=== PATIENT | female | born 1945 | race Caucasian/White ===

== ENCOUNTER 2019-09-27 06:28 | Observation (INO) | payer MEDICARE, SELFPAY ==
[2019-09-27] VITALS (16 sets, daily range): BP systolic 109–176; BP diastolic 50–95; PULSE 72–116; RESP 20–31; TEMP 36.7–37.6; O2SAT 93–97
--- NOTE | ~2019-09-27 | XR_ITS ---
EXAMINATION: XR chest 1V portable INDICATION: Chest pain and shortness of breath TECHNIQUE: Portable AP chest at 0717 hours COMPARISON: 04/13/2019 FINDINGS: The lungs are free of acute opacities. There is no pleural effusion or pneumothorax. The ca rdiomediastinal silhouette is normal. A cardiac loop recorder projects over the left lower thorax. Ca lcified pulmonary nodules are consistent with old granulomatous disease. IMPRESSION: 1. No acute cardiopulmonary abnormality. Reviewed, dictated and finalized at location A.
--- NOTE | ~2019-09-27 | XR_ITS ---
EXAMINATION: XR chest 2V DATE: 09/29/2019 13:55 INDICATION: Fever. Shortness of breath and chest pain. TECHNIQUE: Frontal and lateral views of the chest were obtained. COMPARISON: Chest single view 09/27/2019, chest CT 08/12/2017 FINDINGS: There is mild atelectasis in left lower lung zone. A calcified right lung nodule and calcif ied right hilar lymph nodes are consistent with old granulomatous disease. There is blunting of the p osterior costophrenic angles. No pneumothorax. The heart size is normal. There is an electronic impla nt in left anterior chest wall. IMPRESSION: 1. Mild atelectasis in left lower lung zone. 2. Blunting of the posterior costophrenic angles, consistent with scarring versus tiny pleural effusi ons. Reviewed, dictated and finalized at location A. IMPRESSION: 1. Mild atelectasis in left lower lung zone. 2. Blunting of the posterior costophrenic angles, consistent with scarring vers us tiny pleural effusions.
--- NOTE | 2019-09-27 06:35 | ECG_ITS ---
Measurements Intervals [place] Rate: 110 P: 87 MN: 172 QRS: 58 QRSD: 88 T: 147 QT: 343 QTc: 466 Interpretive Statements SINUS TACHYCARDIA BORDERLINE ST-T WAVE ABNORMALITY- INF/LAT LEADS BASELINE ARTIFACT- I, II, III, AVR, AVL, AVF, V4 ABNORMAL ECG Electronically Signed On 09-27-2019 8:11:07 CDT by Binh Emerson D.O.
[2019-09-27 06:50] LABS: Basophils Absolute Auto 0.1 K/mm3 (0.0-0.1); Basophils Percent Auto 0.6 % (0.2-1.2); Eosinophils Absolute Auto 0.3 K/mm3 (0-0.3); Eosinophils Percent Auto 1.6 % (0-4.4); Hematocrit 38.1 % (37.0-47.0); Hemoglobin 12.3 g/dL (12.0-15.0); Immature Granulocyte Absolute 0.09 K/mm3 (0.00-0.031); Immature Granulocyte Percent A 0.5 % (0-0.5); Lymphocytes Absolute Auto 1.23 K/mm3 (0.9-3.2); Lymphocytes Percent Auto 6.3 % (18.3-44.2); Mean Corpuscular HGB Conc 32.3 g/dl (32-36); Mean Corpuscular Hemoglobin 29.4 pg (26-34); Mean Corpuscular Volume 90.9 fl (80-100); Mean Platelet Volume 10.7 fl (7.4-10.4); Monocytes Absolute Auto 1.5 K/mm3 (0.1-0.6); Monocytes Percent Auto 7.7 % (2.6-8.5); Neutrophils Absolute Auto 16.4 K/mm3 (1.3-6.7); Neutrophils Percent Auto 83.3 % (45.5-73.1); Platelet Count Result 320 k/mm3 (150-375); Red Blood Count 4.19 M/mm3 (4.2-5.4); Red Cell Distribution Width 15.5 % (11.5-14.5); White Blood Count 19.6 K/mm3 (4.5-10.0)
[2019-09-27 07:31] LABS: Blood Urea Nitrogen 23 mg/dL (7-17); Calcium 9.2 mg/dL (8.4-10.2); Carbon Dioxide 23 mmol/L (22-30); Chloride 103 mmol/L (98-107); Estimated CRCL calculation 30 ml/min; Estimated Glomerular Filt Rate 37; Glucose 291 mg/dL (65-105); Potassium 4.3 mmol/L (3.4-5.0); Sodium 136 mmol/L (137-145)
[2019-09-27 08:32] LABS: Alveolar/Arterial O2 Gradient 46.2 mmHg; Base Excess ABG -3.1 mEq/l (+/-2.0); Fractional Inspired Oxygen 21 %; HCO3 ABG 20.9 mEq/l (22.0-26.0); Oxygen Saturation ABG 92.4 % (95.0-100.0); Oxyhemoglobin 90.8 % THb (90.0-100.0); PO2 ABG 62.8 mmHg (80.0-100.0); PO2 FiO2 Ratio Arterial Blood 2.99 %; Total Hemoglobin 12.5 g/dL (12.0-18.0); pH ABG 7.407 (7.350-7.450)
[2019-09-27 08:33] LABS: Device ROOM AIR; Site Drawn RIGHT BRACHIAL
[2019-09-27 08:46] LABS: Lactic Acid 2.4 mmol/L (0.7-2.1)
--- NOTE | 2019-09-27 08:55 | ED.SOB ---
HPI - SOB/Dyspnea General Chief Complaint: Shortness of Breath/Dyspnea Stated Complaint: sob/cp/fever Time Seen by Provider: 09/27/19 07:52 History of Present Illness HPI Narrative: Patient presents from home for shortness of breath. Started at 4 in the morning. No cough. She has had fever of 102, chills, and sweats. She has a history of cardiac valve disease. She has no nausea or vomiting. She has no swelling in the ankles, but occasional swelling in the mid abdomen. She says her eyes are always swollen. 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 She was getting injections in her eyes, but could not pay the bill and had to postpone her care. The vision in her right eye is blurry. MD elicited complaint: shortness of breath Pertinent past history: diabetes and other (Hypertension) Onset (ago): hour(s) Related Data Home Medications Medication Instructions Recorded Confirmed aspirin [Aspir-81] 81 mg PO DAILY 04/13/19 09/27/19 atorvastatin 80 mg PO DAILY 04/13/19 09/27/19 cholecalciferol (vitamin D3) 1,000 unit PO DAILY 04/13/19 09/27/19 [Vitamin D3] furosemide 40 mg PO DAILY 04/13/19 09/27/19 insulin aspart U-100 [Novolog 10 unit SUBCUT TID PRN 04/13/19 09/27/19 Flexpen U-100 Insulin] lisinopril 40 mg PO DAILY 04/13/19 09/27/19 nitroglycerin 0.4 mg SUBLINGUAL ONCE 04/13/19 09/27/19 amlodipine 5 mg tablet 5 mg PO DAILY tablet 05/13/19 09/27/19 carvedilol [Coreg] 6.25 mg PO BID 09/27/19 09/27/19 gabapentin 300 mg PO HS 09/27/19 09/27/19 metformin 500 mg PO BID 09/27/19 09/27/19 potassium chloride [Klor-Con M10] 10 meq PO DAILY 09/27/19 09/27/19 Allergies Allergy/AdvReac Type Severity Reaction Status Date / Time No Known Allergies Allergy Verified 09/27/19 06:36 Review of Systems Review of Systems: Narrative: CONSTITUTIONAL: She has fever, chills, and sweats. EYES: Denies visual changes, redness, or discharge. ENT: Denies rhinorrhea, congestion, sore throat, or otalgia. CARDIOVASCULAR: Denies chest pain, palpitations, or edema. RESPIRATORY: Denies cough , but has dyspnea. GASTROINTESTINAL: Denies abdominal pain, nausea, vomiting, or diarrhea. GENITOURINARY: Denies dysuria or hematuria. SKIN: Denies rash or itching. MUSCULOSKELETAL: Denies back pain, joint pain, or myalgia. NEUROLOGIC: Denies headache, numbness, or weakness. PSYCHIATRIC: Denies anxiety or depression. [facility] Past Medical History Medical History Anemia Due to iron deficiency and B12 deficiency Atrial fibrillation CAD (coronary artery disease) Cardiac catheterization August 2017 demonstrating no major blood vessel occlusions however high-grade stenosis of a small obtuse marginal branch that is too small to be stented and about 50% stenosis of the right posterior lateral branch but the artery with small, patent stents to RCA CHF (congestive heart failure) Echo July 2017 left ventricular systolic function lower limit of normal EF of 50-55 %, grade 1 diastolic dysfunction, hypokinetic apical inferior and apical septal segment, mild enlargement of left atrium, mild mitral valve regurgitation, mild aortic stenosis, moderate pulmonary hypertension with RVSP of 46 with mild tricuspid regurgitation CHF (congestive heart failure) Diabetes Diabetes mellitus Diabetic polyneuropathy Diabetic retinopathy associated with controlled type 2 diabetes mellitus GI bleed March 2017 requiring at least 6 units of blood transfusion with EGD and colonoscopy performed at [place]. Glaucoma Blind in the left eye. Patient denies having glaucoma in the right eye HLD (hyperlipidemia) HLD (hyperlipidemia) HTN (hypertension) HTN (hypertension) Iron deficiency Moderate pulmonary arterial systolic hypertension On echo July 2017 Myocardial infarction Vitamin B12 deficiency Surgical History Surgical History History of hysterectomy Hx of cardiac catheterization with janett
[2019-09-27 09:29] LABS: Add Urine Microscopic? YES; Appearance Urine Clear (Clear); Bilirubin Urine Negative (Negative); Blood Urine Negative (Negative); Color Urine Straw (Yellow); Glucose Urine UA 3+ mg/dL (Negative); Ketones Urine Negative (Negative); Leukocyte Esterase Ur Negative LEU/UL (Negative); Nitrate Urine Negative (Negative); Protein Urine 2+ mg/dL (Negative); RBC Urine 0-2 /hpf (0-2); Specific Grav Ur 1.011 (1.001-1.035); Squamous Epithelial Cell Urine Few /hpf (Few); Urobilinogen Urine Negative mg/dL (<2.0); WBC Urine 0-3 /hpf
[2019-09-27 09:32] LABS: NT Pro B Type Natriuretic Pept 488 PG/ML (5-100)
[2019-09-27] MEDS: SODIUM CHLORIDE 0.9% IV 1,000 ML 500 ML IV CONT (09:52)
--- NOTE | 2019-09-27 11:17 | ADMIMU ---
This patient, Juliet Canada, was admitted to IMU status, and placed in Intensive Care Unit-2 at 1100. Patient/family oriented to hospital policies and general routines including ID bracelet, bed and alarms, visiting hours, pain management, procedures, bathroom and other care routines, personal items, smoking policy, room service/diet, and visiting hours. Valuables list has been completed. Information on how to activate the Rapid Response Team has been discussed. Patient/Family are encouraged to report perceived risks to care and to ask questions if they do not understand what they are told or what they should do.
[2019-09-27 16:45] LABS: Hemoglobin A1C 8.9 % (<5.7)
[2019-09-27 16:46] LABS: Lactic Acid 1.8 mmol/L (0.7-2.1)
[2019-09-27 16:50] LABS: Alanine Aminotransferase 19 U/L (4-35); Albumin Level 4.2 g/dL (3.5-5.1); Alkaline Phosphatase 98 U/L (38-126); Aspartate Amino Transferase 22 U/L (14-36); Bilirubin,Total 0.5 mg/dL (0.2-1.3); CRP 2.9 mg/dL (<1.0); Lactate Dehydrogenase 358 U/L (313-618); Magnesium 1.8 mg/dL (1.6-2.3)
[2019-09-27 16:59] LABS: Troponin I 0.013 ng/mL (0.000-0.034)
[2019-09-27 17:14] LABS: Glucose Point of Care 298 (65-105)
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
[2019-09-27] MEDS: ACETAMINOPHEN 325 MG TABLET 650 MG PO (18:43)
[2019-09-27 19:15] LABS: Troponin I < 0.012 ng/mL (0.000-0.034)
[2019-09-27 20:05] LABS: Glucose Point of Care 254 (65-105)
[2019-09-27 22:28] LABS: Troponin I 0.019 ng/mL (0.000-0.034)
[2019-09-27] MEDS: carvediloL 6.25 MG TABLET PO (23:01)
[2019-09-27] MEDS: GABAPENTIN 300 MG CAPSULE PO (23:01)
[2019-09-27] MEDS: INSULIN DETEMIR 100 UNITS/ML 43 UNITS SUB-Q (23:03)
[2019-09-27] MEDS: SODIUM CHLORIDE 0.9% IV 1,000 ML 75 ML IV CONT (23:06)
[2019-09-28] VITALS (12 sets, daily range): BP systolic 113–179; BP diastolic 41–76; PULSE 63–85; RESP 14–32; TEMP 36.4–37.7; O2SAT 92–99
--- NOTE | 2019-09-28 | ECHO_ITS ---
Patient Info Name: Juliet Canada Age: 74 years : 1945 Gender: Female Ht: 63 in Wt: 153 lbs BSA: 1.77 m2 HR: 65 bpm BP: 122 / 46 mmHg Heart Rhythm: Sinus Rhythm Technical Quality: Good Exam Date: 09/28/2019 12:15 PM [facility]: icu 2 Patient Status: Outpatient Admit Date: 09/27/2019 Staff Ordering Physician: Imelda Saldaña PA-C [employer] Supervisor: Jessie Caban RDCS Attending Provider: Braulio Giles MD Referring Physician: Piotr THOMAS; Exam Type: CA echo doppler color flow Study Info Indications - chest pain cad Complete two-dimensional, color flow and Doppler transthoracic echocardiogram is performed. Summary 1. Left ventricular systolic function is normal, estimated at 65-70%. 2. There is mildly increased left ventricular wall thickness. 3. The left ventricular diastolic function is grade I diastolic dysfunction. 4. There is mild aortic valve stenosis with a peak velocity of 173 cm/s, mean gradient of 7 mmHg, and aortic valve area of 2.0 cm2. 5. There is mild aortic valve regurgitation. 6. There is mild mitral valve regurgitation. 7. There is mild tricuspid valve regurgitation. 8. No pulmonary hypertension, estimated pulmonary arterial systolic pressure is 18 mmHg. Left Ventricle Left ventricular chamber dimension is normal. Left ventricular systolic function is normal, estimated at 65-70%. There is mildly increased left ventricular wall thickness. The left ventricular diastolic function is grade I diastolic dysfunction. Right Ventricle Right ventricular chamber dimension is normal. Right ventricular systolic function is normal. Left Atria Left atrial chamber dimension is normal. Right Atria Right atrial chamber dimension is normal. Aortic Valve The aortic valve is not well visualized. There is mild aortic valve stenosis with a peak velocity of 173 cm/s, mean gradient of 7 mmHg, and aortic valve area of 2.0 cm2. There is mild aortic valve regurgitation. There is mild aortic valve calcification. Pulmonic Valve The pulmonic valve is not well visualized. Mitral Valve The mitral valve has normal leaflets. There is mild mitral valve regurgitation. The mitral valve annulus is mildly calcified. Tricuspid Valve The tricuspid valve leaflets are normal. There is mild tricuspid valve regurgitation. No pulmonary hypertension, estimated pulmonary arterial systolic pressure is 18 mmHg. Pericardium/Pleural The pericardium appears normal. There is no pericardial effusion. Inferior Vena Cava Normal inferior vena cava with >50% collapse upon inspiration consistent with normal right atrial pressure, 5 mmHg. Aorta The aortic root size at the sinus of Valsalva is normal. Left Ventricular Outflow Tract Name Value Normal LVOT 2D LVOT Diameter 2.0 cm LVOT Doppler LVOT Peak Gradient 5 mmHg LVOT Mean Gradient 3 mmHg LVOT VTI 26 cm LVOT VTI/AV VTI Ratio 0.6 LVOT Stroke Volume 79 ml
[2019-09-28 00:23] LABS: Glucose Point of Care 210 (65-105)
[2019-09-28 05:25] LABS: Basophils Absolute Auto 0.1 K/mm3 (0.0-0.1); Basophils Percent Auto 0.6 % (0.2-1.2); Eosinophils Absolute Auto 0.2 K/mm3 (0-0.3); Eosinophils Percent Auto 1.6 % (0-4.4); Hematocrit 31.9 % (37.0-47.0); Hemoglobin 10.4 g/dL (12.0-15.0); Immature Granulocyte Absolute 0.04 K/mm3 (0.00-0.031); Immature Granulocyte Percent A 0.3 % (0-0.5); Lymphocytes Absolute Auto 2.33 K/mm3 (0.9-3.2); Lymphocytes Percent Auto 17.3 % (18.3-44.2); Mean Corpuscular HGB Conc 32.6 g/dl (32-36); Mean Corpuscular Hemoglobin 29.2 pg (26-34); Mean Corpuscular Volume 89.6 fl (80-100); Mean Platelet Volume 10.6 fl (7.4-10.4); Monocytes Absolute Auto 2.1 K/mm3 (0.1-0.6); Monocytes Percent Auto 15.3 % (2.6-8.5); Neutrophils Absolute Auto 8.7 K/mm3 (1.3-6.7); Neutrophils Percent Auto 64.9 % (45.5-73.1); Platelet Count Result 257 k/mm3 (150-375); Red Blood Count 3.56 M/mm3 (4.2-5.4); Red Cell Distribution Width 15.7 % (11.5-14.5); White Blood Count 13.5 K/mm3 (4.5-10.0)
[2019-09-28 05:40] LABS: Alanine Aminotransferase 25 U/L (4-35); Albumin Level 3.5 g/dL (3.5-5.1); Alkaline Phosphatase 70 U/L (38-126); Aspartate Amino Transferase 29 U/L (14-36); Bilirubin,Total 0.5 mg/dL (0.2-1.3); Blood Urea Nitrogen 17 mg/dL (7-17); Calcium 8.5 mg/dL (8.4-10.2); Carbon Dioxide 25 mmol/L (22-30); Chloride 107 mmol/L (98-107); Estimated CRCL calculation 38 ml/min; Estimated Glomerular Filt Rate 49; Glucose 167 mg/dL (65-105); Magnesium 1.8 mg/dL (1.6-2.3); Potassium 3.5 mmol/L (3.4-5.0); Sodium 141 mmol/L (137-145)
[2019-09-28] MEDS: AMLODIPINE BESYLATE 5 MG TABLET PO (10:34)
[2019-09-28] MEDS: PANTOPRAZOLE 40 MG TABLET PO (10:34)
[2019-09-28] MEDS: lisinopriL 20 MG TABLET 40 MG PO (10:34)
[2019-09-28] MEDS: ATORVASTATIN 40 MG TABLET 80 MG PO (10:34)
[2019-09-28] MEDS: carvediloL 6.25 MG TABLET PO ×2 (10:35→20:27)
[2019-09-28] MEDS: CHOLECALCIFEROL 1,000 UNIT TABLET 1000 UNITS PO (10:35)
[2019-09-28] MEDS: ASPIRIN 81 MG ENTERIC TABLET PO (10:36)
[2019-09-28 11:10] LABS: SARS-CoV-2 RNA PCR Negative
[2019-09-28 12:54] LABS: Glucose Point of Care 238 (65-105)
[2019-09-28] MEDS: INSULIN ASPART (*BKC) 100 UNITS/ML SUB-Q ×2 (13:57→17:25)
--- NOTE | 2019-09-28 16:08 | PM.IMPN ---
Progress Note: A&P Assessment and Plan (1) Sepsis: Code(s): A41.9 - Sepsis, unspecified organism Status: Acute Assessment and Plan: Present on admission and supported by reported fever, tachycardia, leukocytosis, and elevated lactic acid level. Lactic acid level 2.4 on admission but normal on repeat. Blood pressure has remained stable. Appears to be recovering well. Source unclear. COVID negative. Urine clear. Blood cultures no growth to date. No fevers here. Chest x-ray clear but some physical findings to suggest pneumonia. White count trending downward. She has not received antibiotics. Repeat chest x-ray in the morning. If chest x-ray clear and blood culture remained negative after 2 days, then discharge home on no antibiotics. (2) Suspected COVID-19 virus infection: Code(s): Z20.828 - Contact with and (suspected) exposure to other viral communicable diseases Status: Acute Assessment and Plan: COVID negative. Isolation has been stopped. (3) Chest pain: Code(s): R07.9 - Chest pain, unspecified Status: Acute Assessment and Plan: EKG shows some nonspecific T-wave changes and troponins have thus far been negative. Echocardiogram showing EF of 65-70% and grade 1 diastolic dysfunction. She has mild valvular disease. Continue aspirin, Lipitor and Coreg. (4) Insulin dependent type 2 diabetes mellitus: Code(s): E11.9 - Type 2 diabetes mellitus without complications; Z79.4 - shelter (current) use of insulin Status: Acute Assessment and Plan: A1c 8.9. Glucose reviewed on 09/28/2019. Glucose running in the 200 range. Continue Levemir at night. Continue Accu-Cheks with sliding scale insulin coverage. Continue hypoglycemic protocol. (5) Chronic kidney disease, stage 3: Code(s): N18.3 - Chronic kidney disease, stage 3 (moderate) Status: Acute Assessment and Plan: Creatinine slightly higher than baseline but better today with hydration. Avoid nephrotoxic agents. (6) Congestive heart failure: Code(s): I50.9 - Heart failure, unspecified Status: Acute Assessment and Plan: Grade 1 diastolic dysfunction. Appears euvolemic. Monitor volume status closely. (7) Coronary artery disease: Code(s): I25.10 - Atherosclerotic heart disease of [place] coronary artery without angina pectoris Status: Acute Assessment and Plan: Patient with intermittent chest pain, but it seems to be related to when her fever spikes. No recurrence of fever or chest pain. Continue aspirin, statin, and beta-eldon. (8) Essential hypertension: Code(s): I10 - Essential (primary) hypertension Status: Acute Assessment and Plan: Blood pressure reviewed on 09/28/2019. Blood pressures elevated at times with mostly stable. Continue antihypertensives and monitor daily. (9) Gastroesophageal reflux: Code(s): K21.9 - Gastro-esophageal reflux disease without esophagitis Status: Acute Assessment and Plan: Stable. Continue Protonix. Subjective Date/time seen: 09/28/19 16:08 Interval history: 74-year-old female with diabetes and CKD stage 3 who presents with complaints of chest pain, fever and shortness of breath. Patient states her fever was to 102 at home. She slept well last night but feels fatigued today. Overall she is feeling much better however. She is eating well. No fever or chills today. She is up walking to the bathroom. She has
[2019-09-28 17:09] LABS: Glucose Point of Care 231 (65-105)
[2019-09-28] MEDS: GABAPENTIN 300 MG CAPSULE PO (20:28)
[2019-09-28] MEDS: INSULIN DETEMIR 100 UNITS/ML 43 UNITS SUB-Q (20:28)
[2019-09-28 20:36] LABS: Glucose Point of Care 161 (65-105)
--- NOTE | 2019-09-28 21:43 | PC.NURSE ---
This patient, Juliet Canada, was transferred to room [facility] from ICU2 on 09/28/19 at 2135. Report given to Naa Stanford. All belongings and medications sent with patient. Patient denies pain and shortness of breath upon transfer. Transferred via without issue. Ambulatory from to bed. Gait steady. Respirations easy on room air.
[2019-09-29] VITALS (8 sets, daily range): BP systolic 131–182; BP diastolic 50–76; PULSE 60–80; RESP 16–20; TEMP 36.3–37.2; O2SAT 95–98
[2019-09-29] MEDS: lisinopriL 20 MG TABLET 40 MG PO (07:55)
[2019-09-29] MEDS: CHOLECALCIFEROL 1,000 UNIT TABLET 1000 UNITS PO (07:55)
[2019-09-29] MEDS: PANTOPRAZOLE 40 MG TABLET PO (07:55)
[2019-09-29] MEDS: AMLODIPINE BESYLATE 5 MG TABLET PO (07:55)
[2019-09-29] MEDS: ASPIRIN 81 MG ENTERIC TABLET PO (07:55)
[2019-09-29] MEDS: carvediloL 6.25 MG TABLET PO ×2 (07:56→21:58)
[2019-09-29] MEDS: ATORVASTATIN 40 MG TABLET 80 MG PO (07:56)
[2019-09-29 08:03] LABS: Glucose Point of Care 103 (65-105)
--- NOTE | 2019-09-29 12:57 | WPDCDIQUERY2 ---
CDI Query Clarification Request - Sepsis has been documented - No antibiotics have been given - No infection source has been identified Please clarify if sepsis has been ruled in or ruled out. <Eunice Gray RN - Last Filed: 09/29/19 13:01>
[2019-09-29 13:00] LABS: Glucose Point of Care 182 (65-105)
--- NOTE | 2019-09-29 14:04 | PCCCNOTE ---
On 09/29/19, the student, Irina Null, provided care and completed [facility] documentation on this patient. I have reviewed the student's documentation and agree with the findings.
--- NOTE | 2019-09-29 15:07 | PM.IMPN ---
Progress Note: A&P Assessment and Plan (1) Sepsis: Code(s): A41.9 - Sepsis, unspecified organism Status: Acute Assessment and Plan: Present on admission and supported by reported fever, tachycardia, leukocytosis, and elevated lactic acid level. Lactic acid level 2.4 on admission but normal on repeat. Blood pressure has remained stable. Appears to be recovering well. Source unclear. COVID negative. Urine clear. Blood cultures no growth to date. No fevers here. Chest x-ray clear. White count trending downward. She has not received antibiotics. Repeat chest x-ray today still no infiltrate If continues to do well d/c am, SIRS and sepsis ruled out (2) Suspected COVID-19 virus infection: Code(s): Z20.828 - Contact with and (suspected) exposure to other viral communicable diseases Status: Acute Assessment and Plan: COVID negative. Isolation has been stopped. (3) Chest pain: Code(s): R07.9 - Chest pain, unspecified Status: Acute Assessment and Plan: EKG shows some nonspecific T-wave changes and troponins have thus far been negative. Echocardiogram showing EF of 65-70% and grade 1 diastolic dysfunction. She has mild valvular disease. Continue aspirin, Lipitor and Coreg. (4) Insulin dependent type 2 diabetes mellitus: Code(s): E11.9 - Type 2 diabetes mellitus without complications; Z79.4 - half-way (current) use of insulin Status: Acute Assessment and Plan: A1c 8.9. Glucose reviewed on 09/28/2019. Glucose running in the 200 range. Continue Levemir at night. Continue Accu-Cheks with sliding scale insulin coverage. Continue hypoglycemic protocol. (5) Chronic kidney disease, stage 3: Code(s): N18.3 - Chronic kidney disease, stage 3 (moderate) Status: Acute Assessment and Plan: Creatinine slightly higher than baseline but better with hydration. Avoid nephrotoxic agents. (6) Congestive heart failure: Code(s): I50.9 - Heart failure, unspecified Status: Acute Assessment and Plan: Grade 1 diastolic dysfunction. Appears euvolemic. Monitor volume status closely. (7) Coronary artery disease: Code(s): I25.10 - Atherosclerotic heart disease of [place] coronary artery without angina pectoris Status: Acute Assessment and Plan: Patient with intermittent chest pain, but it seems to be related to when her fever spikes. No recurrence of fever or chest pain. Continue aspirin, statin, and beta-eldon. (8) Essential hypertension: Code(s): I10 - Essential (primary) hypertension Status: Acute Assessment and Plan: Blood pressure reviewed on 09/28/2019. Blood pressures elevated at times with mostly stable. Continue antihypertensives and monitor daily. (9) Gastroesophageal reflux: Code(s): K21.9 - Gastro-esophageal reflux disease without esophagitis Status: Acute Assessment and Plan: Stable. Continue Protonix. Subjective Date/time seen: 09/29/19 15:07 Interval history: Date of visit, 09/28 74-year-old female with diabetes and CKD stage 3 who presents with complaints of chest pain, fever and shortness of breath. Patient states her fever was to 102 at home. She slept well last night but feels fatigued today but no more fever or localizing findings.. Overall she is feeling much better however. She is eating well. No fever or chills today. She is up walking to the bathroom. She has a cough but this is more chronic.
[2019-09-29 16:35] LABS: Glucose Point of Care 238 (65-105)
[2019-09-29] MEDS: INSULIN ASPART (*BKC) 100 UNITS/ML SUB-Q (16:35)
[2019-09-29] MEDS: INSULIN DETEMIR 100 UNITS/ML 43 UNITS SUB-Q (21:57)
[2019-09-29] MEDS: ACETAMINOPHEN 325 MG TABLET 650 MG PO (21:57)
[2019-09-29] MEDS: GABAPENTIN 300 MG CAPSULE PO (21:58)
[2019-09-29 22:19] LABS: Glucose Point of Care 230 (65-105)
[2019-09-30 02:00] VITALS: BP 139/66; PULSE 55; RESP 20; TEMP 36.1; O2SAT 98
[2019-09-30 05:48] LABS: Basophils Absolute Auto 0.1 K/mm3 (0.0-0.1); Basophils Percent Auto 1.3 % (0.2-1.2); Eosinophils Absolute Auto 0.4 K/mm3 (0-0.3); Eosinophils Percent Auto 4.9 % (0-4.4); Hematocrit 33.6 % (37.0-47.0); Hemoglobin 10.8 g/dL (12.0-15.0); Immature Granulocyte Absolute 0.03 K/mm3 (0.00-0.031); Immature Granulocyte Percent A 0.4 % (0-0.5); Lymphocytes Absolute Auto 2.15 K/mm3 (0.9-3.2); Lymphocytes Percent Auto 27.6 % (18.3-44.2); Mean Corpuscular HGB Conc 32.1 g/dl (32-36); Mean Corpuscular Hemoglobin 28.7 pg (26-34); Mean Corpuscular Volume 89.4 fl (80-100); Mean Platelet Volume 10.5 fl (7.4-10.4); Monocytes Absolute Auto 1.2 K/mm3 (0.1-0.6); Monocytes Percent Auto 15.6 % (2.6-8.5); Neutrophils Absolute Auto 3.9 K/mm3 (1.3-6.7); Neutrophils Percent Auto 50.2 % (45.5-73.1); Platelet Count Result 290 k/mm3 (150-375); Red Blood Count 3.76 M/mm3 (4.2-5.4); Red Cell Distribution Width 15.3 % (11.5-14.5); White Blood Count 7.8 K/mm3 (4.5-10.0)
[2019-09-30 06:00] VITALS: BP 135/48; PULSE 55; RESP 18; TEMP 36.4; O2SAT 96
[2019-09-30 06:05] LABS: Blood Urea Nitrogen 19 mg/dL (7-17); Calcium 8.8 mg/dL (8.4-10.2); Carbon Dioxide 27 mmol/L (22-30); Chloride 108 mmol/L (98-107); Estimated CRCL calculation 39 ml/min; Estimated Glomerular Filt Rate 49; Glucose 121 mg/dL (65-105); Potassium 3.4 mmol/L (3.4-5.0); Sodium 139 mmol/L (137-145)
[2019-09-30 07:45] LABS: Glucose Point of Care 99 (65-105)
[2019-09-30 08:21] VITALS: PULSE 60
[2019-09-30] MEDS: AMLODIPINE BESYLATE 5 MG TABLET PO (08:21)
[2019-09-30] MEDS: PANTOPRAZOLE 40 MG TABLET PO (08:21)
[2019-09-30] MEDS: carvediloL 6.25 MG TABLET PO (08:21)
[2019-09-30] MEDS: ATORVASTATIN 40 MG TABLET 80 MG PO (08:22)
[2019-09-30] MEDS: ASPIRIN 81 MG ENTERIC TABLET PO (08:22)
[2019-09-30] MEDS: CHOLECALCIFEROL 1,000 UNIT TABLET 1000 UNITS PO (08:22)
[2019-09-30] MEDS: lisinopriL 20 MG TABLET 40 MG PO (08:22)
[2019-09-30 10:00] VITALS: BP 132/55; PULSE 66; RESP 16; TEMP 36.6; O2SAT 96
[2019-09-30] MEDS: POTASSIUM CHLORIDE 20 MEQ TABLET 40 MEQ PO (10:18)
--- NOTE | 2019-10-01 17:45 | PM.DS ---
DS: Admitting Diagnosis Admitting Diagnosis Admitting Diagnosis: Sepsis, unspecified organism DS: Discharge Diagnosis Discharge Diagnosis (1) Sepsis: Code(s): A41.9 - Sepsis, unspecified organism Status: Acute Assessment and Plan: Present on admission and supported by reported fever, tachycardia, leukocytosis, and elevated lactic acid level but sepsis ruled out with negative cultures. Lactic acid level 2.4 on admission but normal on repeat. Blood pressure has remained stable. No bacterial source found. COVID negative. Urine clear. Blood cultures no growth . No fevers here. Chest x-ray clear. White count normal at 7.8 the day of discharge. She received no antibiotics. Repeat chest x-ray 09/28 still no infiltrate SIRS present and sepsis ruled out (2) Suspected COVID-19 virus infection: Code(s): Z20.828 - Contact with and (suspected) exposure to other viral communicable diseases Status: Acute Assessment and Plan: COVID negative. (3) Chest pain: Code(s): R07.9 - Chest pain, unspecified Status: Acute Assessment and Plan: EKG shows some nonspecific T-wave changes and troponins negative. Echocardiogram showing EF of 65-70% and grade 1 diastolic dysfunction with no wall motion abnormalities. She has mild valvular disease. Continue aspirin, Lipitor and Coreg. No ischemic event (4) Insulin dependent type 2 diabetes mellitus: Code(s): E11.9 - Type 2 diabetes mellitus without complications; Z79.4 - assisted (current) use of insulin Status: Acute Assessment and Plan: A1c 8.9. . FBS 121 the day of discharge Continue Levemir at night. An novel O with meals at home. (5) Chronic kidney disease, stage 3: Code(s): N18.3 - Chronic kidney disease, stage 3 (moderate) Status: Acute Assessment and Plan: Creatinine slightly higher than baseline but with hydration. 1.1 and discharge (6) Congestive heart failure: Code(s): I50.9 - Heart failure, unspecified Status: Acute Assessment and Plan: Grade 1 diastolic dysfunction. Appears euvolemic. Continue AARON-inhibitor diuretic and amlodipine discharge with Coreg. (7) Coronary artery disease: Code(s): I25.10 - Atherosclerotic heart disease of jena coronary artery without angina pectoris Status: Acute Assessment and Plan: Patient with intermittent chest pain, but it seems to be related to when her fever spikes. No recurrence of fever or chest pain. Continue aspirin, statin, and beta-eldon. (8) Essential hypertension: Code(s): I10 - Essential (primary) hypertension Status: Acute Assessment and Plan: Blood pressure 132/56 at discharge continue her calcium channel eldon beta-eldon diuretic and AARON-inhibitor. No change in her antihypertensive regime. (9) Gastroesophageal reflux: Code(s): K21.9 - Gastro-esophageal reflux disease without esophagitis Status: Acute Assessment and Plan: Stable. Continue Protonix. DS: Summary Hospital Course Hospital Course: 74-year-old white female presented with looked to be sepsis picture with tachycardia leukocytosis slightly elevated lactic acid elevated creatinine. With hydration and antipyretics fever defervesced, creatinine fell to 1.1, and she continued to have no further complaint. Cultures of blood and urine were negative with normal chest x-ray x2 Screening for COVID was negative. No antibiotics were administer
== END 2019-09-30 10:25 | disposition home or self-care (01) ==
LOC: ANHED 08:55 → ANHICU 11:31 → ANH2MED 09-30 08:49 → ANHICU 10-02 09:40
PROVIDERS: Emergency Medicine; Family Medicine; Physician Assistant; Admitting Provider Internal Medicine; Emergency Provider Emergency Medicine; PCP Emergency Medicine; Visit Provider Internal Medicine
DX: Z03.818 Encounter for observation for suspected exposure to other biological agents ruled out (principal); R65.10 Systemic inflammatory response syndrome (SIRS) of non-infectious origin without acute organ dysfunction; I13.0 Hypertensive heart and chronic kidney disease with heart failure and stage 1 through stage 4 chronic kidney disease, or unspecified chronic kidney disease; I50.30 Unspecified diastolic (congestive) heart failure; N18.3 Chronic kidney disease, stage 3 (moderate); R07.9 Chest pain, unspecified; D63.1 Anemia in chronic kidney disease; E11.319 Type 2 diabetes mellitus with unspecified diabetic retinopathy without macular edema; E11.22 Type 2 diabetes mellitus with diabetic chronic kidney disease; E11.42 Type 2 diabetes mellitus with diabetic polyneuropathy; K21.9 Gastro-esophageal reflux disease without esophagitis; H54.7 Unspecified visual loss; I25.10 Atherosclerotic heart disease of native coronary artery without angina pectoris; Z87.891 Personal history of nicotine dependence; Z95.5 Presence of coronary angioplasty implant and graft; Z79.4 Long term (current) use of insulin
CPT/HCPCS: 36415; 36600; 71045; 71046; 80048; 80053; 80076; 81001; 82728; 82805; 83036; 83605; 83615; 83735; 83880; 84443; 84484; 85025; 85380; 86140; 87040; 87635; 87804; 93005; 93306; 96360; 96361; 99285; A9270; C9803; G0378; J1815; J7030; U0003

== ENCOUNTER 2021-01-27 15:41 | Emergency (ER) | payer MEDICARE, SELFPAY ==
[2021-01-27] VITALS (23 sets, daily range): BP systolic 109–139; BP diastolic 50–83; PULSE 64–81; RESP 13–26; TEMP 36.6–36.7; O2SAT 90–97
--- NOTE | ~2021-01-27 | CT_ITS ---
EXAMINATION: CT abdomen pelvis w con DATE: 01/27/2021 17:25 INDICATION: Nausea. Diarrhea. Abdominal distention. TECHNIQUE: Computed tomography (CT) of the abdomen and pelvis was performed with 100 mL Omnipaque 350 intravenous contrast. Automated exposure control and iterative reconstruction technique were employe d. The dose-length product was 779.50 mGy-cm. COMPARISON: Chest CT 08/12/2017 FINDINGS: The visualized portions of the lung bases demonstrate mild atelectasis. Calcified right vinicius g nodules are consistent with old granulomatous disease. No pleural effusion. The heart size is angella l. There are coronary artery calcifications. No pericardial effusion. There is a small sliding hiatal hernia. The liver is normal. There is splenosis in left upper quadrant. The gallbladder is normal. P ancreas divisum is noted. There is prominent mucosa in the duodenum at the base of a diverticulum, li hallie within normal limits. The adrenal glands are normal. There is cortical thinning of the kidneys. There are vascular calcifications at the raiza of the kidneys. There is a 5 mm cyst in left kidney. Th ere is prominent fat in the inguinal canals that may be hernias. There is diverticulosis of the colon without evidence of diverticulitis. There are no dilated loops of bowel. The appendix is normal. The re are no pathologically enlarged lymph nodes. There is no free intraperitoneal fluid. There is subcu taneous fat stranding in the lower abdomen, likely inflammation. There is a benign bone island in the sacrum. There is mild thoracolumbar spondylosis. IMPRESSION: 1. Small sliding hiatal hernia. Reviewed, dictated and finalized at location A.
--- NOTE | 2021-01-27 15:47 | ECG_ITS ---
Measurements Intervals [place] Rate: 63 P: 75 MS: 161 QRS: 55 QRSD: 89 T: 108 QT: 413 QTc: 425 Interpretive Statements SINUS RHYTHM BORDERLINE ST-T WAVE ABNORMALITY- ANTEROLAT/HIGH LAT LEADS BASELINE ARTIFACT- I, II, III, AVR, AVL, AVF BORDERLINE ECG Electronically Signed On 01-27-2021 19:56:54 CDT by Binh Emerson D.O.
[2021-01-27] MEDS: ONDANSETRON INJ 4 MG/2 ML VIAL IV PUSH ×2 (16:05→17:34)
[2021-01-27] MEDS: SODIUM CHLORIDE 0.9% IV 500 ML 999 ML IV CONT ×2 (16:11→17:33)
[2021-01-27 16:31] LABS: Basophils Absolute Auto 0.1 K/mm3 (0.0-0.1); Basophils Percent Auto 1.2 % (0.2-1.2); Eosinophils Absolute Auto 0.2 K/mm3 (0-0.3); Eosinophils Percent Auto 2.3 % (0-4.4); Hematocrit 35.9 % (37.0-47.0); Hemoglobin 11.3 g/dL (12.0-15.0); Immature Granulocyte Absolute 0.03 K/mm3 (0.00-0.031); Immature Granulocyte Percent A 0.3 % (0-0.5); Lymphocytes Absolute Auto 2.38 K/mm3 (0.9-3.2); Lymphocytes Percent Auto 23.8 % (18.3-44.2); Mean Corpuscular HGB Conc 31.5 g/dl (32-36); Mean Corpuscular Hemoglobin 28.3 pg (26-34); Mean Platelet Volume 10.7 fl (7.4-10.4); Monocytes Absolute Auto 1.2 K/mm3 (0.1-0.6); Neutrophils Percent Auto 60.4 % (45.5-73.1); Platelet Count Result 345 k/mm3 (150-375); Red Blood Count 3.99 M/mm3 (4.2-5.4); Red Cell Distribution Width 16.1 % (11.5-14.5)
[2021-01-27 16:43] LABS: Alanine Aminotransferase 19 U/L (4-35); Albumin Level 4.5 g/dL (3.5-5.1); Alkaline Phosphatase 98 U/L (38-126); Anion Gap 11 mmol/L (8-16); Aspartate Amino Transferase 27 U/L (14-36); Bilirubin,Total 0.7 mg/dL (0.2-1.3); Blood Urea Nitrogen 14 mg/dL (7-17); Calcium 9.2 mg/dL (8.4-10.2); Carbon Dioxide 28 mmol/L (22-30); Chloride 105 mmol/L (98-107); Estimated CRCL calculation 32 ml/min; Estimated Glomerular Filt Rate 40; Glucose 177 mg/dL (65-110); Potassium 4.5 mmol/L (3.4-5.0); Sodium 144 mmol/L (137-145)
[2021-01-27 16:44] LABS: Lactic Acid Reflex 3.1 mmol/L (0.7-2.1)
--- NOTE | 2021-01-27 16:46 | ED.ABDPAIN ---
HPI - Abdominal Pain General Chief Complaint: Abdominal Pain Stated Complaint: Weakness, N/V Time Seen by Provider: 01/27/21 15:47 Source: patient History of Present Illness HPI narrative: Patient presents with nausea vomiting diarrhea and abdominal pain. Abdominal pain is described as a gurgly sensation, intermittent, does not radiate no clear aggravating or alleviating factors. Described as a reports she feels sick and dizzy. Persistent nausea vomiting and diarrhea for the past few days this morning had dizziness and some abdominal pain so she called the ambulance to come in for evaluation. She has not had chest pain cough congestion or fever she has not had any known sick contacts denies any recent changes in medication or recent antibiotics. She denies recent travel outside the area. Reports history of MIs and today symptoms feel very different than her prior MIs Related Data Home Medications Medication Instructions Recorded Confirmed aspirin [Aspir-81] 81 mg PO DAILY 04/13/19 09/27/19 atorvastatin 80 mg PO DAILY 04/13/19 09/27/19 cholecalciferol (vitamin D3) 1,000 unit PO DAILY 04/13/19 09/27/19 [Vitamin D3] furosemide 40 mg PO DAILY 04/13/19 09/27/19 lisinopril 40 mg PO DAILY 04/13/19 09/27/19 amlodipine 5 mg tablet 5 mg PO DAILY tablet 05/13/19 09/27/19 Allergies Allergy/AdvReac Type Severity Reaction Status Date / Time No Known Allergies Allergy Verified 01/27/21 15:52 Review of Systems Review of Systems: CONSTITUTIONAL: Denies fever, chills, or sweats. EYES: Denies visual changes, redness, or discharge. ENT: Denies rhinorrhea, congestion, sore throat, or otalgia. CARDIOVASCULAR: Denies chest pain, palpitations, or edema. RESPIRATORY: Denies cough or dyspnea. GASTROINTESTINAL: Reports abdominal pain, nausea, vomiting and diarrhea GENITOURINARY: Denies dysuria or hematuria. SKIN: Denies rash or itching. MUSCULOSKELETAL: Denies back pain, joint pain, or myalgia. NEUROLOGIC: Denies headache, numbness, dizziness, or weakness. PSYCHIATRIC: Denies anxiety or depression. 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 Chronic anemia With history of iron and vitamin B12 deficiency. Patient has a history of several blood transfusions. Chronic kidney disease, stage 3 Baseline creatinine is about 1.10. Congestive heart failure Echocardiogram on 04/14/2019 showed normal LV size, severe LVH, overall preserved LV systolic function, ejection fraction 50-55%, grade 1 diastolic dysfunction with elevated left heart filling pressures. Normal mitral valve structure, mild MR. Aortic valve appears calcific; mild aortic stenosis, calculated aortic valve area 2.0 cm2; [id number] aortic regurgitation. Mild tricuspid regurgitation, unable to assess RVSP due to inadequate TR jet velocity. Dilated IVC without respiratory collapse. Coronary artery disease With history of myocardial infarction. Cardiac catheterization August 2017 demonstrating no major blood vessel occlusions however high-grade stenosis of a small obtuse marginal branch that is too small to be stented and about 50% stenosis of the right posterior lateral branch but the artery with small, patent stents to RCA Essential hypertension Gastroesophageal reflux GI bleed March 2017 requiring at least 6 units of blood transfusion with EGD and colonoscopy performed at [facility]. Glaucoma Blind in the left eye. Hyperlipidemia Insulin dependent type 2 diabetes mellitus Complicated by diabetic retinopathy, neuropathy, and nephropathy. Moderate pulmonary arterial systolic hypertension On echo July 2017. Osteoarthritis Paroxysmal atrial fibrillation Surgical History Surgical History History of heart artery stent (~2014) To right coronary artery. Hi
[2021-01-27 16:55] LABS: Troponin I < 0.012 ng/mL (0.000-0.034)
[2021-01-27 16:58] LABS: Add Urine Microscopic? NO; Appearance Urine Clear (Clear); Bilirubin Urine Negative (Negative); Blood Urine Negative (Negative); Color Urine Straw (Yellow); Glucose Urine UA Negative (Negative); Ketones Urine Negative (Negative); Leukocyte Esterase Ur Negative LEU/UL (Negative); Nitrate Urine Negative (Negative); Protein Urine Negative (Negative); Specific Grav Ur 1.008 (1.001-1.035); Urobilinogen Urine Negative mg/dL (<2.0)
[2021-01-27 17:13] LABS: Prothrombin Time 12.9 Seconds (11.1-14.7)
--- NOTE | 2021-01-27 17:13 | PC.NURSE ---
Pt off floor in radiology
[2021-01-27 17:14] LABS: Partial Thromboplastin Time 24.7 SECONDS (22.3-36.8)
--- NOTE | 2021-01-27 17:46 | ECG_ITS ---
Measurements Intervals [place] Rate: 63 P: 75 [place]: 161 QRS: 55 QRSD: 89 T: 108 QT: 413 QTc: 425 Interpretive Statements SINUS RHYTHM BORDERLINE ST-T WAVE ABNORMALITY- ANTEROLAT/HIGH LAT LEADS BASELINE ARTIFACT- I, II, III, AVR, AVL, AVF BORDERLINE ECG Electronically Signed On 01-30-2021 10:47:36 CDT by Binh Emerson D.O.
[2021-01-27 19:29] LABS: Reflex Lactic Acid Yes or No Add Lactic
--- NOTE | 2021-01-27 20:04 | PC.NURSE ---
Called daughter with patient permission requesting ride for discharge.
== END 2021-01-27 20:45 | disposition home or self-care (01) ==
PROVIDERS: Emergency Provider Emergency Medicine; PCP Emergency Medicine
DX: R11.2 Nausea with vomiting, unspecified (principal); R19.7 Diarrhea, unspecified; R10.9 Unspecified abdominal pain; I48.0 Paroxysmal atrial fibrillation; E11.22 Type 2 diabetes mellitus with diabetic chronic kidney disease; I13.0 Hypertensive heart and chronic kidney disease with heart failure and stage 1 through stage 4 chronic kidney disease, or unspecified chronic kidney disease; N18.30 Chronic kidney disease, stage 3 unspecified; I50.9 Heart failure, unspecified; E11.319 Type 2 diabetes mellitus with unspecified diabetic retinopathy without macular edema; E11.40 Type 2 diabetes mellitus with diabetic neuropathy, unspecified; E11.21 Type 2 diabetes mellitus with diabetic nephropathy; I25.10 Atherosclerotic heart disease of native coronary artery without angina pectoris; D64.9 Anemia, unspecified; K21.9 Gastro-esophageal reflux disease without esophagitis; H40.9 Unspecified glaucoma; H54.62 Unqualified visual loss, left eye, normal vision right eye; E78.5 Hyperlipidemia, unspecified; Z95.5 Presence of coronary angioplasty implant and graft; Z87.891 Personal history of nicotine dependence; K44.9 Diaphragmatic hernia without obstruction or gangrene; E53.8 Deficiency of other specified B group vitamins; E61.1 Iron deficiency; Z90.81 Acquired absence of spleen; Z90.49 Acquired absence of other specified parts of digestive tract; Z79.4 Long term (current) use of insulin; Z79.84 Long term (current) use of oral hypoglycemic drugs; Z79.82 Long term (current) use of aspirin; R94.31 Abnormal electrocardiogram [ECG] [EKG]
CPT/HCPCS: 36415; 74177; 80053; 81003; 83605; 84484; 85025; 85610; 85730; 93005; 96361; 96374; 96375; 96376; 99284; J0131; J2405; J7040; Q9967

== ENCOUNTER 2022-02-19 00:25 | Observation (INO) | payer MEDICARE, SELFPAY ==
[2022-02-19] VITALS (11 sets, daily range): BP systolic 156–198; BP diastolic 56–82; PULSE 65–94; RESP 16–27; TEMP 36.9; O2SAT 22–97
--- NOTE | ~2022-02-19 | CT_ITS ---
EXAMINATION: CTA chest PE protocol DATE: 02/19/2022 04:27 INDICATION: Chest pain. Dyspnea. TECHNIQUE: Computed tomography angiography (CTA) of the chest was performed with 100 mL Omnipaque-350 intravenous contrast timed to evaluate the pulmonary arteries. Coronal maximum intensity projection 3D-reconstructions were created by the technologist. Automated exposure control and iterative reconst ruction technique were employed. The dose-length product was 232.94 mGy-cm. COMPARISON: Chest CT 08/12/17 FINDINGS: There is mild emphysema. There is facetal thickening in the lungs, consistent with mild pul monary edema. There is mild dependent atelectasis bilaterally. Calcified right lung nodules and calci fied right hilar and mediastinal lymph nodes are consistent with old granulomatous disease. No pleura l effusion. Cardiomegaly is noted. No pericardial effusion. There are coronary artery calcifications. There is no pulmonary embolus. There is mild thoracic spondylosis. There is a chronic compression fr acture of T3. IMPRESSION: 1. No pulmonary embolus. 2. Mild pulmonary edema. 3. Mild emphysema. 4. Cardiomegaly. Reviewed, dictated and finalized at location A. T MAKER
--- NOTE | ~2022-02-19 | XR_ITS ---
EXAMINATION: XR chest 2V DATE: 02/19/2022 01:21 INDICATION: Shortness of breath and chest pain TECHNIQUE: PA and lateral views of the chest are obtained. COMPARISON: 09/29/2019 FINDINGS: There is mild atelectasis of the lung bases. No pleural effusion or pneumothorax. The cardi omediastinal silhouette is normal. There is mild thoracic spondylosis. A cardiac monitoring device is implanted in the left anterior chest wall. IMPRESSION: 1. Mild atelectasis of the lung bases. Reviewed, dictated and finalized at location B. T WORKER
--- NOTE | 2022-02-19 00:29 | ECG_ITS ---
Measurements Intervals [place] Rate: 91 P: 101 [place]: 172 QRS: 67 QRSD: 90 T: 66 QT: 392 QTc: 483 Interpretive Statements SINUS RHYTHM BORDERLINE ST-T WAVE ABNORMALITY- ANTEROLAT/INF LEADS BASELINE ARTIFACT- II, III, V1-V2 BORDERLINE ECG COMPARED TO ECG 01/27/2021 18:03:20 NO SIGNIFICANT CHANGES Electronically Signed On 02-19-2022 7:50:16 SYSTEMS PLANNER by Binh Emerson D.O.
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
[2022-02-19 01:18] LABS: Basophils Absolute Auto 0.1 K/mm3 (0.0-0.1); Basophils Percent Auto 0.9 % (0.2-1.2); Eosinophils Absolute Auto 0.5 K/mm3 (0-0.3); Eosinophils Percent Auto 4.3 % (0-4.4); Hematocrit 27.8 % (37.0-47.0); Hemoglobin 8.1 g/dL (12.0-15.0); Immature Granulocyte Absolute 0.03 K/mm3 (0.00-0.031); Immature Granulocyte Percent A 0.3 % (0-0.5); Lymphocytes Absolute Auto 2.22 K/mm3 (0.9-3.2); Lymphocytes Percent Auto 21.2 % (18.3-44.2); Mean Corpuscular HGB Conc 29.1 g/dl (32-36); Mean Corpuscular Hemoglobin 24.7 pg (26-34); Mean Corpuscular Volume 84.8 fl (80-100); Mean Platelet Volume 10.7 fl (7.4-10.4); Monocytes Absolute Auto 1.1 K/mm3 (0.1-0.6); Monocytes Percent Auto 10.2 % (2.6-8.5); Neutrophils Absolute Auto 6.6 K/mm3 (1.3-6.7); Neutrophils Percent Auto 63.1 % (45.5-73.1); Platelet Count Result 397 k/mm3 (150-375); Red Blood Count 3.28 M/mm3 (4.2-5.4); Red Cell Distribution Width 21.8 % (11.5-14.5); White Blood Count 10.5 K/mm3 (4.5-10.0)
[2022-02-19] MEDS: FUROSEMIDE INJ 40 MG/4 ML VIAL IV PUSH (01:19)
[2022-02-19 01:35] LABS: Alanine Aminotransferase 18 U/L (6-35); Albumin Level 3.8 g/dL (3.5-5.1); Alkaline Phosphatase 109 U/L (38-126); Anion Gap 10 mmol/L (8-16); Aspartate Amino Transferase 23 U/L (14-36); Bilirubin,Total 0.8 mg/dL (0.2-1.3); Blood Urea Nitrogen 16 mg/dL (7-17); Calcium 8.2 mg/dL (8.4-10.2); Carbon Dioxide 23 mmol/L (22-30); Chloride 106 mmol/L (98-107); Estimated Glomerular Filt Rate 37; Glucose 245 mg/dL (65-110); Lipase 275 U/L (23-300); Potassium 3.7 mmol/L (3.4-5.0); Sodium 139 mmol/L (137-145)
[2022-02-19 01:38] LABS: Hypochromasia 1+ (NORMAL); Platelet Estimate Adequate (Adequate)
[2022-02-19 01:39] LABS: Schistocytes 1+ (NORMAL)
[2022-02-19 01:40] LABS: Anisocytosis 1+ (NORMAL)
[2022-02-19 02:05] LABS: Alveolar/Arterial O2 Gradient 44.1 mmHg; Base Excess ABG -1.4 mEq/l (+/-2.0); Carboxyhemoglobin 0.6 % THb (0-2.0); Fractional Inspired Oxygen 21 %; HCO3 ABG 22.9 mEq/l (22.0-26.0); Methemoglobin ABG 0.4 %THb (0-1.5); Oxygen Content ABG 11.1 %vol (16.0-22.0); Oxygen Saturation ABG 92.3 % (95.0-100.0); Oxyhemoglobin 90.1 % THb (90.0-100.0); PCO2 ABG 36.4 mmHg (35.0-45.0); PO2 FiO2 Ratio Arterial Blood 2.95 %; Reduced Hemoglobin 8.9 %THb (0-5.0); Total Hemoglobin 8.7 g/dL (12.0-18.0); pH ABG 7.416 (7.350-7.450)
[2022-02-19 02:07] LABS: Site Drawn RIGHT RADIAL
[2022-02-19 02:07] LABS: NT Pro B Type Natriuretic Pept 1480 pg/mL (5-100); Troponin I < 0.012 ng/mL (0.000-0.034)
[2022-02-19 02:08] LABS: Device ROOM AIR; Modified Allen's Test Pass
[2022-02-19 03:10] LABS: INR 1.1; Partial Thromboplastin Time 24.1 SECONDS (22.3-36.8); Prothrombin Time 13.9 Seconds (11.1-14.7)
[2022-02-19 03:23] LABS: D Dimer 2.92 ug/mL (<0.48)
[2022-02-19 04:16] LABS: Troponin I 0.013 ng/mL (0.000-0.034)
[2022-02-19 05:58] LABS: SARS-CoV-2 RNA PCR Negative
[2022-02-19] MEDS: ONDANSETRON INJ 4 MG/2 ML VIAL IV PUSH (06:07)
[2022-02-19 06:10] LABS: Glucose Point of Care 152 mg/dl (65-105)
[2022-02-19 08:55] LABS: Troponin I < 0.012 ng/mL (0.000-0.034)
--- NOTE | 2022-02-19 13:21 | PM.IMHP ---
H&P: HPI History of Present Illness Date/Time: 02/19/22 13:21 Chief Complaint: shortness of breath Narrative: Juliet Canada is a 74-year-old female with insulin-dependent diabetes complicated by retinopathy, neuropathy, and nephropathy, chronic kidney disease stage 3, chronic anemia, coronary artery disease, diastolic congestive heart failure, and hypertension who presented to the emergency department earlier this morning for evaluation of chest pain, shortness of breath, and fever. Yesterday she had a slight, nonproductive cough but was otherwise feeling in her usual state of health. She did not sleep well last night and at approximately 04:00 she began experiencing chills, sweats, shakes, and reports a fever up to 102?. She also reports midsternal chest heaviness and mild shortness of breath which tends to only occur when she is having chills and sweats. She denies recent travel and sick contacts. No exposure to those positive for COVID-19 to her knowledge. She denies sinus congestion, rhinorrhea, otalgia, and odynophagia. patient's proBNP was elevated to 1480. Her D-dimer was elevated so she had a CTA of the chest which was negative for any PE. It did show mild pulmonary edema and mild emphysema. Patient was given 1 dose of 40 mg IV Lasix in the ED along with full dose of aspirin. At the time of my examination patient is clinically back to baseline. I advised her to double her dose of Lasix at home and make it 40 mg p.o. daily. Patient is otherwise clinically stable and is being discharged home. she is on room air at this time. Review of Systems Review of Systems: CONSTITUTIONAL: Denies night sweats. EYES: No eye pain ENT: Denies rhinorrhea CARDIOVASCULAR: Denies palpitations RESPIRATORY: Denies hemoptysis GASTROINTESTINAL: Denies hematemesis GENITOURINARY: Denies hematuria. SKIN: Denies rash MUSCULOSKELETAL: Denies myalgia. NEUROLOGIC: Denies weakness. 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 Chronic anemia With history of iron and vitamin B12 deficiency. Patient has a history of several blood transfusions. Chronic kidney disease, stage 3 Baseline creatinine is about 1.10. Congestive heart failure Echocardiogram on 04/14/2019 showed normal LV size, severe LVH, overall preserved LV systolic function, ejection fraction 50-55%, grade 1 diastolic dysfunction with elevated left heart filling pressures. Normal mitral valve structure, mild MR. Aortic valve appears calcific; mild aortic stenosis, calculated aortic valve area 2.0 cm2; [id number] aortic regurgitation. Mild tricuspid regurgitation, unable to assess RVSP due to inadequate TR jet velocity. Dilated IVC without respiratory collapse. Coronary artery disease With history of myocardial infarction. Cardiac catheterization August 2017 demonstrating no major blood vessel occlusions however high-grade stenosis of a small obtuse marginal branch that is too small to be stented and about 50% stenosis of the right posterior lateral branch but the artery with small, patent stents to RCA Essential hypertension Gastroesophageal reflux GI bleed March 2017 requiring at least 6 units of blood transfusion with EGD and colonoscopy performed at [place]. Glaucoma Blind in the left eye. Hyperlipidemia Insulin dependent type 2 diabetes mellitus Complicated by diabetic retinopathy, neuropathy, and nephropathy. Moderate pulmonary arterial systolic hypertension On echo July 2017. Osteoarthritis Paroxysmal atrial fibrillation Surgical History Surgical History History of heart artery stent (~2014) To right coronary artery. History of partial hy
== END 2022-02-19 15:24 | disposition home or self-care (01) ==
LOC: ANHED 04:59 → ANH3MEDSUR 09:34
PROVIDERS: Admitting Provider Internal Medicine; Emergency Provider Emergency Medicine; PCP Emergency Medicine; Visit Provider Internal Medicine
DX: E11.22 Type 2 diabetes mellitus with diabetic chronic kidney disease (principal); I13.0 Hypertensive heart and chronic kidney disease with heart failure and stage 1 through stage 4 chronic kidney disease, or unspecified chronic kidney disease; I50.30 Unspecified diastolic (congestive) heart failure; N18.30 Chronic kidney disease, stage 3 unspecified; D64.9 Anemia, unspecified; M19.90 Unspecified osteoarthritis, unspecified site; I27.21 Secondary pulmonary arterial hypertension; I25.10 Atherosclerotic heart disease of native coronary artery without angina pectoris; Z95.5 Presence of coronary angioplasty implant and graft; K21.9 Gastro-esophageal reflux disease without esophagitis; R06.02 Shortness of breath; E78.5 Hyperlipidemia, unspecified; I48.0 Paroxysmal atrial fibrillation; J98.11 Atelectasis; Z20.822 Contact with and (suspected) exposure to COVID-19; E11.39 Type 2 diabetes mellitus with other diabetic ophthalmic complication; J43.9 Emphysema, unspecified; H42 Glaucoma in diseases classified elsewhere; J81.1 Chronic pulmonary edema; E11.319 Type 2 diabetes mellitus with unspecified diabetic retinopathy without macular edema; E11.40 Type 2 diabetes mellitus with diabetic neuropathy, unspecified; Z87.891 Personal history of nicotine dependence; Z79.4 Long term (current) use of insulin; Z79.84 Long term (current) use of oral hypoglycemic drugs; Z79.82 Long term (current) use of aspirin; Z79.899 Other long term (current) drug therapy
CPT/HCPCS: 36415; 36600; 71046; 71275; 80053; 82375; 82805; 82948; 83050; 83690; 83880; 84484; 85025; 85380; 85610; 85730; 93005; 96374; 99285; G0378; J1940; J2405; Q9967; U0003; U0005

== ENCOUNTER 2022-04-26 09:12 | Inpatient (IN) | payer MEDICARE, SELFPAY ==
[2022-04-26] VITALS (17 sets, daily range): BP systolic 140–173; BP diastolic 43–79; PULSE 66–81; RESP 18–41; TEMP 36.5–37.2; O2SAT 82–100; BMI 26.6; BMI 26.5
--- NOTE | ~2022-04-26 | XR_ITS ---
EXAMINATION: XR chest 1V portable DATE: 04/26/2022 10:19 INDICATION: Shortness of breath. Cough. TECHNIQUE: A single frontal view of the chest was obtained. COMPARISON: Chest 2 views 02/19/2022, chest CT 02/19/2022 FINDINGS: There is a diffuse interstitial pattern, consistent with mild pulmonary edema. No pleural e ffusion or pneumothorax. Cardiomegaly is noted. There is an electronic implant in left anterior chest wall. IMPRESSION: 1. Mild pulmonary edema. 2. Cardiomegaly. Reviewed, dictated and finalized at location A. ANCE TRUCK INSTALLATION MECHANIC
--- NOTE | ~2022-04-26 | XR_ITS ---
EXAMINATION: XR chest 2V DATE: 05/01/2022 10:27 INDICATION: Cough and wheezing TECHNIQUE: frontal and lateral views of the chest were obtained. COMPARISON: Chest radiograph dated 04/26/2022 FINDINGS: Subtly increased interstitial pattern at the lung bases consistent with improvement in now minimal pu lmonary edema. Small bilateral pleural effusions with blunting at costophrenic angles and posterior s ulci. New opacities at the lingula between the left heart border in the lateral chest wall which coul d represent atelectasis or pneumonia. Cardiomegaly. Ossified right hilar lymph nodes consistent with old granulomatous disease. Coronary artery stenting. Left pectoral implantable clinical research monitor. IMPRESSION: 1. Interval improvement in now minimal pulmonary edema at the lung bases. 2. Small bilateral pleural effusions. 3. New opacities in the lingula which could represent atelectasis or pneumonia. 4. Cardiomegaly. Reviewed, dictated and finalized at location A. END ENGINEER
--- NOTE | 2022-04-26 09:21 | ECG_ITS ---
Measurements Intervals [place] Rate: 79 P: 79 [place]: 151 QRS: 55 QRSD: 90 T: 81 QT: 390 QTc: 449 Interpretive Statements SINUS RHYTHM BORDERLINE ST-T WAVE ABNORMALITY- LAT/HIGH LAT LEADS BASELINE ARTIFACT- I, III, AVR, AVL, AVF, V3, V6 BORDERLINE ECG COMPARED TO ECG 02/19/2022 00:30:57 NO SIGNIFICANT CHANGES Electronically Signed On 04-26-2022 9:28:33 [employer]ATE [employer] by Binh Emerson D.O.
[2022-04-26 09:50] LABS: Glucose Point of Care 177 mg/dl (65-105)
[2022-04-26 10:05] LABS: Basophils Absolute Auto 0.1 K/mm3 (0.0-0.1); Eosinophils Percent Auto 0.4 % (0-4.4); Hematocrit 25.9 % (37.0-47.0); Hemoglobin 7.3 g/dL (12.0-15.0); Immature Granulocyte Absolute 0.03 K/mm3 (0.00-0.031); Immature Granulocyte Percent A 0.4 % (0-0.5); Lymphocytes Absolute Auto 1.49 K/mm3 (0.9-3.2); Lymphocytes Percent Auto 18.9 % (18.3-44.2); Mean Corpuscular HGB Conc 28.2 g/dl (32-36); Mean Corpuscular Hemoglobin 23.6 pg (26-34); Mean Corpuscular Volume 83.8 fl (80-100); Monocytes Absolute Auto 1.1 K/mm3 (0.1-0.6); Monocytes Percent Auto 13.3 % (2.6-8.5); Neutrophils Absolute Auto 5.2 K/mm3 (1.3-6.7); Platelet Count Result 382 k/mm3 (150-375); Red Blood Count 3.09 M/mm3 (4.2-5.4); Red Cell Distribution Width 20.2 % (11.5-14.5); White Blood Count 7.9 K/mm3 (4.5-10.0)
[2022-04-26 10:16] LABS: Alanine Aminotransferase 19 U/L (6-35); Albumin Level 4.4 g/dL (3.5-5.1); Alkaline Phosphatase 72 U/L (38-126); Anion Gap 11 mmol/L (8-16); Aspartate Amino Transferase 28 U/L (14-36); Bilirubin,Total 0.9 mg/dL (0.2-1.3); Blood Urea Nitrogen 37 mg/dL (7-17); Calcium 8.4 mg/dL (8.4-10.2); Carbon Dioxide 29 mmol/L (22-30); Chloride 101 mmol/L (98-107); Estimated CRCL calculation 17 ml/min; Estimated Glomerular Filt Rate 20; Glucose 177 mg/dL (65-110); Magnesium 1.8 mg/dL (1.6-2.3); Potassium 4.7 mmol/L (3.4-5.0); Sodium 141 mmol/L (137-145)
[2022-04-26 10:22] LABS: Platelet Estimate Increased (Adequate)
[2022-04-26 10:23] LABS: Acanthocytes 1+ (NORMAL); Anisocytosis 1+ (NORMAL); Hypochromasia 1+ (NORMAL); Ovalocytes 1+ (NORMAL)
[2022-04-26] MEDS: ALBUTEROL SULFATE NEB 2.5 MG/3 ML INH 5 MG INHALATION ×4 (10:23→12:28)
[2022-04-26] MEDS: IPRATROPIUM BR 0.02% INH SOLN 0.5 MG/2.5 ML VIAL INHALATION ×2 (10:23→20:22)
[2022-04-26 10:24] LABS: Burr Cells 1+ (NORMAL); Helmet Cells 1+ (NORMAL); Schistocytes Rare (NORMAL)
[2022-04-26 10:29] LABS: NT Pro B Type Natriuretic Pept 3260 pg/mL (19.9-100); Troponin I 0.036 ng/mL (0.000-0.034)
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
[2022-04-26 10:41] LABS: Influenza A QL RT-PCR Negative (Negative); Influenza B QL RT-PCR Negative (Negative); RSV RNA, RT-PCR Negative (Negative); SARS-CoV-2 RNA PCR Negative
[2022-04-26] MEDS: ONDANSETRON INJ 4 MG/2 ML VIAL IV PUSH (10:59)
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
[2022-04-26] MEDS: FUROSEMIDE INJ 40 MG/4 ML VIAL IV PUSH (12:34)
[2022-04-26 13:08] LABS: Appearance Urine Clear (Clear); Bilirubin Urine Negative (Negative); Blood Urine Negative (Negative); Color Urine Yellow (Yellow); Glucose Urine UA Negative (Negative); Ketones Urine Negative (Negative); Leukocyte Esterase Ur Negative LEU/UL (Negative); Nitrate Urine Negative (Negative); Protein Urine 1+ mg/dL (Negative); Urobilinogen Urine 0.2 mg/dL (<2.0); pH Urine 5.5 (5.0-9.0)
[2022-04-26 13:14] LABS: Add Urine Microscopic? NO
[2022-04-26 13:19] LABS: Mucus Urine Rare /lpf; RBC Urine 0-2 /hpf (0-2); Squamous Epithelial Cell Urine Rare /hpf (Few); WBC Urine 0-3 /hpf
--- NOTE | 2022-04-26 13:38 | PC.NURSE ---
ordered pt lunch tray.
--- NOTE | 2022-04-26 14:00 | PM.IMHP ---
H&P: HPI History of Present Illness Date/Time: 04/26/22 14:00 Chief Complaint: Shortness of breath. Narrative: This is a 77-year-old female?with insulin-dependent diabetes, chronic kidney disease stage 3, coronary artery disease, diastolic congestive heart failure, hypertension, hyperlipidemia, pulmonary embolism, and anemia who presented to the emergency department for evaluation of shortness of breath. EMS report indicates they were called out for flu-like symptoms. The patient's daughter lives with her and apparently she returned home from visiting grand children last week with upper respiratory symptoms which the patient has started to developed over the last 4 to 5 days. She reports chest congestion, a cough productive of thick, clear sputum, chest congestion, and generalized weakness. She has not had a fever but reports being a bit chilled and shaky. Appetite has been decreased but she has not had any nausea, vomiting, or diarrhea. This morning she was feeling more short of breath and she reports that her pulse oximeter had been reading anywhere between 78 to 88% today. On EMS arrival her SpO2 was 68% on room air and she is currently on 4 L with stable saturations. She was afebrile on arrival with stable blood pressures. Labs were significant for a WBC of 7.9, creatinine 2.40 (elevated from baseline), troponin 0.036, proBNP 3260. She tested negative for influenza, RSV, and COVID. Chest x-ray shows mild pulmonary edema and cardiomegaly. She is being admitted in this setting for further treatment and observation. At the time my evaluation she is feeling a bit better after receiving a nebulizer. She denies current chest discomfort but she does report occasional discomfort, almost a burning sensation, in the mid chest radiating to the neck, jaw, and shoulders as detailed below. She denies orthopnea, paroxysmal nocturnal dyspnea, and lower extremity edema. Of note the patient has had intermittent issues the past several months with occasional dizziness and nondescript discomfort in her shoulders, neck, and jaw which seem to occur without pattern. Her amlodipine was discontinued as it was thought that perhaps she was having episodes of orthostatic hypotension though unable to be documented. Blood pressures were apparently running in the low 100 systolic and improved with holding the amlodipine however now it looks like she has been running quite a bit higher, in the 140s to 150s systolic since she has been here today. In any event she had an echocardiogram done on 03/15/2022 showed normal LV systolic function and size with moderate concentric LVH, restrictive diastolic dysfunction grade 3-4, EF 64%, mild MVR, [id number] AVR, and moderate pulmonary hypertension with an estimated peak RVSP of 47 mmHg. There was 1 episode of wide complex tachycardia consistent with possible nonsustained VT in which patient was asymptomatic. She wore a 30 day event monitor thereafter which was predominantly sinus rhythm with rare supraventricular ectopy, occasional ventricular ectopy, and 8 runs of nonsustained ventricular tachycardia with the longest being 13 beats. Symptomatic events recorded per patient correlated to sinus rhythm only. Her court abstractor has since recommended and scheduled a Lexiscan stress test upcoming. Review of Systems Review of Systems: Twelve systems were reviewed and are negative except for as per HPI. 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 Chronic anemia With history of iron and vitamin B12 deficiency. Patient has a history of several blood transfusions. Chronic kidney disease, stage 3 Baseline creatinine is between 1.10 and 1.30. Congestive heart failure Echo on 03/15/2022 showed normal LV systolic function and size with moderate concentric LVH, restrictive diastolic dysfun
--- NOTE | 2022-04-26 15:40 | PC.NURSE ---
This patient, Juliet Vides, was admitted to Medical Room 255-01. Patient/family oriented to hospital policies and general routines including ID bracelet, bed and alarms, visiting hours, pain management, procedures, bathroom and other care routines, personal items, smoking policy, room service/diet, and visiting hours. Information on how to activate the Rapid Response Team has been discussed. Patient/Family are encouraged to report perceived risks to care and to ask questions if they do not understand what they are told or what they should do.
[2022-04-26 15:41] LABS: Troponin I 0.029 ng/mL (0.000-0.034)
[2022-04-26 17:18] LABS: Glucose Point of Care 169 mg/dl (65-105)
[2022-04-26 17:28] LABS: Iron 23 ug/dL (37-170)
[2022-04-26 17:42] LABS: Percent Iron Saturation 5 % (20-50)
[2022-04-26] MEDS: methylPREDNISolone SOD SUCC 125 MG VIAL IV PUSH (17:43)
[2022-04-26 18:33] LABS: Anion Gap 12 mmol/L (8-16); Blood Urea Nitrogen 38 mg/dL (7-17); Calcium 7.9 mg/dL (8.4-10.2); Carbon Dioxide 27 mmol/L (22-30); Chloride 100 mmol/L (98-107); Creatine Kinase 104 U/L (30-135); Estimated CRCL calculation 17 ml/min; Estimated Glomerular Filt Rate 23; Glucose 216 mg/dL (65-110); Potassium 4.4 mmol/L (3.4-5.0); Sodium 139 mmol/L (137-145)
[2022-04-26 18:35] LABS: CRP 0.7 mg/dL (<1.0)
[2022-04-26 18:43] LABS: Hemoglobin A1C 5.9 % (<5.7)
[2022-04-26 18:44] LABS: Troponin I 0.026 ng/mL (0.000-0.034)
[2022-04-26 19:20] LABS: Procalcitonin 0.1 ng/mL
[2022-04-26 19:22] LABS: Folic Acid 12.9 ng/mL (2.76->20)
[2022-04-26 20:04] LABS: Glucose Point of Care 230 mg/dl (65-105)
[2022-04-26] MEDS: ALBUTEROL SULFATE NEB 2.5 MG/3 ML INH INHALATION (20:21)
[2022-04-26 21:29] LABS: Hematocrit 25.3 % (37.0-47.0); Hemoglobin 7.2 g/dL (12.0-15.0)
[2022-04-26] MEDS: methylPREDNISolone SOD SUCC 40 MG VIAL IV PUSH (23:29)
[2022-04-27] VITALS (26 sets, daily range): BP systolic 134–181; BP diastolic 50–85; PULSE 67–95; RESP 16–22; TEMP 36.3–37.2; O2SAT 90–100
[2022-04-27] MEDS: ALBUTEROL SULFATE NEB 2.5 MG/3 ML INH INHALATION ×4 (01:29→21:35)
[2022-04-27] MEDS: IPRATROPIUM BR 0.02% INH SOLN 0.5 MG/2.5 ML VIAL INHALATION ×4 (01:29→21:35)
[2022-04-27] MEDS: ACETAMINOPHEN 325 MG TABLET 650 MG PO (01:45)
[2022-04-27 04:54] LABS: Basophils Percent Auto 0.2 % (0.2-1.2); Immature Granulocyte Absolute 0.07 K/mm3 (0.00-0.031); Immature Granulocyte Percent A 1.2 % (0-0.5); Lymphocytes Absolute Auto 0.66 K/mm3 (0.9-3.2); Lymphocytes Percent Auto 11.7 % (18.3-44.2); Mean Corpuscular HGB Conc 29.1 g/dl (32-36); Mean Corpuscular Hemoglobin 23.4 pg (26-34); Mean Corpuscular Volume 80.4 fl (80-100); Mean Platelet Volume 9.4 fl (7.4-10.4); Monocytes Absolute Auto 0.1 K/mm3 (0.1-0.6); Monocytes Percent Auto 1.6 % (2.6-8.5); Neutrophils Absolute Auto 4.8 K/mm3 (1.3-6.7); Neutrophils Percent Auto 85.3 % (45.5-73.1); Nucleated Red Blood Cells Perc 0.4 % (0.0-0.2); Platelet Count Result 336 k/mm3 (150-375); Red Blood Count 2.86 M/mm3 (4.2-5.4); White Blood Count 5.7 K/mm3 (4.5-10.0)
[2022-04-27 05:16] LABS: Hemoglobin 6.7 g/dL (12.0-15.0)
[2022-04-27 05:21] LABS: Platelet Estimate Adequate (Adequate)
[2022-04-27 05:22] LABS: Anisocytosis 1+ (NORMAL); Hypochromasia 2+ (NORMAL); Ovalocytes 1+ (NORMAL); Poikilocytosis 2+ (NORMAL); Schistocytes 2+ (NORMAL); Target Cells 1+ (NORMAL)
[2022-04-27 05:23] LABS: Anion Gap 7 mmol/L (8-16); Blood Urea Nitrogen 38 mg/dL (7-17); Calcium 7.7 mg/dL (8.4-10.2); Carbon Dioxide 29 mmol/L (22-30); Chloride 95 mmol/L (98-107); Estimated CRCL calculation 19 ml/min; Estimated Glomerular Filt Rate 26; Glucose 294 mg/dL (65-110); Magnesium 1.8 mg/dL (1.6-2.3); Potassium 4.4 mmol/L (3.4-5.0); Sodium 131 mmol/L (137-145)
--- NOTE | 2022-04-27 06:17 | PC.NURSE ---
Notified hospitalist transition teacher-- Dr. Chew or pt Hgb 6.7 Received order to check H/H in 6 hours from last draw. Pt has history of anemia
[2022-04-27] MEDS: methylPREDNISolone SOD SUCC 40 MG VIAL IV PUSH ×4 (07:04→23:17)
[2022-04-27 08:12] LABS: Glucose Point of Care 298 mg/dl (65-105)
[2022-04-27] MEDS: INSULIN ASPART (*BKC) 100 UNITS/ML SUB-Q ×3 (08:35→17:28)
[2022-04-27] MEDS: IRON SUCROSE COMPLEX 200 MG in SODIUM CHLORIDE 0.9% IV 50 ML 120 MG IVPB (10:37)
[2022-04-27] MEDS: ASPIRIN 81 MG ENTERIC TABLET PO (10:52)
[2022-04-27] MEDS: ATORVASTATIN 40 MG TABLET 80 MG PO (10:53)
[2022-04-27] MEDS: CHOLECALCIFEROL 1,000 UNITS TABLET 1000 UNITS PO (10:53)
[2022-04-27] MEDS: PANTOPRAZOLE 40 MG TABLET PO (10:54)
[2022-04-27] MEDS: carvediloL 6.25 MG TABLET PO ×2 (10:54→20:38)
[2022-04-27 10:58] LABS: Hematocrit 25.4 % (37.0-47.0); Hemoglobin 7.1 g/dL (12.0-15.0)
[2022-04-27] MEDS: SODIUM CHLORIDE 0.9% IV 50 ML 20 ML (11:08)
[2022-04-27 11:51] LABS: Glucose Point of Care 313 mg/dl (65-105)
--- NOTE | 2022-04-27 12:15 | PM.IMPN ---
Progress Note: A&P Assessment and Plan (1) Acute respiratory failure with hypoxia: Code(s): J96.01 - Acute respiratory failure with hypoxia Status: Acute Assessment and Plan: Likely due to a combination of factors including mild pulmonary edema noted on chest x-ray in addition to COPD exacerbation. She also likely has a viral upper respiratory infection which is contributing to COPDAE. Pulmonary embolism seems less likely by history. Continue management for COPD with bronchodilators and IV Solu-Medrol. She was given Lasix 40 mg IV x1 in the ED. She is not on home oxygen and currently requiring 2-4L to keep sats>90%. Wean oxygen as tolerated. (2) Upper respiratory infection: Qualifiers: URI type: unspecified viral URI Qualified Code(s): J06.9 - Acute upper respiratory infection, unspecified Code(s): J06.9 - Acute upper respiratory infection, unspecified Status: Acute Assessment and Plan: She received azithromycin and ceftriaxone in the ED. She denies sputum color or quantity change. So will hold further antibiotics at this time. negative for influenza A/B, RSV and COVID19. Continue COPD management and supportive care. (3) Suspected chronic obstructive pulmonary disease based on initial evaluation: Code(s): J44.9 - Chronic obstructive pulmonary disease, unspecified Status: Acute Assessment and Plan: Patient smoked 2 packs of cigarettes a day for over 50 years. Wheezing noted on physical exam suggesting underlying COPD. No prior PFT testing available for evaluation. Patient would benefit from outpatient evaluation when improved. Continue scheduled duonebs and systemic steroids. Hold antibiotics for now as she does not have sputum color or quantity changes. (4) Acute renal failure superimposed on chronic kidney disease: Qualifiers: Acute renal failure type: unspecified Chronic kidney disease stage 3 subtype: stage 3b (GFR 30-44) Code(s): N17.9 - Acute kidney failure, unspecified; N18.9 - Chronic kidney disease, unspecified Status: Acute Assessment and Plan: Precipitating etiology is not entirely clear. She reported poor oral intake the last couple of days, but noted to have pulmonary edema on chest x-ray and elevated proBNP 3260. Lasix 40 mg IV x1 in the ED. Strict I/O, daily weights, and monitor electrolytes. Avoid nephrotoxic agents. check urine creatinine and urine sodium. Hold lisinopril. Renal function interestingly improved following lasix administration (5) Elevated troponin: Code(s): R77.8 - Other specified abnormalities of plasma proteins Status: Acute Assessment and Plan: Troponin is mildly elevated but has been flat. As per HPI she is scheduled for a Lexiscan stress test in the near future. Given ongoing but intermittent chest discomfort, shortness breath, and findings of pulmonary edema cardiology was consulted for evaluation. Troponin trended down to within normal limits and likely secondary to hypoxia-related demand ischemia and/or renal dysfunction. Cardiology is not recommending intervention at his time. (6) Heart failure with preserved ejection fraction: Qualifiers: Heart failure chronicity: acute on chronic Qualified Code(s): I50.33 - Acute on chronic diastolic (congestive) heart failure Code(s): I50.30 - Unspecified diastolic (congestive) heart failure Status: Acute Assessment and Plan: Acute on chronic diastolic CHF. Chest x-ray shows cardiomegaly mild pulmonary edema. BNP is also elevated >3000. She received IV Lasix in the ED as detailed above. Give additional 20 mg IV lasix following blood transfusion. Monitor I/O and daily weights. Diurese as needed. (7) Coronary artery disease: Code(s): I25.10 - Atherosclerotic heart disease of [place] coronary artery without angina pectoris Status: Chronic Assessment and Plan: Chroni
--- NOTE | 2022-04-27 12:45 | PM.CNCAR ---
Assessment and Plan Assessment and plan (1) Upper respiratory infection: Code(s): J06.9 - Acute upper respiratory infection, unspecified Status: Acute (2) Suspected chronic obstructive pulmonary disease based on initial evaluation: Code(s): J44.9 - Chronic obstructive pulmonary disease, unspecified Status: Acute Plan This is a 77-year-old woman presenting to the hospital with 5-6 days of shortness of breath. Her by physical exam it seems to me that she is having a COPD exacerbation. I do not perceive a lot of evidence on exam of volume overload. Her laboratory data particularly her electrolytes suggest an element of dehydration which would go along with poor p.o. intake for a number of days before admission to the hospital. At this time I believe the principal efforts should be toward treating her as a COPD exacerbation. She is not in any shape to undergo nuclear stress testing at this time since she is actively wheezing say his still has significant shortness of breath and she is also significantly anemic indicating that a stress test could certainly be abnormal simply because of the significantly depressed hemoglobin level. We will follow her with you during this hospitalization but at this time I do not have a specific cardiac recommendation to make. I do not believe she would benefit from diuresis based on her examination at this time Erick Peacock MD [facility] History of Present Illness History of Present Illness Consult date/time: 04/27/22 12:45 Reason For Visit: shortness of breath Narrative: This is a 77-year-old woman I am seeing this afternoon at the request the hospitalist because of elevation of troponin and shortness of breath. The patient is unknown to me apparently she follows for a number of years with my partner, Dr. Wilkins with a history of coronary artery disease. She also has peripheral vascular disease and appears to have evidence of significant chronic lung disease. The LAD has a prior history of smoking of about 75 pack years having quit about 10 years ago. She reports to the hospital now with about 5-6 days of increasing shortness of breath. According to the record her oxygen saturation on room air at home was significantly low she was placed on oxygen supplementation and brought to the hospital for admission she was admitted yesterday. She has been treated with steroids, bronchodilators, antibiotics and diuretics. Her chest x-ray was read as some evidence of mild pulmonary edema and troponin levels were sampled. Curiously they look normal x3 sets despite the request for the consult for elevation of troponin. In addition to this the patient has significant anemia with a hemoglobin of between 6 and 7 g since admission to the hospital and also acute on chronic renal failure. When I entered the room to see her she is eating her lunch watching television with nasal cannula oxygen in place she is not in any distress but does report that her shortness of breath is improving from yesterday. He is not experiencing any acute chest pain problems. She has been seen recently by my partner in the office who has performed a 30 day event monitor because of symptoms of dizziness and lightheadedness. Apparently there were no arrhythmias discovered. She had an echocardiogram done in the office recently which demonstrated normal left ventricular systolic function with grade 3-4 diastolic noncompliance as well as some aortic and mitral valve regurgitation. Plans were made for a Lexiscan nuclear stress test next week for evaluation of her ischemic disease. Obviously that has not occurred yet. She has a history of coronary artery disease with a right coronary stent procedure that was done in the remote past by a previous top lifter elsewhere. The patient did have a follow-up angiogram done in [address] Yee of our group which apparently did not show any significant coronary stenosis other than a lesion in a sm
[2022-04-27] MEDS: SODIUM CHLORIDE 0.9% IV 250 ML 30 ML IV CONT (13:46)
[2022-04-27 17:14] LABS: Glucose Point of Care 305 mg/dl (65-105)
[2022-04-27] MEDS: FUROSEMIDE INJ 40 MG/4 ML VIAL 20 MG IV PUSH (17:31)
[2022-04-27 19:13] LABS: Hematocrit 29.5 % (37.0-47.0); Hemoglobin 8.7 g/dL (12.0-15.0)
[2022-04-27] MEDS: GABAPENTIN 300 MG CAPSULE PO (20:38)
[2022-04-27] MEDS: guaiFENesin 12 HR 600 MG TABCR PO (20:38)
[2022-04-27] MEDS: INSULIN GLARGINE (*BKC) 100 UNITS/ML 39 UNITS SUB-Q (20:39)
[2022-04-27] MEDS: PANTOPRAZOLE SODIUM IV 40 MG VIAL IV PUSH (20:39)
[2022-04-27 20:46] LABS: Glucose Point of Care 287 mg/dl (65-105)
[2022-04-28] VITALS (18 sets, daily range): BP systolic 138–175; BP diastolic 45–56; PULSE 56–96; RESP 16–20; TEMP 36.1–36.7; O2SAT 59–99
[2022-04-28] MEDS: IPRATROPIUM BR 0.02% INH SOLN 0.5 MG/2.5 ML VIAL INHALATION ×5 (00:15→21:16)
[2022-04-28] MEDS: ALBUTEROL SULFATE NEB 2.5 MG/3 ML INH INHALATION ×5 (00:15→21:16)
[2022-04-28 05:56] LABS: Sodium Urine Random 9 meq/L
[2022-04-28] MEDS: methylPREDNISolone SOD SUCC 40 MG VIAL IV PUSH ×3 (06:06→17:25)
[2022-04-28 06:08] LABS: Basophils Percent Auto 0.1 % (0.2-1.2); Hematocrit 30.2 % (37.0-47.0); Hemoglobin 8.8 g/dL (12.0-15.0); Immature Granulocyte Absolute 0.04 K/mm3 (0.00-0.031); Immature Granulocyte Percent A 0.5 % (0-0.5); Lymphocytes Absolute Auto 0.76 K/mm3 (0.9-3.2); Lymphocytes Percent Auto 9.6 % (18.3-44.2); Mean Corpuscular HGB Conc 29.1 g/dl (32-36); Mean Corpuscular Hemoglobin 24.3 pg (26-34); Mean Corpuscular Volume 83.4 fl (80-100); Mean Platelet Volume 10.4 fl (7.4-10.4); Monocytes Absolute Auto 0.4 K/mm3 (0.1-0.6); Monocytes Percent Auto 5.2 % (2.6-8.5); Neutrophils Absolute Auto 6.7 K/mm3 (1.3-6.7); Neutrophils Percent Auto 84.6 % (45.5-73.1); Nucleated Red Blood Cells Absolute Auto 0.1 K/mm3 (0.0-0.012); Nucleated Red Blood Cells Perc 0.9 % (0.0-0.2); Platelet Count Result 374 k/mm3 (150-375); Red Blood Count 3.62 M/mm3 (4.2-5.4); Red Cell Distribution Width 19.6 % (11.5-14.5); White Blood Count 7.9 K/mm3 (4.5-10.0)
[2022-04-28 06:17] LABS: Alanine Aminotransferase 20 U/L (6-35); Albumin Level 4.1 g/dL (3.5-5.1); Alkaline Phosphatase 65 U/L (38-126); Anion Gap 11 mmol/L (8-16); Aspartate Amino Transferase 24 U/L (14-36); Blood Urea Nitrogen 41 mg/dL (7-17); Calcium 8.4 mg/dL (8.4-10.2); Carbon Dioxide 27 mmol/L (22-30); Chloride 99 mmol/L (98-107); Estimated CRCL calculation 24 ml/min; Estimated Glomerular Filt Rate 29; Glucose 263 mg/dL (65-110); Potassium 4.3 mmol/L (3.4-5.0); Sodium 137 mmol/L (137-145)
[2022-04-28 07:00] LABS: Creatinine Urine 51.2 mg/dL
[2022-04-28 07:29] LABS: Anisocytosis 1+ (NORMAL); Hypochromasia 1+ (NORMAL); Platelet Estimate Adequate (Adequate)
[2022-04-28 07:30] LABS: Acanthocytes 1+ (NORMAL); Burr Cells 1+ (NORMAL); Ovalocytes 1+ (NORMAL); Schistocytes None Seen (NORMAL)
[2022-04-28 08:27] LABS: Glucose Point of Care 275 mg/dl (65-105)
[2022-04-28] MEDS: INSULIN ASPART (*BKC) 100 UNITS/ML SUB-Q ×4 (09:35→17:24)
[2022-04-28] MEDS: PANTOPRAZOLE SODIUM IV 40 MG VIAL IV PUSH ×2 (09:36→20:19)
[2022-04-28] MEDS: ATORVASTATIN 40 MG TABLET 80 MG PO (09:37)
[2022-04-28] MEDS: CHOLECALCIFEROL 1,000 UNITS TABLET 1000 UNITS PO (09:37)
[2022-04-28] MEDS: carvediloL 6.25 MG TABLET PO ×2 (09:37→20:18)
[2022-04-28] MEDS: guaiFENesin 12 HR 600 MG TABCR PO (09:37)
[2022-04-28] MEDS: DORZOLAMIDE HCL 2% OPHTH DROPS 1 DROP LEFT EYE ×3 (09:38→17:25)
[2022-04-28] MEDS: TIMOLOL MALEATE 0.5% OP SOLN 5 ML BOTTLE 1 DROP LEFT EYE ×3 (09:38→17:25)
[2022-04-28] MEDS: BRIMONIDINE TARTRATE 0.2% OP SOLN 5 ML BTL 1 DROP LEFT EYE ×3 (09:39→17:25)
[2022-04-28] MEDS: CYANOCOBALAMIN INJ 1,000 MCG/ML VIAL 1000 MCG IM (09:56)
--- NOTE | 2022-04-28 10:31 | PM.IMPN ---
Progress Note: A&P Assessment and Plan (1) Acute respiratory failure with hypoxia: Code(s): J96.01 - Acute respiratory failure with hypoxia Status: Acute Assessment and Plan: Likely due to a combination of factors including mild pulmonary edema noted on chest x-ray in addition to COPD exacerbation. She also likely has a viral upper respiratory infection which is contributing to COPDAE. Pulmonary embolism seems less likely by history. Continue management for COPD with bronchodilators and IV Solu-Medrol. She was given Lasix 40 mg IV x1 in the ED and 20 mg IV on 04/27/22 following blood transfusion. Appears euvolemic. She is not on home oxygen and currently requiring 2-4L to keep sats>90%. Wean oxygen as tolerated. (2) Upper respiratory infection: Qualifiers: URI type: unspecified viral URI Qualified Code(s): J06.9 - Acute upper respiratory infection, unspecified Code(s): J06.9 - Acute upper respiratory infection, unspecified Status: Acute Assessment and Plan: She received azithromycin and ceftriaxone in the ED. She denies sputum color or quantity change. So will hold further antibiotics at this time. negative for influenza A/B, RSV and COVID19. Continue COPD management and supportive care. (3) Suspected chronic obstructive pulmonary disease based on initial evaluation: Code(s): J44.9 - Chronic obstructive pulmonary disease, unspecified Status: Acute Assessment and Plan: Patient smoked 2 packs of cigarettes a day for over 50 years. Wheezing noted on physical exam suggesting underlying COPD. No prior PFT testing available for evaluation. Patient would benefit from outpatient evaluation when improved. Continue scheduled duonebs and systemic steroids. Hold antibiotics for now as she does not have sputum color or quantity changes. Increase mucinex 1200 mg BID. Add PEP therapy. (4) Acute renal failure superimposed on chronic kidney disease: Qualifiers: Acute renal failure type: unspecified Chronic kidney disease stage 3 subtype: stage 3b (GFR 30-44) Code(s): N17.9 - Acute kidney failure, unspecified; N18.9 - Chronic kidney disease, unspecified Status: Acute Assessment and Plan: Precipitating etiology is not entirely clear. She reported poor oral intake the last couple of days, but noted to have pulmonary edema on chest x-ray and elevated proBNP 3260. Lasix 40 mg IV x1 in the ED. Strict I/O, daily weights, and monitor electrolytes. Avoid nephrotoxic agents. urine creatinine 51.2 and urine sodium 9. FENa 0.2% suggesting pre-renal hypoperfusion. Patient does not appear edematous. Hold lisinopril. Renal function improving. May be secondary to increased volume due to blood transfusion, as well as holding NSAIDs. (5) Elevated troponin: Code(s): R77.8 - Other specified abnormalities of plasma proteins Status: Acute Assessment and Plan: Troponin is mildly elevated but has been flat. As per HPI she is scheduled for a Lexiscan stress test in the near future. Given ongoing but intermittent chest discomfort, shortness breath, and findings of pulmonary edema cardiology was consulted for evaluation. Troponin trended down to within normal limits and likely secondary to hypoxia-related demand ischemia and/or renal dysfunction. Cardiology is not recommending intervention at his time. (6) Heart failure with preserved ejection fraction: Qualifiers: Heart failure chronicity: acute on chronic Qualified Code(s): I50.33 - Acute on chronic diastolic (congestive) heart failure Code(s): I50.30 - Unspecified diastolic (congestive) heart failure Status: Acute Assessment and Plan: Acute on chronic diastolic CHF. Chest x-ray shows cardiomegaly mild pulmonary edema. BNP is also elevated >3000. She received IV Lasix in the ED as detailed above. Give additional 20 mg IV lasix following blood transfusion. Greg
[2022-04-28 11:59] LABS: Glucose Point of Care 418 mg/dl (65-105)
[2022-04-28] MEDS: INSULIN ASPART (*BKC) 100 UNITS/ML 20 UNITS SUB-Q (12:14)
--- NOTE | 2022-04-28 15:45 | WPDGICN ---
Assessment and Plan Assessment and plan (1) Acute on chronic anemia: Code(s): D64.9 - Anemia, unspecified Status: Acute Assessment and Plan: she has chronic anemia but required blood transfusion she was having more respiratory symptoms and probably flu-like symptom (work up negative though) she is agreeable to have colonoscopy and egd on saturday (2) Acute respiratory failure with hypoxia: Code(s): J96.01 - Acute respiratory failure with hypoxia Status: Acute Assessment and Plan: improved (3) Acute renal failure superimposed on chronic kidney disease: Qualifiers: Acute renal failure type: unspecified Chronic kidney disease stage 3 subtype: stage 3b (GFR 30-44) Code(s): N17.9 - Acute kidney failure, unspecified; N18.9 - Chronic kidney disease, unspecified Status: Acute Assessment and Plan: monitor this also can explain part of chronic anemia (4) Heart failure with preserved ejection fraction: Qualifiers: Heart failure chronicity: acute on chronic Qualified Code(s): I50.33 - Acute on chronic diastolic (congestive) heart failure Code(s): I50.30 - Unspecified diastolic (congestive) heart failure Status: Acute Assessment and Plan: cardiology on board (5) Upper respiratory infection: Qualifiers: URI type: unspecified viral URI Qualified Code(s): J06.9 - Acute upper respiratory infection, unspecified Code(s): J06.9 - Acute upper respiratory infection, unspecified Status: Acute (6) Suspected chronic obstructive pulmonary disease based on initial evaluation: Code(s): J44.9 - Chronic obstructive pulmonary disease, unspecified Status: Acute (7) Coronary artery disease: Code(s): I25.10 - Atherosclerotic heart disease of [place] coronary artery without angina pectoris Status: Chronic GI Consult Note Consult date/time: 04/28/22 15:45 Reason for consult: acute on chronic anemia HPI: Juliet Vides is a 77 year old female with history of insulin-dependent diabetes, chronic kidney disease stage 3, coronary artery disease, diastolic congestive heart failure, hypertension, hyperlipidemia, pulmonary embolism, and chronic anemia who presented to the emergency department for evaluation of shortness of breath and here after called EMS. She was having more shortness of breath and thought that could have flu-like symptoms for last 4-5 days with more chest congestion, productive cough and generalized weakness. Also decrease appetite. Denies overt GIB. On EMS arrival had hypoxemia and treated with oxygen. Labs were significant for a WBC of 7.9, creatinine 2.40 (elevated from baseline), troponin 0.036, proBNP 3260. She tested negative for influenza, RSV, and COVID. Chest x-ray shows mild pulmonary edema and cardiomegaly. Hb 6.7 and received 1 unit blood transfusion, better now. She had colonoscopy about 3 years ago because anemia (she says that was anemic in the past while she was on blood thinners). Review of Systems Review of Systems: CONSTITUTIONAL: reports chills. EYES: Denies visual changes, redness, or discharge. ENT: Denies rhinorrhea, congestion, sore throat, or otalgia. CARDIOVASCULAR: Denies chest pain, palpitations, or edema. RESPIRATORY: Reports cough and dyspnea for the past 3-5 days. GASTROINTESTINAL: Denies abdominal pain, nausea, vomiting, or diarrhea. GENITOURINARY: Denies dysuria or hematuria. SKIN: Denies rash or itching. MUSCULOSKELETAL: Denies back pain, joint pain, or myalgia. NEUROLOGIC: Denies headache, numbness, dizziness. PSYCHIATRIC: Denies anxiety or depression. 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 Acute on chronic anemia Chronic anemia With history of iron and vitamin B12 deficiency. Cristóbal
[2022-04-28 16:47] LABS: Glucose Point of Care 300 mg/dl (65-105)
[2022-04-28] MEDS: guaiFENesin 12 HR 600 MG TABCR 1200 MG PO (20:19)
[2022-04-28] MEDS: GABAPENTIN 300 MG CAPSULE PO (20:19)
[2022-04-28] MEDS: INSULIN GLARGINE (*BKC) 100 UNITS/ML 45 UNITS SUB-Q (20:32)
[2022-04-29] VITALS (25 sets, daily range): BP systolic 157–185; BP diastolic 45–63; PULSE 56–92; RESP 16–21; TEMP 36.2–36.6; O2SAT 91–98
[2022-04-29 00:09] LABS: Glucose Point of Care 221 mg/dl (65-105)
[2022-04-29] MEDS: methylPREDNISolone SOD SUCC 40 MG VIAL IV PUSH ×5 (00:11→23:35)
[2022-04-29] MEDS: IPRATROPIUM BR 0.02% INH SOLN 0.5 MG/2.5 ML VIAL INHALATION ×7 (00:13→23:55)
[2022-04-29] MEDS: ALBUTEROL SULFATE NEB 2.5 MG/3 ML INH INHALATION ×7 (00:13→23:55)
[2022-04-29 05:39] LABS: Basophils Percent Auto 0.1 % (0.2-1.2); Hematocrit 27.6 % (37.0-47.0); Hemoglobin 8.1 g/dL (12.0-15.0); Immature Granulocyte Absolute 0.06 K/mm3 (0.00-0.031); Immature Granulocyte Percent A 0.6 % (0-0.5); Lymphocytes Absolute Auto 0.94 K/mm3 (0.9-3.2); Lymphocytes Percent Auto 8.9 % (18.3-44.2); Mean Corpuscular HGB Conc 29.3 g/dl (32-36); Mean Corpuscular Hemoglobin 24.5 pg (26-34); Mean Corpuscular Volume 83.4 fl (80-100); Mean Platelet Volume 10.4 fl (7.4-10.4); Monocytes Absolute Auto 0.5 K/mm3 (0.1-0.6); Monocytes Percent Auto 4.8 % (2.6-8.5); Neutrophils Absolute Auto 9.1 K/mm3 (1.3-6.7); Neutrophils Percent Auto 85.6 % (45.5-73.1); Nucleated Red Blood Cells Absolute Auto 0.1 K/mm3 (0.0-0.012); Platelet Count Result 350 k/mm3 (150-375); Red Blood Count 3.31 M/mm3 (4.2-5.4); Red Cell Distribution Width 20.1 % (11.5-14.5); White Blood Count 10.6 K/mm3 (4.5-10.0)
[2022-04-29 06:00] LABS: Alanine Aminotransferase 16 U/L (6-35); Albumin Level 3.6 g/dL (3.5-5.1); Alkaline Phosphatase 62 U/L (38-126); Anion Gap 7 mmol/L (8-16); Aspartate Amino Transferase 21 U/L (14-36); Bilirubin,Total 0.8 mg/dL (0.2-1.3); Blood Urea Nitrogen 43 mg/dL (7-17); Calcium 8.4 mg/dL (8.4-10.2); Carbon Dioxide 29 mmol/L (22-30); Chloride 97 mmol/L (98-107); Estimated CRCL calculation 25 ml/min; Estimated Glomerular Filt Rate 31; Glucose 226 mg/dL (65-110); Potassium 4.2 mmol/L (3.4-5.0); Sodium 133 mmol/L (137-145)
[2022-04-29 06:28] LABS: Acanthocytes 1+ (NORMAL); Anisocytosis 1+ (NORMAL); Hypochromasia 1+ (NORMAL); Platelet Estimate Adequate (Adequate); Schistocytes Rare (NORMAL)
--- NOTE | 2022-04-29 08:11 | PM.IMPN ---
Progress Note: A&P Assessment and Plan (1) Acute respiratory failure with hypoxia: Code(s): J96.01 - Acute respiratory failure with hypoxia Status: Acute Assessment and Plan: Likely due to a combination of factors including mild pulmonary edema noted on chest x-ray in addition to COPD exacerbation. She also likely has a viral upper respiratory infection which is contributing to COPDAE. Pulmonary embolism seems less likely by history. Continue management for COPD with bronchodilators and IV Solu-Medrol. She was given Lasix 40 mg IV x1 in the ED and 20 mg IV on 04/27/22 following blood transfusion. Appears euvolemic. She is not on home oxygen and currently requiring 2-4L to keep sats>90%. Wean oxygen as tolerated. (2) Upper respiratory infection: Qualifiers: URI type: unspecified viral URI Qualified Code(s): J06.9 - Acute upper respiratory infection, unspecified Code(s): J06.9 - Acute upper respiratory infection, unspecified Status: Acute Assessment and Plan: She received azithromycin and ceftriaxone in the ED. She denies sputum color or quantity change. So will hold further antibiotics at this time. negative for influenza A/B, RSV and COVID19. Continue COPD management and supportive care. Afebrile. (3) Suspected chronic obstructive pulmonary disease based on initial evaluation: Code(s): J44.9 - Chronic obstructive pulmonary disease, unspecified Status: Acute Assessment and Plan: Patient smoked 2 packs of cigarettes a day for over 50 years. Wheezing noted on physical exam suggesting underlying COPD. No prior PFT testing available for evaluation. Patient would benefit from outpatient evaluation when improved. Continue scheduled duonebs and systemic steroids. Hold antibiotics for now as she does not have sputum color or quantity changes. mucinex 1200 mg BID. PEP therapy. (4) Acute renal failure superimposed on chronic kidney disease: Qualifiers: Acute renal failure type: unspecified Chronic kidney disease stage 3 subtype: stage 3b (GFR 30-44) Code(s): N17.9 - Acute kidney failure, unspecified; N18.9 - Chronic kidney disease, unspecified Status: Acute Assessment and Plan: Precipitating etiology is not entirely clear. She reported poor oral intake the last couple of days, but noted to have pulmonary edema on chest x-ray and elevated proBNP 3260. Lasix 40 mg IV x1 in the ED. Strict I/O, daily weights, and monitor electrolytes. Avoid nephrotoxic agents. urine creatinine 51.2 and urine sodium 9. FENa 0.2% suggesting pre-renal hypoperfusion. Patient does not appear edematous. Hold lisinopril. Renal function improving. May be secondary to increased volume due to blood transfusion, as well as holding NSAIDs. Stable. (5) Elevated troponin: Code(s): R77.8 - Other specified abnormalities of plasma proteins Status: Resolved Assessment and Plan: Troponin is mildly elevated but has been flat. As per HPI she is scheduled for a Lexiscan stress test in the near future. Given ongoing but intermittent chest discomfort, shortness breath, and findings of pulmonary edema cardiology was consulted for evaluation. Troponin trended down to within normal limits and likely secondary to hypoxia-related demand ischemia and/or renal dysfunction. Cardiology is not recommending intervention at his time. (6) Heart failure with preserved ejection fraction: Qualifiers: Heart failure chronicity: acute on chronic Qualified Code(s): I50.33 - Acute on chronic diastolic (congestive) heart failure Code(s): I50.30 - Unspecified diastolic (congestive) heart failure Status: Acute Assessment and Plan: Acute on chronic diastolic CHF. Chest x-ray shows cardiomegaly mild pulmonary edema. BNP is also elevated >3000. She received IV Lasix in the ED as detailed above. Give additional 20 mg IV lasix following blood
[2022-04-29] MEDS: ATORVASTATIN 40 MG TABLET 80 MG PO (08:22)
[2022-04-29] MEDS: carvediloL 6.25 MG TABLET PO ×2 (08:22→20:15)
[2022-04-29] MEDS: CHOLECALCIFEROL 1,000 UNITS TABLET 1000 UNITS PO (08:22)
[2022-04-29] MEDS: PANTOPRAZOLE SODIUM IV 40 MG VIAL IV PUSH ×2 (08:23→20:17)
[2022-04-29] MEDS: BRIMONIDINE TARTRATE 0.2% OP SOLN 5 ML BTL 1 DROP LEFT EYE ×3 (08:23→17:36)
[2022-04-29] MEDS: guaiFENesin 12 HR 600 MG TABCR 1200 MG PO ×2 (08:23→20:15)
[2022-04-29] MEDS: DORZOLAMIDE HCL 2% OPHTH DROPS 1 DROP LEFT EYE ×3 (08:27→17:36)
[2022-04-29] MEDS: INSULIN ASPART (*BKC) 100 UNITS/ML SUB-Q ×6 (08:32→23:40)
[2022-04-29 08:39] LABS: Glucose Point of Care 245 mg/dl (65-105)
[2022-04-29] MEDS: CYANOCOBALAMIN INJ 1,000 MCG/ML VIAL 1000 MCG IM (10:07)
[2022-04-29] MEDS: TIMOLOL MALEATE 0.5% OP SOLN 5 ML BOTTLE 1 DROP LEFT EYE ×3 (10:07→17:36)
--- NOTE | 2022-04-29 11:33 | WPDGIPROGNO ---
Progress Note: A&P Assessment and Plan (1) Acute on chronic anemia: Code(s): D64.9 - Anemia, unspecified Status: Acute Assessment and Plan: last time had scopes years ago in setting of anemia with blood thinner she required blood transfusion this time she is agreeable to egd and colonoscopy to assess if gi blood loss monitor h/h (2) Acute respiratory failure with hypoxia: Code(s): J96.01 - Acute respiratory failure with hypoxia Status: Acute Assessment and Plan: by primary (3) Suspected chronic obstructive pulmonary disease based on initial evaluation: Code(s): J44.9 - Chronic obstructive pulmonary disease, unspecified Status: Acute (4) Heart failure with preserved ejection fraction: Qualifiers: Heart failure chronicity: acute on chronic Qualified Code(s): I50.33 - Acute on chronic diastolic (congestive) heart failure Code(s): I50.30 - Unspecified diastolic (congestive) heart failure Status: Acute Subjective Date/time seen: 04/29/22 11:33 Interval history: less respiratory discomfort but still some wheezing, denies overt gib Review of Systems Review of Systems: All systems reviewed & are unremarkable except as noted in HPI and below Exam Const: General: comfortable Other: Chronically ill-appearing HENMT: Mouth: Yes dry mucous membranes Eyes: Sclera: sclerae normal Pupils: Equal, round and reactive pupils present Neck: Neck: supple and no JVD Resp: Auscultation: wheezes Cardio: Rate: regular rate Rhythm: regular rhythm GI: GI Palp: Yes Soft to palpation, No Tenderness to palpation present (GI) and No Guarding due to palpation present (GI) Auscultation: normal bowel sounds Skin: General skin exam: normal color Neuro: Speech: normal speech Other: Alert and oriented x3 Extrem: General: normal to inspection Psych: Affect: normal affect Objective Data Vital Signs Vital Signs: Vital Signs - 24 hr 04/28/22 12:00 04/28/22 13:30 04/28/22 13:31 Temperature 98.1 F Pulse Rate 60 67 67 Respiratory Rate 18 18 Blood Pressure 143/53 H Pulse Oximetry 97 Oxygen Delivery Oxygen Flow Rate 04/28/22 13:53 04/28/22 16:10 04/28/22 16:00 Temperature Pulse Rate 69 56 L Respiratory Rate 18 Blood Pressure Pulse Oximetry Oxygen Delivery Nasal Cannula Oxygen Flow Rate 2 04/28/22 18:00 04/28/22 20:18 04/28/22 21:06 Temperature 97.4 F L Pulse Rate 96 65 72 Respiratory Rate 18 18 Blood Pressure 143/46 H Pulse Oximetry 59 L Oxygen Delivery Oxygen Flow Rate 04/28/22 21:15 04/28/22 22:17 04/28/22 20:13 Temperature 97.0 F L Pulse Rate 79 65 Respiratory Rate 18 18 Blood Pressure 152/56 H Pulse Oximetry 97 97 Oxygen Delivery Nasal Cannula Oxygen Flow Rate 2 04/29/22 00:15 04/29/22 00:16 04/28/22 20:04 Temperature Pulse Rate 70 63 Respiratory Rate 18 Blood Pressure Pulse Oximetry 91 Oxygen Delivery Nasal Cannula Oxygen Flow Rate 2 04/29/22 00:02 04/29/22 04:04 04/29/22 00:45 Temperature 97.2 F L Pulse Rate 58 L 60 62 Respiratory Rate 18 Blood Pressure 170/45 H Pulse Oximetry 97 Oxygen Delivery Oxygen Flow Rate 04/29/22 05:00 04/29/22 05:10 04/29/22 06:00 Temperature 97.4 F L Pulse Rate 69 78 56 L Respiratory Rate 21 H 19 18 Blood Pressure 162/54 H Pulse Oximetry 95 Oxygen Delivery Oxygen Flow Rate 04/29/22 08:22 04/29/22 08:00 04/29/22 08:00 Temperature Pulse Rate 66 56 L Respiratory Rate Blood Pressure Pulse Oximetry 93 Oxygen Delivery Nasal Cannula Oxygen Flow Rate 2 04/29/22 09:00 04/29/22 09:00 04/29/22 09:09 Temperature Pulse Rate 65 65 74 Respiratory Rate 20 20 Blood Pressure Pulse Oximetry 95 Oxygen Delivery Nasal Cannula Oxygen Flow Rate 2 04/29/22 10:00 Temperature 97.3 F L Pulse Rate 59 L Respiratory Rate 20 Blood Pressure 163/53
[2022-04-29 11:59] LABS: Glucose Point of Care 203 mg/dl (65-105)
--- NOTE | 2022-04-29 13:52 | PCPTNOTE ---
Patient refused treatment this session. She stated that she has been up and down all day and just laid down. She is going to start getting prepped for a GI procedure that she will be having. Will continue per PT plan of care.
[2022-04-29] MEDS: BISACODYL 5 MG TABLET EC 20 MG PO (15:59)
[2022-04-29] MEDS: polyethylene glycoL 3350 238 GM BOTTLE PO (16:31)
[2022-04-29 17:21] LABS: Glucose Point of Care 253 mg/dl (65-105)
[2022-04-29] MEDS: hydrALAZINE HCL 20 MG/ML VIAL 10 MG IV PUSH (18:51)
[2022-04-29] MEDS: GABAPENTIN 300 MG CAPSULE PO (20:14)
[2022-04-29 23:22] LABS: Glucose Point of Care 381 mg/dl (65-105)
[2022-04-29] MEDS: INSULIN GLARGINE (*BKC) 100 UNITS/ML 20 UNITS SUB-Q (23:36)
[2022-04-30] VITALS (30 sets, daily range): BP systolic 132–182; BP diastolic 48–78; PULSE 57–91; RESP 16–26; TEMP 36.1–36.8; O2SAT 92–98
[2022-04-30] MEDS: ALBUTEROL SULFATE NEB 2.5 MG/3 ML INH INHALATION ×4 (04:15→21:22)
[2022-04-30] MEDS: IPRATROPIUM BR 0.02% INH SOLN 0.5 MG/2.5 ML VIAL INHALATION ×4 (04:15→21:22)
[2022-04-30 05:15] LABS: Basophils Percent Auto 0.2 % (0.2-1.2); Hematocrit 29.9 % (37.0-47.0); Hemoglobin 8.7 g/dL (12.0-15.0); Immature Granulocyte Absolute 0.06 K/mm3 (0.00-0.031); Immature Granulocyte Percent A 0.5 % (0-0.5); Lymphocytes Absolute Auto 0.75 K/mm3 (0.9-3.2); Lymphocytes Percent Auto 6.4 % (18.3-44.2); Mean Corpuscular HGB Conc 29.1 g/dl (32-36); Mean Corpuscular Hemoglobin 23.9 pg (26-34); Mean Corpuscular Volume 82.1 fl (80-100); Mean Platelet Volume 10.5 fl (7.4-10.4); Monocytes Absolute Auto 0.9 K/mm3 (0.1-0.6); Neutrophils Absolute Auto 9.9 K/mm3 (1.3-6.7); Neutrophils Percent Auto 84.9 % (45.5-73.1); Nucleated Red Blood Cells Absolute Auto 0.1 K/mm3 (0.0-0.012); Nucleated Red Blood Cells Perc 0.7 % (0.0-0.2); Platelet Count Result 367 k/mm3 (150-375); Red Blood Count 3.64 M/mm3 (4.2-5.4); Red Cell Distribution Width 20.5 % (11.5-14.5); White Blood Count 11.7 K/mm3 (4.5-10.0)
[2022-04-30 05:22] LABS: Alanine Aminotransferase 21 U/L (6-35); Albumin Level 3.7 g/dL (3.5-5.1); Alkaline Phosphatase 61 U/L (38-126); Anion Gap 4 mmol/L (8-16); Aspartate Amino Transferase 23 U/L (14-36); Bilirubin,Total 0.9 mg/dL (0.2-1.3); Blood Urea Nitrogen 37 mg/dL (7-17); Calcium 8.5 mg/dL (8.4-10.2); Carbon Dioxide 31 mmol/L (22-30); Chloride 99 mmol/L (98-107); Estimated CRCL calculation 29 ml/min; Estimated Glomerular Filt Rate 37; Glucose 210 mg/dL (65-110); Potassium 3.9 mmol/L (3.4-5.0); Sodium 134 mmol/L (137-145)
[2022-04-30 05:25] LABS: INR 1.2; Prothrombin Time 14.8 Seconds (11.1-14.7)
[2022-04-30 05:56] LABS: Anisocytosis 2+ (NORMAL); Hypochromasia 1+ (NORMAL); Platelet Estimate Adequate (Adequate); Poikilocytosis 2+ (NORMAL)
[2022-04-30 05:57] LABS: Schistocytes 1+ (NORMAL)
[2022-04-30 05:58] LABS: Acanthocytes 1+ (NORMAL)
[2022-04-30] MEDS: methylPREDNISolone SOD SUCC 40 MG VIAL IV PUSH ×3 (06:11→17:17)
[2022-04-30 06:17] LABS: Glucose Point of Care 227 mg/dl (65-105)
[2022-04-30] MEDS: INSULIN ASPART (*BKC) 100 UNITS/ML SUB-Q (06:22)
--- NOTE | 2022-04-30 09:03 | PM.IMPN ---
Progress Note: A&P Assessment and Plan (1) Acute respiratory failure with hypoxia: Code(s): J96.01 - Acute respiratory failure with hypoxia Status: Acute Assessment and Plan: Likely due to a combination of factors including mild pulmonary edema noted on chest x-ray in addition to COPD exacerbation. She also likely has a viral upper respiratory infection which is contributing to COPDAE. Pulmonary embolism seems less likely by history. Continue management for COPD with bronchodilators and IV Solu-Medrol. She was given Lasix 40 mg IV x1 in the ED and 20 mg IV on 04/27/22 following blood transfusion. Appears euvolemic. She is not on home oxygen and currently requiring 2L to keep sats>90%. Wean oxygen as tolerated. She will need apnea link monitor and home oxygen evaluation prior to discharge. (2) Upper respiratory infection: Qualifiers: URI type: unspecified viral URI Qualified Code(s): J06.9 - Acute upper respiratory infection, unspecified Code(s): J06.9 - Acute upper respiratory infection, unspecified Status: Acute Assessment and Plan: She received azithromycin and ceftriaxone in the ED. She denies sputum color or quantity change. So will hold further antibiotics at this time. negative for influenza A/B, RSV and COVID19. Continue COPD management and supportive care. Afebrile. (3) Suspected chronic obstructive pulmonary disease based on initial evaluation: Code(s): J44.9 - Chronic obstructive pulmonary disease, unspecified Status: Acute Assessment and Plan: Patient smoked 2 packs of cigarettes a day for over 50 years. Wheezing noted on physical exam suggesting underlying COPD. No prior PFT testing available for evaluation. Patient would benefit from outpatient evaluation when improved. Continue scheduled duonebs and systemic steroids. Hold antibiotics for now as she does not have sputum color or quantity changes. mucinex 1200 mg BID. PEP therapy. She continues to have wheezing and course lung sounds. Repeat COVID19, RSV and Influenza A/B WBC 11.7, will trial empiric antibiotics given that she appears to have plateau. QTc 448 on EKG. Avoid other QT prolonging agents and continue to monitor telemetry. Monitor glucose on levofloxacin and insulin. (4) Acute renal failure superimposed on chronic kidney disease: Qualifiers: Acute renal failure type: unspecified Chronic kidney disease stage 3 subtype: stage 3b (GFR 30-44) Code(s): N17.9 - Acute kidney failure, unspecified; N18.9 - Chronic kidney disease, unspecified Status: Acute Assessment and Plan: Precipitating etiology is not entirely clear. She reported poor oral intake the last couple of days, but noted to have pulmonary edema on chest x-ray and elevated proBNP 3260. Lasix 40 mg IV x1 in the ED. Likely secondary to hypovolemia and NSAID use. Strict I/O, daily weights, and monitor electrolytes. Avoid nephrotoxic agents. urine creatinine 51.2 and urine sodium 9. FENa 0.2% suggesting pre-renal hypoperfusion. Patient does not appear edematous. Held lisinopril on admission due to BARRY Renal function near baseline, will renew lisinopril today (04/30/22) given hypertension. (5) Elevated troponin: Code(s): R77.8 - Other specified abnormalities of plasma proteins Status: Resolved Assessment and Plan: Troponin is mildly elevated but has been flat. As per HPI she is scheduled for a Lexiscan stress test in the near future. Given ongoing but intermittent chest discomfort, shortness breath, and findings of pulmonary edema cardiology was consulted for evaluation. Troponin trended down to within normal limits and likely secondary to hypoxia-related demand ischemia and/or renal dysfunction. Cardiology is not recommending intervention at his time. (6) Heart failure with preserved ejection fraction: Qualifiers: Heart failure chronicity: acute on chronic Qualified
[2022-04-30] MEDS: PANTOPRAZOLE SODIUM IV 40 MG VIAL IV PUSH ×2 (09:36→20:10)
[2022-04-30] MEDS: ATORVASTATIN 40 MG TABLET 80 MG PO (09:36)
[2022-04-30] MEDS: CYANOCOBALAMIN INJ 1,000 MCG/ML VIAL 1000 MCG IM (09:36)
[2022-04-30] MEDS: CHOLECALCIFEROL 1,000 UNITS TABLET 1000 UNITS PO (09:36)
[2022-04-30] MEDS: carvediloL 6.25 MG TABLET PO ×2 (09:36→20:10)
[2022-04-30] MEDS: guaiFENesin 12 HR 600 MG TABCR 1200 MG PO ×2 (09:36→20:10)
[2022-04-30] MEDS: BRIMONIDINE TARTRATE 0.2% OP SOLN 5 ML BTL 1 DROP LEFT EYE ×3 (09:38→17:17)
[2022-04-30] MEDS: TIMOLOL MALEATE 0.5% OP SOLN 5 ML BOTTLE 1 DROP LEFT EYE ×3 (09:39→17:17)
[2022-04-30] MEDS: DORZOLAMIDE HCL 2% OPHTH DROPS 1 DROP LEFT EYE ×3 (09:39→17:17)
[2022-04-30] MEDS: hydrALAZINE HCL 20 MG/ML VIAL 10 MG IV PUSH (09:53)
--- NOTE | 2022-04-30 10:00 | PC.NURSE ---
To GI lab per wheelchair.
[2022-04-30 12:10] LABS: Glucose Point of Care 188 mg/dl (65-105)
[2022-04-30] MEDS: LACTATED RINGERS 1,000 ML 150 ML IV CONT (12:27)
--- NOTE | 2022-04-30 12:42 | WPDANESEPPF ---
Anes - Initial Pre Proc Eval Procedure: Operation Date: 04/30/22 14:30 Proposed Procedures p Esophagogastroduodenoscopy & Colonoscopy - Hardik Whalen MD Date/Time: 04/30/22 12:42 Surgeon: Vicente Seaman MD Pre Op Diagnosis: shortness of breath Patient Data Age: 77 Gender: F Height: 1.6 m Weight: 71.1 kg Last Vital Signs Temp 98.2 F 04/30/22 12:22 Pulse 69 04/30/22 12:22 Resp 18 04/30/22 12:22 BP 168/62 H 04/30/22 12:22 Pulse Ox 96 04/30/22 12:22 O2 Del Method Nasal Cannula 04/30/22 12:22 O2 Flow Rate 2 04/30/22 12:22 Allergies Allergy/AdvReac Type Severity Reaction Status Date / Time No Known Allergies Allergy Verified 04/30/22 12:18 Home Medications Medication Instructions Recorded Confirmed Type aspirin 81 mg tablet,delayed 81 mg PO DAILY 04/13/19 04/26/22 History release (Aspir-) atorvastatin 80 mg tablet 80 mg PO DAILY 04/13/19 04/26/22 History cholecalciferol (vitamin D3) 25 1,000 unit PO DAILY 04/13/19 04/26/22 History mcg (1,000 unit) tablet (Vitamin D3) lisinopril 40 mg tablet 20 mg PO DAILY 04/13/19 04/26/22 History nitroglycerin 0.4 mg sublingual 0.4 mg sublingual ONCE #30 tabs 12/02/19 04/26/22 Rx tablet blood sugar diagnostic #300 ea 08/07/21 04/26/22 Rx insulin aspart U-100 100 unit/mL 10 unit (0.1 mL) subcut TID PRN 10/03/21 04/26/22 Rx (3 mL) subcutaneous pen (Novolog Hyperglycemia #30 mL FlexPen U-100 Insulin aspart) meclizine 25 mg tablet 25 mg PO TID PRN dizziness or 10/24/21 04/26/22 Rx vertigo #30 tabs pantoprazole 40 mg tablet,delayed 40 mg PO DAILY #90 tabs 01/01/22 04/26/22 Rx release gabapentin 300 mg capsule See Rx Instructions .Route 01/09/22 04/26/22 Rx .COMPLEX #90 caps furosemide 20 mg tablet 40 mg DAILY 02/19/22 04/26/22 History metformin 500 mg tablet See Rx Instructions .Route 03/26/22 04/26/22 Rx .COMPLEX #180 tabs insulin detemir U-100 100 unit/mL See Rx Instructions .Route 04/20/22 04/26/22 Rx (3 mL) subcutaneous pen (Levemir .COMPLEX #45 mL FlexTouch U-100 Insulin) pen needle, diabetic 31 gauge x #400 ea 04/20/22 04/26/22 Rx 5/16 (BD Ultra-Fine Short Pen Needle) carvedilol 25 mg tablet 6.25 mg BID 04/26/22 04/26/22 History potassium chloride 10 mEq 10 meq PO BID 04/26/22 04/26/22 History tablet,extended release brimonidine 0.2 % eye drops 1 drp TID 04/27/22 04/27/22 History dorzolamide 2 % eye drops 1 drp TID 04/27/22 04/27/22 History timolol maleate 0.5 % eye drops 1 drp TID 04/27/22 04/27/22 History Laboratory Tests 04/29/22 04/29/22 04/30/22 17:06 23:15 04:45 WBC 11.7 K/mm3 H K/mm3 (4.5-10.0) RBC 3.64 M/mm3 L M/mm3 (4.2-5.4) Hgb 8.7 g/dL L g/dL (12.0-15.0) Hct 29.9 % L % (37.0-47.0) MCV 82.1 fl fl (80-100) MCH 23.9 pg L pg (26-34) MCHC 29.1 g/dl L g/dl (32-36) RDW 20.5 % H % (11.5-14.5) Plt Count 367 k/mm3 k/mm3 (150-375) MPV 10.5 fl H fl (7.4-10.4) Immature Gran % (Auto) 0.5 % % (0-0.5) Neut % (Auto) 84.9 % H % (45.5-73.1) Lymph % (Auto) 6.4 % L % (18.3-44.2) [place] % (Auto) 8.0 % % (2.6-8.5) Eos % (Auto) 0.0 % % (0-4.4) Baso % (Auto) 0.2 % % (0.2-1.2) Lymph # (Auto) 0.75 K/mm3 L K/mm3 (0.9-3.2) [place] # (Auto) 0.9 K/mm3 H K/mm3 (0.1-0.6) Eos # (Auto) 0.0 K/mm3 K/mm3 (0-0.3) Baso # (Auto) 0.0 K/mm3 K/mm3 (0.0-0.1) Abs Immat Gran (auto) 0.06 K/mm3 H K/mm3 (0.00-0.031) Absolute Neuts (auto) 9.9 K/mm3 H K/mm3 (1.3-6.7) Absolute Nucleated RBC 0.1 K/mm3 H K/mm3 (0.0-0.012) Nucleated RBC % 0.7 % H % (0.0-0.2) Platelet Estimate Adequate (Adequate) Hypochromasia 1+ (NORMAL) Poikilocytosis 2+ (NORMAL) Anisocytosis 2+ (NORMAL) Acant
--- NOTE | 2022-04-30 12:48 | SUR.OPER ---
EGD start 1247 end 1255, Colonoscopy start 1309 end 1323
--- NOTE | 2022-04-30 12:53 | PCOTNOTE ---
Pt is off floor for medical procedure. Will continue per POC duration/frequency tomorrow.
[2022-04-30 13:43] LABS: Glucose Point of Care 193 mg/dl (65-105)
[2022-04-30] MEDS: POTASSIUM CHLORIDE 20 MEQ TABLET.ER PO (14:32)
[2022-04-30] MEDS: levoFLOXacin 750 MG TABLET PO (14:32)
[2022-04-30 15:40] LABS: Influenza A QL RT-PCR Negative (Negative); Influenza B QL RT-PCR Negative (Negative); RSV RNA, RT-PCR Negative (Negative); SARS-CoV-2 RNA PCR Negative
[2022-04-30 16:54] LABS: Glucose Point of Care 187 mg/dl (65-105)
[2022-04-30] MEDS: INSULIN ASPART (*BKC) 100 UNITS/ML 8 UNITS SUB-Q (17:18)
[2022-04-30] MEDS: GABAPENTIN 300 MG CAPSULE PO (20:10)
[2022-05-01] VITALS (25 sets, daily range): BP systolic 148–188; BP diastolic 51–65; PULSE 61–97; RESP 16–20; TEMP 36.3–37.4; O2SAT 93–97
[2022-05-01] MEDS: hydrALAZINE HCL 20 MG/ML VIAL 10 MG IV PUSH (00:03)
[2022-05-01] MEDS: methylPREDNISolone SOD SUCC 40 MG VIAL IV PUSH ×4 (00:03→17:45)
[2022-05-01 00:18] LABS: Glucose Point of Care 205 mg/dl (65-105)
[2022-05-01] MEDS: IPRATROPIUM BR 0.02% INH SOLN 0.5 MG/2.5 ML VIAL INHALATION ×6 (00:45→20:54)
[2022-05-01] MEDS: ALBUTEROL SULFATE NEB 2.5 MG/3 ML INH INHALATION ×6 (00:45→20:54)
[2022-05-01 06:00] LABS: Anion Gap 4 mmol/L (8-16); Blood Urea Nitrogen 35 mg/dL (7-17); Calcium 8.8 mg/dL (8.4-10.2); Carbon Dioxide 30 mmol/L (22-30); Chloride 102 mmol/L (98-107); Estimated CRCL calculation 34 ml/min; Estimated Glomerular Filt Rate 44; Glucose 233 mg/dL (65-110); Magnesium 2.4 mg/dL (1.6-2.3); Potassium 4.9 mmol/L (3.4-5.0); Sodium 136 mmol/L (137-145)
[2022-05-01 07:57] LABS: Basophils Percent Auto 0.2 % (0.2-1.2); Hematocrit 32.5 % (37.0-47.0); Hemoglobin 9.5 g/dL (12.0-15.0); Immature Granulocyte Absolute 0.09 K/mm3 (0.00-0.031); Immature Granulocyte Percent A 0.8 % (0-0.5); Lymphocytes Absolute Auto 0.79 K/mm3 (0.9-3.2); Lymphocytes Percent Auto 6.8 % (18.3-44.2); Mean Corpuscular HGB Conc 29.2 g/dl (32-36); Mean Corpuscular Hemoglobin 24.9 pg (26-34); Mean Corpuscular Volume 85.3 fl (80-100); Mean Platelet Volume 11.3 fl (7.4-10.4); Monocytes Absolute Auto 0.8 K/mm3 (0.1-0.6); Monocytes Percent Auto 6.5 % (2.6-8.5); Neutrophils Percent Auto 85.7 % (45.5-73.1); Nucleated Red Blood Cells Absolute Auto 0.1 K/mm3 (0.0-0.012); Nucleated Red Blood Cells Perc 0.4 % (0.0-0.2); Platelet Count Result 352 k/mm3 (150-375); Red Blood Count 3.81 M/mm3 (4.2-5.4); White Blood Count 11.6 K/mm3 (4.5-10.0)
[2022-05-01 08:17] LABS: Acanthocytes 1+ (NORMAL); Anisocytosis 1+ (NORMAL); Burr Cells 1+ (NORMAL); Hypochromasia 1+ (NORMAL); Ovalocytes 1+ (NORMAL); Platelet Estimate Adequate (Adequate)
[2022-05-01 08:18] LABS: Schistocytes Rare (NORMAL)
[2022-05-01 08:38] LABS: Glucose Point of Care 264 mg/dl (65-105)
--- NOTE | 2022-05-01 08:56 | P.PNIM_ITS ---
Progress Note: A&P Assessment and Plan (1) Acute respiratory failure with hypoxia: Code(s): J96.01 - Acute respiratory failure with hypoxia Status: Acute Assessment and Plan: Likely due to a combination of factors including mild pulmonary edema noted on chest x-ray in addition to COPD exacerbation. She also likely has a viral upper respiratory infection which is contributing to COPDAE. * Pulmonary embolism seems less likely by history. * Continue management for COPD with bronchodilators and IV Solu-Medrol. * She was given Lasix 40 mg IV x1 in the ED and 20 mg IV on 04/27/22 following blood transfusion. * 05/01/2022 chest x-ray showed minimal pulmonary edema and small bilateral pleural effusions, new opacities to the lingual a could represent atelectasis or pneumonia and cardiomegaly. Give additional 20 mg IV Lasix x1 and resumed on home Lasix * She is not on home oxygen and currently requiring 1L to keep sats>90%. * Wean oxygen as tolerated. * She will need apnea link monitor and home oxygen evaluation prior to discharge. (2) Upper respiratory infection: Qualifiers: URI type: unspecified viral URI Qualified Code(s): J06.9 - Acute upper respiratory infection, unspecified Code(s): J06.9 - Acute upper respiratory infection, unspecified Status: Acute Assessment and Plan: She received azithromycin and ceftriaxone in the ED. She denies sputum color or quantity change. So will hold further antibiotics at this time. * negative for influenza A/B, RSV and COVID19. 04/30/2021 repeat PCR test again negative for all viruses * Continue COPD management and supportive care. * Afebrile. WBC 11.2 which may be secondary to steroid use however given that patient has not significantly improved empiric Levaquin added 04/30 and renally dosed. Continue for 5-7 days. (3) Suspected chronic obstructive pulmonary disease based on initial evaluation: Code(s): J44.9 - Chronic obstructive pulmonary disease, unspecified Status: Acute Assessment and Plan: Patient smoked 2 packs of cigarettes a day for over 50 years. Wheezing noted on physical exam suggesting underlying COPD. * No prior PFT testing available for evaluation. Patient would benefit from outpatient evaluation when improved. * Continue scheduled duonebs and IV Solu-Medrol q.6 hours * mucinex 1200 mg BID. * PEP therapy. * 04/30 empiric Levaquin started given that she appears to have plateaued. QTc 448 on EKG. Avoid other QT prolonging agents. monitor telemetry. (4) Acute renal failure superimposed on chronic kidney disease: Qualifiers: Acute renal failure type: unspecified Chronic kidney disease stage 3 subtype: stage 3b (GFR 30-44) Code(s): N17.9 - Acute kidney failure, unspecified; N18.9 - Chronic kidney disease, unspecified Status: Acute Assessment and Plan: Precipitating etiology is not entirely clear. She reported poor oral intake the last couple of days, but noted to have pulmonary edema on chest x-ray and elevated proBNP 3260. Lasix 40 mg IV x1 in the ED. * Likely secondary to hypovolemia and NSAID use. * Strict I/O, daily weights, and monitor electrolytes. * Avoid nephrotoxic agents. * urine creatinine 51.2 and urine sodium 9. FENa 0.2% suggesting pre-renal hypoperfusion. Patient does not appear edematous. * Held lisinopril on admission due to BARRY * Renal function near baseline, will renew lisinopril today (04/30/22) given hypertension. * Furosemide resumed on 05/01. * Continue to trend renal function hospital therapy (5) Elevated troponin: Code(s): R77.8
--- NOTE | 2022-05-01 08:56 | PM.IMPN ---
Progress Note: A&P Assessment and Plan (1) Acute respiratory failure with hypoxia: Code(s): J96.01 - Acute respiratory failure with hypoxia Status: Acute Assessment and Plan: Likely due to a combination of factors including mild pulmonary edema noted on chest x-ray in addition to COPD exacerbation. She also likely has a viral upper respiratory infection which is contributing to COPDAE. Pulmonary embolism seems less likely by history. Continue management for COPD with bronchodilators and IV Solu-Medrol. She was given Lasix 40 mg IV x1 in the ED and 20 mg IV on 04/27/22 following blood transfusion. 05/01/2022 chest x-ray showed minimal pulmonary edema and small bilateral pleural effusions, new opacities to the lingual a could represent atelectasis or pneumonia and cardiomegaly. Give additional 20 mg IV Lasix x1 and resumed on home Lasix She is not on home oxygen and currently requiring 1L to keep sats>90%. Wean oxygen as tolerated. She will need apnea link monitor and home oxygen evaluation prior to discharge. (2) Upper respiratory infection: Qualifiers: URI type: unspecified viral URI Qualified Code(s): J06.9 - Acute upper respiratory infection, unspecified Code(s): J06.9 - Acute upper respiratory infection, unspecified Status: Acute Assessment and Plan: She received azithromycin and ceftriaxone in the ED. She denies sputum color or quantity change. So will hold further antibiotics at this time. negative for influenza A/B, RSV and COVID19. 04/30/2021 repeat PCR test again negative for all viruses Continue COPD management and supportive care. Afebrile. WBC 11.2 which may be secondary to steroid use however given that patient has not significantly improved empiric Levaquin added 04/30 and renally dosed. Continue for 5-7 days. (3) Suspected chronic obstructive pulmonary disease based on initial evaluation: Code(s): J44.9 - Chronic obstructive pulmonary disease, unspecified Status: Acute Assessment and Plan: Patient smoked 2 packs of cigarettes a day for over 50 years. Wheezing noted on physical exam suggesting underlying COPD. No prior PFT testing available for evaluation. Patient would benefit from outpatient evaluation when improved. Continue scheduled duonebs and IV Solu-Medrol q.6 hours mucinex 1200 mg BID. PEP therapy. 04/30 empiric Levaquin started given that she appears to have plateaued. QTc 448 on EKG. Avoid other QT prolonging agents. monitor telemetry. (4) Acute renal failure superimposed on chronic kidney disease: Qualifiers: Acute renal failure type: unspecified Chronic kidney disease stage 3 subtype: stage 3b (GFR 30-44) Code(s): N17.9 - Acute kidney failure, unspecified; N18.9 - Chronic kidney disease, unspecified Status: Acute Assessment and Plan: Precipitating etiology is not entirely clear. She reported poor oral intake the last couple of days, but noted to have pulmonary edema on chest x-ray and elevated proBNP 3260. Lasix 40 mg IV x1 in the ED. Likely secondary to hypovolemia and NSAID use. Strict I/O, daily weights, and monitor electrolytes. Avoid nephrotoxic agents. urine creatinine 51.2 and urine sodium 9. FENa 0.2% suggesting pre-renal hypoperfusion. Patient does not appear edematous. Held lisinopril on admission due to BARRY Renal function near baseline, will renew lisinopril today (04/30/22) given hypertension. Furosemide resumed on 05/01. Continue to trend renal function hospital therapy (5) Elevated troponin: Code(s): R77.8 - Other specified abnormalities of plasma proteins Status: Resolved Assessment and Plan: Troponin is mildly elevated but trended to normal. As per HPI she is scheduled for a Lexiscan stress test in the near future. Given ongoing but intermittent chest discomfort, shortness breath, and findings of pulmonary edema cardiology was consulted for evaluation
--- NOTE | 2022-05-01 09:12 | ECG_ITS ---
Measurements Intervals Walker Rate: 93 P: 101 MO: 140 QRS: 52 QRSD: 85 T: 58 QT: 376 QTc: 469 Interpretive Statements SINUS RHYTHM BORDERLINE ST ABNORMALITY- ANTEROLATERAL LEADS BASELINE ARTIFACT- I, II BORDERLINE ECG COMPARED TO ECG 04/26/2022 09:16:49 NO SIGNIFICANT CHANGES Electronically Signed On 05-01-2022 9:54:08 [employer]DER by Binh Emerson D.O.
--- NOTE | 2022-05-01 09:23 | PCOTNOTE ---
Attempted to see pt for Occupational therapy treatment. Per RN, pt is having chest pains and is not appropriate at this time. Will continue per poc duration/frequency tomorrow.
[2022-05-01] MEDS: FERROUS SULFATE DRIED 142 MG TABCR PO (09:28)
[2022-05-01] MEDS: ATORVASTATIN 40 MG TABLET 80 MG PO (09:29)
[2022-05-01] MEDS: carvediloL 6.25 MG TABLET PO ×2 (09:29→22:20)
[2022-05-01] MEDS: CHOLECALCIFEROL 1,000 UNITS TABLET 1000 UNITS PO (09:30)
[2022-05-01] MEDS: FUROSEMIDE 40 MG TABLET PO (09:30)
[2022-05-01] MEDS: guaiFENesin 12 HR 600 MG TABCR 1200 MG PO ×2 (09:30→22:19)
[2022-05-01] MEDS: PANTOPRAZOLE SODIUM IV 40 MG VIAL IV PUSH (09:31)
[2022-05-01] MEDS: lisinopriL 20 MG TABLET PO (09:31)
[2022-05-01] MEDS: TIMOLOL MALEATE 0.5% OP SOLN 5 ML BOTTLE 1 DROP LEFT EYE ×2 (09:32→14:46)
[2022-05-01] MEDS: BRIMONIDINE TARTRATE 0.2% OP SOLN 5 ML BTL 1 DROP LEFT EYE ×3 (09:32→17:45)
[2022-05-01] MEDS: DORZOLAMIDE HCL 2% OPHTH DROPS 1 DROP LEFT EYE ×3 (09:32→17:45)
[2022-05-01] MEDS: INSULIN ASPART (*BKC) 100 UNITS/ML 8 UNITS SUB-Q (09:34)
[2022-05-01] MEDS: INSULIN GLARGINE (*BKC) 100 UNITS/ML 20 UNITS SUB-Q (09:34)
--- NOTE | 2022-05-01 10:02 | WPDANESPN ---
Anes - Prog Note Post-Op Date/Time: 05/01/22 10:02 Cardiovascular status: normal Respiratory status: normal Airway patency: baseline Mental status: baseline Post-Op hydration status: normal Vital Signs: Last Vital Signs Temp 98.2 F 05/01/22 06:42 Pulse 82 05/01/22 09:53 Resp 20 05/01/22 09:53 BP 188/60 H 05/01/22 09:05 Pulse Ox 93 05/01/22 09:56 O2 Del Method Nasal Cannula 05/01/22 09:56 O2 Flow Rate 1 05/01/22 09:56 Pain Score (VAS): 0 I/O: Intake & Output 04/30/22 05/01/22 05/01/22 23:59 07:59 15:59 Intake Total 690 700 Output Total 250 900 Balance 440 -200 Laboratory Tests 05/01/22 05:16 05/01/22 05:16 04/30/22 04/30/22 04/30/22 11:45 13:40 14:55 WBC RBC Hgb Hct MCV MCH MCHC RDW Plt Count MPV Immature Gran % (Auto) Neut % (Auto) Lymph % (Auto) Sanborn % (Auto) Eos % (Auto) Baso % (Auto) Lymph # (Auto) Sanborn # (Auto) Eos # (Auto) Baso # (Auto) Abs Immat Gran (auto) Absolute Neuts (auto) Absolute Nucleated RBC Nucleated RBC % Platelet Estimate Hypochromasia Anisocytosis Ovalocytes Gurpreet Cells Acanthocytes (Spur) Schistocytes Sodium Potassium Chloride Carbon Dioxide Anion Gap BUN Creatinine Estim Creat Clear Calc Estimated GFR Glucose POC Capillary Glucose 188 H 193 H Calcium Magnesium Troponin I NT-Pro-B Natriuret Pep Influenza A (RT-PCR) Negative Influenza B (RT-PCR) Negative RSV (RT-PCR) Negative SARS-CoV-2 RNA (RT-PCR) Negative 04/30/22 04/30/22 05/01/22 16:43 20:57 05:16 WBC 11.6 H RBC 3.81 L Hgb 9.5 L Hct 32.5 L MCV 85.3 MCH 24.9 L MCHC 29.2 L RDW 22.0 H Plt Count 352 MPV 11.3 H Immature Gran % (Auto) 0.8 H Neut % (Auto) 85.7 H Lymph % (Auto) 6.8 L Sanborn % (Auto) 6.5 Eos % (Auto) 0.0 Baso % (Auto) 0.2 Lymph # (Auto) 0.79 L Sanborn # (Auto) 0.8 H Eos # (Auto) 0.0 Baso # (Auto) 0.0 Abs Immat Gran (auto) 0.09 H Absolute Neuts (auto) 10.0 H Absolute Nucleated RBC 0.1 H Nucleated RBC % 0.4 H Platelet Estimate Adequate Hypochromasia 1+ Anisocytosis 1+ Ovalocytes 1+ Lindsay Cells 1+ Acanthocytes (Spur) 1+ Schistocytes Rare Sodium Potassium Chloride Carbon Dioxide Anion Gap BUN Creatinine Estim Creat Clear Calc Estimated GFR Glucose POC Capillary Glucose 187 H 205 H Calcium Magnesium Troponin I NT-Pro-B Natriuret Pep Influenza A (RT-PCR) Influenza B (RT-PCR) RSV (RT-PCR) SARS-CoV-2 RNA (RT-PCR) 05/01/22 05/01/22 05/01/22 05:16 08:23 09:19 WBC RBC Hgb Hct MCV MCH MCHC RDW Plt Count MPV Immature Gran % (Auto) Neut % (Auto) Lymph % (Auto) Sanborn % (Auto) Eos % (Auto) Baso % (Auto) Lymph # (Auto) Sanborn # (Auto) Eos # (Auto) Baso # (Auto) Abs Immat Gran (auto) Absolute Neuts (auto) Absolute Nucleated RBC Nucleated RBC % Platelet Estimate Hypochromasia Anisocytosis Ovalocytes Lindsay Cells Acanthocytes (Spur) Schistocytes Sodium 136 L Potassium 4.9 Chloride 102 Carbon Dioxide 30 Anion Gap 4 L BUN 35 H Creatinine 1.20 H Estim Creat Clear Calc 34 Estimated GFR 44 L Glucose 233 H POC Capillary Glucose 264 H Calcium 8.8 Magnesium 2.4 H Troponin I Pending NT-Pro-B Natriuret Pep Pending Influenza A (RT-PCR) Influenza B (RT-PCR) RSV (RT-PCR) SARS-CoV-2 RNA (RT-PCR) Post-procedural complaints: none Patient Feedback: Patient satisfied with anesthetic care.
[2022-05-01 10:03] LABS: NT Pro B Type Natriuretic Pept 6380 pg/mL (19.9-100)
[2022-05-01 10:06] LABS: Troponin I 0.014 ng/mL (0.000-0.034)
--- NOTE | 2022-05-01 12:51 | PCPTNOTE ---
Attempted to see patient for PT, however patient was eating her lunch.
[2022-05-01 12:54] LABS: Glucose Point of Care 282 mg/dl (65-105)
[2022-05-01] MEDS: INSULIN ASPART (*BKC) 100 UNITS/ML SUB-Q ×2 (13:06→17:47)
[2022-05-01] MEDS: CYANOCOBALAMIN INJ 1,000 MCG/ML VIAL 1000 MCG IM (13:08)
--- NOTE | 2022-05-01 14:12 | WPDGIPROGNO ---
Progress Note: A&P Assessment and Plan (1) Acute on chronic anemia: Code(s): D64.9 - Anemia, unspecified Status: Acute Assessment and Plan: egd with small avm, treated with apc- no signs of bleeding otherwise will follow from afar, call if questions (2) AVM (arteriovenous malformation) of duodenum, acquired: Code(s): K31.819 - Angiodysplasia of stomach and duodenum without bleeding Status: Acute Assessment and Plan: small size and treated with apc yesterday (3) Suspected chronic obstructive pulmonary disease based on initial evaluation: Code(s): J44.9 - Chronic obstructive pulmonary disease, unspecified Status: Acute Assessment and Plan: by primary still symptomatic Subjective Date/time seen: 05/01/22 14:12 Interval history: egd yesterday small non-bleeding AVM in duodenum, colonoscopy no signs of bleeding she is still feeling tired, coughing and poor appetite (mostly unchanged since admission) Review of Systems Review of Systems: All systems reviewed & are unremarkable except as noted in HPI and below Exam Const: General: comfortable Other: Chronically ill-appearing HENMT: Mouth: Yes dry mucous membranes Eyes: Sclera: sclerae normal Pupils: Equal, round and reactive pupils present Neck: Neck: supple and no JVD Resp: Auscultation: wheezes Cardio: Rate: regular rate Rhythm: regular rhythm GI: GI Palp: Yes Soft to palpation, No Tenderness to palpation present (GI) and No Guarding due to palpation present (GI) Auscultation: normal bowel sounds Skin: General skin exam: normal color Neuro: Speech: normal speech Other: Alert and oriented x3 Extrem: General: normal to inspection Psych: Affect: normal affect Objective Data Vital Signs Vital Signs: Vital Signs - 24 hr 04/30/22 14:23 04/30/22 14:27 04/30/22 14:35 Temperature 97.6 F Pulse Rate 82 58 L 62 Respiratory Rate 18 18 18 Blood Pressure 173/68 H Pulse Oximetry 96 Oxygen Delivery Oxygen Flow Rate 04/30/22 16:00 04/30/22 18:24 04/30/22 20:10 Temperature 97 F L Pulse Rate 78 90 69 Respiratory Rate 18 Blood Pressure 153/52 H Pulse Oximetry 94 Oxygen Delivery Oxygen Flow Rate 04/30/22 20:51 04/30/22 21:22 04/30/22 20:00 Temperature 97.9 F Pulse Rate 75 63 Respiratory Rate 16 20 Blood Pressure 182/51 H Pulse Oximetry 96 96 Oxygen Delivery Nasal Cannula Oxygen Flow Rate 2 05/01/22 00:45 04/30/22 21:22 05/01/22 01:41 Temperature 97.6 F Pulse Rate 67 63 77 Respiratory Rate 18 20 16 Blood Pressure 153/56 H Pulse Oximetry 98 93 Oxygen Delivery Nasal Cannula Oxygen Flow Rate 2 04/30/22 20:00 05/01/22 00:00 05/01/22 04:35 Temperature Pulse Rate 72 71 77 Respiratory Rate 18 Blood Pressure Pulse Oximetry Oxygen Delivery Oxygen Flow Rate 05/01/22 04:00 05/01/22 04:50 05/01/22 06:42 Temperature 98.2 F Pulse Rate 81 70 83 Respiratory Rate 20 16 Blood Pressure 167/65 H Pulse Oximetry 96 Oxygen Delivery Oxygen Flow Rate 05/01/22 09:05 05/01/22 09:29 05/01/22 09:53 Temperature Pulse Rate 96 97 82 Respiratory Rate 20 Blood Pressure 188/60 H Pulse Oximetry Oxygen Delivery Oxygen Flow Rate 05/01/22 09:56 05/01/22 13:22 05/01/22 12:00 Temperature 99.3 F Pulse Rate 77 77 Respiratory Rate 20 18 Blood Pressure 148/51 H Pulse Oximetry 93 94 Oxygen Delivery Nasal Cannula Oxygen Flow Rate 1 05/01/22 13:34 Temperature Pulse Rate 79 Respiratory Rate 20 Blood Pressure Pulse Oximetry Oxygen Delivery Oxygen Flow Rate Intake/Output Intake/Output: Intake & Output 04/28/22 04/29/22 04/30/22 05/01/22 23:59 23:59 23:59 23:59 Intake Total 1630 1160 1090 1060 Output Total 1600 2450 1600 1500 Balance 30 -1290 -510 -440 Meds/Results Medications: Active Medications Generic Name Dose Route Start Last Admin Trade Name
[2022-05-01] MEDS: FUROSEMIDE INJ 40 MG/4 ML VIAL 20 MG IV PUSH (14:46)
[2022-05-01 17:05] LABS: Glucose Point of Care 209 mg/dl (65-105)
[2022-05-01] MEDS: GABAPENTIN 300 MG CAPSULE PO (22:20)
[2022-05-02] VITALS (24 sets, daily range): BP systolic 154–185; BP diastolic 45–60; PULSE 60–92; RESP 16–20; TEMP 36.4–36.8; O2SAT 92–99
--- NOTE | 2022-05-02 | ECHO_ITS ---
Patient Info Name: Juliet Vides Age: 77 years : 1945 Gender: Female Ht: 63 in Wt: 152 lbs BSA: 1.77 m2 HR: 80 bpm BP: 180 / 59 mmHg Heart Rhythm: Sinus Rhythm Technical Quality: Fair Exam Date: 05/02/2022 11:12 AM [facility] Patient Status: Inpatient Admit Date: 04/28/2022 Staff Ordering Physician: Talita Gold PA-C Assistant Director Of Admissions: Jessie Caban RDCS Attending Provider: Vicente Seaman MD Referring Physician: Asif JC; Exam Type: CA echo doppler color flow Study Info Indications - shortness of breath elevated bnp Complete two-dimensional, color flow and Doppler transthoracic echocardiogram is performed. Summary 1. Complete two-dimensional, color flow and Doppler transthoracic echocardiogram is performed. 2. Left ventricular chamber dimension is normal. 3. Left ventricular systolic function is normal, estimated at 65-70%. 4. There is mildly increased left ventricular wall thickness. 5. The left ventricular diastolic function is grade II diastolic dysfunction. 6. Left atrial chamber dimension is mildly enlarged. 7. There is no aortic valve stenosis. 8. There is trace mitral valve regurgitation. 9. There is trace tricuspid valve regurgitation. 10. Mild pulmonary hypertension, estimated pulmonary arterial systolic pressure is 40 mmHg. Left Ventricle Left ventricular chamber dimension is normal. Left ventricular systolic function is normal, estimated at 65-70%. There is mildly increased left ventricular wall thickness. The left ventricular diastolic function is grade II diastolic dysfunction. Right Ventricle Right ventricular chamber dimension is normal. Right ventricular systolic function is normal. Left Atria Left atrial chamber dimension is mildly enlarged. Right Atria Right atrial chamber dimension is mildly enlarged. Aortic Valve The aortic valve is not well visualized. There is mild aortic valve sclerosis. There is no aortic valve stenosis. There is mild aortic valve regurgitation. Pulmonic Valve The pulmonic valve is not well visualized. Mitral Valve The mitral valve has normal leaflets. There is trace mitral valve regurgitation. The mitral valve annulus is mildly calcified. Tricuspid Valve The tricuspid valve leaflets are normal. There is trace tricuspid valve regurgitation. Mild pulmonary hypertension, estimated pulmonary arterial systolic pressure is 40 mmHg. Pericardium/Pleural The pericardium appears normal. There is small pericardial effusion. Inferior Vena Cava Normal inferior vena cava with >50% collapse upon inspiration consistent with normal right atrial pressure, 5 mmHg. Aorta The aortic root size at the sinus of Valsalva is normal. There is mild aortic atherosclerosis. Left Ventricular Outflow Tract Name Value Normal LVOT 2D LVOT Diameter 2.0 cm LVOT Doppler LVOT Peak Gradient 7 mmHg LVOT Mean Gradient 4 mmHg LVOT VTI 30 cm LVOT VTI/AV VTI Ratio 0.7
[2022-05-02] MEDS: ALBUTEROL SULFATE NEB 2.5 MG/3 ML INH INHALATION ×6 (00:55→21:36)
[2022-05-02] MEDS: IPRATROPIUM BR 0.02% INH SOLN 0.5 MG/2.5 ML VIAL INHALATION ×6 (00:55→21:36)
[2022-05-02] MEDS: methylPREDNISolone SOD SUCC 40 MG VIAL IV PUSH ×4 (01:27→18:29)
[2022-05-02 02:16] LABS: Glucose Point of Care 297 mg/dl (65-105)
[2022-05-02] MEDS: hydrALAZINE HCL 20 MG/ML VIAL 10 MG IV PUSH (03:23)
[2022-05-02 05:04] LABS: Basophils Percent Auto 0.1 % (0.2-1.2); Hematocrit 29.1 % (37.0-47.0); Hemoglobin 8.6 g/dL (12.0-15.0); Immature Granulocyte Absolute 0.08 K/mm3 (0.00-0.031); Immature Granulocyte Percent A 0.8 % (0-0.5); Lymphocytes Absolute Auto 0.59 K/mm3 (0.9-3.2); Lymphocytes Percent Auto 6.2 % (18.3-44.2); Mean Corpuscular HGB Conc 29.6 g/dl (32-36); Mean Corpuscular Hemoglobin 24.2 pg (26-34); Mean Platelet Volume 10.1 fl (7.4-10.4); Monocytes Absolute Auto 0.6 K/mm3 (0.1-0.6); Monocytes Percent Auto 6.7 % (2.6-8.5); Neutrophils Absolute Auto 8.2 K/mm3 (1.3-6.7); Neutrophils Percent Auto 86.2 % (45.5-73.1); Nucleated Red Blood Cells Perc 0.4 % (0.0-0.2); Platelet Count Result 331 k/mm3 (150-375); Red Blood Count 3.55 M/mm3 (4.2-5.4); Red Cell Distribution Width 21.8 % (11.5-14.5); White Blood Count 9.5 K/mm3 (4.5-10.0)
[2022-05-02 05:21] LABS: Anion Gap 3 mmol/L (8-16); Blood Urea Nitrogen 42 mg/dL (7-17); Calcium 7.9 mg/dL (8.4-10.2); Carbon Dioxide 30 mmol/L (22-30); Chloride 101 mmol/L (98-107); Estimated CRCL calculation 33 ml/min; Estimated Glomerular Filt Rate 44; Glucose 289 mg/dL (65-110); Potassium 4.6 mmol/L (3.4-5.0); Sodium 134 mmol/L (137-145)
[2022-05-02 08:10] LABS: Platelet Estimate Adequate (Adequate); Poikilocytosis 2+ (NORMAL)
[2022-05-02 08:11] LABS: Acanthocytes 2+ (NORMAL); Crenated RBC 1+ (NORMAL); Hypochromasia 1+ (NORMAL); Schistocytes 1+ (NORMAL)
[2022-05-02 08:22] LABS: Glucose Point of Care 306 mg/dl (65-105)
[2022-05-02] MEDS: FERROUS SULFATE DRIED 142 MG TABCR PO (08:40)
[2022-05-02] MEDS: carvediloL 6.25 MG TABLET PO ×2 (08:41→22:31)
[2022-05-02] MEDS: ATORVASTATIN 40 MG TABLET 80 MG PO (08:41)
[2022-05-02] MEDS: CHOLECALCIFEROL 1,000 UNITS TABLET 1000 UNITS PO (08:42)
[2022-05-02] MEDS: FUROSEMIDE 40 MG TABLET PO (08:42)
[2022-05-02] MEDS: CYANOCOBALAMIN INJ 1,000 MCG/ML VIAL 1000 MCG IM (08:42)
[2022-05-02] MEDS: guaiFENesin 12 HR 600 MG TABCR 1200 MG PO ×2 (08:43→22:31)
[2022-05-02] MEDS: lisinopriL 20 MG TABLET PO (08:43)
[2022-05-02] MEDS: INSULIN ASPART (*BKC) 100 UNITS/ML SUB-Q ×3 (08:46→17:18)
[2022-05-02] MEDS: INSULIN ASPART (*BKC) 100 UNITS/ML 8 UNITS SUB-Q ×3 (08:46→17:17)
[2022-05-02] MEDS: INSULIN GLARGINE (*BKC) 100 UNITS/ML 20 UNITS SUB-Q (08:47)
[2022-05-02] MEDS: PANTOPRAZOLE 40 MG TABLET PO (08:55)
[2022-05-02] MEDS: DORZOLAMIDE HCL 2% OPHTH DROPS 1 DROP LEFT EYE ×3 (08:57→17:16)
[2022-05-02] MEDS: TIMOLOL MALEATE 0.5% OP SOLN 5 ML BOTTLE 1 DROP LEFT EYE ×2 (08:57→13:30)
[2022-05-02] MEDS: BRIMONIDINE TARTRATE 0.2% OP SOLN 5 ML BTL 1 DROP LEFT EYE ×3 (08:57→17:16)
--- NOTE | 2022-05-02 11:13 | PCPTNOTE ---
Patient refused treatment this session. Patient reported she just got up to the chair with nursing and would like to sit a little bit before doing any activity.
[2022-05-02 11:48] LABS: Glucose Point of Care 351 mg/dl (65-105)
[2022-05-02 12:54] LABS: Glucose Point of Care 352 mg/dl (65-105)
[2022-05-02] MEDS: levoFLOXacin 750 MG TABLET PO (13:29)
[2022-05-02 16:39] LABS: Glucose Point of Care 250 mg/dl (65-105)
[2022-05-02 20:24] LABS: Glucose Point of Care 257 mg/dl (65-105)
[2022-05-02] MEDS: INSULIN GLARGINE (*BKC) 100 UNITS/ML 30 UNITS SUB-Q (22:31)
[2022-05-02] MEDS: GABAPENTIN 300 MG CAPSULE PO (22:31)
[2022-05-03] VITALS (22 sets, daily range): BP systolic 137–179; BP diastolic 50–66; PULSE 58–94; RESP 16–18; TEMP 36.3–36.9; O2SAT 92–97
[2022-05-03] MEDS: hydrALAZINE HCL 20 MG/ML VIAL 10 MG IV PUSH (00:24)
[2022-05-03] MEDS: methylPREDNISolone SOD SUCC 40 MG VIAL IV PUSH ×5 (00:28→23:25)
[2022-05-03] MEDS: ALBUTEROL SULFATE NEB 2.5 MG/3 ML INH INHALATION ×5 (01:26→20:30)
[2022-05-03] MEDS: IPRATROPIUM BR 0.02% INH SOLN 0.5 MG/2.5 ML VIAL INHALATION ×5 (01:27→20:30)
[2022-05-03 04:59] LABS: Hematocrit 31.9 % (37.0-47.0); Hemoglobin 9.5 g/dL (12.0-15.0); Mean Corpuscular HGB Conc 29.8 g/dl (32-36); Mean Corpuscular Hemoglobin 23.8 pg (26-34); Mean Corpuscular Volume 79.8 fl (80-100); Mean Platelet Volume 10.8 fl (7.4-10.4); Platelet Count Result 342 k/mm3 (150-375); Red Cell Distribution Width 22.2 % (11.5-14.5); White Blood Count 14.1 K/mm3 (4.5-10.0)
[2022-05-03 05:16] LABS: Anion Gap 6 mmol/L (8-16); Blood Urea Nitrogen 43 mg/dL (7-17); Calcium 8.4 mg/dL (8.4-10.2); Carbon Dioxide 29 mmol/L (22-30); Chloride 100 mmol/L (98-107); Estimated CRCL calculation 25 ml/min; Estimated Glomerular Filt Rate 31; Glucose 209 mg/dL (65-110); Potassium 3.8 mmol/L (3.4-5.0); Sodium 135 mmol/L (137-145)
[2022-05-03 05:55] LABS: Anisocytosis 2+ (NORMAL); Band Neutrophils Percent 1 % (0-6); Eosinophils Absolute Manual 0.28 K/mm3 (0.02-0.5); Eosinophils Percent Manual 2 % (0-4); Lymphocytes Absolute Manual 0.56 K/mm3 (1.1-4.5); Macrocytosis 2+ (NORMAL); Microcytosis 1+ (NORMAL); Monocytes Absolute Manual 0.56 K/mm3 (0.1-0.90); Monocytes Percent Manual 4 % (3-9); Neutrophils Absolute Manual 12.69 K/mm3 (1.7-7.2); Neutrophils Percent Manual 89 % (46-73); Platelet Estimate Adequate (Adequate); Poikilocytosis 3+ (NORMAL); Tear Drop Cells 1+ (NORMAL); Total Cells Counted 100
[2022-05-03 05:56] LABS: Acanthocytes 2+ (NORMAL); Atypical Lymphocytes Present; Burr Cells 2+ (NORMAL); Hypersegmented Neutrophils Present; Hypochromasia 3+ (NORMAL); Schistocytes 3+ (NORMAL)
--- NOTE | 2022-05-03 07:40 | P.PNIM_ITS ---
Progress Note: A&P Assessment and Plan (1) Acute respiratory failure with hypoxia: Code(s): J96.01 - Acute respiratory failure with hypoxia Status: Acute Assessment and Plan: Likely due to a combination of factors including mild pulmonary edema noted on chest x-ray in addition to COPD exacerbation. She also likely has a viral upper respiratory infection which is contributing to COPDAE. * Pulmonary embolism seems less likely by history. * Continue management for COPD with bronchodilators and IV Solu-Medrol. * She was given Lasix 40 mg IV x1 in the ED and 20 mg IV on 04/27/22 following blood transfusion. * 05/01/2022 chest x-ray showed minimal pulmonary edema and small bilateral pleural effusions, new opacities to the lingual a could represent atelectasis or pneumonia and cardiomegaly. Give additional 20 mg IV Lasix x1 and resumed on home Lasix * She is not on home oxygen and currently requiring 1L to keep sats >90%. * Wean oxygen as tolerated. * She will need apnea link monitor and home oxygen evaluation prior to discharge. * Repeat CXR 05/01/22 improved pulmonary edema at lung bases, small b/l pleural effusions, atelectasis vs pneumonia, cardiomegaly * Pt started on Levaquin. * 05/03/22 patient weaned off oxygen and now on room air. Patient wanting influenza vaccination on discharge. (2) Upper respiratory infection: Qualifiers: URI type: unspecified viral URI Qualified Code(s): J06.9 - Acute upper respiratory infection, unspecified Code(s): J06.9 - Acute upper respiratory infection, unspecified Status: Acute Assessment and Plan: She received azithromycin and ceftriaxone in the ED. She denies sputum color or quantity change. So will hold further antibiotics at this time. * negative for influenza A/B, RSV and COVID19. 04/30/2021 repeat PCR test again negative for all viruses * Continue COPD management and supportive care. * Afebrile. WBC 11.2 which may be secondary to steroid use however given that patient has not significantly improved empiric Levaquin added 04/30 and renally dosed. Continue for 5-7 days. (3) Suspected chronic obstructive pulmonary disease based on initial evaluation: Code(s): J44.9 - Chronic obstructive pulmonary disease, unspecified Status: Acute Assessment and Plan: Patient smoked 2 packs of cigarettes a day for over 50 years. Wheezing noted on physical exam suggesting underlying COPD. * No prior PFT testing available for evaluation. Patient would benefit from outpatient evaluation when improved. * Continue scheduled duonebs and IV Solu-Medrol q.6 hours * mucinex 1200 mg BID. * PEP therapy. * 04/30 empiric Levaquin started given that she appears to have plateaued. QTc 448 on EKG. Avoid other QT prolonging agents. monitor telemetry. (4) Acute renal failure superimposed on chronic kidney disease: Qualifiers: Acute renal failure type: unspecified Chronic kidney disease stage 3 subtype: stage 3b (GFR 30-44) Code(s): N17.9 - Acute kidney failure, unspecified; N18.9 - Chronic kidney disease, unspecified Status: Acute Assessment and Plan: Precipitating etiology is not entirely clear. She reported poor oral intake the last couple of days, but noted to have pulmonary edema on chest x-ray and elevated proBNP 3260. Lasix 40 mg IV x1 in the ED. * Likely secondary to hypovolemia and NSAID use. * Strict I/O, daily weights, and monitor electrolytes. * Avoid nephrotoxic agents. * urine creatinine 51.2 and urine sodium 9. FENa 0.2% suggesting pre-renal hypoperfusio
[2022-05-03 08:26] LABS: Glucose Point of Care 217 mg/dl (65-105)
[2022-05-03] MEDS: BRIMONIDINE TARTRATE 0.2% OP SOLN 5 ML BTL 1 DROP LEFT EYE ×3 (08:39→16:55)
[2022-05-03] MEDS: FUROSEMIDE 20 MG TABLET PO ×2 (08:40→16:54)
[2022-05-03] MEDS: FERROUS SULFATE DRIED 142 MG TABCR PO (08:41)
[2022-05-03] MEDS: amLODIPine BESYLATE 5 MG TABLET PO (08:41)
[2022-05-03] MEDS: CHOLECALCIFEROL 1,000 UNITS TABLET 1000 UNITS PO (08:41)
[2022-05-03] MEDS: guaiFENesin 12 HR 600 MG TABCR 1200 MG PO ×2 (08:41→21:43)
[2022-05-03] MEDS: PANTOPRAZOLE 40 MG TABLET PO (08:41)
[2022-05-03] MEDS: ASPIRIN 81 MG ENTERIC TABLET PO (08:41)
[2022-05-03] MEDS: ATORVASTATIN 40 MG TABLET 80 MG PO (08:41)
[2022-05-03] MEDS: POTASSIUM CHLORIDE 20 MEQ TABLET.ER PO (08:41)
[2022-05-03] MEDS: lisinopriL 20 MG TABLET PO (08:41)
[2022-05-03] MEDS: carvediloL 6.25 MG TABLET PO ×2 (08:42→21:44)
[2022-05-03] MEDS: INSULIN GLARGINE (*BKC) 100 UNITS/ML 20 UNITS SUB-Q (08:44)
[2022-05-03] MEDS: INSULIN ASPART (*BKC) 100 UNITS/ML 8 UNITS SUB-Q ×3 (08:45→16:53)
[2022-05-03] MEDS: INSULIN ASPART (*BKC) 100 UNITS/ML SUB-Q ×3 (08:46→16:54)
[2022-05-03] MEDS: DORZOLAMIDE HCL 2% OPHTH DROPS 1 DROP LEFT EYE ×3 (08:53→17:01)
[2022-05-03] MEDS: CYANOCOBALAMIN INJ 1,000 MCG/ML VIAL 1000 MCG IM (09:21)
[2022-05-03] MEDS: TIMOLOL MALEATE 0.5% OP SOLN 5 ML BOTTLE 1 DROP LEFT EYE ×2 (09:22→12:22)
[2022-05-03 11:50] LABS: Glucose Point of Care 348 mg/dl (65-105)
--- NOTE | 2022-05-03 12:43 | PCOTNOTE ---
Attempted to see patient this pm, however patient refused. Pt reported having occupational therapy already the day before, and was adamant stating, I really don't want to go through all of that again. Pt described home set up and stated she's been participating with physical therapy. Pt has no concerns as pertains to OT prior to d/c. Pt requested to discharge OT at this time. Notified OTR to have patient discharged from services.
[2022-05-03 16:51] LABS: Glucose Point of Care 237 mg/dl (65-105)
[2022-05-03] MEDS: GABAPENTIN 300 MG CAPSULE PO (21:43)
[2022-05-03 21:48] LABS: Glucose Point of Care 298 mg/dl (65-105)
[2022-05-03] MEDS: INSULIN GLARGINE (*BKC) 100 UNITS/ML 30 UNITS SUB-Q (21:48)
[2022-05-03 21:56] LABS: IFOB Positive Control Positive; Immunochemical Fecal Occult Bl Positive (N)
[2022-05-04] VITALS (13 sets, daily range): BP systolic 119–149; BP diastolic 38–69; PULSE 63–98; RESP 16–20; TEMP 36.2–36.7; O2SAT 94–95
[2022-05-04 05:44] LABS: Hematocrit 30.6 % (37.0-47.0); Hemoglobin 9.1 g/dL (12.0-15.0); Mean Corpuscular HGB Conc 29.7 g/dl (32-36); Mean Corpuscular Hemoglobin 24.3 pg (26-34); Mean Corpuscular Volume 81.6 fl (80-100); Platelet Count Result 279 k/mm3 (150-375); Red Blood Count 3.75 M/mm3 (4.2-5.4); Red Cell Distribution Width 22.4 % (11.5-14.5)
[2022-05-04 06:00] LABS: Alanine Aminotransferase 20 U/L (6-35); Albumin Level 2.9 g/dL (3.5-5.1); Alkaline Phosphatase 61 U/L (38-126); Anion Gap 5 mmol/L (8-16); Aspartate Amino Transferase 22 U/L (14-36); Bilirubin,Total 0.8 mg/dL (0.2-1.3); Blood Urea Nitrogen 47 mg/dL (7-17); Calcium 8.3 mg/dL (8.4-10.2); Carbon Dioxide 26 mmol/L (22-30); Chloride 101 mmol/L (98-107); Estimated CRCL calculation 26 ml/min; Estimated Glomerular Filt Rate 31; Glucose 249 mg/dL (65-110); Potassium 4.2 mmol/L (3.4-5.0); Sodium 132 mmol/L (137-145)
[2022-05-04] MEDS: methylPREDNISolone SOD SUCC 40 MG VIAL IV PUSH (06:06)
--- NOTE | 2022-05-04 06:59 | PC.NURSE ---
Up to bathroom to void several times with use of walker- stand by assist. Room air Continues with cough- SCHNEIDER Lungs coarse HOB elevated . Daughter lives with pt and does not work- assists pt. Will take pt home when d/c'd Probable d/c today.
[2022-05-04] MEDS: ALBUTEROL SULFATE NEB 2.5 MG/3 ML INH INHALATION (08:18)
[2022-05-04] MEDS: IPRATROPIUM BR 0.02% INH SOLN 0.5 MG/2.5 ML VIAL INHALATION (08:18)
--- NOTE | 2022-05-04 08:38 | PCPTNOTE ---
Attempted to see patient for PT, however patient refused. Patient reported she wanted to eat her breakfast first.
[2022-05-04 08:39] LABS: Glucose Point of Care 230 mg/dl (65-105)
[2022-05-04] MEDS: BRIMONIDINE TARTRATE 0.2% OP SOLN 5 ML BTL 1 DROP LEFT EYE ×2 (08:41→12:24)
[2022-05-04] MEDS: FERROUS SULFATE DRIED 142 MG TABCR PO (08:42)
[2022-05-04] MEDS: guaiFENesin 12 HR 600 MG TABCR 1200 MG PO (08:42)
[2022-05-04] MEDS: carvediloL 6.25 MG TABLET PO (08:42)
[2022-05-04] MEDS: lisinopriL 20 MG TABLET PO (08:43)
[2022-05-04] MEDS: CHOLECALCIFEROL 1,000 UNITS TABLET 1000 UNITS PO (08:43)
[2022-05-04] MEDS: ASPIRIN 81 MG ENTERIC TABLET PO (08:43)
[2022-05-04] MEDS: POTASSIUM CHLORIDE 20 MEQ TABLET.ER PO (08:43)
[2022-05-04] MEDS: FUROSEMIDE 20 MG TABLET PO (08:43)
[2022-05-04] MEDS: ATORVASTATIN 40 MG TABLET 80 MG PO (08:43)
[2022-05-04] MEDS: amLODIPine BESYLATE 5 MG TABLET PO (08:43)
[2022-05-04] MEDS: PANTOPRAZOLE 40 MG TABLET PO (08:43)
[2022-05-04] MEDS: INSULIN ASPART (*BKC) 100 UNITS/ML SUB-Q (08:46)
[2022-05-04] MEDS: INSULIN ASPART (*BKC) 100 UNITS/ML 8 UNITS SUB-Q ×2 (08:46→12:21)
[2022-05-04] MEDS: INSULIN GLARGINE (*BKC) 100 UNITS/ML 20 UNITS SUB-Q (08:47)
--- NOTE | 2022-05-04 08:54 | PCNWS ---
Weekly nutritional screen. Patient is tolerating current diet with adequate intake. No weight loss reported. No nutritional needs at this time.
[2022-05-04] MEDS: DORZOLAMIDE HCL 2% OPHTH DROPS 1 DROP LEFT EYE ×2 (08:56→13:08)
[2022-05-04] MEDS: TIMOLOL MALEATE 0.5% OP SOLN 5 ML BOTTLE 1 DROP LEFT EYE ×2 (09:36→13:53)
[2022-05-04] MEDS: CYANOCOBALAMIN INJ 1,000 MCG/ML VIAL 1000 MCG IM (09:37)
[2022-05-04 12:16] LABS: Glucose Point of Care 188 mg/dl (65-105)
[2022-05-04] MEDS: levoFLOXacin 750 MG TABLET PO (13:53)
--- NOTE | 2022-05-04 14:00 | PM.DS ---
DS: Admitting Diagnosis Discharge Date 05/04/22 Admitting Diagnosis Hypoxia, BARRY, anemia DS: Discharge Diagnosis Discharge Diagnosis (1) Acute respiratory failure with hypoxia: Code(s): J96.01 - Acute respiratory failure with hypoxia Status: Acute Assessment and Plan: Likely due to a combination of factors including mild pulmonary edema noted on chest x-ray in addition to COPD exacerbation. She also likely has a viral upper respiratory infection which is contributing to COPDAE. Pulmonary embolism seems less likely by history. Continue management for COPD with bronchodilators and IV Solu-Medrol. She was given Lasix 40 mg IV x1 in the ED and 20 mg IV on 04/27/22 following blood transfusion. 05/01/2022 chest x-ray showed minimal pulmonary edema and small bilateral pleural effusions, new opacities to the lingual a could represent atelectasis or pneumonia and cardiomegaly. Give additional 20 mg IV Lasix x1 and resumed on home Lasix She is not on home oxygen and currently requiring 1L to keep sats >90%. Wean oxygen as tolerated. She will need apnea link monitor and home oxygen evaluation prior to discharge. Repeat CXR 05/01/22 improved pulmonary edema at lung bases, small b/l pleural effusions, atelectasis vs pneumonia, cardiomegaly Pt started on Levaquin. 05/03/22 patient weaned off oxygen and now on room air. Patient wanting influenza vaccination on discharge. (2) Upper respiratory infection: Qualifiers: URI type: unspecified viral URI Qualified Code(s): J06.9 - Acute upper respiratory infection, unspecified Code(s): J06.9 - Acute upper respiratory infection, unspecified Status: Acute Assessment and Plan: She received azithromycin and ceftriaxone in the ED. She denies sputum color or quantity change. So will hold further antibiotics at this time. negative for influenza A/B, RSV and COVID19. 04/30/2021 repeat PCR test again negative for all viruses Continue COPD management and supportive care. Afebrile. WBC 11.2 which may be secondary to steroid use however given that patient has not significantly improved empiric Levaquin added 04/30 and renally dosed. Continue for 5-7 days. (3) Suspected chronic obstructive pulmonary disease based on initial evaluation: Code(s): J44.9 - Chronic obstructive pulmonary disease, unspecified Status: Acute Assessment and Plan: Patient smoked 2 packs of cigarettes a day for over 50 years. Wheezing noted on physical exam suggesting underlying COPD. No prior PFT testing available for evaluation. Patient would benefit from outpatient evaluation when improved. Continue scheduled duonebs and IV Solu-Medrol q.6 hours mucinex 1200 mg BID. PEP therapy. 04/30 empiric Levaquin started given that she appears to have plateaued. QTc 448 on EKG. Avoid other QT prolonging agents. monitor telemetry. (4) Acute renal failure superimposed on chronic kidney disease: Qualifiers: Acute renal failure type: unspecified Chronic kidney disease stage 3 subtype: stage 3b (GFR 30-44) Code(s): N17.9 - Acute kidney failure, unspecified; N18.9 - Chronic kidney disease, unspecified Status: Acute Assessment and Plan: Precipitating etiology is not entirely clear. She reported poor oral intake the last couple of days, but noted to have pulmonary edema on chest x-ray and elevated proBNP 3260. Lasix 40 mg IV x1 in the ED. Likely secondary to hypovolemia and NSAID use. Strict I/O, daily weights, and monitor electrolytes. Avoid nephrotoxic agents. urine creatinine 51.2 and urine sodium 9. FENa 0.2% suggesting pre-renal hypoperfusion. Patient does not appear edematous. Held lisinopril on admission due to BARRY Renal function near baseline, will renew lisinopril today (04/30/22) given hypertension. Furosemide resumed on 05/01. Continue to trend renal function hospital therapy 05/03/22 Creatinine 1.6 tomas avila
== END 2022-05-04 14:55 | disposition home health service (06) | DRG 189 ==
LOC: ANHED 11:38 → ANH3MEDSUR 14:44 → ANH2MED 15:00
PROVIDERS: Internal Medicine; Internal Medicine Gastroenterology; Nurse Practitioner Family; Physician Assistant; Admitting Provider Internal Medicine; Emergency Provider Emergency Medicine; PCP Emergency Medicine; Visit Provider Internal Medicine Critical Care Medicine
PROC: 0DJ08ZZ Inspection of Upper Intestinal Tract, Via Natural or Artificial Opening Endoscopic (ICD-10-PCS; CPT 43235; principal; 2022-04-30 14:30)
DX: J96.01 Acute respiratory failure with hypoxia (principal); I50.33 Acute on chronic diastolic (congestive) heart failure; I13.0 Hypertensive heart and chronic kidney disease with heart failure and stage 1 through stage 4 chronic kidney disease, or unspecified chronic kidney disease; J44.1 Chronic obstructive pulmonary disease with (acute) exacerbation; N17.9 Acute kidney failure, unspecified; N18.30 Chronic kidney disease, stage 3 unspecified; E11.22 Type 2 diabetes mellitus with diabetic chronic kidney disease; I48.0 Paroxysmal atrial fibrillation; I27.20 Pulmonary hypertension, unspecified; I25.10 Atherosclerotic heart disease of native coronary artery without angina pectoris; I73.9 Peripheral vascular disease, unspecified; J06.9 Acute upper respiratory infection, unspecified; D50.9 Iron deficiency anemia, unspecified; D51.9 Vitamin B12 deficiency anemia, unspecified; D12.2 Benign neoplasm of ascending colon; K21.9 Gastro-esophageal reflux disease without esophagitis; K57.30 Diverticulosis of large intestine without perforation or abscess without bleeding; K44.9 Diaphragmatic hernia without obstruction or gangrene; K31.819 Angiodysplasia of stomach and duodenum without bleeding; M19.90 Unspecified osteoarthritis, unspecified site; H40.9 Unspecified glaucoma; R07.9 Chest pain, unspecified; R77.8 Other specified abnormalities of plasma proteins; Z20.822 Contact with and (suspected) exposure to COVID-19; Z23 Encounter for immunization; I25.2 Old myocardial infarction; Z79.82 Long term (current) use of aspirin; Z79.4 Long term (current) use of insulin; Z95.5 Presence of coronary angioplasty implant and graft; Z87.891 Personal history of nicotine dependence; Z86.711 Personal history of pulmonary embolism
CPT/HCPCS: 36415; 36430; 71045; 71046; 80048; 80053; 81003; 82274; 82550; 82570; 82607; 82728; 82746; 82948; 83036; 83540; 83550; 83735; 83880; 84145; 84300; 84443; 84484; 85014; 85018; 85025; 85027; 85610; 85730; 86140; 86850; 86900; 86901; 86920; 87040; 87637; 88305; 90471; 90694; 93005; 93306; 94640; 94667; 94668; 96365; 96367; 96372; 96375; 96376; 97110; 97116; 97161; 97165; 97530; 97535; 99285; A9270; C9113; G0008; G0378; J0360; J0456; J0696; J1756; J1815; J1940; J2405; J2704; J2920; J2930; J3420; J7050; J7120; P9016

== ENCOUNTER 2023-07-29 12:23 | Outpatient (CLI) | payer MEDICARE, SELFPAY ==
--- NOTE | ~2023-07-29 | US_ITS ---
Renal-Bladder ultrasound Clinical History: Chronic kidney disease Technique: Real-time sonographic imaging of the kidneys and urinary bladder was performed. Findings: The right kidney measures 10.2 cm in length and the left kidney measures 10.5 cm. There is no hydronephrosis or renal calculus identified. Renal cortical echogenicity is within normal limits. No renal mass lesion is identified. The urinary bladder is partially distended at the time of this exam. No intraluminal echoes are ident ified. No abnormal wall thickening is seen. Impression: Unremarkable ultrasound of the kidneys and urinary bladder. Reviewed, dictated and finalized at location M. Impression: Unremarkable ultrasound of the kidneys and urinary bladder.
== END 2023-07-29 12:24 | disposition home or self-care (01) ==
PROVIDERS: PCP Emergency Medicine; Visit Provider Internal Medicine Nephrology
DX: N18.32 Chronic kidney disease, stage 3b (principal)
CPT/HCPCS: 76775

== ENCOUNTER 2023-08-04 11:13 | Emergency (ER) | payer MEDICARE, SELFPAY ==
--- NOTE | ~2023-08-04 | XR_ITS ---
EXAMINATION: XR chest 1V portable 08/04/2023 12:16 INDICATION: Shortness of breath PROCEDURE: AP portable chest COMPARISON: No prior studies for comparison. FINDINGS: Bibasilar atelectasis. No focal pneumonia. Mild cardiomegaly.. There are no pleural effusi ons. There is no pneumothorax suspected. IMPRESSION: 1: Bibasilar atelectasis. Reviewed, dictated and finalized at location A. IMPRESSION: 1: Bibasilar atelectasis.
[2023-08-04 11:36] VITALS: BP 114/95; PULSE 71; RESP 18; TEMP 36.7; O2SAT 91
--- NOTE | 2023-08-04 11:45 | ECG_ITS ---
SEE SCANNED COPY FOR CONFIRMED REPORT MTDD
[2023-08-04 11:54] VITALS: PULSE 65
[2023-08-04 11:57] LABS: Basophils Absolute Auto 0.1 K/mm3 (0.0-0.1); Eosinophils Absolute Auto 0.1 K/mm3 (0-0.3); Eosinophils Percent Auto 1.1 % (0-4.4); Hematocrit 35.7 % (37.0-47.0); Hemoglobin 11.1 g/dL (12.0-15.0); Immature Granulocyte Absolute 0.04 K/mm3 (0.00-0.031); Immature Granulocyte Percent A 0.4 % (0-0.5); Lymphocytes Absolute Auto 1.64 K/mm3 (0.9-3.2); Lymphocytes Percent Auto 16.3 % (18.3-44.2); Mean Corpuscular HGB Conc 31.1 g/dl (32-36); Mean Corpuscular Hemoglobin 28.7 pg (26-34); Mean Corpuscular Volume 92.2 fl (80-100); Mean Platelet Volume 11.2 fl (7.4-10.4); Monocytes Absolute Auto 1.5 K/mm3 (0.1-0.6); Monocytes Percent Auto 14.7 % (2.6-8.5); Neutrophils Absolute Auto 6.7 K/mm3 (1.3-6.7); Neutrophils Percent Auto 66.5 % (45.5-73.1); Platelet Count Result 269 k/mm3 (150-375); Red Blood Count 3.87 M/mm3 (4.2-5.4); Red Cell Distribution Width 15.4 % (11.5-14.5); White Blood Count 10.1 K/mm3 (4.5-10.0)
[2023-08-04 12:02] VITALS: BP 101/47; PULSE 65; RESP 19; O2SAT 94
[2023-08-04 12:08] LABS: Alanine Aminotransferase 21 U/L (6-35); Alkaline Phosphatase 75 U/L (38-126); Anion Gap 9 mmol/L (4-12); Aspartate Amino Transferase 26 U/L (14-36); Bilirubin,Total 0.6 mg/dL (0.2-1.3); Blood Urea Nitrogen 24 mg/dL (7-17); Calcium 9.6 mg/dL (8.4-10.2); Carbon Dioxide 26 mmol/L (22-30); Chloride 105 mmol/L (98-107); Estimated Glomerular Filt Rate 22; Glucose 144 mg/dL (65-110); Potassium 3.9 mmol/L (3.4-5.0); Sodium 140 mmol/L (137-145)
[2023-08-04 13:02] VITALS: BP 121/49; PULSE 62; RESP 19; O2SAT 98
[2023-08-04] MEDS: LACTATED RINGERS 1,000 ML 500 ML (13:19)
[2023-08-04 13:21] LABS: Influenza A QL RT-PCR Negative (Negative); Influenza B QL RT-PCR Negative (Negative); RSV RNA, RT-PCR Negative (Negative); SARS-CoV-2 RNA PCR Positive (Negative)
[2023-08-04 13:28] LABS: NT Pro B Type Natriuretic Pept 2550 pg/mL (19.9-100)
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
[2023-08-04] MEDS: LACTATED RINGERS 500 ML 999 ML IV CONT (14:20)
[2023-08-04 14:33] VITALS: BP 116/86; PULSE 67; RESP 21; TEMP 36.6; O2SAT 93
[2023-08-04 14:57] VITALS: BP 125/57; PULSE 62; RESP 18; TEMP 36.6; O2SAT 97
== END 2023-08-04 15:28 | disposition home or self-care (01) ==
PROVIDERS: Preventive Medicine Aerospace Medicine; Emergency Provider Emergency Medicine; PCP Emergency Medicine
DX: U07.1 COVID-19 (principal); I13.0 Hypertensive heart and chronic kidney disease with heart failure and stage 1 through stage 4 chronic kidney disease, or unspecified chronic kidney disease; E11.22 Type 2 diabetes mellitus with diabetic chronic kidney disease; N18.30 Chronic kidney disease, stage 3 unspecified; I50.9 Heart failure, unspecified; I25.10 Atherosclerotic heart disease of native coronary artery without angina pectoris; I27.21 Secondary pulmonary arterial hypertension; I48.0 Paroxysmal atrial fibrillation; E11.39 Type 2 diabetes mellitus with other diabetic ophthalmic complication; E11.319 Type 2 diabetes mellitus with unspecified diabetic retinopathy without macular edema; E11.40 Type 2 diabetes mellitus with diabetic neuropathy, unspecified; E11.21 Type 2 diabetes mellitus with diabetic nephropathy; E78.5 Hyperlipidemia, unspecified; H42 Glaucoma in diseases classified elsewhere; D64.9 Anemia, unspecified; K21.9 Gastro-esophageal reflux disease without esophagitis; Z95.5 Presence of coronary angioplasty implant and graft; Z86.711 Personal history of pulmonary embolism; Z87.891 Personal history of nicotine dependence; Z90.711 Acquired absence of uterus with remaining cervical stump; Z90.81 Acquired absence of spleen; Z90.89 Acquired absence of other organs; Z79.82 Long term (current) use of aspirin; Z79.4 Long term (current) use of insulin; Z79.84 Long term (current) use of oral hypoglycemic drugs
CPT/HCPCS: 36415; 71045; 80053; 83880; 85025; 87637; 93005; 96360; 99284; J7120

== ENCOUNTER 2023-08-11 14:07 | Inpatient (IN) | payer MEDICARE, SELFPAY ==
[2023-08-11] VITALS (17 sets, daily range): BP systolic 132–163; BP diastolic 43–64; PULSE 57–98; RESP 12–25; TEMP 36.6–37.1; O2SAT 88–100; BMI 29.8
--- NOTE | ~2023-08-11 | XR_ITS ---
EXAMINATION: XR chest 1V portable DATE: 08/13/2023 11:18 INDICATION: COVID-19 positive. Change in vital signs. TECHNIQUE: A single frontal view of the chest was obtained. COMPARISON: Chest single view 08/11/2023 FINDINGS: There is mild atelectasis at left lung base. No pleural effusion or pneumothorax. Cardiomeg edie is noted. There is an electronic implant overlying the left chest. IMPRESSION: 1. Mild atelectasis at left lung base. Cardiomegaly. Reviewed, dictated and finalized at location A.
--- NOTE | ~2023-08-11 | XR_ITS ---
EXAMINATION: XR chest 1V portable DATE: 08/11/2023 15:24 INDICATION: Shortness of breath. TECHNIQUE: A single frontal view of the chest was obtained. COMPARISON: Chest single view 08/04/2023, chest CT 02/19/2022 FINDINGS: There is mild atelectasis at left lung base. No pleural effusion or pneumothorax. Cardiomeg edie is noted. An electronic implant overlies left chest. IMPRESSION: 1. Mild atelectasis at left lung base. 2. Cardiomegaly. Reviewed, dictated and finalized at location E.
--- NOTE | ~2023-08-11 | NM_ITS ---
NM pulmonary perfusion INDICATION: Hypoxia. History of pulmonary embolism. TECHNIQUE: Ventilation images not performed. 5.2 mCi Tc 99m MAA was injected intravenously for perfus ion images. Multiple images were then acquired. COMPARISON: Chest x-ray dated 08/11/2023 FINDINGS: The comparison chest radiograph demonstrates no pulmonary infiltrates or pleural fluid. Th e perfusion scan is normal. IMPRESSION: 1: Normal perfusion images. Reviewed, dictated and finalized at location B. IMPRESSION: 1: Normal perfusion images.
--- NOTE | 2023-08-11 14:14 | ECG_ITS ---
SEE SCANNED COPY FOR CONFIRMED REPORT MTDD
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
[2023-08-11] MEDS: methylPREDNISolone SOD SUCC 125 MG VIAL IV PUSH (14:18)
[2023-08-11] MEDS: IPRATROPIUM 0.5 MG/ALBUTEROL SULFATE 2.5 MG AMPUL.NEB 3 ML INHALATION ×4 (14:27→21:06)
[2023-08-11 14:29] LABS: Basophils Absolute Auto 0.1 K/mm3 (0.0-0.1); Basophils Percent Auto 0.5 % (0.2-1.2); Eosinophils Absolute Auto 0.3 K/mm3 (0-0.3); Eosinophils Percent Auto 2.6 % (0-4.4); Hematocrit 37.1 % (37.0-47.0); Hemoglobin 11.6 g/dL (12.0-15.0); Immature Granulocyte Absolute 0.05 K/mm3 (0.00-0.031); Immature Granulocyte Percent A 0.5 % (0-0.5); Lymphocytes Percent Auto 20.7 % (18.3-44.2); Mean Corpuscular HGB Conc 31.3 g/dl (32-36); Mean Corpuscular Hemoglobin 28.3 pg (26-34); Mean Corpuscular Volume 90.5 fl (80-100); Mean Platelet Volume 10.9 fl (7.4-10.4); Monocytes Absolute Auto 1.2 K/mm3 (0.1-0.6); Monocytes Percent Auto 12.5 % (2.6-8.5); Neutrophils Absolute Auto 6.1 K/mm3 (1.3-6.7); Neutrophils Percent Auto 63.2 % (45.5-73.1); Platelet Count Result 267 k/mm3 (150-375); Red Cell Distribution Width 15.9 % (11.5-14.5); White Blood Count 9.7 K/mm3 (4.5-10.0)
[2023-08-11 14:40] LABS: Partial Thromboplastin Time 24.2 Seconds (22.3-36.8); Prothrombin Time 13.1 Seconds (11.1-14.7)
[2023-08-11 14:41] LABS: Alanine Aminotransferase 21 U/L (6-35); Albumin Level 4.1 g/dL (3.5-5.1); Alkaline Phosphatase 72 U/L (38-126); Anion Gap 13 mmol/L (4-12); Aspartate Amino Transferase 26 U/L (14-36); Bilirubin,Total 0.7 mg/dL (0.2-1.3); Blood Urea Nitrogen 25 mg/dL (7-17); Calcium 9.4 mg/dL (8.4-10.2); Carbon Dioxide 24 mmol/L (22-30); Chloride 106 mmol/L (98-107); Estimated CRCL calculation 21 ml/min; Estimated Glomerular Filt Rate 24; Glucose 112 mg/dL (65-110); Lactic Acid Reflex 2.8 mmol/L (0.7-2.0); Magnesium 1.7 mg/dL (1.6-2.3); Potassium 4.1 mmol/L (3.4-5.0); Sodium 143 mmol/L (137-145)
[2023-08-11 14:50] LABS: Alveolar/Arterial O2 Gradient 96.6 mmHg; Base Excess ABG -0.5 mEq/l (+/-2.0); Fractional Inspired Oxygen 28 %; HCO3 ABG 23.6 mEq/l (22.0-26.0); Oxygen Saturation ABG 91.6 % (95.0-100.0); Oxyhemoglobin 89.6 % THb (90.0-100.0); PCO2 ABG 36.7 mmHg (35.0-45.0); PO2 ABG 59.7 mmHg (80.0-100.0); PO2 FiO2 Ratio Arterial Blood 2.13 %; Total Hemoglobin 11.9 g/dL (12.0-18.0); pH ABG 7.426 (7.350-7.450)
[2023-08-11 14:51] LABS: Device NASAL CANNULA; Site Drawn LEFT BRACHIAL
[2023-08-11 14:52] LABS: NT Pro B Type Natriuretic Pept 1950 pg/mL (19.9-100); Troponin I 0.021 ng/mL (0.000-0.034)
[2023-08-11 15:06] LABS: Influenza A QL RT-PCR Negative (Negative); Influenza B QL RT-PCR Negative (Negative); RSV RNA, RT-PCR Negative (Negative); SARS-CoV-2 RNA PCR Positive (Negative)
[2023-08-11] MEDS: ENOXAPARIN 80 MG/0.8 ML SYRINGE SUB-Q (16:37)
--- NOTE | 2023-08-11 16:54 | PCRCNOTE ---
Recieved a Home Bipap/Cpap notifification. Pt. states does not want to borrow one; that she doesn't wear hers all the time at home. [place]. notified.
[2023-08-11 17:26] LABS: Reflex Lactic Acid Yes or No Add Lactic
[2023-08-11 17:37] LABS: Glucose Point of Care 176 mg/dl (65-105)
--- NOTE | 2023-08-11 17:38 | ADMGEN ---
This patient, Juliet Vides, was admitted to Medical Room 347-01. Patient/family oriented to hospital policies and general routines including ID bracelet, bed and alarms, visiting hours, pain management, procedures, bathroom and other care routines, personal items, smoking policy, room service/diet, and visiting hours. Information on how to activate the Rapid Response Team has been discussed. Patient/Family are encouraged to report perceived risks to care and to ask questions if they do not understand what they are told or what they should do.
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
[2023-08-11 17:51] LABS: Lactic Acid 1.6 mmol/L (0.7-2.0)
[2023-08-11 23:04] LABS: Glucose Point of Care 340 mg/dl (65-105)
[2023-08-11] MEDS: INSULIN ASPART (*BKC) 100 UNITS/ML 10 UNITS SUB-Q (23:51)
[2023-08-11] MEDS: INSULIN GLARGINE (*BKC) 100 UNITS/ML 50 UNITS SUB-Q (23:51)
[2023-08-11] MEDS: REMDESIVIR 200 MG/NS 250 ML 200 MG/250 ML BAG 250 MG IVPB (23:52)
[2023-08-11] MEDS: carvediloL 25 MG TABLET BY MOUTH (23:52)
[2023-08-11] MEDS: MELATONIN 5 MG TABLET PO (23:52)
[2023-08-11] MEDS: dexAMETHasone 2 MG TABLET 6 MG PO (23:53)
[2023-08-11] MEDS: GABAPENTIN 300 MG CAPSULE BY MOUTH (23:53)
[2023-08-12] VITALS (15 sets, daily range): BP systolic 151–156; BP diastolic 50–61; PULSE 60–84; RESP 16–18; TEMP 36–36.3; O2SAT 87–99
[2023-08-12] MEDS: IPRATROPIUM 0.5 MG/ALBUTEROL SULFATE 2.5 MG AMPUL.NEB 3 ML INHALATION ×4 (02:47→20:19)
[2023-08-12 06:12] LABS: Hematocrit 34.9 % (37.0-47.0); Mean Corpuscular HGB Conc 31.5 g/dl (32-36); Mean Corpuscular Hemoglobin 28.5 pg (26-34); Mean Corpuscular Volume 90.4 fl (80-100); Mean Platelet Volume 11.4 fl (7.4-10.4); Platelet Count Result 281 k/mm3 (150-375); Red Blood Count 3.86 M/mm3 (4.2-5.4); Red Cell Distribution Width 15.6 % (11.5-14.5); White Blood Count 8.2 K/mm3 (4.5-10.0)
[2023-08-12 06:23] LABS: Anion Gap 10 mmol/L (4-12); Blood Urea Nitrogen 33 mg/dL (7-17); CRP < 0.5 mg/dL (<1.0); Calcium 8.9 mg/dL (8.4-10.2); Carbon Dioxide 22 mmol/L (22-30); Chloride 103 mmol/L (98-107); Estimated CRCL calculation 20 ml/min; Estimated Glomerular Filt Rate 24; Glucose 375 mg/dL (65-110); Lactate Dehydrogenase 176 U/L (120-246); Magnesium 1.7 mg/dL (1.6-2.3); Potassium 4.2 mmol/L (3.4-5.0); Sodium 135 mmol/L (137-145)
[2023-08-12 08:39] LABS: Glucose Point of Care 338 mg/dl (65-105)
[2023-08-12] MEDS: dexAMETHasone 2 MG TABLET 6 MG PO (08:55)
[2023-08-12] MEDS: FUROSEMIDE 20 MG TABLET 40 MG BY MOUTH (09:02)
[2023-08-12] MEDS: carvediloL 25 MG TABLET BY MOUTH ×2 (09:02→21:47)
[2023-08-12] MEDS: ASPIRIN 81 MG ENTERIC TABLET PO (09:03)
[2023-08-12] MEDS: CHOLECALCIFEROL 1,000 UNITS TABLET 1000 UNITS PO (09:03)
[2023-08-12] MEDS: lisinopriL 10 MG TABLET PO (09:03)
[2023-08-12] MEDS: ENOXAPARIN 30 MG/0.3 ML SYRINGE SUB-Q (09:04)
[2023-08-12] MEDS: POTASSIUM CHLORIDE 10 MEQ ER TABLET PO ×2 (09:04→17:39)
[2023-08-12] MEDS: PANTOPRAZOLE 40 MG TABLET PO (09:04)
[2023-08-12] MEDS: BRIMONIDINE TARTRATE 0.2% OP SOLN 5 ML BTL 1 DROP EACH EYE ×3 (09:05→17:39)
[2023-08-12] MEDS: DORZOLAMIDE HCL 2% OPHTH DROPS 1 DROP EACH EYE ×3 (09:05→17:39)
[2023-08-12] MEDS: INSULIN ASPART (*BKC) 100 UNITS/ML SUB-Q ×2 (09:06→12:41)
[2023-08-12 12:02] LABS: Glucose Point of Care 397 mg/dl (65-105)
--- NOTE | 2023-08-12 13:08 | PM.IMPN ---
Progress Note: A&P Assessment and Plan (1) Acute and chronic respiratory failure with hypoxia: Code(s): J96.21 - Acute and chronic respiratory failure with hypoxia Status: Acute (2) COVID-19: Code(s): U07.1 - COVID-19 Status: Acute (3) Chronic obstructive pulmonary disease: Code(s): J44.9 - Chronic obstructive pulmonary disease, unspecified Status: Acute (4) Heart failure with preserved ejection fraction: Qualifiers: Heart failure chronicity: acute on chronic Qualified Code(s): I50.33 - Acute on chronic diastolic (congestive) heart failure Code(s): I50.30 - Unspecified diastolic (congestive) heart failure Status: Acute (5) Insulin dependent type 2 diabetes mellitus: Code(s): E11.9 - Type 2 diabetes mellitus without complications; Z79.4 - USP (current) use of insulin Status: Chronic (6) Essential hypertension: Code(s): I10 - Essential (primary) hypertension Status: Chronic (7) Chronic anemia: Code(s): D64.9 - Anemia, unspecified Status: Acute (8) Chronic kidney disease: Code(s): N18.9 - Chronic kidney disease, unspecified Status: Acute Plan recent COVID pt is out of isolation scheduled bronchodilators he has been started on dexamethasone and remdesivir as she is within 7 days of onset of symptoms. supportive care continue present care for 2-3 days pt will need walk study on DC DM uncontrolled likely secondary to steroids Continue basal insulin. Initiate sliding scale insulin, Accu-Cheks, and hypoglycemic protocol. Acute respiratory failure Chest x-ray was without significant findings as well. Pulmonary embolism is considered given her history of the same and current COVID diagnosis. PE ruled out by CTA Subjective Date/time seen: 08/12/23 13:08 Interval history: 78-year-old female with history of pulmonary embolism, chronic obstructive pulmonary disease, insulin-dependent diabetes mellitus, chronic kidney disease, coronary artery disease, diastolic congestive heart failure, hypertension, hyperlipidemia, and anemia who presented to the emergency department for evaluation of shortness of breath. The patient provides the following history. She was seen emergency department 1 week ago for evaluation of fever, body aches, cough, and sinus drainage at which time she was diagnosed with COVID. Pt is currently out of isolation but is still needing 2 liters of oxygen and her sugars are running high Review of Systems Review of Systems: SOB at rest Exam Narrative: General: Mildly ill-appearing female sitting up in bed in no acute distress. Pt is on 2 liters of oxygen. Neck:??Supple. No JVD or lymphadenopathy. Respiratory:?Respirations are nonlabored and she is speaking in full sentences. Bibasilar wheezes noted. Cardiovascular:??Regular rate and rhythm with S1-S2. Gastrointestinal:??Abdomen is soft, nontender, and nondistended with positive bowel sounds. Skin:??Warm and dry.? No rash or lesions on limited exam. Extremities:??No cyanosis, clubbing, or edema. Radial and pedal pulses intact. Negative Shameka sign bilaterally. Neurological:??Alert.? Cranial nerves 2-12 are grossly intact. No gross focal deficits to casual conversation. Psychiatric:??Pleasant and cooperative with appropriate mood and affect. Objective Data Vital Signs Vital Signs: Vital Signs - 24 hr 08/11/23 14:07 08/11/23 14:40 08/11/23 14:25 Temperature 36.6 C Pulse Rate 66 63 98 Respiratory Rate 18 16 Blood Pressure 148/59 H Pulse Oximetry 88 L Oxygen Delivery Room Air Oxygen Flow Rate 08/11/23 14:25 08/11/23 15:06 08/11/23 15:41 Temperature Pulse Rate 63 74 Respiratory Rate 12 20 Blood Pressure 132/55 L Pulse Oximetry 97 100 Oxygen Delivery Nasal Cannula Oxygen Flow Rate 2 08/11/23 15:08 08/11/23 15:16 08/11/23 16:15 Temperature Pulse Rate 57 L 60 67 Respi
[2023-08-12 17:13] LABS: Glucose Point of Care 405 mg/dl (65-105)
[2023-08-12] MEDS: INSULIN ASPART (*BKC) 100 UNITS/ML 12 UNITS SUB-Q ×2 (17:42→21:46)
[2023-08-12 19:09] LABS: Glucose Point of Care 483 mg/dl (65-105)
[2023-08-12] MEDS: INSULIN GLARGINE (*BKC) 100 UNITS/ML 55 UNITS SUB-Q (21:46)
[2023-08-12] MEDS: MELATONIN 5 MG TABLET PO (21:47)
[2023-08-12] MEDS: REMDESIVIR 100 MG/NS 250 ML 100 MG/250 ML BAG 250 MG IVPB (21:47)
[2023-08-12] MEDS: GABAPENTIN 300 MG CAPSULE BY MOUTH (21:47)
[2023-08-13] VITALS (15 sets, daily range): BP systolic 129–163; BP diastolic 43–86; PULSE 55–67; RESP 16–20; TEMP 36.1–36.3; O2SAT 93–100
[2023-08-13 05:59] LABS: Alanine Aminotransferase 17 U/L (6-35); Albumin Level 3.6 g/dL (3.5-5.1); Alkaline Phosphatase 57 U/L (38-126); Anion Gap 7 mmol/L (4-12); Aspartate Amino Transferase 18 U/L (14-36); Bilirubin,Total 0.4 mg/dL (0.2-1.3); Blood Urea Nitrogen 39 mg/dL (7-17); Calcium 8.9 mg/dL (8.4-10.2); Carbon Dioxide 24 mmol/L (22-30); Chloride 104 mmol/L (98-107); Estimated CRCL calculation 23 ml/min; Estimated Glomerular Filt Rate 27; Glucose 247 mg/dL (65-110); Potassium 4.4 mmol/L (3.4-5.0); Prothrombin Time 14.1 Seconds (11.1-14.7); Sodium 135 mmol/L (137-145)
[2023-08-13] MEDS: IPRATROPIUM 0.5 MG/ALBUTEROL SULFATE 2.5 MG AMPUL.NEB 3 ML INHALATION ×3 (07:48→20:10)
[2023-08-13 08:33] LABS: Glucose Point of Care 242 mg/dl (65-105)
[2023-08-13] MEDS: ASPIRIN 81 MG ENTERIC TABLET PO (08:58)
[2023-08-13] MEDS: PANTOPRAZOLE 40 MG TABLET PO (08:58)
[2023-08-13] MEDS: POTASSIUM CHLORIDE 10 MEQ ER TABLET PO ×2 (08:58→17:17)
[2023-08-13] MEDS: dexAMETHasone 2 MG TABLET 4 MG PO (08:59)
[2023-08-13] MEDS: lisinopriL 10 MG TABLET PO (08:59)
[2023-08-13] MEDS: CHOLECALCIFEROL 1,000 UNITS TABLET 1000 UNITS PO (08:59)
[2023-08-13] MEDS: BRIMONIDINE TARTRATE 0.2% OP SOLN 5 ML BTL 1 DROP EACH EYE ×3 (09:00→17:17)
[2023-08-13] MEDS: FUROSEMIDE 20 MG TABLET 40 MG BY MOUTH (09:00)
[2023-08-13] MEDS: ENOXAPARIN 30 MG/0.3 ML SYRINGE SUB-Q (09:01)
[2023-08-13] MEDS: DORZOLAMIDE HCL 2% OPHTH DROPS 1 DROP EACH EYE ×3 (09:01→17:17)
[2023-08-13] MEDS: carvediloL 25 MG TABLET BY MOUTH ×2 (09:02→20:30)
[2023-08-13] MEDS: INSULIN ASPART (*BKC) 100 UNITS/ML SUB-Q ×3 (09:03→20:31)
[2023-08-13 12:09] LABS: Glucose Point of Care 402 mg/dl (65-105)
[2023-08-13] MEDS: INSULIN ASPART (*BKC) 100 UNITS/ML 10 UNITS SUB-Q (12:18)
--- NOTE | 2023-08-13 13:07 | PM.IMPN ---
Progress Note: A&P Assessment and Plan (1) Acute and chronic respiratory failure with hypoxia: Code(s): J96.21 - Acute and chronic respiratory failure with hypoxia Status: Acute (2) COVID-19: Code(s): U07.1 - COVID-19 Status: Acute (3) Chronic obstructive pulmonary disease: Code(s): J44.9 - Chronic obstructive pulmonary disease, unspecified Status: Acute (4) Heart failure with preserved ejection fraction: Qualifiers: Heart failure chronicity: acute on chronic Qualified Code(s): I50.33 - Acute on chronic diastolic (congestive) heart failure Code(s): I50.30 - Unspecified diastolic (congestive) heart failure Status: Acute (5) Insulin dependent type 2 diabetes mellitus: Code(s): E11.9 - Type 2 diabetes mellitus without complications; Z79.4 - senior care (current) use of insulin Status: Chronic (6) Essential hypertension: Code(s): I10 - Essential (primary) hypertension Status: Chronic (7) Chronic anemia: Code(s): D64.9 - Anemia, unspecified Status: Acute (8) Chronic kidney disease: Code(s): N18.9 - Chronic kidney disease, unspecified Status: Acute Plan recent COVID pt is out of isolation scheduled bronchodilators he has been started on dexamethasone and remdesivir as she is within 7 days of onset of symptoms. supportive care continue present care pt is currently on day 2 of remdesvir for 1-2 days pt will need walk study on DC rpt cxr reviewed today DM uncontrolled likely secondary to steroids Continue basal insulin. Initiate sliding scale insulin, Accu-Cheks, and hypoglycemic protocol. Acute respiratory failure Chest x-ray was without significant findings as well. Pulmonary embolism is considered given her history of the same and current COVID diagnosis. PE ruled out by CTA Subjective Date/time seen: 08/13/23 13:07 Interval history: 78-year-old female with history of pulmonary embolism, chronic obstructive pulmonary disease, insulin-dependent diabetes mellitus, chronic kidney disease, coronary artery disease, diastolic congestive heart failure, hypertension, hyperlipidemia, and anemia who presented to the emergency department for evaluation of shortness of breath. The patient provides the following history. She was seen emergency department 1 week ago for evaluation of fever, body aches, cough, and sinus drainage at which time she was diagnosed with COVID. 08/13/2023 Pt is currently out of isolation but is still needing 2 liters of oxygen And her sugars are running high but better than yesterday Pt is on day 2 of remdesivir Pt will likely need ambulatory walk study on dc will repeat cxr today as pt had a bout of hypotension earlier cxr showed - . Mild atelectasis at left lung base. Cardiomegaly. Review of Systems Review of Systems: sob at rest post covid Exam Narrative: General: Mildly ill-appearing female sitting up in bed in no acute distress. Pt is on 2 liters of oxygen. Neck:??Supple. No JVD or lymphadenopathy. Respiratory:?Respirations are nonlabored and she is speaking in full sentences. Bibasilar wheezes noted. Cardiovascular:??Regular rate and rhythm with S1-S2. Gastrointestinal:??Abdomen is soft, nontender, and nondistended with positive bowel sounds. Skin:??Warm and dry.? No rash or lesions on limited exam. Extremities:??No cyanosis, clubbing, or edema. Radial and pedal pulses intact. Negative Shameka sign bilaterally. Neurological:??Alert.? Cranial nerves 2-12 are grossly intact. No gross focal deficits to casual conversation. Psychiatric:??Pleasant and cooperative with appropriate mood and affect. Objective Data Vital Signs Vital Signs: Vital Signs - 24 hr 08/12/23 13:21 08/12/23 13:29 08/12/23 14:00 Temperature 36.0 C L Pulse Rate 60 60 66 Respiratory Rate 16 16 18 Blood Pressure 156/61 H Pulse Oximetry 99 Oxygen Delivery Oxygen Flow Rate
[2023-08-13 17:10] LABS: Glucose Point of Care 278 mg/dl (65-105)
[2023-08-13] MEDS: MELATONIN 5 MG TABLET PO (20:29)
[2023-08-13] MEDS: GABAPENTIN 300 MG CAPSULE BY MOUTH (20:30)
[2023-08-13] MEDS: INSULIN GLARGINE (*BKC) 100 UNITS/ML 55 UNITS SUB-Q (20:32)
[2023-08-13 20:42] LABS: Glucose Point of Care 359 mg/dl (65-105)
[2023-08-13] MEDS: REMDESIVIR 100 MG/NS 250 ML 100 MG/250 ML BAG 250 MG IVPB (21:10)
[2023-08-14] VITALS (18 sets, daily range): BP systolic 150–187; BP diastolic 52–69; PULSE 50–88; RESP 16–20; TEMP 36.3–36.6; O2SAT 92–96
[2023-08-14] MEDS: IPRATROPIUM 0.5 MG/ALBUTEROL SULFATE 2.5 MG AMPUL.NEB 3 ML INHALATION ×4 (01:29→20:32)
[2023-08-14 05:48] LABS: Alanine Aminotransferase 17 U/L (6-35); Albumin Level 3.4 g/dL (3.5-5.1); Alkaline Phosphatase 58 U/L (38-126); Anion Gap 8 mmol/L (4-12); Aspartate Amino Transferase 19 U/L (14-36); Bilirubin,Total 0.6 mg/dL (0.2-1.3); Blood Urea Nitrogen 43 mg/dL (7-17); Calcium 8.8 mg/dL (8.4-10.2); Carbon Dioxide 24 mmol/L (22-30); Chloride 106 mmol/L (98-107); Estimated CRCL calculation 24 ml/min; Estimated Glomerular Filt Rate 29; Glucose 251 mg/dL (65-110); Potassium 4.2 mmol/L (3.4-5.0); Sodium 138 mmol/L (137-145)
[2023-08-14 08:21] LABS: Glucose Point of Care 190 mg/dl (65-105)
[2023-08-14] MEDS: BRIMONIDINE TARTRATE 0.2% OP SOLN 5 ML BTL 1 DROP EACH EYE ×3 (08:46→17:21)
[2023-08-14] MEDS: dexAMETHasone 2 MG TABLET 4 MG PO (08:46)
[2023-08-14] MEDS: DORZOLAMIDE HCL 2% OPHTH DROPS 1 DROP EACH EYE ×3 (08:46→17:22)
[2023-08-14] MEDS: CHOLECALCIFEROL 1,000 UNITS TABLET 1000 UNITS PO (08:47)
[2023-08-14] MEDS: ASPIRIN 81 MG ENTERIC TABLET PO (08:47)
[2023-08-14] MEDS: lisinopriL 10 MG TABLET PO (08:47)
[2023-08-14] MEDS: PANTOPRAZOLE 40 MG TABLET PO (08:47)
[2023-08-14] MEDS: POTASSIUM CHLORIDE 10 MEQ ER TABLET PO ×2 (08:47→17:21)
[2023-08-14] MEDS: ENOXAPARIN 30 MG/0.3 ML SYRINGE SUB-Q (08:54)
[2023-08-14] MEDS: FUROSEMIDE 20 MG TABLET 40 MG BY MOUTH (08:59)
[2023-08-14] MEDS: carvediloL 25 MG TABLET BY MOUTH ×2 (09:00→20:45)
[2023-08-14 12:04] LABS: Glucose Point of Care 249 mg/dl (65-105)
[2023-08-14] MEDS: ACETAMINOPHEN 325 MG TABLET 650 MG PO (12:42)
[2023-08-14] MEDS: INSULIN ASPART (*BKC) 100 UNITS/ML SUB-Q ×3 (12:43→20:45)
--- NOTE | 2023-08-14 14:36 | PM.IMPN ---
Progress Note: A&P Assessment and Plan (1) Chronic kidney disease: Code(s): N18.9 - Chronic kidney disease, unspecified Status: Acute (2) Chronic obstructive pulmonary disease: Code(s): J44.9 - Chronic obstructive pulmonary disease, unspecified Status: Acute (3) COVID-19: Code(s): U07.1 - COVID-19 Status: Acute Plan 78-year-old female presenting with symptoms of COVID-19 pneumonia. She is now on room air and her symptomatology has resolved. She has uncontrolled sugars, discontinue remdesivir and Decadron and continue to monitor sugars. FEN: Diabetic diet GI prophylaxis: DVT prophylaxis: Lovenox Lines: Full IV Code Status: Full code Dispo: Stable. Subjective Date/time seen: 08/14/23 14:36 Interval history: No acute overnight events. Patient upset she has been explained by the nursing team what is causing her sugars to be high. She otherwise has no complaints and has normal breathing. She is on room air. Review of Systems Review of Systems: All systems reviewed & are unremarkable except as noted in HPI and below (Subjective) Exam Const: General: comfortable and no acute distress Other: A&O x3. Slightly anxious. Eyes: Pupils: Equal, round and reactive pupils present Resp: Effort & Inspection: normal respiratory effort Auscultation: crackles (Bibasilar. Scant. Wet.) Cardio: Rate: regular rate Rhythm: regular rhythm GI: GI Palp: Yes Soft to palpation Extrem: General: no edema Objective Data Vital Signs Vital Signs: Vital Signs - 24 hr 08/13/23 15:00 08/13/23 19:55 08/13/23 20:11 Temperature 97.3 F L Pulse Rate 60 60 64 Respiratory Rate 16 20 20 Blood Pressure 163/48 H Pulse Oximetry 95 Oxygen Delivery Oxygen Flow Rate 08/13/23 20:12 08/13/23 20:30 08/13/23 20:00 Temperature Pulse Rate 66 Respiratory Rate Blood Pressure Pulse Oximetry 93 93 Oxygen Delivery Nasal Cannula Nasal Cannula Oxygen Flow Rate 1 1 08/13/23 21:40 08/14/23 01:20 08/14/23 01:30 Temperature 97.0 F L Pulse Rate 64 59 L 60 Respiratory Rate 20 20 20 Blood Pressure 142/86 H Pulse Oximetry 100 Oxygen Delivery Oxygen Flow Rate 08/14/23 07:33 08/14/23 07:33 08/14/23 06:00 Temperature 97.5 F L Pulse Rate 60 53 L Respiratory Rate 20 16 Blood Pressure 153/56 H Pulse Oximetry 92 93 Oxygen Delivery Nasal Cannula Oxygen Flow Rate 1 08/14/23 07:48 08/14/23 09:00 08/14/23 09:01 Temperature Pulse Rate 61 60 60 Respiratory Rate 20 17 Blood Pressure 183/61 H Pulse Oximetry 92 Oxygen Delivery Oxygen Flow Rate 08/14/23 08:00 08/14/23 09:05 08/14/23 13:11 Temperature Pulse Rate 60 58 L Respiratory Rate 17 20 Blood Pressure Pulse Oximetry 92 92 Oxygen Delivery Room Air Room Air Oxygen Flow Rate 08/14/23 13:10 08/14/23 13:22 Temperature Pulse Rate 60 Respiratory Rate 20 Blood Pressure Pulse Oximetry 95 Oxygen Delivery Room Air Oxygen Flow Rate Intake/Output Intake/Output: Intake & Output 08/11/23 08/12/23 08/13/23 08/14/23 23:59 23:59 23:59 23:59 Intake Total 19690 860 Balance 19690 860 Meds/Results Medications: Active Medications Generic Name Dose Route Start Last Admin Trade Name Freq PRN Reason Stop Dose Admin Acetaminophen 650 mg 08/11/23 16:21 08/14/23 12:42 Acetaminophen 325 Mg Tablet PO 650 mg Q4H PRN Administration Mild Pain (1-3) or Fever Albuterol/Ipratropium 3 ml 08/11/23 20:00 08/14/23 13:11 Ipratropium 0.5 Mg/Albuterol Sulfate 2.5 Mg Ampul.Neb 3 Ml INHALATION 3 ml Q6HRT KAMRYN Administration Aspirin 81 mg 08/12/23 09:00 08/14/23 08:47 Aspirin 81 Mg Enteric Tablet PO 81 mg DAILY KAMRYN Administration Brimonidine Tartrate 1 drop 08/12/23 09:00 08/14/23 12:42 Brimonidine Tartrate 0.2% Op Soln 5 Ml Btl EACH EYE 1 drop TID KAMRYN Administration Carvedilol 25 mg
[2023-08-14 17:05] LABS: Glucose Point of Care 316 mg/dl (65-105)
[2023-08-14] MEDS: INSULIN GLARGINE (*BKC) 100 UNITS/ML 55 UNITS SUB-Q (20:45)
[2023-08-14] MEDS: GABAPENTIN 300 MG CAPSULE BY MOUTH (20:45)
[2023-08-14] MEDS: MELATONIN 5 MG TABLET PO (20:46)
[2023-08-15 02:36] VITALS: PULSE 53; RESP 18
[2023-08-15] MEDS: IPRATROPIUM 0.5 MG/ALBUTEROL SULFATE 2.5 MG AMPUL.NEB 3 ML INHALATION ×2 (02:36→07:43)
[2023-08-15 04:58] LABS: Glucose Point of Care 345 mg/dl (65-105)
[2023-08-15 05:23] VITALS: BP 147/42; PULSE 50; RESP 16; TEMP 36.6; O2SAT 93
[2023-08-15 05:47] LABS: Basophils Percent Auto 0.3 % (0.2-1.2); Hemoglobin 11.6 g/dL (12.0-15.0); Immature Granulocyte Absolute 0.12 K/mm3 (0.00-0.031); Immature Granulocyte Percent A 0.9 % (0-0.5); Lymphocytes Absolute Auto 2.05 K/mm3 (0.9-3.2); Lymphocytes Percent Auto 15.8 % (18.3-44.2); Mean Corpuscular HGB Conc 31.4 g/dl (32-36); Mean Corpuscular Hemoglobin 28.4 pg (26-34); Mean Corpuscular Volume 90.7 fl (80-100); Mean Platelet Volume 11.4 fl (7.4-10.4); Monocytes Absolute Auto 1.6 K/mm3 (0.1-0.6); Monocytes Percent Auto 12.2 % (2.6-8.5); Neutrophils Absolute Auto 9.2 K/mm3 (1.3-6.7); Neutrophils Percent Auto 70.8 % (45.5-73.1); Platelet Count Result 310 k/mm3 (150-375); Red Blood Count 4.08 M/mm3 (4.2-5.4)
[2023-08-15 06:00] LABS: Anion Gap 8 mmol/L (4-12); Blood Urea Nitrogen 43 mg/dL (7-17); Carbon Dioxide 23 mmol/L (22-30); Chloride 107 mmol/L (98-107); Estimated CRCL calculation 24 ml/min; Estimated Glomerular Filt Rate 29; Glucose 177 mg/dL (65-110); Sodium 138 mmol/L (137-145)
[2023-08-15 07:43] VITALS: PULSE 56; RESP 18; O2SAT 91
[2023-08-15 07:54] VITALS: PULSE 61; RESP 18
[2023-08-15] MEDS: FUROSEMIDE 20 MG TABLET 40 MG BY MOUTH (08:21)
[2023-08-15] MEDS: lisinopriL 10 MG TABLET PO (08:22)
[2023-08-15] MEDS: POTASSIUM CHLORIDE 10 MEQ ER TABLET PO (08:22)
[2023-08-15 08:24] VITALS: PULSE 65
[2023-08-15] MEDS: carvediloL 25 MG TABLET BY MOUTH (08:24)
[2023-08-15] MEDS: CHOLECALCIFEROL 1,000 UNITS TABLET 1000 UNITS PO (08:24)
[2023-08-15] MEDS: PANTOPRAZOLE 40 MG TABLET PO (08:25)
[2023-08-15] MEDS: ASPIRIN 81 MG ENTERIC TABLET PO (08:25)
[2023-08-15] MEDS: ENOXAPARIN 30 MG/0.3 ML SYRINGE SUB-Q (08:26)
[2023-08-15 08:42] LABS: Glucose Point of Care 142 mg/dl (65-105)
[2023-08-15] MEDS: BRIMONIDINE TARTRATE 0.2% OP SOLN 5 ML BTL 1 DROP LEFT EYE ×2 (10:05→12:17)
[2023-08-15] MEDS: DORZOLAMIDE HCL 2% OPHTH DROPS 1 DROP LEFT EYE ×2 (10:10→12:17)
[2023-08-15] MEDS: INSULIN ASPART (*BKC) 100 UNITS/ML SUB-Q (12:14)
[2023-08-15 12:20] LABS: Glucose Point of Care 222 mg/dl (65-105)
[2023-08-15 14:00] VITALS: BP 170/63; PULSE 68; RESP 20; TEMP 37; O2SAT 96
--- NOTE | 2023-08-15 15:02 | PM.DS ---
DS: Admitting Diagnosis Discharge Date August 15, 2023 Admitting Diagnosis COVID-19 pneumonia DS: Discharge Diagnosis Discharge Diagnosis (1) COVID-19 virus infection: Code(s): U07.1 - COVID-19 Status: Acute DS: Summary Hospital Course Hospital Course: 78-year-old female with a history of CKD, PE, COPD, insulin-dependent diabetes mellitus, CAD, diastolic congestive heart failure, hyperlipidemia, hypertension, anemia [facility] with evaluation for shortness of breath. Patient was seen in the ER 1 week prior with fever body aches cough and sinus drainage at which time she was diagnosed with COVID. This then she has improved somewhat but she still has poor appetite nausea and congestion. She found her oxygen level to be 84% on room air. The patient was admitted for COVID-19 pneumonia and placed on 2 L nasal cannula. She was treated with dexamethasone and remdesivir for a few days and her oxygen via nasal cannula was weaned off. Patient was breathing well at her baseline and she preferred to be discharged home without any further medications. On arrival she had lactic acidosis at 2.8 which resolved. Her leukocytosis persistent but procalcitonin 0. She has been ordered a repeat CBC in 3 days to ensure resolution. She knows to follow up with her PCP within a week. She had uncontrolled blood sugars in the 200 however on discontinuation of dexamethasone improved. So she is sent home on her usual insulin dosing. She is stable for discharge to home on 08/15/2023. Patient was amenable to the above plan. Again she is to follow-up with her PCP very closely. The patient was full code during her admission. Time Spent with Patient Time attestation: Total time spent providing and/or coordinating discharge services: Exam Const: General: comfortable and no acute distress Other: A&O x3. Slightly anxious. Eyes: Pupils: Equal, round and reactive pupils present Resp: Effort & Inspection: normal respiratory effort Auscultation: crackles (Bibasilar. Scant. Wet.) Cardio: Rate: regular rate Rhythm: regular rhythm GI: GI Palp: Yes Soft to palpation Extrem: General: no edema DS: Data Data Completed and Pending Labs on day of discharge: Labs from last 24 hours 08/15/23 08/15/23 08/15/23 12:12 08:37 05:29 WBC 13.0 H RBC 4.08 L Hgb 11.6 L Hct 37.0 MCV 90.7 MCH 28.4 MCHC 31.4 L RDW 16.0 H Plt Count 310 MPV 11.4 H Immature Gran % (Auto) 0.9 H Neut % (Auto) 70.8 Lymph % (Auto) 15.8 L [place] % (Auto) 12.2 H Eos % (Auto) 0.0 Baso % (Auto) 0.3 Lymph # (Auto) 2.05 [place] # (Auto) 1.6 H Eos # (Auto) 0.0 Baso # (Auto) 0.0 Abs Immat Gran (auto) 0.12 H Absolute Neuts (auto) 9.2 H Absolute Nucleated RBC 0.000 Nucleated RBC % 0.0 Sodium 138 Potassium 4.0 Chloride 107 Carbon Dioxide 23 Anion Gap 8 BUN 43 H Creatinine 1.70 H Estim Creat Clear Calc 24 Estimated GFR 29 L Glucose 177 H POC Capillary Glucose 222 H 142 H Calcium 9.0 Procalcitonin 0.0 08/14/23 08/14/23 19:46 16:59 WBC RBC Hgb Hct MCV MCH MCHC RDW Plt Count MPV Immature Gran % (Auto) Neut % (Auto) Lymph % (Auto) [place] % (Auto) Eos % (Auto) Baso % (Auto) Lymph # (Auto) [place] # (Auto) Eos # (Auto) Baso # (Auto) Abs Immat Gran (auto) Absolute Neuts (auto) Absolute Nucleated RBC Nucleated RBC % Sodium Potassium Chloride Carbon Dioxide Anion Gap BUN Creatinine Estim Creat Clear Calc Estimated GFR Glucose POC Capillary Glucose 345 H 316 H Calcium Procalcitonin Preliminary micro results at discharge 08/11/23 14:41 Blood Culture - Preliminary Blood 08/11/23 14:41 Blood Culture - Preliminary Blood Discharge Plan Discharge Attending physician on discharge: Kimber Santos Discharging Clinician: Kimber Santos
== END 2023-08-15 16:00 | disposition home or self-care (01) | DRG 177 ==
LOC: ANHED 16:21 → ANH3MED 16:49
PROVIDERS: Family Medicine; Physician Assistant; Admitting Provider Hospitalist; Emergency Provider Emergency Medicine; PCP Emergency Medicine; Visit Provider General Practice
DX: U07.1 COVID-19 (principal); I50.33 Acute on chronic diastolic (congestive) heart failure; J12.82 Pneumonia due to coronavirus disease 2019; J96.21 Acute and chronic respiratory failure with hypoxia; I13.0 Hypertensive heart and chronic kidney disease with heart failure and stage 1 through stage 4 chronic kidney disease, or unspecified chronic kidney disease; J44.0 Chronic obstructive pulmonary disease with (acute) lower respiratory infection; D63.1 Anemia in chronic kidney disease; D50.9 Iron deficiency anemia, unspecified; E78.5 Hyperlipidemia, unspecified; E11.65 Type 2 diabetes mellitus with hyperglycemia; E11.319 Type 2 diabetes mellitus with unspecified diabetic retinopathy without macular edema; E11.22 Type 2 diabetes mellitus with diabetic chronic kidney disease; E11.40 Type 2 diabetes mellitus with diabetic neuropathy, unspecified; F32.A Depression, unspecified; H40.9 Unspecified glaucoma; I25.2 Old myocardial infarction; I25.10 Atherosclerotic heart disease of native coronary artery without angina pectoris; I48.0 Paroxysmal atrial fibrillation; K21.9 Gastro-esophageal reflux disease without esophagitis; N18.30 Chronic kidney disease, stage 3 unspecified; T38.0X5A Adverse effect of glucocorticoids and synthetic analogues, initial encounter; Z95.5 Presence of coronary angioplasty implant and graft; Z90.710 Acquired absence of both cervix and uterus; Z90.81 Acquired absence of spleen; Z87.891 Personal history of nicotine dependence; Z86.711 Personal history of pulmonary embolism; Z79.82 Long term (current) use of aspirin; Z79.84 Long term (current) use of oral hypoglycemic drugs; Z79.4 Long term (current) use of insulin
CPT/HCPCS: 36415; 36600; 71045; 78580; 80048; 80053; 82248; 82728; 82805; 82948; 83605; 83615; 83735; 83880; 84145; 84484; 85025; 85027; 85610; 85730; 86140; 87040; 87070; 87205; 87637; 93005; 94640; 96372; 96374; 99285; A9270; A9540; G0378; J0248; J1650; J1815; J2919; J8540

== ENCOUNTER 2023-08-16 19:58 | Emergency (ER) | payer MEDICARE, SELFPAY ==
--- NOTE | ~2023-08-16 | XR_ITS ---
EXAMINATION: XR chest 2V DATE: 08/16/2023 20:47 INDICATION: Shortness of breath. TECHNIQUE: Frontal and lateral views of the chest were obtained. COMPARISON: Chest single view 08/13/2023 FINDINGS: Calcified pulmonary nodules and calcified hilar lymph nodes are consistent with old granulo matous disease. There is mild atelectasis at right lung base. No pleural effusion or pneumothorax. Th e heart size is normal. There is an electronic implant in left anterior chest wall. IMPRESSION: 1. Mild atelectasis at right lung base. Reviewed, dictated and finalized at location E.
--- NOTE | ~2023-08-16 | CT_ITS ---
EXAMINATION: CT abdomen pelvis wo con DATE: 08/16/2023 22:05 INDICATION: Constipation. Abdominal pain. TECHNIQUE: Computed tomography (CT) of the abdomen and pelvis was performed without intravenous contr ast. Automated exposure control and iterative reconstruction technique were employed. The dose-length product was 516.38 mGy-cm. COMPARISON: CT abdomen and pelvis 01/27/2021 FINDINGS: The visualized portions of the lung bases demonstrate mild atelectasis. A calcified right l miguel a nodule and calcified right hilar lymph nodes are consistent with old granulomatous disease. No pl eural effusion. Cardiomegaly is noted. There are coronary artery calcifications. There is a trace per icardial effusion. Calcifications in the liver and spleen are consistent with old granulomatous disea se. The gallbladder, pancreas, adrenal glands, and kidneys are normal. There is calcified atheroscler osis of the aorta and many of the other arteries. Stool distends the rectosigmoid. There is diverticu losis of the colon without evidence of diverticulitis. The appendix is normal. There are no pathologi josé luis enlarged lymph nodes. There is no free intraperitoneal fluid. There is a subcutaneous injection site in right lower quadrant. There is a benign bone island in the sacrum. There is mild thoracic an d lumbar spondylosis. IMPRESSION: 1. Stool distends the rectosigmoid. Reviewed, dictated and finalized at location E.
[2023-08-16 19:56] VITALS: BP 124/58; PULSE 69; RESP 15; TEMP 36.6; O2SAT 95
--- NOTE | 2023-08-16 20:09 | ECG_ITS ---
SEE SCANNED COPY FOR CONFIRMED REPORT MTDD
[2023-08-16 20:30] VITALS: PULSE 61; RESP 12
[2023-08-16 20:31] LABS: Basophils Percent Auto 0.3 % (0.2-1.2); Eosinophils Absolute Auto 0.2 K/mm3 (0-0.3); Eosinophils Percent Auto 1.4 % (0-4.4); Hematocrit 38.7 % (37.0-47.0); Hemoglobin 12.5 g/dL (12.0-15.0); Immature Granulocyte Absolute 0.16 K/mm3 (0.00-0.031); Immature Granulocyte Percent A 1.1 % (0-0.5); Lymphocytes Absolute Auto 3.18 K/mm3 (0.9-3.2); Lymphocytes Percent Auto 22.7 % (18.3-44.2); Mean Corpuscular HGB Conc 32.3 g/dl (32-36); Mean Corpuscular Hemoglobin 28.8 pg (26-34); Mean Corpuscular Volume 89.2 fl (80-100); Mean Platelet Volume 11.5 fl (7.4-10.4); Monocytes Absolute Auto 1.5 K/mm3 (0.1-0.6); Monocytes Percent Auto 10.6 % (2.6-8.5); Neutrophils Absolute Auto 8.9 K/mm3 (1.3-6.7); Neutrophils Percent Auto 63.9 % (45.5-73.1); Platelet Count Result 299 k/mm3 (150-375); Red Blood Count 4.34 M/mm3 (4.2-5.4); Red Cell Distribution Width 16.3 % (11.5-14.5)
[2023-08-16] MEDS: IPRATROPIUM 0.5 MG/ALBUTEROL SULFATE 2.5 MG AMPUL.NEB 3 ML INHALATION (20:34)
[2023-08-16 20:39] VITALS: PULSE 66; RESP 14
[2023-08-16 20:44] LABS: Prothrombin Time 13.6 Seconds (11.1-14.7)
[2023-08-16 20:45] LABS: Partial Thromboplastin Time 22.9 Seconds (22.3-36.8)
[2023-08-16 20:55] LABS: Lactic Acid Reflex 2.1 mmol/L (0.7-2.0)
[2023-08-16 21:07] LABS: Influenza A QL RT-PCR Negative (Negative); Influenza B QL RT-PCR Negative (Negative); RSV RNA, RT-PCR Negative (Negative); SARS-CoV-2 RNA PCR Positive (Negative)
[2023-08-16 21:11] LABS: NT Pro B Type Natriuretic Pept 1370 pg/mL (19.9-100); Troponin I 0.018 ng/mL (0.000-0.034)
[2023-08-16 21:24] LABS: Procalcitonin 0.1 ng/mL
[2023-08-16 21:33] LABS: Appearance Urine Clear (Clear); Bacteria Urine None Seen /hpf; Bilirubin Urine Negative (Negative); Blood Urine Negative (Negative); Color Urine Yellow (Yellow); Glucose Urine UA Negative (Negative); Ketones Urine Negative (Negative); Leukocyte Esterase Ur Negative LEU/UL (Negative); Need Manual Microscopic Reviewed; Nitrate Urine Negative (Negative); Protein Urine Trace mg/dL (Negative); RBC Urine 0-2 /hpf (0-2); Specific Grav Ur 1.011 (1.001-1.035); Squamous Epithelial Cell Urine Occasional /hpf (Few); Urobilinogen Urine 0.2 mg/dL (<2.0); WBC Urine 0-5 /hpf (0-3); pH Urine 5.5 (5.0-9.0)
[2023-08-16 21:34] LABS: Add Urine Microscopic? YES
[2023-08-16 21:48] LABS: Alanine Aminotransferase 26 U/L (6-35); Albumin Level 3.6 g/dL (3.5-5.1); Alkaline Phosphatase 67 U/L (38-126); Anion Gap 11 mmol/L (4-12); Aspartate Amino Transferase 29 U/L (14-36); Bilirubin,Total 0.6 mg/dL (0.2-1.3); Blood Urea Nitrogen 62 mg/dL (7-17); Carbon Dioxide 25 mmol/L (22-30); Chloride 103 mmol/L (98-107); Estimated CRCL calculation 17 ml/min; Estimated Glomerular Filt Rate 20; Glucose 104 mg/dL (65-110); Potassium 3.9 mmol/L (3.4-5.0); Sodium 139 mmol/L (137-145)
[2023-08-16 23:29] LABS: Reflex Lactic Acid Yes or No Add Lactic
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
[2023-08-17] MEDS: ALBUTEROL SULFATE (*SP) INHALER 2 PUFF INHALATION (00:27)
[2023-08-17 00:33] VITALS: BP 134/90; PULSE 72; RESP 15; O2SAT 97
== END 2023-08-17 00:34 | disposition home or self-care (01) ==
PROVIDERS: Emergency Medicine; Emergency Provider Emergency Medicine; PCP Emergency Medicine
DX: K59.00 Constipation, unspecified (principal); J44.9 Chronic obstructive pulmonary disease, unspecified; Z20.822 Contact with and (suspected) exposure to COVID-19; Z86.16 Personal history of COVID-19; D64.9 Anemia, unspecified; I13.0 Hypertensive heart and chronic kidney disease with heart failure and stage 1 through stage 4 chronic kidney disease, or unspecified chronic kidney disease; E11.22 Type 2 diabetes mellitus with diabetic chronic kidney disease; N18.9 Chronic kidney disease, unspecified; I50.9 Heart failure, unspecified; I25.10 Atherosclerotic heart disease of native coronary artery without angina pectoris; E11.39 Type 2 diabetes mellitus with other diabetic ophthalmic complication; H42 Glaucoma in diseases classified elsewhere; E11.319 Type 2 diabetes mellitus with unspecified diabetic retinopathy without macular edema; E11.40 Type 2 diabetes mellitus with diabetic neuropathy, unspecified; E11.21 Type 2 diabetes mellitus with diabetic nephropathy; I27.21 Secondary pulmonary arterial hypertension; I48.0 Paroxysmal atrial fibrillation; I25.2 Old myocardial infarction; E78.5 Hyperlipidemia, unspecified; M19.90 Unspecified osteoarthritis, unspecified site; K55.20 Angiodysplasia of colon without hemorrhage; K21.9 Gastro-esophageal reflux disease without esophagitis; Z95.5 Presence of coronary angioplasty implant and graft; Z86.711 Personal history of pulmonary embolism; Z87.891 Personal history of nicotine dependence; Z90.81 Acquired absence of spleen; Z90.49 Acquired absence of other specified parts of digestive tract; Z90.711 Acquired absence of uterus with remaining cervical stump; Z79.84 Long term (current) use of oral hypoglycemic drugs; Z79.4 Long term (current) use of insulin; Z79.82 Long term (current) use of aspirin; R94.31 Abnormal electrocardiogram [ECG] [EKG]
CPT/HCPCS: 36415; 71046; 74176; 80053; 81001; 83605; 83735; 83880; 84145; 84484; 85025; 85610; 85730; 87637; 93005; 94640; 94664; 99284; A9270

== ENCOUNTER 2023-11-26 14:12 | Outpatient (CLI) | payer MEDICARE, SELFPAY ==
[2023-11-26 15:30] VITALS: PULSE 72; O2SAT 94
[2023-11-26 15:35] VITALS: PULSE 113; O2SAT 87
[2023-11-26 15:36] VITALS: O2SAT 88
[2023-11-26 15:37] VITALS: PULSE 92; O2SAT 92
[2023-11-26 15:45] VITALS: PULSE 81; O2SAT 94
--- NOTE | 2023-11-26 16:07 | HOMEO2EVAL ---
Evaluation was performed at [facility] Home Oxygen Evaluation RC: Home Oxygen (O2) Evaluation Start: 11/26/23 16:04 Freq: Status: Active Protocol: RPE Activity Type Activity Date Activity User E-sign Co-sign Detail Recorded Client Recorded Date Recorded By Document 11/26/23 15:30 [email or web address] 11/26/23 16:07 MAEVE Document 11/26/23 15:35 [email or web address] [email or web address] 11/26/23 16:07 MAEVE Document 11/26/23 15:36 [email or web address] [id number] 11/26/23 16:07 MAEVE Document 11/26/23 15:37 [email or web address] [id number] 11/26/23 16:07 MAEVE Document 11/26/23 15:45 [email or web address] [id number] 11/26/23 16:07 MAEVE 11/26/23 11/26/23 11/26/23 15:30 15:35 15:36 Home O2 Evaluation [Oxygen] -Test Phase Resting Exercise Exercise -Oxygen Delivery Room Air Room Air Nasal Cannula -Oxygen Flow Rate (L/min) 1 [Pulse Oximetry] -Pulse Oximetry (90-100 %) 94 87 L 88 L [Pulse Rate] -Pulse Rate (60-100 beats/min) 72 113 H [Exercise] -Ambulation Distance (feet) 900 -Ambulation Distance (meters) 274.30 [Comments] -Home Oxygen Evaluation Comments PT USED WHEELED WALKER, REQUIRES 2 L HOME O2 WITH ACTIVITY [Charges] -Evaluation Charges O2 Evaluation by Pulmonary 11/26/23 11/26/23 15:37 15:45 Home O2 Evaluation [Oxygen] -Test Phase Exercise Resting -Oxygen Delivery Nasal Cannula Room Air -Oxygen Flow Rate (L/min) 2 [Pulse Oximetry] -Pulse Oximetry (90-100 %) 92 94 [Pulse Rate] -Pulse Rate (60-100 beats/min) 92 81 [Exercise] -Ambulation Distance (feet) -Ambulation Distance (meters) [Comments] -Home Oxygen Evaluation Comments [Charges] -Evaluation Charges
--- NOTE | 2023-11-26 16:08 | PCRCNOTE ---
NEW HOME O2 SET UP, EVAL FAXED TO OFFICE STAFF
--- NOTE | 2023-12-03 13:56 | P.PCNPFT_ITS ---
PFT Procedure Performed PFT Procedure Performed Spirometry with Pre/Post Bronchodilator Plethysmography (Lung Vol) Diffusing Cap (DLCO) Flow Vol Loop PFT Interpretation DOS: 11/26/2023 REQUESTING: Kirstie Vernon PA-C REASON FOR TESTING: shortness of breath PULMONARY FUNCTION TESTS Results are reliable and reproducible. Repeatability of spirometry FEV1 maneuver pre and post bronchodilator is Grade A. Spirometry: The pre-bronchodilator FEV1 is 1.04 L, 54%, reduced. The pre- bronchodilator FVC is 1.55 L, 61%, reduced 67%, normal. The FEV1/FVC ratio is 1.10 L, 56% predicted, +5%. this is still below normal.. After bronchodilator, the FEV1 is 1.57 L, 62%, +1%, below normal. The FVC is 1.57 L, 62%, +1%, below normal. The FEV1/FVC ratio is 70%. Lung volumes: The total lung capacity is 3.33 L, 68%, below normal consistent with restrictive impairment. The residual volume is 1.58 L, 70%, normal.. The RV/TLC is 48%, normal. Airway resistance is increased. Diffusion: DLCO is 8.4, 43%, decreased. The DLCO/VA is 2.94, 70%, within the normal range. Flow volume loop: The flow volume loop has a restrictive morphology. IMPRESSION: This study shows a mild restrictive pattern without obstruction, severe diffusion impairment, no response to bronchodilator. Lack of response to bronchodilator should not preclude use if clinically indicated. Restriction is new compared to prior study 05/06/2018. Obstruction was previosuly noted. Restriction can mask obstruction. A prior study on 05/06/2018, FEV1 was 1.18 L, 63%, compared to the FEV1 of 1.04 L which is 54%. The FVC was the same. No bronchodilator was given. The total lung capacity was 4.12 L, 90%, previously normal now the patient has restriction. Diffusion impairment was not as severe, DLCO was 12.3, 67% and did improve when adjusted for alveolar volume. April Beltre MD
== END 2023-11-26 14:13 | disposition home or self-care (01) ==
LOC: ANHPFT 14:15
PROVIDERS: PCP Emergency Medicine; Visit Provider Physician Assistant
DX: J44.9 Chronic obstructive pulmonary disease, unspecified (principal)
CPT/HCPCS: 94060; 94618; 94726; 94729

== ENCOUNTER 2024-06-09 13:52 | Outpatient (CLI) | payer MEDICARE, SELFPAY ==
--- NOTE | 2024-06-09 14:08 | ECG_ITS ---
Test Date: 2024-06-09 14:30:32 Measurements Intervals [place] Rate: 59 P: -55 [place]: 159 QRS: 52 QRSD: 76 T: 97 QT: 434 QTc: 433 Interpretive Statements SINUS BRADYCARDIA INCOMPLETE RIGHT BUNDLE BRANCH BLOCK ST-T WAVE ABNORMALITY IN LAT/HIGH LAT LEADS- CONSIDER ISCHEMIA ABNORMAL ECG No previous ECG available for comparison Electronically Signed On 06-09-2024 14:35:01 ENVIRONMENTAL FIELD SERVICES TECHNICIAN by Binh Emerson D.O.
--- OUTSIDE RECORDS SUMMARY | 2024-06-09 16:00 | XMS_ITS | Referral Summary ---
Author Organization [facility] [address] Address [address] [place] [address] Care Team Providers Care Exchange Administrator Name Role Phone Erick Caceres MD Primary Care Provide r Allergies No known active allergies Medications cholecalcifero l (VITAMIN D3) 1,000 unit capsule take 1 a day 0 0 6 Active Additional Information Patient taking differently: 4,000 Units, Reported on 05/29/2023 metFORMIN (GLUCOPHAGE) 500 mg tablet TAKE 1 TABLET BY MOUTH TWICE DAILY WITH THE MORNING AND EVENING MEALS [address] (PROTONIX) 40 mg EC tablet Take 1 tablet (40 mg total) by mouth daily 1 8 Active NOVOLOG FLEXPEN U-100 INSULIN 100 unit/mL insulin pen INJECT 10 UNITS SUBCUTANEOUSLY 3 TIMES A DAY WITH MEALS IF BLOOD SUGAR EXCEEDS 250. MAX 30 UNITS/DAY 1 8 Active nitroglycerin (NITROSTAT) 0.[address] 1 tablet (0.4 mg total) under the tongue every 5 (five) minutes as needed for chest pain Active gabapentin (NEURONTIN) 300 mg capsule Take 1 capsule (300 mg total) by mouth daily Active aspirin 81 mg enteric coated tablet Take 1 tablet (81 mg total) by mouth daily Active meclizine (ANTIVERT) 25 mg tablet 1 Active furosemide (LASIX) 40 mg tablet Take 1 tablet (40 mg total) by mouth daily 90 tablet 3 2 Active atorvastatin (LIPITOR) 80 mg tablet TAKE 1 TABLET BY MOUTH EVERY DAY 90 tablet 1 2 Active potassium chloride ER (KLOR-CON) 10 mEq CR tablet Take 1 tablet/capsule (10 mEq total) by mouth 2 (two) times a day Active carvediloL (COREG) 25 mg tablet Take 1 tablet (25 mg total) by mouth 2 (two) times a day with meals 6.25mg bid 3 Active brimonidine (ALPHAGAN) 0.2 % ophthalmic solution 1 drop 3 (three) times a day Active timoloL (ISTALOL) 0.5 % drops, once daily ophthalmic solution 1 drop Active dorzolamide (TRUSOPT) 2 % ophthalmic solution 1 drop 3 (three) times a day Active Slow Release Iron 142 mg (45 mg iron) tablet TAKE 1 TABLET BY MOUTH EVERY DAY AT 0800 3 Active lisinopriL (PRINIVIL,ZEST RIL) 10 mg tablet Take 1 tablet (10 mg total) by mouth daily 3 Active LANTUS 100 unit/mL (3 mL) pen for injection 44 UNIT (0.44 ML) SUBCUTANEOUSLY EVERY DAY AT BEDTIME 4 Active Active Problems Problem Noted Date Diagnosed Date Palpitations 05/29/2023 Iron deficiency anemia due to chronic blood loss 06/08/2022 NSVT (nonsustained ventricular tachycardia) 05/17 Dizziness 01/09/2022 Hypertension associated with diabetes 03/21/2021 Contraindication to anticoagulation therapy 07/14 H/O: GI bleed 07/29/2018 SOB (shortness of breath) 04/18/2018 Coronary artery disease 11/19/2017 Mixed diabetic hyperlipidemi a associated with type 2 diabetes mellitus ([facility]/HCC) 11/19/2017 Chronic diastolic heart failure 11/19/2017 Pulmonary HTN 11/19/2017 Other pulmonary embolism without acute cor pulmo nale 11/19/2017 GI bleed 11/19/2017 Chronic fatigue 11/19/2017 Paroxysmal atrial fibrillation ([facility]/HCC) 018 Status post placement of implantable loop record er 10/17/2017 Overview (10/17/2017): [employer] Reveal Loop Recorder. Dx; Syncope. DOI 07/23/[address] Ayers. [employer] remote monitoring. Social History Tobacco Use Types Packs/Day Years Used Date Smoking Tobacco: Former Smokeless Tobacco: Never Tobacco Cessation:Counseling Given: Not Answered Alcohol Use Standard Drinks/Week Comments No 0 (1 standard drink = 0.6 oz pur e alcohol) Personal Safety Answer Date Recorded Getting School Help Needed Not on file 05/09 Comments Unknown Sex and Gender Information Value Date Recorded Sex Assigned at Not on file Legal Sex Female 3:39 AM DIRECTOR OF ANNUAL GIVING Gender Identity Not on file Sexual Orientation Not on file Last Filed Vital Signs Vital Sign Reading Time Taken Comments Blood Pressure 112/70 05/29/2023 1:27 PM DIRECTOR OF ANNUAL GIVING Pulse 94 05/29/2023 1:27 PM DIRECTOR OF ANNUAL GIVING Temperature - - Respiratory Rate - - Oxygen Saturation 93% 05/29/2023 1:27 PM DIRECTOR OF ANNUAL GIVING Inhaled Oxygen Concentration - - Weight 74.4 kg (164 lb) 05/29/2023 1:27 PM DIRECTOR OF ANNUAL GIVING Height 160 cm (5' 3 ) 05/29/2023 1:27 PM DIRECTOR OF ANNUAL GIVING Body Mass Index 29.05 05/29/2023 1:27 PM DIRECTOR OF ANNUAL GIVING Plan of Treatment Not on file Procedures Procedure Name Priority Date/Time Associated Diagnosis Comments POCT LIPID PANEL Routine 05/29/2023 2:00 PM DIRECTOR OF ANNUAL GIVING Mixed diabetic hyperlipidemia associated with type 2 diabetes mellitus (CMS/HCC) (HCC) HEMOGLOBIN A1C Routine 08/16/2022 9:59 AM CDT DIABETIC EYE EXAM Routine 08/29/2017 from Last 3 Months or Most Recently Relevant to Health Maintenance Results * POCT lipid panel (05/29/2023 2:00 PM DIRECTOR OF ANNUAL GIVING) Cholesterol, POC 164 mg/dL Comment:GLU = 107 HDL, POC 35 mg/dL Triglycerides, POC 143 mg/dL LDL Cholesterol POC 100 mg/dL Chol/HDL Ratio, POC 2.9 Non-HDL Cholesterol, POC 129 mg/dL Cholesterol Total, POC 164 mg/dL Capillary blood 05/29/2023 2 :00 PM DIRECTOR OF ANNUAL GIVING Geoffrey Wilkins MD POINT OF CARE TEST ORDER LAN Final Result * (ABNORMAL) Hemoglobin A1c (08/16/2022 9:59 AM CDT) Hgb A1C 6.7(H) <5.7 % of total Hgb [facility] Comment: For someone without known diabetes, a hemoglobin A1c value of 6.5% or greater indicates that they may have diabetes and this should be confirmed with a follow-up test. For someone with known diabetes, a value <7% indicates that their diabetes is well controlled and a value greater than or equal to 7% indicates suboptimal control. A1c targets should be individualized based on duration of diabetes, age, comorbid conditions, and other considerations. Currently, no consensus exists regarding use of hemoglobin A1c for diagnosis of diabetes for children. 08/16/2022 9:59 AM CDT 08/16/2022 10:03 AM CDT Narrative [facility] - 08/17/2022 1:29 AM CDT FASTING:YES FASTING: YES Erick Caceres MD LAB BLOOD ORDERABLES Final Result [facility] [address] [place] [address] * Diabetic Eye Exam (08/29/2017) Historical Provider HEALTH MAINTENANCE Edited Result - Final from Last 3 Months or Most Recently Relevant to Health Maintenance Insurance [employer] MEDICARE GOLD A[employer] MEDICARE GOLD Care Teams Exchange Administrator Relationship Specialty Start Date End Date Erick Caceres MD [address] [place] [address] PCP - General Emergency Medicine 09/23/19
--- OUTSIDE RECORDS SUMMARY | 2024-06-09 16:00 | XMS_ITS | Clinical Summary ---
Author Organization [facility] [address] Address [address] [place] [address] Care Team Providers Care Institutional Asset Manager Name Role Phone Erick Caceres MD Primary [...] a associated with type 2 diabetes mellitus ([facility]) 11/19/2017 Chronic diastolic heart failure 11/19/2017 Pulmonary HTN 11/19/2017 Other pulmonary embolism without acute cor pulmo nale 11/19/2017 GI bleed 11/19/2017 Chronic fatigue 11/19/2017 Paroxysmal atrial fibrillation ([facility]) 018 Status post placement of implantable loop record er 10/17/2017 Overview (10/17/2017): Tehnologii obratnyh zadacht[employer] Reveal Loop Recorder. Dx; Syncope. DOI 07/23/[address] Ayers. [facility]. Surgical History Surgery Date Site/Laterality Comments CORONARY ANGIOPLASTY HEART SURGERY Medical History Medical History Date Comments Hypertension Heart attack (HCC) CAD S/P percutaneous coronary angioplasty Hyperlipidemia Diabetes mellitus (HCC) Heart failure (HCC) Diverticulitis Bleeding Anemia Arthritis Peripheral arterial disease (HCC) Family History Medical History Relation Name Comments No Known Problems Father No Known Problems Mother Relation Name Status Comments Father Mother Social History Tobacco Use Types Packs/Day Years [...] on file Legal Sex Female 3:39 AM TARPER Gender Identity Not on file Sexual Orientation Not on file Obstetrics History Last Filed Vital Signs Vital Sign Reading Time Taken Comments Blood Pressure 112/70 05/29/2023 1:27 PM TARPER Pulse 94 05/29/2023 1:27 PM TARPER Temperature - - Respiratory Rate - - Oxygen Saturation 93% 05/29/2023 1:27 PM TARPER Inhaled Oxygen Concentration - - Weight 74.4 kg (164 lb) 05/29/2023 1:27 PM TARPER Height 160 cm (5' 3 ) 05/29/2023 1:27 PM TARPER Body Mass Index 29.05 05/29/2023 1:27 PM TARPER Plan of Treatment Health Maintenance Due Date Last Done Comments Albumin Creatinine Ratio, Urine 1946 Depression Screening 1946 Fall Risk Assessment 1945 Hepatitis C Screening 1946 Osteoporosis Screening-Bone Density Scan 1946 eGFR 1946 Foot Exam 1946 Hepatitis B Screening 1964 Zoster Vaccine (1 of 2) 1996 Well Visit 65+ 2011 Pneumococcal vaccine 65+ (2 of 2 - PPSV23 or PCV20) 02/18/2017 12/24/2016 Dilated Eye Exam 08/29/2018 08/29/2017, 03/14/2017 Hemoglobin A1C 02/16/2023 08/16/2022 Influenza Vaccine (#1) 2023 9, 01/20/2018, 12/24/2016, Additional history exists Lipid Panel 05/29/2024 05/29/2023, 053, 01/09/2022, Additional history exists DTaP/Tdap/Td Vaccine (3 - Td or Tdap) 03/12/2026 03/12/2016, 03/11/2016 Procedures Procedure Name Priority Date/Time Associated Diagnosis Comments POCT LIPID PANEL Routine 05/29/2023 2:00 PM TARPER Mixed diabetic hyperlipidemia associated with type 2 diabetes mellitus (CMS/HCC) (HCC) HEMOGLOBIN A1C Routine 08/16/2022 9:59 AM CDT DIABETIC EYE EXAM Routine 08/29/2017 from Last 3 Months or Most Recently Relevant to Health Maintenance Results * POCT lipid panel (05/29/2023 2:00 PM TARPER) Cholesterol, POC 164 mg/dL Comment:GLU = 107 HDL, POC 35 mg/dL Triglycerides, POC 143 mg/dL LDL Cholesterol POC 100 mg/dL Chol/HDL Ratio, POC 2.9 Non-HDL Cholesterol, POC 129 mg/dL Cholesterol Total, POC 164 mg/dL Capillary blood 05/29/2023 2 :00 PM TARPER Geoffrey Wilkins MD POINT OF CARE TEST ORDER LAN Final Result * (ABNORMAL) Hemoglobin A1c (08/16/2022 9:59 AM CDT) Hgb A1C 6.7(H) <5.7 % of total Hgb [facility] Comment: For someone without known diabetes, [...] Caceres MD LAB BLOOD ORDERABLES Final Result [facility] [address] [place] [address] * Diabetic Eye Exam (08/29/2017) Historical Provider HEALTH MAINTENANCE Edited Result - Final from Last 3 Months or Most Recently Relevant to Health Maintenance Insurance [facility] MEDICARE [facility] [place] [address] [address] MEDICARE [facility] Care Teams Institutional Asset Manager Relationship Specialty Start Date End Date Erick Caceres MD [address] [place] [address] PCP - General Emergency Medicine 09/23/19
--- OUTSIDE RECORDS SUMMARY | 2024-06-09 16:00 | XMS_ITS | CONTINUITY OF CARE DOCUMENT ---
Author Name maikel ko Address Unknown Organization [facility] Address [address] [place] [address] Phone [phone] Care Team Providers Care Neurology Professor Name Role Phone Armen NGUYEN, Ct Unavailable [phone] LOWELL MATHIS MD Unavailable [phone] CJ LINN MD Unavailable PROBLEMS Condition Status Date Provider Notes Homozygous MTFHR mutation active Alonso Márquez CAD active Ct Ayers MD DIABETES MELLITUS active Ct Ayers MD HTN ESSENTIAL active Ct Ayers MD Hypercholesterolemia active Brooklynn mcadams Medtronic REVEAL/LinQ active Ct bob MD Syncope active Ct Aeyrs MD Fatigue active Ct Ayers MD Aortic regurgitation active Ct lebron MD Angina active Ct Ayers MD Mitral regurgitation active Ct lebron MD Tobacco use, quit active Ct Ayers MD Anemia active Ct Ayers MD Headache active Ct Ayers MD Cardiomyopathy active Ct Ayers MD Leg pain, bilateral active Ct elizondo MD Snoring active Ct Ayers MD Carotid artery stenosis, <50% ICA b/l active 6 Alonso Márquez Chest pain-type to be determined active Hayley Márquez Preop exam active Ct Ayers MD Dizziness active Ct Ayers MD ENCOUNTERS Date Type Provider Location Encounter Diag nosis 3 - 4 In-person encounter Office Visit [facility] Ayers MD [facility] CardiomyopathyPreop examDizziness 6 - 3 In-person encounter Office Visit [facility] Ayers MD [facility] CADAortic regurgitationMitral regurgitationCardiomyopathyLeg pain, bilateralSnoringCarotid artery stenosis, <50% ICA b/lChest pain-type to be determined 7 - 7 In-person encounter Office Visit [facility] Ayers MD [facility] 8 - 8 In-person encounter Office Visit [facility] Ayers MD [facility] 8 - 8 In-person encounter Office Visit [facility] Ayers MD [facility] Medtronic REVEAL/LinQAnemiaHeadache 3 - 8 In-person encounter Office Visit [facility] Ayers MD [facility] Tobacco use, quit 9 - 6 In-person encounter Office Visit [facility] Ayers MD [facility] Medtronic REVEAL/LinQAortic regurgitationAngina 8 - 0 In-person encounter Office Visit [facility] Ayers MD [facility] 8 - 9 In-person encounter Office Visit [facility] Ayers MD [facility] FatigueAortic regurgitation 6 - 6 In-person encounter Office Visit Kami Herrera MD [facility] 7 - 3 In-person encounter Office Visit [facility] Ayers MD [facility] CADSyncope 9 - 9 In-person encounter Office Visit Ct Ayers MD [facility] CADDIABETES MELLITUSHTN ESSENTIALHypercholesterolemia VITAL SIGNS Date Observation Value Provider Body Mass Index (Ratio) 25.68 kg/m2 Mike Márquez blood pressure, diastolic 82 mm[Hg] Da mis Lenka blood pressure, systolic 148 mm[Hg] Dac ia Lenka oxygen saturation, oximetry 97 % Lizbet Lenka respiratory rate E&M 16 /min Lizbet V oss pulse rate 68 /min Lizbet Lenka weight E&M 145 [lb_av] Lizbet Lenka height E&M 63 [in_i] Lizbet Cato Body Mass Index (Ratio) 25.51 kg/m2 Mike Márquez blood pressure, resting Yes Delta Ayers MD blood pressure, cuff size regular Ke rri Tristian blood pressure, diastolic 71 mm[Hg] Ke rri Tristian blood pressure, systolic 170 mm[Hg] Girma Lubin oxygen saturation, oximetry 96 % Brooklynn Lubin respiratory rate E&M 16 /min Brooklynn lizarraga pulse rate 74 /min Brooklynn [facility] weight E&M 144 [lb_av] Brooklynn [facility] height E&M 63 [in_i] Brooklynn [facility] blood pressure, diastolic 67 mm[Hg] Dc cain Kevin blood pressure, systolic 160 mm[Hg] Jeanine matthew Kevin respiratory rate E&M 16 /min Stephanie Kevin pulse rate 66 /min Stephanie Kevin oxygen saturation, oximetry 94 % Stephanie Kevin Body Mass Index (Ratio) 24.80 kg/m2 Angelique venus Kevin weight E&M 140 [lb_av] Stephanie Kevin pulse rate #2 70 Iwona Adrian blood pressure, deleon tolic, second observation 65 mm[Hg] [facility], syst olic, second observation 131 mm[Hg] [facility] oxygen saturation, oximetry 98 % Criders d pulse rate 69 /min [facility] blood pressure, diastolic 90 mm[Hg] Vi ctoria Tebid blood pressure, systolic 135 mm[Hg] Josh melia Tebid pulse rate #2 67 Criders d blood pressure, deloen tolic, second observation 76 mm[Hg] [facility] blood pressure, syst olic, second observation 146 mm[Hg] [facility] oxygen saturation, oximetry 98 % [facility] pulse rate 69 /min [facility] blood pressure, diastolic 74 mm[Hg] [facility] Tebid blood pressure, systolic 142 mm[Hg] Josh melia Tebid pulse rate #2 64 Criders d blood pressure, deleon tolic, second observation 73 mm[Hg] Iwona d blood pressure, syst olic, second observation 141 mm[Hg] [facility] oxygen saturation, oximetry 98 % Criders pulse rate 64 /min [facility] blood pressure, diastolic 74 mm[Hg] Vi ctoria Tebid blood pressure, systolic 146 mm[Hg] Josh melia Tebid pulse rate #2 69 Criders d blood pressure, deleon tolic, second observation 72 mm[Hg] [facility] blood pressure, syst olic, second observation 139 mm[Hg] [facility] oxygen saturation, oximetry 98 % [facility] pulse rate 65 /min [facility] blood pressure, diastolic 74 mm[Hg] Vi ctoria Tebid blood pressure, systolic 144 mm[Hg] Josh melia Tebid pulse rate #2 72 Criders Tebid blood pressure, deleon tolic, second observation 87 mm[Hg] Iwona Tebid blood pressure, syst olic, second observation 162 mm[Hg] Iwona Tebid oxygen saturation, oximetry 98 % [facility] pulse rate 65 /min [facility] blood pressure, diastolic 82 mm[Hg] Vi ctoria Tebid blood pressure, systolic 165 mm[Hg] Josh melia Tebid pulse rate #2 63 [facility] blood pressure, deleon tolic, second observation 75 mm[Hg] [facility] blood pressure, syst olic, second observation 144 mm[Hg] [facility] oxygen saturation, oximetry 98 % [facility] pulse rate 68 /min [facility] blood pressure, diastolic 81 mm[Hg] Vi ctoria Tebid blood pressure, systolic 164 mm[Hg] Josh melia Tebid pulse rate #2 62 Criders Tebid blood pressure, deleon tolic, second observation 72 mm[Hg] [facility] blood pressure, syst olic, second observation 136 mm[Hg] [facility] oxygen saturation, oximetry 98 % [facility] pulse rate 64 /min Criders Tebid blood pressure, diastolic 74 mm[Hg] Vi ctoria Tebid blood pressure, systolic 145 mm[Hg] Josh melia Tebid pulse rate #2 68 Criders Tebid blood pressure, deleon tolic, second observation 76 mm[Hg] [facility] blood pressure, syst olic, second observation 144 mm[Hg] [facility] oxygen saturation, oximetry 98 % [facility] pulse rate 68 /min [facility] blood pressure, diastolic 76 mm[Hg] Vi ctoria Tebid blood pressure, systolic 144 mm[Hg] Josh melia Tebid pulse rate #2 65 Criders Tebid blood pressure, deleon tolic, second observation 78 mm[Hg] Iwona Tebid blood pressure, syst olic, second observation 137 mm[Hg] Iwona Tebid oxygen saturation, oximetry 98 % Criders Tebid pulse rate 67 /min Criders Tebid blood pressure, diastolic 75 mm[Hg] Vi ctoria Tebid blood pressure, systolic 139 mm[Hg] Josh melia Tebid pulse rate #2 67 Criders d blood pressure, deleon tolic, second observation 74 mm[Hg] [facility] blood pressure, syst olic, second observation 141 mm[Hg] [facility] oxygen saturation, oximetry 98 % [facility] pulse rate 70 /min [facility] blood pressure, diastolic 73 mm[Hg] [facility], systolic 144 mm[Hg] Josh melia Tebid pulse rate #2 67 [facility] blood pressure, deleon tolic, second observation 82 mm[Hg] [facility] blood pressure, syst olic, second observation 156 mm[Hg] [facility] oxygen saturation, oximetry 98 % [facility] pulse rate 68 /min [facility] blood pressure, diastolic 85 mm[Hg] Vi ctoria Tebid blood pressure, systolic 169 mm[Hg] Josh melia Tebid pulse rate #2 66 [facility] blood pressure, deleon tolic, second observation 71 mm[Hg] [facility] blood pressure, syst olic, second observation 131 mm[Hg] [facility] oxygen saturation, oximetry 98 % [facility] pulse rate 63 /min Criders Tebid blood pressure, diastolic 72 mm[Hg] Vi ctoria Tebid blood pressure, systolic 121 mm[Hg] Josh melia Tebid pulse rate #2 74 Criders Tebid blood pressure, deleon tolic, second observation 66 mm[Hg] Iwona Tebid blood pressure, syst olic, second observation 133 mm[Hg] Iwona Tebid oxygen saturation, oximetry 98 % [facility] pulse rate 74 /min Criders Tebid blood pressure, diastolic 71 mm[Hg] Vi ctoria Tebid blood pressure, systolic 133 mm[Hg] Johs melia Tebid pulse rate #2 73 [facility] blood pressure, deleon tolic, second observation 84 mm[Hg] [facility] blood pressure, syst olic, second observation 164 mm[Hg] Criders Tebid oxygen saturation, oximetry 98 % [facility] pulse rate 74 /min [facility] blood pressure, diastolic 81 mm[Hg] Vi ctoria Tebid blood pressure, systolic 166 mm[Hg] Josh melia Tebid pulse rate #2 64 [facility] blood pressure, deleon tolic, second observation 86 mm[Hg] Iwona Tebid blood pressure, syst olic, second observation 174 mm[Hg] Criders Tebid oxygen saturation, oximetry 98 % Criders Tebid pulse rate 62 /min Criders Tebid blood pressure, diastolic 78 mm[Hg] Vi ctoria Tebid blood pressure, systolic 173 mm[Hg] Josh melia Tebid pulse rate #2 85 [facility] blood pressure, deleon tolic, second observation 88 mm[Hg] Criders Tebid blood pressure, syst olic, second observation 126 mm[Hg] [facility] oxygen saturation, oximetry 98 % [facility] pulse rate 77 /min Iwona blood pressure, diastolic 78 mm[Hg] Vi ctoria Ted blood pressure, systolic 141 mm[Hg] Josh cárdenas Ted pulse rate #2 66 Criders blood pressure, deleon tolic, second observation 76 mm[Hg] Iwona blood pressure, syst olic, second observation 146 mm[Hg] [facility] oxygen saturation, oximetry 98 % Iwona pulse rate 67 /min Criders blood pressure, diastolic 77 mm[Hg] Vi ctkarolina Ted blood pressure, systolic 149 mm[Hg] Josh cárdenas Ted blood pressure, diastolic 70 mm[Hg] Dc cain Burgos blood pressure, systolic 155 mm[Hg] Jeanine castro Burgos pulse rate 58 /min Stephanie Burgos oxygen saturation, oximetry 96 % Stephanie Burgos respiratory rate E&M 14 /min Stephanie Burgos Body Mass Index (Ratio) 25.15 kg/m2 Angelique donovan Burgos weight E&M 142 [lb_av] Stephanie Burgos pulse rate #2 61 Criders blood pressure, deleon tolic, second observation 83 mm[Hg] [facility] blood pressure, syst olic, second observation 153 mm[Hg] [facility] oxygen saturation, oximetry 98 % [facility] pulse rate 61 /min [facility] blood pressure, diastolic 83 mm[Hg] Vi ctoria Ted blood pressure, systolic 161 mm[Hg] Josh cárdenas Ted pulse rate #2 69 Criders blood pressure, deleon tolic, second observation 72 mm[Hg] Iwona Tebid blood pressure, syst olic, second observation 137 mm[Hg] [facility] oxygen saturation, oximetry 98 % Iwona bid pulse rate 69 /min Iwona bid blood pressure, diastolic 73 mm[Hg] Vi ctoria Tebid blood pressure, systolic 140 mm[Hg] Josh melia Tebid pulse rate #2 75 [facility] blood pressure, deleon tolic, second observation 76 mm[Hg] [facility] blood pressure, syst olic, second observation 138 mm[Hg] [facility] oxygen saturation, oximetry 98 % Iwona d pulse rate 80 /min [facility] blood pressure, diastolic 76 mm[Hg] Vi ctoria Tebid blood pressure, systolic 141 mm[Hg] Josh melia Tebid pulse rate #2 80 Criders d blood pressure, deleon tolic, second observation 91 mm[Hg] [facility] blood pressure, syst olic, second observation 143 mm[Hg] [facility] oxygen saturation, oximetry 98 % Criders pulse rate 77 /min Criders d blood pressure, diastolic 89 mm[Hg] Vi ctoria Tebid blood pressure, systolic 155 mm[Hg] Josh melia Tebid pulse rate #2 86 [facility] blood pressure, deleon tolic, second observation 79 mm[Hg] [facility] blood pressure, syst olic, second observation 158 mm[Hg] [facility] oxygen saturation, oximetry 98 % Iwona d pulse rate 84 /min [facility] blood pressure, diastolic 79 mm[Hg] Vi ctoria Tebid blood pressure, systolic 165 mm[Hg] Josh melia Tebid pulse rate #2 80 [facility] blood pressure, deleon tolic, second observation 80 mm[Hg] Iwona blood pressure, syst olic, second observation 164 mm[Hg] Criders oxygen saturation, oximetry 98 % [facility] pulse rate 90 /min [facility] blood pressure, diastolic 88 mm[Hg] Vi ctoria Ted blood pressure, systolic 165 mm[Hg] Josh melia d blood pressure, diastolic 71 mm[Hg] Dc cain [facility] blood pressure, systolic 156 mm[Hg] Jeanine castro [facility] pulse rate 74 /min [facility] [place] oxygen saturation, oximetry 96 % [facility] [place] respiratory rate E&M 15 /min [facility] Body Mass Index (Ratio) 24.97 kg/m2 Angelique venus [facility] weight E&M 141 [lb_av] [facility] [place] pulse rate #2 84 [facility] blood pressure, deleon tolic, second observation 87 mm[Hg] [facility] blood pressure, syst olic, second observation 155 mm[Hg] [facility] oxygen saturation, oximetry 98 % [facility] pulse rate 84 /min [facility] blood pressure, diastolic 87 mm[Hg] Vi ctoria Ted blood pressure, systolic 155 mm[Hg] Josh brooksia Ted pulse rate #2 66 Criders blood pressure, deleon tolic, second observation 79 mm[Hg] [facility] blood pressure, syst olic, second observation 159 mm[Hg] [facility] oxygen saturation, oximetry 98 % [facility] pulse rate 64 /min Iwona Tebid blood pressure, diastolic 74 mm[Hg] Vi ctoria Tebid blood pressure, systolic 164 mm[Hg] Josh melia Tebid pulse rate #2 71 Iwona Tebid blood pressure, deleon tolic, second observation 73 mm[Hg] Iwona Tebid blood pressure, syst olic, second observation 146 mm[Hg] Iwona Tebid oxygen saturation, oximetry 98 % [facility] pulse rate 81 /min Iwona Tebid blood pressure, diastolic 83 mm[Hg] Vi ctoria Tebid blood pressure, systolic 153 mm[Hg] Josh melia Tebid pulse rate #2 77 Criders Tebid blood pressure, deleon tolic, second observation 91 mm[Hg] [facility] blood pressure, syst olic, second observation 135 mm[Hg] [facility] oxygen saturation, oximetry 98 % [facility] pulse rate 77 /min [facility] blood pressure, diastolic 91 mm[Hg] Vi ctoria Tebid blood pressure, systolic 135 mm[Hg] Josh melia Tebid pulse rate #2 88 Criders Ted blood pressure, deleon tolic, second observation 78 mm[Hg] Iwona Tebid blood pressure, syst olic, second observation 155 mm[Hg] Iwona Tebid oxygen saturation, oximetry 98 % Iwona Tebid pulse rate 82 /min Iwona Tebid blood pressure, diastolic 81 mm[Hg] Vi ctoria Tebid blood pressure, systolic 154 mm[Hg] Josh melia Tebid pulse rate #2 88 Iwona Tebid blood pressure, deleon tolic, second observation 79 mm[Hg] Iwona Tebid blood pressure, syst olic, second observation 144 mm[Hg] [facility] oxygen saturation, oximetry 98 % Iwona bid pulse rate 85 /min Criders Tebid blood pressure, diastolic 77 mm[Hg] Vi ctoria Tebid blood pressure, systolic 152 mm[Hg] Josh melia Tebid pulse rate #2 85 Iwona d blood pressure, deleon tolic, second observation 77 mm[Hg] Iwona Tebid blood pressure, syst olic, second observation 168 mm[Hg] Iwona Tebid oxygen saturation, oximetry 98 % Iwona d pulse rate 92 /min Iwona Ted blood pressure, diastolic 91 mm[Hg] Vi ctoria Tebid blood pressure, systolic 177 mm[Hg] Josh melia Tebid pulse rate #2 69 Criders d blood pressure, deleon tolic, second observation 88 mm[Hg] [facility] blood pressure, syst olic, second observation 145 mm[Hg] Iwona Ted oxygen saturation, oximetry 98 % Iwona pulse rate 69 /min Iwona Tebid blood pressure, diastolic 88 mm[Hg] Vi ctoria Tebid blood pressure, systolic 145 mm[Hg] Josh melia Tebid pulse rate #2 69 Criders d blood pressure, deleon tolic, second observation 75 mm[Hg] [facility] blood pressure, syst olic, second observation 167 mm[Hg] Iwona Tebid oxygen saturation, oximetry 98 % Iwona d pulse rate 64 /min Iwona Tebid blood pressure, diastolic 79 mm[Hg] Vi ctoria Tebid blood pressure, systolic 163 mm[Hg] Josh melia Tebid blood pressure, diastolic 82 mm[Hg] Ke rri Gruenestefanyer blood pressure, systolic 158 mm[Hg] Ker ri Agustinuenemiriam pulse rate 82 /min Brooklynn Annel lder oxygen saturation, oximetry 96 % Brooklynn Tristian respiratory rate E&M 16 /min Brooklynn Wilde zia Body Mass Index (Ratio) 24.62 kg/m2 Christin alanis Tristian weight E&M 139 [lb_av] Brooklynn Agustinlisjaciel [facility] blood pressure, diastolic 70 mm[Hg] Me barlow Bugros blood pressure, systolic 148 mm[Hg] Jeanine castro Burgos pulse rate 82 /min Stephanie Burgos oxygen saturation, oximetry 96 % Stephanie Burgos respiratory rate E&M 14 /min Stephanie Burgos Body Mass Index (Ratio) 24.62 kg/m2 Angelique donovan Burgos weight E&M 139 [lb_av] Stephanie Burgos blood pressure, diastolic 74 mm[Hg] Mendoza Pederson blood pressure, systolic 132 mm[Hg] Mahi Pederson Body Mass Index (Ratio) 24.66 kg/m2 Eunice Pederson pulse rate 91 /min Junior lazaro oxygen saturation, oximetry 94 % Junior Pederson respiratory rate E&M 18 /min Ady Pederson weight E&M 139.2 [lb_av] Junior cannon blood pressure, diastolic 66 mm[Hg] Mendoza Pederson blood pressure, systolic 130 mm[Hg] Mahi Pederson Body Mass Index (Ratio) 24.66 kg/m2 Eunice Pederson pulse rate 53 /min Junior lazaro oxygen saturation, oximetry 96 % Junior Pederson respiratory rate E&M 16 /min Ady Pederson weight E&M 139.2 [lb_av] Junior cannon blood pressure, diastolic 67 mm[Hg] Mendoza Pederson blood pressure, systolic 186 mm[Hg] Mahi Pederson pulse rate 60 /min Junior lazaro oxygen saturation, oximetry 90 % Junior Pederson respiratory rate E&M 20 /min Ady Pederson weight E&M 147.4 [lb_av] Junior cannon Body Mass Index (Ratio) 25.51 kg/m2 Anea judi Brown blood pressure, diastolic 71 mm[Hg] An eatris Brown blood pressure, systolic 195 mm[Hg] Ane atris Brown pulse rate 59 /min Aneatris Brown oxygen saturation, oximetry 95 % Aneatris Brown respiratory rate E&M 17 /min Aneatri s Jared weight E&M 144 [lb_av] Aneatris [facility] height E&M 63 [in_i] Aneatris [facility] blood pressure, diastolic 78 mm[Hg] Mendoza becerra Darius'Tang blood pressure, systolic 175 mm[Hg] Mahi yolanda Mccoy'Tang pulse rate 65 /min Laurel O'Tang oxygen saturation, oximetry 93 % Laurel O'Tang respiratory rate E&M 16 /min Laurel O'Tang weight E&M 144 [lb_av] Laurel O'Tang ALLERGIES Allergy Name Onset Date Reaction Criticality Status OXYCODONE INEFFECTIVE Low Criticality active HYDROCODONE INEFFECTIVE Low Criticality active RESULTS Date Observation Value Provider Reference Range Interpretation Location coagulation managed by 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 RN 9 international normalized ratio (INR) 2.2 Stephanie Brown Normal 9 prothrombin time (patient) 26.4 s Stephanie Brown 6 prothrombin time (patient) 15.2 s 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 RN 6 international normalized ratio (INR) 1.4 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 RN Normal 8 coagulation managed by 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 RN 8 international normalized ratio (INR) 2.1 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 RN Normal 8 prothrombin time (patient) 22.7 s 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 RN 4 coagulation managed by 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 RN 4 international normalized ratio (INR) 1.6 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 RN Normal 4 prothrombin time (patient) 17.6 s 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 RN HISTORY OF MEDICATION USE Medication Status Instructions Dates Provider Indications Com ments CVS MELATONIN CAPS active take one pill at bedtime Brooklynn Lubin VITAMIN D (CHOLECALCIFER OL) 1000 UNIT ORAL CAPSULE active 3 times a week Brooklynn Lubin CARVEDILOL 3.125 MG ORAL TABLET active one tab twice daily Ct Ayers MD ATORVASTATIN CALCIUM 20 MG ORAL TABLET active One tablet daily [facility] Ayers MD Replacing Rosuvastatin LEVEMIR FLEXTOUCH 100 UNIT/ML SUBCUTANEOUS SOLUTION PEN-INJECTOR active 39 units once daily Alonso Márquez COREG 6.25 MG ORAL TABLET completed ONE TAB. TWICE DAILY - Ct Ayers MD NOVOLOG MIX 70/30 (70-30) 100 UNIT/ML SUBCUTANEOUS SUSPENSION active 10 units once daily Alonso Márquez AMLODIPINE BESYLATE 5 MG ORAL TABLET active once daily Stephanie Burgos JANTOVEN 4 MG ORAL TABLET completed 2 tabs once daily - Brooklynn Lubin SIMVASTATIN 20 MG ORAL TABLET completed 1 TAB DAILY - Ct Ayers MD LISINOPRIL 20 MG ORAL TABLET active ONE TAB DAILY Ct Ayers MD GABAPENTIN 100 MG ORAL CAPSULE active 1 tab twice daily Aneatris Brown CLOPIDOGREL BISULFATE 75 MG ORAL TABLET active [address] Ayers MD NITROSTAT 0.4 MG SUBLINGUAL TABLET SUBLINGUAL active One tablet under tongue as needed. May repeat twice in [address] Ayers MD Sit down before taking nitroglycerin as you may become dizzy and/or get a headache. LASIX 20 MG ORAL TABLET active once daily Stephanie Burgos ISOSORBIDE MONONITRATE ER 30 MG ORAL TABLET EXTENDED RELEASE 24 HOUR active [address] Ayers MD COUMADIN 5 MG ORAL TABLET completed one tab daily - Junior Pederson DIGOXIN 250 MCG ORAL TABLET completed 1 tab by mouth daily - Ct Ayers MD METFORMIN HCL 500 MG ORAL TABLET active twice daily Junior Pederson GLIMEPIRIDE 4 MG ORAL TABLET completed 1 tab by mouth twcie daily - Junior Pederson LIPITOR 20 MG ORAL TABLET completed 1 tab by mouth daily - Angelina Coleman CARVEDILOL 25 MG ORAL TABLET completed one tab twice daily - Ct Ayers MD DIOVAN 160 MG ORAL TABLET completed 1 tab by mouth daily - Junior Pederson PERPHENAZINE-A MITRIPTYLINE 2-25 MG ORAL TABLET completed 1 tab by mouth at bedtime - Angelina Coleman HYDROCODONE-AC ETAMINOPHEN 10-500 MG ORAL TABLET completed 1 tab by mouth twcie daily as need - Anedaniel Coleman LYRICA 75 MG ORAL CAPSULE completed 1 tab by mouth three times daily - Anedaniel Coleman ASPIRIN 325 MG ORAL TABLET active ONE TAB. DAILY Stephanie Burgos HUMALOG MIX 75/25 KWIKPEN SUSPENSION PEN-INJECTOR completed - Junior Pederson SOCIAL HISTORY Date Observation Value Provider social history reviewed E&M revi ewed - no changes required Alonso Márquez physical exercise, f requency, days per week yes Lizbet Cato alcohol use, average drinks per day none Lizbet Cato alcohol use no Lizbet Cato caffeine use, averag e drinks per day 1+ Alonso Márquez drug use none Lizbet Cato smoking, year quit 2014 Lizbet elizondo smoking history, tot al pack/year >40 [facility] cigarette use yes Lizbet Og smoking status Former smoker Lizbet Og social history reviewed E&M revi ewed - no changes required Ct Ayers MD social history E&M Marital Statu s: L ave with family/friends E thnicity: Smoking History: Lloyd villatoro is a former smoker. Ct Ayers MD physical exercise, f requency, days per week yes Brooklynn Lubin alcohol use, average drinks per day none Brooklynn Lubin alcohol use no Brooklynn mcadams caffeine use, averag e drinks per day yes Brooklynn Lubin drug use none Brooklynnchinyere martinezer smoking, year quit 2014 Brooklynn sheppard smoking history, tot al pack/year >40 Brooklynn Lubin cigarette use yes Brooklynn Dale farley smoking status Former smoker Brooklynn Velezion pineda number of grandchildren Ct Ayers MD physical exercise, f requency, days per week yes Stephanie alcohol use, average drinks per day none Stephanie Kevin alcohol use no Stephanie Kevin caffeine use, averag e drinks per day yes Stehpanie Kevin drug use none Stephanie Kevin smoking, year quit 2014 Stephanie K abbey smoking history, tot al pack/year >40 Stephanie Borwn cigarette use yes Stephanie Kevin smoking status Former smoker Stephanie Kevin social history reviewed E&M revi ewed - no changes required Ct Ayers MD physical exercise, f requency, days per week yes Stephanie Burgos alcohol use, average drinks per day none Stephanie Burgos alcohol use no Stephanie Burgos caffeine use, averag e drinks per day yes Stephanie Burgos drug use none Stephanie Burgos smoking, year quit 2014 Stephanie Garza cCasabine smoking history, tot al pack/year >40 Stephanie Burgos cigarette use yes Stephanie Burgos smoking status Former smoker Stephanie Wiley nn social history reviewed E&M revi ewed - no changes required Ct Ayers MD physical exercise, f requency, days per week yes Stephanie Burgos alcohol use, average drinks per day none Stephanie Burgos alcohol use no Stephanie Burgos caffeine use, averag e drinks per day yes Stephanie Burgos drug use none Stephanie Burgos smoking, year quit 2014 Stephanie Garza cCasabine smoking history, tot al pack/year >40 Stephanie Burgos cigarette use yes Stephanie Burgos smoking status Former smoker Stephanie Wiley sabine social history reviewed E&M revi ewed - no changes required Ct Ayers MD alcohol use no Brooklynn Annel mcadams smoking status Former smoker Brooklynn Meier gayathrielder social history E&M Marital Statu s: L ave with family/friends E thnicity: Smoking History: Lloyd villatoro is a former smoker. Ct Ayers MD social history reviewed E&M revi ewed - no changes required Ct Ayers MD physical exercise, f requency, days per week yes Stephanie Grahamann alcohol use, average drinks per day none Stephanie Burgos caffeine use, averag e drinks per day yes Stephanie Burgos drug use none Stephanie Burgos smoking, year quit 2014 Stephanie Garza Luz Maria smoking history, tot al pack/year >40 Stephanie Burgos cigarette use yes Stephanie Burgos smoking status Former smoker Stephanie Wiley nn social history reviewed E&M revi ewed - no changes required Ct Ayers MD physical exercise, f requency, days per week yes JuniorKacey Pederson alcohol use, average drinks per day none Junior Pederson caffeine use, averag e drinks per day yes Junior Pederson drug use none Junior lazaro smoking/tobacco cess ation, patient education and counseling yes Junior Pederson smoking, year quit 2014 Junior Pederson smoking history, tot al pack/year >40 Junior Pederson cigarette use yes Junior cannon smoking status Former smoker Junior Barnes social history reviewed E&M revi ewed - no changes required Ct Ayers MD physical exercise, f requency, days per week yes Junior Pederson alcohol use, average drinks per day none JuniorKacey Pederson caffeine use, averag e drinks per day yes Junior Pederson drug use none JuniorKacey lazaro smoking/tobacco cess ation, patient education and counseling yes Junior Pederson smoking, year quit 2014 Jnuior Pederson smoking history, tot al pack/year >40 Junior Pederson cigarette use yes Junior Hector davis smoking status Former smoker Junior Barnes smoking, year quit 2014 Junior Pederson physical exercise, f requency, days per week yes Junior Pederson alcohol use, average drinks per day none Junior Pederson caffeine use, averag e drinks per day yes Junior Pederson drug use none Junior lazaro smoking/tobacco cess ation, patient education and counseling yes Junior Pederson cigarette use yes Junior cannon smoking status Former smoker Junior Barnes social history reviewed E&M revi ewed - no changes required Ct Ayers MD smoking/tobacco cess ation, patient education and counseling yes Ct Ayers MD smoking status Current every day smoker Kika Coleman smoking status smoker - current status unknown Eunice Quinonez cigarette use 0.5 Ct bob MD smoking history, tot al pack/year >40 Ct Ayers MD drug use none Ct lebron MD smoking/tobacco cess ation, patient education and counseling yes Ct Ayers MD social history E&M Marital Statu s: L ave with family/friends E thnicity: 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 RN social history reviewed E&M reviewed 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 RN physical exercise, f requency, days per week yes [employer] caffeine use, averag e drinks per day yes [employer]Log[employer] alcohol use, average drinks per day none [employer] smoking status Smoker [employer]Log FUNCTIONAL STATUS Date Observation Value Provider HRA, CV Assess/Plan, Angina (inactive) Management Plan continue current therapy Alonso Márquez HRA, CV Assess/Plan, Angina (inactive) Management Plan antianginal therapy Ct Ayers MD MENTAL STATUS Date Observation Value Provider energy level yes Iwona Tebid energy level yes Iwona Tebid energy level yes Iwona Tebid energy level yes Iwoan Tebid energy level yes Iwona Tebid energy level yes Iwona Tebid energy level yes Iwona Tebid energy level yes Iwona Tebid energy level yes Iwona Tebid energy level yes Iwona Tebid energy level yes Iwona Tebid energy level yes Iwona Tebid energy level yes Iwona Tebid energy level yes Iwona Tebid energy level yes Iwona Tebid energy level yes Iwona Tebid energy level yes Iwona Tebid energy level yes Iwona Tebid energy level yes Iwona Tebid energy level yes Iwona Tebid energy level yes Iwona Tebid energy level yes Iwona Tebid energy level yes Iwona Tebid energy level yes Iwona Tebid energy level yes Iwona Tebid energy level yes Iwona Tebid energy level yes Iwona Tebid energy level yes Iwona Tebid energy level yes Iwona Tebid energy level no Iwona Tebid energy level no Iwona Tebid assessment of judgme nt and insight E&M Alert and oriented to time, place and person. Mood and affect are normal. 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 Pt believes it may be related to her poor vision. Alonso Márquez Cardiology Follow up faxed 07/09/16:Candidate for cataract surgery. Will need to stop Plavix 5 days prior. Alonso Márquez Cardiology Follow up faxed 07/09/16:Her updated medication list for this problem includes: Carvedilol 3.125 Mg Tabs (Carvedilol) ..... One tab twice daily Amlodipine Besylate 5 Mg Oral Tabs (Amlodipine besylate) ..... Once daily Lisinopril 20 Mg Tabs (Lisinopril) ..... One tab daily Clopidogrel Bisulfate 75 Mg Oral Tabs (Clopidogrel bisulfate) ..... 1 tab daily Aspirin 325 Mg Tabs (Aspirin) ..... One tab. daily Alonso Yulisa Cardiology Follow up faxed 07/09/16:Nuclear exercise stress test showed EF of 41%, which is decreased from TTE in September 2015 which showed EF of 55%. Her updated medication list for this problem includes: Carvedilol 3.125 Mg Tabs (Carvedilol) ..... One tab twice daily Amlodipine Besylate 5 Mg Oral Tabs (Amlodipine besylate) ..... Once daily Lisinopril 20 Mg Tabs (Lisinopril) ..... One tab daily Lasix 20 Mg Tabs (Furosemide) ..... Once daily Isosorbide Mononitrate Er 30 Mg Oral [id number] (Isosorbide mononitrate) ..... 1 tab daily Alonso Márquez Cardiology Follow up faxed 04/20/16:BP today: 170/71 P rior BP: 160/67 (09/30/2015) Her updated medication list for this problem includes: Carvedilol 3.125 Mg Tabs (Carvedilol) ..... One tab twice daily Amlodipine Besylate 5 Mg Oral Tabs (Amlodipine besylate) ..... Once daily Lisinopril 20 Mg Tabs (Lisinopril) ..... One tab daily Lasix 20 Mg Tabs (Furosemide) ..... Once daily Aspirin 325 Mg Tabs (Aspirin) ..... One tab. daily Alonso Márquez Cardiology Follow up faxed 04/20/16:Her updated medication list for this problem includes: Atorvastatin Calcium 20 Mg Oral Tabs (Atorvastatin calcium) ..... One tablet daily <--- Replacing Crestor Alonso Márquez Cardiology Follow up faxed 04/20/16:Orders: S NOMED-CT: [id number] Current Medications Documented ([facility]-[id number]) A rterial Duplex Bi-Lower EX (CPT-[id number]) Alonso Márquez Cardiology Follow up faxed 04/20/16:Will assess her chest pain with a stress test. She's on ASA and Plavix. Alonso Márquez Cardiology Follow up faxed 04/20/16:Orders: E KG (CPT-[id number]) S TR - Nuclear ([id number]) Her updated medication list for this problem includes: Carvedilol 3.125 Mg Tabs (Carvedilol) ..... One tab twice daily Amlodipine Besylate 5 Mg Oral Tabs (Amlodipine besylate) ..... Once daily Lisinopril 20 Mg Tabs (Lisinopril) ..... One tab daily Clopidogrel Bisulfate 75 Mg Oral Tabs (Clopidogrel bisulfate) ..... 1 tab daily Nitrostat 0.4 Mg Subl (Nitroglycerin) ..... One tablet under tongue as needed. may repeat twice in 10 minutes. Isosorbide Mononitrate Er 30 Mg Oral [id number] (Isosorbide mononitrate) ..... 1 tab daily Aspirin 325 Mg Tabs (Aspirin) ..... One tab. daily Alonso Yulisa Cardiology faxed 09/14 0/16: H er updated medication list for this problem includes: Carvedilol 3.125 Mg Tabs (Carvedilol) ..... One tab twice daily Amlodipine Besylate 5 Mg Oral Tabs (Amlodipine besylate) ..... Once daily Lisinopril 20 Mg Tabs (Lisinopril) ..... One tab daily Clopidogrel Bisulfate 75 Mg Oral Tabs (Clopidogrel bisulfate) ..... 1 tab daily Nitrostat 0.4 Mg Subl (Nitroglycerin) ..... One tab. under tongue as needed. may repeat twice in 10 minutes. Isosorbide Mononitrate Er 30 Mg Oral [id number] (Isosorbide mononitrate) ..... 1 tab daily Aspirin 325 Mg Tabs (Aspirin) ..... One tab. daily Ct Ayers MD Cardiology faxed 09/14 : H er updated medication list for this problem includes: Carvedilol 3.125 Mg Tabs (Carvedilol) ..... One tab twice daily Amlodipine Besylate 5 Mg Oral Tabs (Amlodipine besylate) ..... Once daily Lisinopril 20 Mg Tabs (Lisinopril) ..... One tab daily Clopidogrel Bisulfate 75 Mg Oral Tabs (Clopidogrel bisulfate) ..... 1 tab daily Nitrostat 0.4 Mg Subl (Nitroglycerin) ..... One tab. under tongue as needed. may repeat twice in 10 minutes. Isosorbide Mononitrate Er 30 Mg Oral [id number] (Isosorbide mononitrate) ..... 1 tab daily Aspirin 325 Mg Tabs (Aspirin) ..... One tab. daily Ct Ayers MD Cardiology: H er updated medication list for this problem includes: Carvedilol 3.125 Mg Tabs (Carvedilol) ..... One tab twice daily Amlodipine Besylate 5 Mg Oral Tabs (Amlodipine besylate) ..... Once daily Lisinopril 20 Mg Tabs (Lisinopril) ..... One tab daily Clopidogrel Bisulfate 75 Mg Oral Tabs (Clopidogrel bisulfate) ..... 1 tab daily Nitrostat 0.4 Mg Subl (Nitroglycerin) ..... One tab. under tongue as needed. may repeat twice in 10 minutes. Isosorbide Mononitrate Er 30 Mg Oral [id number] (Isosorbide mononitrate) ..... 1 tab daily Aspirin 325 Mg Tabs (Aspirin) ..... One tab. daily Ct Ayers MD Cardiology:Chronic, multiple times every day requiring up to 4 grams of Tylenol daily H er updated medication list for this problem includes: Carvedilol 3.125 Mg Tabs (Carvedilol) ..... One tab twice daily Aspirin 325 Mg Tabs (Aspirin) ..... One tab. daily p atient is on plavix and may have brain bleeding - tylenol may mask the problem, NSAID may worsen bleeding if one is present. Needs CT or MRI with IV contrast to rule out possible cerebral hemorrhage. Ct Ayers MD Cardiology Faxed : H er updated medication list for this problem includes: Crestor 10 Mg Tabs (Rosuvastatin calcium) ..... One tab. daily Ct Ayers MD Cardiology Faxed : H er updated medication list for this problem includes: Carvedilol 3.125 Mg Tabs (Carvedilol) ..... One tab twice daily Amlodipine Besylate 5 Mg Oral Tabs (Amlodipine besylate) ..... Once daily Lisinopril 20 Mg Tabs (Lisinopril) ..... One tab daily Lasix 20 Mg Tabs (Furosemide) ..... Once daily Aspirin 325 Mg Tabs (Aspirin) ..... One tab. daily Ct Ayers MD Cardiology Faxed 04/04/15:ECP Sa mariangel Ayers MD Cardiology Faxed 04/04/15:MRI- h ead- SINDY Ayers MD Cardiology Faxed [phone]:This patient has angina (defined as chest pain, chest discomfort, or pain in arms, neck, jaw, shoulder, or back, and may include symptoms of shortness of breath, fatigue, dizziness, nausea, or diaphoresis) of [place] [employer] Society Class III (defined as symptoms with everyday living activities, i.e. moderate limitation) or [place] Cardi[employer] Society Class IV (defined as inability to perform any activity without angina or angina at rest, i.e. severe limitation). T his patient?s angina is disabling and in my opinion is not readily amenable to surgical intervention by PTCA or cardiac bypass because the patient's coronary anatomy is not readily amenable to such procedures. Ct Ayers MD Cardiology Faxed [phone]: H er updated medication list for this problem includes: Amlodipine Besylate 5 Mg Oral Tabs (Amlodipine besylate) ..... Once daily Jantoven 4 Mg Tabs (Warfarin sodium) ..... 2 tabs once daily Lisinopril 20 Mg Tabs (Lisinopril) ..... One tab. daily Clopidogrel Bisulfate 75 Mg Oral Tabs (Clopidogrel bisulfate) ..... 1 tab daily Nitrostat Subl (Nitroglycerin subl) Isosorbide Mononitrate Er 30 Mg Oral [id number] (Isosorbide mononitrate) ..... 1 tab daily Aspirin 325 Mg Tabs (Aspirin) ..... One tab. daily Ct Ayers MD Cardiology Faxed [phone]: H er updated medication list for this problem includes: Amlodipine Besylate 5 Mg Oral Tabs (Amlodipine besylate) ..... Once daily Jantoven 4 Mg Tabs (Warfarin sodium) ..... 2 tabs once daily Lisinopril 20 Mg Tabs (Lisinopril) ..... One tab. daily Clopidogrel Bisulfate 75 Mg Oral Tabs (Clopidogrel bisulfate) ..... 1 tab daily Nitrostat Subl (Nitroglycerin subl) Isosorbide Mononitrate Er 30 Mg Oral [id number] (Isosorbide mononitrate) ..... 1 tab daily Aspirin 325 Mg Tabs (Aspirin) ..... One tab. daily Ct Ayers MD echo & FU faxed 10/04 1121:ECHO 2008 Conclusions: 1 . There is aortic valve sclerosis. Mild to moderate aortic valve regurgitation. 2 . Normal aortic root size. 3 . Normal left ventricular systolic function. Mild enlargement of left ventricular chamber. Mild concentric left v entricular hypertrophy. Left ventricular ejection fraction is estimated at 60 %. 4 . There is mild enlargement of the left atrium. Abnormal left atrial volume index, suggests elevated filling p ressures 43.7. 5 . The tricuspid valve is normal in appearance and function. There is trace physiologic tricuspid valve r egurgitation. IVC is normal in size with normal respiratory response. Estimated peak pulmonary artery systolic p ressure is 21. Ct Ayers MD echo & FU faxed 10/04 1121: H er updated medication list for this problem includes: Simvastatin 20 Mg Oral Tabs (Simvastatin) ..... [address] Ayers MD echo & FU faxed 10/04 1121: T he following medications were removed from the medication list: Carvedilol 25 Mg Tabs (Carvedilol) ..... One tab twice daily Digoxin 0.25 Mg Tabs (Digoxin) ..... 1 tab by mouth daily Coumadin 5 Mg Tabs (Warfarin sodium) ..... One tab daily Her updated medication list for this problem includes: Coreg 6.25 Mg Tabs (Carvedilol) ..... One tab. twice daily Amlodipine Besylate 10 Mg Tabs (Amlodipine besylate) ..... One tab. daily Jantoven 6 Mg Oral Tabs (Warfarin sodium) ..... Once daily Lisinopril 20 Mg Tabs (Lisinopril) ..... One tab. daily Clopidogrel Bisulfate 75 Mg Oral Tabs (Clopidogrel bisulfate) ..... 1 tab daily Nitrostat Subl (Nitroglycerin subl) Lasix 20 Mg Oral Tabs (Furosemide) ..... 1 tab daily Isosorbide Mononitrate Er 30 Mg Oral [id number] (Isosorbide mononitrate) ..... 1 tab daily Adult Aspirin Low Strength Tbdp (Aspirin tbdp) ..... Daily Orders: Andry wyatt No Charge ([id number]) Ct Ayers MD hos follow up: T he following medications were removed from the medication list: Lipitor 20 Mg Tabs (Atorvastatin calcium) ..... 1 tab by mouth daily Her updated medication list for this problem includes: Simvastatin 20 Mg Oral Tabs (Simvastatin) ..... [address] Ayers MD hos follow up: H er updated medication list for this problem includes: Lisinopril 20 Mg Tabs (Lisinopril) ..... 1/2 tablet once a day at nighttime. Lasix 20 Mg Oral Tabs (Furosemide) ..... 1 tab daily Adult Aspirin Low Strength Tbdp (Aspirin tbdp) ..... Daily Diovan 160 Mg Tabs (Valsartan) ..... 1 tab by mouth daily Carvedilol 25 Mg Tabs (Carvedilol) ..... One tab twice daily Orders: Radha KG (CPT-[id number]) Ct Ayers MD hos follow up: H er updated medication list for this problem includes: Lisinopril 20 Mg Tabs (Lisinopril) ..... 1/2 tablet once a day at nighttime. Clopidogrel Bisulfate 75 Mg Oral Tabs (Clopidogrel bisulfate) ..... 1 tab daily Nitrostat Subl (Nitroglycerin subl) Lasix 20 Mg Oral Tabs (Furosemide) ..... 1 tab daily Isosorbide Mononitrate Er 30 Mg Oral [id number]-ige (Isosorbide mononitrate) ..... 1 tab daily Coumadin 5 Mg Tabs (Warfarin sodium) ..... One tab daily Adult Aspirin Low Strength Tbdp (Aspirin tbdp) ..... Daily Carvedilol 25 Mg Tabs (Carvedilol) ..... One tab twice daily Digoxin 0.25 Mg Tabs (Digoxin) ..... 1 tab by mouth daily Orders: Paty Keenan ([id number]) Ct Ayers MD hos follow up: T he following medications were removed from the medication list: Lipitor 20 Mg Tabs (Atorvastatin calcium) ..... 1 tab by mouth daily Her updated medication list for this problem includes: Simvastatin 20 Mg Oral Tabs (Simvastatin) ..... 1 tab daily Lisinopril 20 Mg Tabs (Lisinopril) ..... 1/2 tablet once a day at nighttime. Clopidogrel Bisulfate 75 Mg Oral Tabs (Clopidogrel bisulfate) ..... 1 tab daily Nitrostat Subl (Nitroglycerin subl) Isosorbide Mononitrate Er 30 Mg Oral [id number]-oep (Isosorbide mononitrate) ..... 1 tab daily Coumadin 5 Mg Tabs (Warfarin sodium) ..... One tab daily Adult Aspirin Low Strength Tbdp (Aspirin tbdp) ..... Daily Carvedilol 25 Mg Tabs (Carvedilol) ..... One tab twice daily Orders: Paty Keenan (CPT-[id number]) Ct Ayers MD Date Name Aortic Abdominal Ult rasound Complete Echo Carotid Duplex Bilat eral STR - Nuclear Arterial Duplex Bi-L ower EX Carotid Duplex Bilat eral Aortic Abdominal Ult rasound CT, Other: MRI, Other Complete Echo ECP - Medicare PROTHROMBIN TIME WIT H INR HEMOGLOBIN A1c LIPID PANEL CBC (INCLUDES DIFF/P LT) COMPREHENSIVE METABO LIC PANEL W/EGFR ECP - Medicare Complete Echo HISTORY OF PROCEDURES Procedure Date Procedure Name Provider Procedure Notes S ssuannahus Loop Recorder Interrogation, Remote Saulius Kalvaitis MD INTERROGATION EVALUATION REMOTE </30 D ILR SYS completed ICM Interrogation, Remote (Tech) Saulius Kalvaitis MD INTERROGATION EVAL REMOTE </30 D TECH REVIEW completed Loop Recorder Interrogation, Remote Saulius Kalvaitis MD INTERROGATION EVALUATION REMOTE </30 D ILR SYS completed ICM Interrogation, Remote (Tech) Saulius Kalvaitis MD INTERROGATION EVAL REMOTE </30 D TECH REVIEW completed Loop Recorder Interrogation, Remote Saulius Kalvaitis MD INTERROGATION EVALUATION REMOTE </30 D ILR SYS completed ICM Interrogation, Remote (Tech) Saulius Kalvaitis MD INTERROGATION EVAL REMOTE </30 D TECH REVIEW completed Loop Recorder Interrogation, Remote Saulius Kalvaitis MD INTERROGATION EVALUATION REMOTE </30 D ILR SYS completed ICM Interrogation, Remote (Tech) Saulius Kalvaitis MD INTERROGATION EVAL REMOTE </30 D TECH REVIEW completed Loop Recorder Interrogation, Remote Saulius Kalvaitis MD INTERROGATION EVALUATION REMOTE </30 D ILR SYS completed ICM Interrogation, Remote (Tech) Saulius Kalvaitis MD INTERROGATION EVAL REMOTE </30 D TECH REVIEW completed Loop Recorder Interrogation, Remote Saulius Kalvaitis MD INTERROGATION EVALUATION REMOTE </30 D ILR SYS completed ICM Interrogation, Remote (Tech) Saulius Kalvaitis MD INTERROGATION EVAL REMOTE </30 D TECH REVIEW completed Loop Recorder Interrogation, Remote Saulius Kalvaitis MD INTERROGATION EVALUATION REMOTE </30 D ILR SYS completed ICM Interrogation, Remote (Tech) Saulius Kalvaitis MD INTERROGATION EVAL REMOTE </30 D TECH REVIEW completed Loop Recorder Interrogation, Remote Saulius Kalvaitis MD INTERROGATION EVALUATION REMOTE </30 D ILR SYS completed ICM Interrogation, Remote (Tech) Saulius Kalvaitis MD INTERROGATION EVAL REMOTE </30 D TECH REVIEW completed Loop Recorder Interrogation, Remote Saulius Kalvaitis MD INTERROGATION EVALUATION REMOTE </30 D ILR SYS completed ICM Interrogation, Remote (Tech) Saulius Kalvaitis MD INTERROGATION EVAL REMOTE </30 D TECH REVIEW completed Loop Recorder Interrogation, Remote Saulius Kalvaitis MD INTERROGATION EVALUATION REMOTE </30 D ILR SYS completed ICM Interrogation, Remote (Tech) Saulius Kalvaitis MD INTERROGATION EVAL REMOTE </30 D TECH REVIEW completed Loop Recorder Interrogation, Remote Saulius Kalvaitis MD INTERROGATION EVALUATION REMOTE </30 D ILR SYS completed ICM Interrogation, Remote (Tech) Saulius Kalvaitis MD INTERROGATION EVAL REMOTE </30 D TECH REVIEW completed Loop Recorder Interrogation, Remote Saulius Kalvaitis MD INTERROGATION EVALUATION REMOTE </30 D ILR SYS completed ICM Interrogation, Remote (Tech) Saulius Kalvaitis MD INTERROGATION EVAL REMOTE </30 D TECH REVIEW completed Loop Recorder Interrogation, Remote Saulius Kalvaitis MD INTERROGATION EVALUATION REMOTE </30 D ILR SYS completed ICM Interrogation, Remote (Tech) Saulius Kalvaitis MD INTERROGATION EVAL REMOTE </30 D TECH REVIEW completed SNOMED-CT: [id number] Physical Exam, Performed: Pulse Exam of Foot Ct Ayers MD completed EKG Ct elizondo MD completed SNOMED-CT: [id number] Current Medications Documented Ct Ayers MD completed Loop Recorder Interrogation, Remote Ct Ayers MD INTERROGATION EVALUATION REMOTE </30 D ILR SYS completed ICM Interrogation, Remote (Tech) Ct Ayers MD INTERROGATION EVAL REMOTE </30 D TECH REVIEW completed Stress EKG Caryl Mccartney MD complet ed Cardiolite, [address] cronin MD completed SPECT Images Caryl Mccartney MD compl eted Loop Recorder Interrogation, Remote Ct Ayers MD INTERROGATION EVALUATION REMOTE </30 D ILR SYS completed ICM Interrogation, Remote (Tech) Ct Ayers MD INTERROGATION EVAL REMOTE </30 D TECH REVIEW completed SNOMED-CT: [id number] Physical Exam, Performed: Pulse Exam of Foot Ct Ayers MD completed EKG Ct elizondo MD completed SNOMED-CT: [id number] Current Medications Documented Ct Ayers MD completed Loop Recorder Interrogation, Remote Ct Ayers MD INTERROGATION EVALUATION REMOTE </30 D ILR SYS completed ICM Interrogation, Remote (Tech) Ct Ayers MD INTERROGATION EVAL REMOTE </30 D TECH REVIEW completed Loop Recorder Interrogation, Remote Ct Ayers MD INTERROGATION EVALUATION REMOTE </30 D ILR SYS completed ICM Interrogation, Remote (Tech) Ct Ayers MD INTERROGATION EVAL REMOTE </30 D TECH REVIEW completed Loop Recorder Interrogation, Remote Ct Ayers MD INTERROGATION EVALUATION REMOTE </30 D ILR SYS completed ICM Interrogation, Remote (Tech) Saulius Kalvaitis MD INTERROGATION EVAL REMOTE </30 D TECH REVIEW completed Loop Recorder Interrogation, Remote Saulius Kalvaitis MD INTERROGATION EVALUATION REMOTE </30 D ILR SYS completed ICM Interrogation, Remote (Tech) Saulius Kalvaitis MD INTERROGATION EVAL REMOTE </30 D TECH REVIEW completed Loop Recorder Interrogation, Remote Saulius Kalvaitis MD INTERROGATION EVALUATION REMOTE </30 D ILR SYS completed ICM Interrogation, Remote (Tech) Saulius Kalvaitis MD INTERROGATION EVAL REMOTE </30 D TECH REVIEW completed SNOMED-CT: [id number] Physical Exam, Performed: Pulse Exam of Foot Ct Ayers MD completed Schedule Followup Ct bob MD Please schedule a follow-up appointment with me in [address] elizondo MD completed SNOMED-CT: [id number] Current Medications Documented ulius Armen NGUYEN completed Loop Recorder Interrogation, Remote Saulius Kalvaitis MD INTERROGATION EVALUATION REMOTE </30 D ILR SYS completed ICM Interrogation, Remote (Tech) Saulius Kalvaitis MD INTERROGATION EVAL REMOTE </30 D TECH REVIEW completed Loop Recorder Interrogation, Remote Saulius Kalvaitis INTERROGATION EVALUATION REMOTE </30 D ILR SYS completed ICM Interrogation, Remote (Tech) Saulius Kalvaitis MD INTERROGATION EVAL REMOTE </30 D TECH REVIEW completed Loop Recorder Interrogation, Remote Saulius Kalvaitis MD INTERROGATION EVALUATION REMOTE </30 D ILR SYS completed ICM Interrogation, Remote (Tech) Saulius Kalvaitis MD INTERROGATION EVAL REMOTE </30 D TECH REVIEW completed Loop Recorder Interrogation, Remote Saulius Kalvaitis MD INTERROGATION EVALUATION REMOTE </30 D ILR SYS completed ICM Interrogation, Remote (Tech) Saulius Kalvaitis MD INTERROGATION EVAL REMOTE </30 D TECH REVIEW completed Loop Recorder Interrogation, Remote Ct Ayers MD INTERROGATION EVALUATION REMOTE </30 D ILR SYS completed ICM Interrogation, Remote (Tech) Ct Ayers MD INTERROGATION EVAL REMOTE </30 D TECH REVIEW completed Loop Recorder Interrogation, Remote Ct Ayers MD INTERROGATION EVALUATION REMOTE </30 D ILR SYS completed ICM Interrogation, Remote (Tech) Ct Ayers MD INTERROGATION EVAL REMOTE </30 D TECH REVIEW completed Schedule Followup Ct bob MD 6 months completed SNOMED-CT: [id number] Current Medications Documented Ct Ayers MD completed SNOMED-CT: [id number] Physical Exam, Performed: Pulse Exam of Foot Ct Ayers MD completed SNOMED-CT: [id number] Smoking Cessation Counseling Ct Ayers MD completed Loop Recorder Interrogation, Remote Ct Ayers MD INTERROGATION EVALUATION REMOTE </30 D ILR SYS completed ICM Interrogation, Remote (Tech) Ct Ayers MD INTERROGATION EVAL REMOTE </30 D TECH REVIEW completed Schedule Followup Ct bob MD 6 months completed SNOMED-CT: [id number] Physical Exam, Performed: Pulse Exam of Foot Ct Ayers MD completed SNOMED-CT: 251208324 Smoking Cessation Counseling Ct Ayers MD completed EKG Stephanie Burgos completed SNOMED-CT: [id number] Current Medications Documented Stephanie Burgos completed Loop Recorder Interrogation, Remote Ct Ayers MD INTERROGATION EVALUATION REMOTE </30 D ILR SYS completed ICM Interrogation, Remote (Tech) Ct Ayers MD INTERROGATION EVAL REMOTE </30 D TECH REVIEW completed Schedule Followup Ct bob MD 3 months completed SNOMED-CT: [id number] Smoking Cessation Counseling Ct Ayers MD completed SNOMED-CT: 28773403 Physical Exam, Performed: Pulse Exam of Foot Ct Ayers MD completed EKG Ct elizondo MD completed SNOMED-CT: [id number] Current Medications Documented ulius Armen NGUYEN completed Protime Ct elizondo MD completed Schedule Followup Ct bob MD in 2 months completed SNOMED-CT: [id number] Smoking Cessation Counseling Ct Ayers MD completed SNOMED-CT: 32991845 Physical Exam, Performed: Pulse Exam of Foot Ct Ayers MD completed EKG Ct elizondo MD completed SNOMED-CT: [id number] Current Medications Documented ulius Armen NGUYEN completed Loop Recorder Interrogation, Remote ulius Armen NGUYEN INTERROGATION EVALUATION REMOTE </30 D ILR SYS completed ICM Interrogation, Remote (Tech) ulius Armen NGUYEN INTERROGATION EVAL REMOTE </30 D TECH REVIEW completed Loop Recorder Interrogation, Remote ulius Armen NGUYEN INTERROGATION EVALUATION REMOTE </30 D ILR SYS completed ICM Interrogation, Remote (Tech) Ct Ayers MD INTERROGATION EVAL REMOTE </30 D TECH REVIEW completed EKG ulius Keagan elizondo MD completed EKG ulius Keagan elizondo MD completed Loop Recorder Interrogation, Remote ulius Armen NGUYEN INTERROGATION EVALUATION REMOTE </30 D ILR SYS completed ICM Interrogation, Remote (Tech) ulius Armen NGUYEN INTERROGATION EVAL REMOTE </30 D TECH REVIEW completed EKG ulius Keagan elizondo MD completed
== END 2024-06-09 13:53 | disposition home or self-care (01) ==
LOC: ANHLAB 13:54 → ANHCARD 13:56
PROVIDERS: PCP Emergency Medicine; Visit Provider Emergency Medicine
DX: R00.2 Palpitations (principal); I45.10 Unspecified right bundle-branch block
CPT/HCPCS: 93005

== ENCOUNTER 2024-06-22 13:42 | Outpatient (CLI) | payer MEDICARE, SELFPAY ==
--- NOTE | 2024-06-22 13:45 | ECHO_ITS ---
Patient Info Name: Juliet Vides Age: 79 years : 1945 Gender: Female Ht: 63 in Wt: 160 lbs BSA: 1.82 m2 HR: 79 bpm BP: 148 / 67 mmHg Technical Quality: Good Exam Date: 06/22/2024 1:47 PM Exam Location: Echo Lab Patient Status: Outpatient Admit Date: 06/22/2024 Staff Ordering Physician: Erick Caceres MD [employer] Pumper: Jocelin Olivas RDCS Attending Provider: Erick Caceres MD Referring Physician: Nicki RICHEY; Exam Type: CA echo doppler color flow Study Info Indications R94.31 - Abnormal electrocardiogram ECG EKG Complete two-dimensional, color flow and Doppler transthoracic echocardiogram is performed. Summary 1. Complete two-dimensional, color flow and Doppler transthoracic echocardiogram is performed. 2. Left ventricular chamber dimension is normal. 3. Left ventricular systolic function is normal, estimated at 60-65%. 4. There is moderate concentric increased left ventricular wall thickness. 5. The left ventricular diastolic function is grade I diastolic dysfunction. 6. E/e' 12 is mildly elevated. 7. Global longitudinal strain is abnormal at -13.7%. 8. Left atrial chamber dimension is moderately enlarged. 9. There is moderate aortic valve sclerosis. 10. There is mild aortic valve stenosis with a peak velocity of 171 cm/s, mean gradient of 6 mmHg, and aortic valve area of 1.8 cm2. 11. There is mild to moderate aortic valve regurgitation. 12. The mitral valve has mildly calcified annulus. 13. There is mild to moderate mitral valve regurgitation. 14. There is mild tricuspid valve regurgitation. 15. No pulmonary hypertension, estimated pulmonary arterial systolic pressure is 31 mmHg. Left Ventricle Global longitudinal strain is abnormal at -13.7%. E/e' 12 is mildly elevated. Left ventricular chamber dimension is normal. Left ventricular systolic function is normal, estimated at 60-65%. There is moderate concentric increased left ventricular wall thickness. The left ventricular diastolic function is grade I diastolic dysfunction. Right Ventricle Right ventricular systolic function is normal and with normal TAPSE 1.8 cm. Right ventricular chamber dimension is normal. Left Atria Left atrial chamber dimension is moderately enlarged. Right Atria Right atrial chamber dimension is normal. Aortic Valve The aortic valve is not well visualized. There is moderate aortic valve sclerosis. There is mild aortic valve stenosis with a peak velocity of 171 cm/s, mean gradient of 6 mmHg, and aortic valve area of 1.8 cm2. There is mild to moderate aortic valve regurgitation. Pulmonic Valve There is no pulmonic regurgitation. Mitral Valve The mitral valve has mildly calcified annulus. There is no mitral valve stenosis. There is mild to moderate mitral valve regurgitation. Tricuspid Valve There is mild tricuspid valve regurgitation. No pulmonary hypertension, estimated pulmonary arterial systolic pressure is 31 mmHg. Pericardium/Pleural There is no pericardial effusion. Inferior Vena Cava Normal inferior vena cava with >50% collapse upon inspiration consistent with normal right atrial pressure, 5 mmHg. Aorta The aortic root size at the sinus of Valsalva is normal. Left Ventricular Outflow Tract Name Value Normal LVOT 2D LVOT Diameter 1.9 cm LVOT Doppler LVOT Peak Gradient 4 mmHg LVOT Mean Gradient 2 mmHg LVOT VTI 22 cm LVOT VTI/AV VTI Ratio 0.6 LVOT Stroke Volume 64 ml LVOT CO 3.7 l/min LVOT CI 2.0 l/min/m2 Pulmonic Valve Name Value Normal RVOT Doppler RVOT Peak Gradient 3 mmHg PV Doppler PV Peak Gradient 4 mmHg Mitral Valve Name Value Normal MV Doppler MV Decel [place] 208 cm/s2 MV PHT 83 ms MV Area (PHT) 2.6 cm2 4.0-5.0 MV Regurgitation Doppler MR Peak Gradient 128 mmHg MV Diastolic Function MV E Peak Velocity 60 cm/s MV A Peak Velocity 76 cm/s MV E/A 0.8 MV Decel Time 288 ms Tricuspid Valve Name Value Normal TV Regurgitation Doppler TR Peak Velocity 253 cm/s TR Peak Gradient 26 mmHg Estimated PAP/RSVP RA Pressure 5 mmHg <=5 PA Systolic Pressure 31 mmHg <36 RV Systolic Pressure 31 mmHg <36 Aorta Name Value Normal Ascending Aorta Ao Root Diameter (MM) 3.4 cm Ao Root Diam Index (MM) 1.9 cm/m2 Aortic Valve Name Value Normal AV Doppler AV Peak Velocity 171 cm/s AV Peak Gradient 12 mmHg AV Mean Gradient 6 mmHg AV VTI 36 cm AV Area (Cont Eq VTI) 1.8 cm2 >=3.0 AV Area (Cont Eq Tim) 1.6 cm2 AV Regurgitation 2D LVOT Area 2.9 cm2 AV Regurgitation Doppler AR Decel Time 1,608 ms AR Decel [place] 227 cm/s2 AR PHT 466 ms Ventricles Name Value Normal LV Dimensions 2D/MM IVS Diastolic Thickness (2D) 1.2 cm 0.6-1.0 IVS Diastole Thickness (MM) 0.9 cm 0.6-0.9 LVID Diastole (2D) 5.3 cm 3.8-5.2 LVID Diastole (MM) 7.9 cm 3.8-5.2 LVIW Diastolic Thickness (2D) 1.1 cm 0.6-0.9 LVIW Diastolic Thickness (MM) 0.9 cm 0.6-0.9 LVID Systole (2D) 3.3 cm 2.2-3.5 LVID Systole (MM) 5.7 cm 2.2-3.5 LVOT Diameter 1.9 cm LV Mass (2D Cubed) 238.76 g 67.00-162.00 LV Mass Index (2D Cubed) 131 g/m2 43-95 Relative Wall Thickness (2D) 0.41 LV Mass (MM Cubed) 363.63 g 67.00-162.00 LV Mass Index (MM Cubed) 200 g/m2 43-95 Relative Wall Thickness (MM) 0.23 LV Fractional Shortening/Ejection Fraction 2D/MM LV Fractional Shortening (2D) 37 % 27-45 LV Fractional Shortening (MM) 28 % 27-45 LV EF (MM Teicholz) 53 % 54-74 LV EF (2D Teicholz) 66 % 54-74 LV Diastolic Volume (4C MOD) 92 ml LV EF (4C MOD) 54 % LV Diastolic Volume (2C MOD) 102 ml LV EF (2C MOD) 65 % LV Diastolic Volume (BP MOD) 98 ml 46-106 LV Diastolic Volume Index (BP MOD) 54 ml/m2 29-61 LV Systolic Volume (BP MOD) 39 ml 14-42 LV Systolic Volume Index (BP MOD) 22 ml/m2 8-24 LV EF (BP MOD) 60 % 54-74 LV Diastolic Length (4C) 8.9 cm LV Systolic Length (4C) 7.2 cm LV Stroke Volume (4C MOD) 50 ml Atria Name Value Normal LA Dimensions LA Dimension (MM) 3.7 cm 2.7-3.8 LA Volume (4C A-L) 59 ml LA Volume (BP A-L) 72 ml RA Dimensions RA Area (4C) 13.4 cm2 <=18.0 EchoPAC Name Value Normal AutoEF LVCO_BiP_Q (Kaau1ZVP) 3.1 l/min LVEF_BiP_Q (Rjxv7VTS) 54 % LVSV_BiP_Q (Iyml1DMI) 53 ml LVVED_BiP_Q (Ibdl1VSC) 99 ml LVVES_BiP_Q (Xuim3JKL) 46 ml HR_4Ch_Q (Pber7HGH) 60 bpm LVCO_4Ch_Q (Ihlo9XUE) 3.4 l/min LVEF_4Ch_Q (Zhsa0XDA) 54 % LVLd_4Ch_Q (Srdc3QUR) 8.6 cm LVLs_4Ch_Q (Lisr1PLM) 7.3 cm LVSV_4Ch_Q (Zbyd3APU) 57 ml LVVED_4Ch_Q (Xcub1VXD) 105 ml LVVES_4Ch_Q (Hpop9APG) 49 ml HR_2Ch_Q (Dtkx1ZSO) 59 bpm LVCO_2Ch_Q (Oyqt0UBU) 2.8 l/min LVEF_2Ch_Q (Rkin1QOU) 52 % LVLd_2Ch_Q (Rrze5TED) 7.8 cm LVLs_2Ch_Q (Uegr1UAZ) 6.8 cm LVSV_2Ch_Q (Xguk2VJS) 48 ml LVVED_2Ch_Q (Trtc0FTB) 91 ml LVVES_2Ch_Q (Klih3VOY) 43 ml MERT AA peak sys SL (AWMA) 12.8 % AAS peak sys SL (AWMA) 18.5 % AI peak sys SL (AWMA) 27.4 % AL peak sys SL (AWMA) 13.0 % AP peak sys SL (AWMA) 18.2 % peak sys SL (AWMA) 25.1 % AVC (AWMA) 426 ms BA peak sys SL (AWMA) 15.2 % BAS peak sys SL (AWMA) 14.1 % BI peak sys SL (AWMA) 9.4 % BL peak sys SL (AWMA) 13.7 % BP peak sys SL (AWMA) 9.7 % BS peak sys SL (AWMA) 5.4 % G peak SL(A2C) (AWMA) 13.5 % G peak SL(A4C) (AWMA) 14.1 % G peak SL(APLAX) (AWMA) 13.6 % G peak SL(Avg) (AWMA) 13.7 % MA peak sys SL (AWMA) 5.8 % MAS peak sys SL (AWMA) 15.6 % RI peak sys SL (AWMA) 10.9 % ML peak sys SL (AWMA) 11.0 % MP peak sys SL (AWMA) 12.3 % MS peak sys SL (AWMA) 18.7 % Report Signatures
--- OUTSIDE RECORDS SUMMARY | 2024-06-22 15:45 | XMS_ITS | Clinical Summary ---
Author Organization [facility] [address] Address [address] [place] [address] Care Team Providers Care Lumber Straightener Name Role Phone Erick Caceres MD Primary [...] a associated with type 2 diabetes mellitus ([facility]/HCC) 11/19/2017 Chronic diastolic heart failure 11/19/2017 Pulmonary HTN 11/19/2017 Other pulmonary embolism without acute cor pulmo nale 11/19/2017 GI bleed 11/19/2017 Chronic fatigue 11/19/2017 Paroxysmal atrial fibrillation 11/19/2017 Status post placement of implantable loop record er 10/17/2017 Overview (10/17/2017): Glo [employer] Reveal Loop Recorder. Dx; Syncope. DOI 07/23/[address] Ayesr. [facility] remote monitoring. Surgical History Surgery Date Site/Laterality Comments CORONARY ANGIOPLASTY HEART SURGERY Medical History Medical History Date Comments Hypertension Heart attack (HCC) CAD S/P percutaneous coronary angioplasty Hyperlipidemia Diabetes mellitus (HCC) Heart failure (HCC) Diverticulitis Bleeding Anemia Arthritis Peripheral arterial disease Family History Medical History Relation Name Comments [...] on file Legal Sex Female 3:39 AM [employer]IL[employer] Gender Identity Not on file Sexual Orientation Not on file Obstetrics History Last Filed Vital Signs Vital Sign Reading Time Taken Comments Blood Pressure 112/70 05/29/2023 1:27 PM MICROFILMER Pulse 94 05/29/2023 1:27 PM MICROFILMER Temperature - - Respiratory Rate - - Oxygen Saturation 93% 05/29/2023 1:27 PM MICROFILMER Inhaled Oxygen Concentration - - Weight 74.4 kg (164 lb) 05/29/2023 1:27 PM MICROFILMER Height 160 cm (5' 3 ) 05/29/2023 1:27 PM MICROFILMER Body Mass Index 29.05 05/29/2023 1:27 PM MICROFILMER Plan of Treatment Health Maintenance Due Date Last Done Comments Albumin Creatinine Ratio, Urine 1945 Depression Screening 1945 Fall Risk Assessment 1945 Hepatitis C Screening 1945 Osteoporosis Screening-Bone Density Scan 1945 eGFR 1945 Foot Exam 1945 Hepatitis B Screening 1964 Zoster Vaccine (1 of 2) 1996 Well Visit 65+ 2011 Pneumococcal vaccine 65+ (2 of 2 - PPSV23) 02/18/2017 12/24/2016 Dilated Eye Exam 08/29/2018 08/29/2017, 03/14/2017 Hemoglobin A1C 02/16/2023 08/16/2022 Influenza Vaccine (#1) 2023 9, 01/20/2018, 12/24/2016, Additional history exists Lipid Panel 05/29/2024 05/29/2023, 05/0 07/2022, 01/09/2022, Additional history exists DTaP/Tdap/Td Vaccine (3 - Td or Tdap) 03/12/2026 03/12/2016, 03/11/2016 Procedures Procedure Name Priority Date/Time Associated Diagnosis Comments POCT LIPID PANEL Routine 05/29/2023 2:00 PM MICROFILMER Mixed diabetic hyperlipidemia associated with type 2 diabetes mellitus (CMS/HCC) (HCC) HEMOGLOBIN A1C Routine 08/16/2022 9:59 AM CDT DIABETIC EYE EXAM Routine 08/29/2017 from Last 3 Months or Most Recently Relevant to Health Maintenance Results * POCT lipid panel (05/29/2023 2:00 PM MICROFILMER) Cholesterol, POC 164 mg/dL Comment:GLU = 107 HDL, POC 35 mg/dL Triglycerides, POC 143 mg/dL LDL Cholesterol POC 100 mg/dL Chol/HDL Ratio, POC 2.9 Non-HDL Cholesterol, POC 129 mg/dL Cholesterol Total, POC 164 mg/dL Capillary blood 05/29/2023 2 :00 PM MICROFILMER Geoffrey Wilkins MD POINT OF CARE TEST ORDER LAN Final Result * (ABNORMAL) Hemoglobin A1c (08/16/2022 9:59 AM CDT) Hgb A1C 6.7(H) <5.7 % of total Hgb [facility] Comment: For someone without known [...] LAB BLOOD ORDERABLES Final Result [facility] [address] [place] [address] * Diabetic Eye Exam (08/29/2017) Historical Provider HEALTH MAINTENANCE Edited Result - Final from Last 3 Months or Most Recently Relevant to Health Maintenance Insurance T MEDICARE [facility] [employer] MEDICARE GOLD Care Teams Lumber Straightener Relationship Specialty Start Date End Date Erick Caceres MD [address] [place] [address] PCP - General Emergency Medicine 09/23/19
--- OUTSIDE RECORDS SUMMARY | 2024-06-22 15:45 | XMS_ITS | Referral Summary ---
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 [employer] Gender Identity Not on file Sexual Orientation Not on file Last Filed Vital Signs Vital Sign Reading Time Taken Comments Blood Pressure 112/70 05/29/2023 1:27 PM MANAGER CLUB Pulse 94 05/29/2023 1:27 PM MANAGER CLUB Temperature - - Respiratory Rate - - Oxygen Saturation 93% 05/29/2023 1:27 PM MANAGER CLUB Inhaled Oxygen Concentration - - Weight 74.4 kg (164 lb) 05/29/2023 1:27 PM MANAGER CLUB Height 160 cm (5' 3 ) 05/29/2023 1:27 PM MANAGER CLUB Body Mass Index 29.05 05/29/2023 1:27 PM MANAGER CLUB Plan of Treatment Not on file Procedures Procedure Name Priority Date/Time Associated Diagnosis Comments POCT LIPID PANEL Routine 05/29/2023 2:00 PM MANAGER CLUB Mixed diabetic hyperlipidemia associated with type 2 diabetes mellitus (CMS/HCC) (HCC) HEMOGLOBIN A1C Routine 08/16/2022 9:59 AM CDT DIABETIC EYE EXAM Routine 08/29/2017 from Last 3 Months or Most Recently Relevant to Health Maintenance Results * POCT lipid panel (05/29/2023 2:00 PM MANAGER CLUB) Cholesterol, POC 164 mg/dL Comment:GLU = 107 HDL, POC 35 mg/dL Triglycerides, POC 143 mg/dL LDL Cholesterol POC 100 mg/dL Chol/HDL Ratio, POC 2.9 Non-HDL Cholesterol, POC 129 mg/dL Cholesterol Total, POC 164 mg/dL Capillary blood 05/29/2023 2 :00 PM MANAGER CLUB Geoffrey Wilkins MD POINT OF CARE TEST ORDER LAN Final Result * (ABNORMAL) Hemoglobin A1c (08/16/2022 9:59 AM CDT) Hgb A1C 6.7(H) <5.7 % of total Hgb [facility] Comment: For someone without known [...] 08/17/2022 1:29 AM CDT FASTING:YES FASTING: YES us Erick Caceres MD LAB BLOOD ORDERABLES Final Result [facility] [address] [place] [address] * Diabetic Eye Exam (08/29/2017) Historical Provider HEALTH MAINTENANCE Edited Result - Final from Last 3 Months or Most Recently Relevant to Health Maintenance Insurance [employer] MEDICARE GOLD [employer] MED[employer]ARE GOLD Care Teams Salesforce Business Analyst Relationship Specialty Start Date End Date Erick Caceres MD [address] [place], [place] [id number] PCP - General Emergency Medicine 09/23/19
--- OUTSIDE RECORDS SUMMARY | 2024-06-22 15:46 | XMS_ITS | CONTINUITY OF CARE DOCUMENT ---
Author Name maikel ko Address Unknown Organization [facility] Address [address] [place] [address] Phone [phone] Care Team Providers Care Publications Writer Name Role Phone Armen NGUYEN, Ct Unavailable [phone] LOWELL MATHIS MD Unavailable [phone] CJ LINN MD Unavailable [phone] PROBLEMS Condition Status Date Provider Notes Homozygous MTFHR mutation active Alonso Márquez CAD active Ct Ayers MD DIABETES MELLITUS active Ct Ayers MD HTN ESSENTIAL active Ct Ayers MD Hypercholesterolemia active Brooklynn mcadams Medtronic REVEAL/LinQ active Ct bob MD Syncope active Ct Ayers MD Fatigue active Ct Ayers MD Aortic [...] In-person encounter Office Visit [facility] CardiomyopathyPreop examDizziness 6 - 3 In-person encounter Office Visit [facility] CADAortic regurgitationMitral regurgitationCardiomyopathyLeg pain, bilateralSnoringCarotid artery stenosis, <50% ICA b/lChest pain-type to be determined 7 - 7 In-person encounter Office Visit [facility] A[facility] 8 - 8 In-person encounter Office Visit [facility] A[facility] 8 - 8 In-person encounter Office Visit [facility] Medtronic REVEAL/LinQAnemiaHeadache 3 - 8 In-person encounter Office Visit [facility] A[facility] MD [facility] Tobacco use, quit 9 - 6 In-person encounter Office Visit [facility] A[facility] MD [facility] Medtronic REVEAL/LinQAortic regurgitationAngina 8 - 0 In-person encounter Office Visit [facility] Ayers MD [facility] 8 - 9 In-person encounter Office Visit [facility] A[facility] MD [facility] FatigueAortic regurgitation 6 - 6 In-person encounter Office Visit Kami Herrera MD [facility] 7 - 3 In-person encounter Office Visit [facility] CADSyncope 9 - 9 In-person encounter Office Visit Ct Ayers MD [facility] CADDIABETES MELLITUSHTN ESSENTIALHypercholesterolemia VITAL SIGNS Date [...] Lizbet Lenka height E&M 63 [in_i] Lizbet [place] Body Mass Index (Ratio) 25.51 kg/m2 Mike Márquez blood pressure, resting Yes Delta Ayers MD blood pressure, cuff size regular Ke rri Tristian blood pressure, diastolic 71 mm[Hg] Ke rri [place] blood pressure, systolic 170 mm[Hg] Girma Lubin oxygen saturation, oximetry 96 % Brooklynn Lubin respiratory rate E&M 16 /min Brooklynn lizarraga pulse rate 74 /min Brooklynn Up [facility] weight E&M 144 [lb_av] Brooklynn Up [facility] height E&M 63 [in_i] Brooklynn Up [facility] blood pressure, diastolic 67 mm[Hg] Nv cain Kevin blood pressure, systolic 160 mm[Hg] Jeanine matthew Kevin respiratory rate E&M 16 /min Stephanie Kevin pulse rate 66 /min Stephanie Kevin oxygen saturation, oximetry 94 % Stephanie Kevin Body Mass Index (Ratio) 24.80 kg/m2 Angelique venus Kevin weight E&M 140 [lb_av] Stephanie Kevin pulse rate #2 70 Iwona Adrian blood pressure, deleon tolic, second observation 65 mm[Hg] [facility] blood [facility], syst olic, second observation 131 mm[Hg] [facility] oxygen saturation, oximetry 98 % [place] d pulse rate 69 /min [facility] blood pressure, diastolic 90 mm[Hg] Vi ctoria Tebid blood pressure, systolic 135 mm[Hg] Josh melia Tebid pulse rate #2 67 [place] d blood pressure, deleon tolic, second observation 76 mm[Hg] [facility] blood pressure, syst olic, second observation 146 mm[Hg] [facility] oxygen saturation, oximetry 98 % [facility] pulse rate 69 /min [facility] blood pressure, diastolic 74 mm[Hg] Vi [facility] Tebid blood pressure, systolic 142 mm[Hg] Josh melia Tebid pulse rate #2 64 [place] d blood pressure, deleon tolic, second observation 73 mm[Hg] Iwona d blood pressure, syst olic, second observation 141 mm[Hg] [facility] oxygen saturation, oximetry 98 % [place] pulse rate 64 /min [facility] blood pressure, diastolic 74 mm[Hg] Vi ctoria Tebid blood pressure, systolic 146 mm[Hg] Josh melia Tebid pulse rate #2 69 [place] d blood pressure, deleon tolic, second observation 72 mm[Hg] [facility] blood pressure, syst olic, second observation 139 mm[Hg] [facility] oxygen saturation, oximetry 98 % [facility] pulse rate 65 /min [facility] blood pressure, diastolic 74 mm[Hg] Vi ctoria Tebid blood pressure, systolic 144 mm[Hg] Josh melia Tebid pulse rate #2 72 [place] Tebid blood pressure, deleon tolic, second observation 87 mm[Hg] Iwona Tebid blood pressure, syst olic, second observation 162 mm[Hg] Iwona Tebid oxygen saturation, oximetry 98 % [facility] pulse rate 65 /min [facility] blood pressure, diastolic 82 mm[Hg] Vi ctoria Tebid blood pressure, systolic 165 mm[Hg] Josh melia Tebid pulse rate #2 63 [facility] blood pressure, deleon tolic, second observation 75 mm[Hg] [facility] blood pressure, syst olic, second observation 144 mm[Hg] [facility] oxygen saturation, oximetry 98 % [facility] pulse rate 68 /min [facility] blood pressure, diastolic 81 mm[Hg] Vi ctoria Tebid blood pressure, systolic 164 mm[Hg] Josh melia Tebid pulse rate #2 62 [place] Tebid blood pressure, deleon tolic, second observation 72 mm[Hg] [facility] blood pressure, syst olic, second observation 136 mm[Hg] [facility] oxygen saturation, oximetry 98 % [facility] pulse rate 64 /min [place] Tebid blood pressure, diastolic 74 mm[Hg] Vi ctoria Tebid blood pressure, systolic 145 mm[Hg] Josh melia Tebid pulse rate #2 68 [place] Tebid blood pressure, deleon tolic, second observation 76 mm[Hg] [facility] blood pressure, syst olic, second observation 144 mm[Hg] [facility] oxygen saturation, oximetry 98 % [facility] pulse rate 68 /min [facility] blood pressure, diastolic 76 mm[Hg] Vi ctoria Tebid blood pressure, systolic 144 mm[Hg] Josh melia Tebid pulse rate #2 65 [place] Tebid blood pressure, deleon tolic, second observation 78 mm[Hg] I[place]ona Tebid blood pressure, syst olic, second observation 137 mm[Hg] I[place]ona Tebid oxygen saturation, oximetry 98 % [place] Tebid pulse rate 67 /min [place] Tebid blood pressure, diastolic 75 mm[Hg] Vi ctoria Tebid blood pressure, systolic 139 mm[Hg] Josh melia Tebid pulse rate #2 67 [place] d blood pressure, deleon tolic, second observation 74 mm[Hg] [facility] blood pressure, syst olic, second observation 141 mm[Hg] [facility] oxygen saturation, oximetry 98 % [facility] pulse rate 70 /min [facility] blood pressure, diastolic 73 mm[Hg] [facility] T[facility] blood pressure, systolic 144 mm[Hg] Josh melia Tebid pulse rate #2 67 [facility] blood pressure, deleon tolic, second observation 82 mm[Hg] [facility] blood pressure, syst olic, second observation 156 mm[Hg] [facility] oxygen saturation, oximetry 98 % [facility] pulse rate 68 /min [facility] blood pressure, diastolic 85 mm[Hg] Vi ctoria Tebid blood pressure, systolic 169 mm[Hg] Josh melia Tebid pulse rate #2 66 [facility] blood pressure, deleon tolic, second observation 71 mm[Hg] [facility] blood pressure, syst olic, second observation 131 mm[Hg] [facility] oxygen saturation, oximetry 98 % [facility] pulse rate 63 /min [place] Tebid blood pressure, diastolic 72 mm[Hg] Vi ctoria Tebid blood pressure, systolic 121 mm[Hg] Josh melia Tebid pulse rate #2 74 [place] Tebid blood pressure, deleon tolic, second observation 66 mm[Hg] Iwona Tebid blood pressure, syst olic, second observation 133 mm[Hg] I[place]ona Tebid oxygen saturation, oximetry 98 % [facility] pulse rate 74 /min [place] Tebid blood pressure, diastolic 71 mm[Hg] Vi ctoria Tebid blood pressure, systolic 133 mm[Hg] Josh melia Tebid pulse rate #2 73 [facility] blood pressure, deleon tolic, second observation 84 mm[Hg] [facility] blood pressure, syst olic, second observation 164 mm[Hg] [place] Tebid oxygen saturation, oximetry 98 % [facility] pulse rate 74 /min [facility] blood pressure, diastolic 81 mm[Hg] Vi ctoria Tebid blood pressure, systolic 166 mm[Hg] Josh melia Tebid pulse rate #2 64 [facility] blood pressure, deleon tolic, second observation 86 mm[Hg] [place] Tebid blood pressure, syst olic, second observation 174 mm[Hg] [place] Tebid oxygen saturation, oximetry 98 % [place] Tebid pulse rate 62 /min [place] Tebid blood pressure, diastolic 78 mm[Hg] Vi ctoria Tebid blood pressure, systolic 173 mm[Hg] Josh melia Tebid pulse rate #2 85 [facility] blood pressure, deleon tolic, second observation 88 mm[Hg] [place] Tebid blood pressure, syst olic, second observation 126 mm[Hg] [facility] oxygen saturation, oximetry 98 % [facility] pulse rate 77 /min [place] blood pressure, diastolic 78 mm[Hg] Vi ctoria Ted blood pressure, systolic 141 mm[Hg] Josh cárdenas Ted pulse rate #2 66 [place] blood pressure, deleon tolic, second observation 76 mm[Hg] [place] blood pressure, syst olic, second observation 146 mm[Hg] [facility] oxygen saturation, oximetry 98 % [place] pulse rate 67 /min [place] blood pressure, diastolic 77 mm[Hg] Vi ctkarolina Ted blood pressure, systolic 149 mm[Hg] Josh cárdenas Ted blood pressure, diastolic 70 mm[Hg] Nv cain Burgos blood pressure, systolic 155 mm[Hg] Jeanine castro Burgos pulse rate 58 /min Stephanie Burgos oxygen saturation, oximetry 96 % Stephanie Burgos respiratory rate E&M 14 /min Stephanie Burgos Body Mass Index (Ratio) 25.15 kg/m2 Angelique donovan Burgos weight E&M 142 [lb_av] Stephanie Burgos pulse rate #2 61 [place] blood pressure, deleon tolic, second observation 83 mm[Hg] [facility] blood pressure, syst olic, second observation 153 mm[Hg] [facility] oxygen saturation, oximetry 98 % [facility] pulse rate 61 /min [facility] blood pressure, diastolic 83 mm[Hg] Vi ctoria Ted blood pressure, systolic 161 mm[Hg] Josh cárdenas Ted pulse rate #2 69 [place] blood pressure, deleon tolic, second observation 72 mm[Hg] [place] Tebid blood pressure, syst olic, second observation 137 mm[Hg] [facility] oxygen saturation, oximetry 98 % [place] bid pulse rate 69 /min [place] bid blood pressure, diastolic 73 mm[Hg] Vi ctoria Tebid blood pressure, systolic 140 mm[Hg] Josh melia Tebid pulse rate #2 75 [facility] blood pressure, deleon tolic, second observation 76 mm[Hg] [facility] blood pressure, syst olic, second observation 138 mm[Hg] [facility] oxygen saturation, oximetry 98 % [place] d pulse rate 80 /min [facility] blood pressure, diastolic 76 mm[Hg] Vi ctoria Tebid blood pressure, systolic 141 mm[Hg] Josh melia Tebid pulse rate #2 80 [place] d blood pressure, deleon tolic, second observation 91 mm[Hg] [facility] blood pressure, syst olic, second observation 143 mm[Hg] [facility] oxygen saturation, oximetry 98 % [place] pulse rate 77 /min [place] d blood pressure, diastolic 89 mm[Hg] Vi ctoria Tebid blood pressure, systolic 155 mm[Hg] Josh melia Tebid pulse rate #2 86 [facility] blood pressure, deleon tolic, second observation 79 mm[Hg] [facility] blood pressure, syst olic, second observation 158 mm[Hg] [facility] oxygen saturation, oximetry 98 % [place] d pulse rate 84 /min [facility] blood pressure, diastolic 79 mm[Hg] Vi ctoria Tebid blood pressure, systolic 165 mm[Hg] Josh melia Tebid pulse rate #2 80 [facility] blood pressure, deleon tolic, second observation 80 mm[Hg] [place] blood pressure, syst olic, second observation 164 mm[Hg] [place] oxygen saturation, oximetry 98 % [facility] pulse rate 90 /min [facility] blood pressure, diastolic 88 mm[Hg] Vi ctoria Ted blood pressure, systolic 165 mm[Hg] Josh melia d blood pressure, diastolic 71 mm[Hg] Nv cain [facility] blood pressure, systolic 156 mm[Hg] Jeanine castro [facility] pulse rate 74 /min [facility] oxygen saturation, oximetry 96 % [facility] respiratory rate E&M 15 /min [facility] Body Mass Index (Ratio) 24.97 kg/m2 Angelique venus [facility] weight E&M 141 [lb_av] [facility] pulse rate #2 84 [facility] blood pressure, deleon tolic, second observation 87 mm[Hg] [facility] blood pressure, syst olic, second observation 155 mm[Hg] [facility] oxygen saturation, oximetry 98 % [facility] pulse rate 84 /min [facility] blood pressure, diastolic 87 mm[Hg] Vi ctoria Ted blood pressure, systolic 155 mm[Hg] Josh brooksia Ted pulse rate #2 66 [place] blood pressure, deleon tolic, second observation 79 mm[Hg] [facility] blood pressure, syst olic, second observation 159 mm[Hg] [facility] oxygen saturation, oximetry 98 % [facility] pulse rate 64 /min [place] Tebid blood pressure, diastolic 74 mm[Hg] Vi ctoria Tebid blood pressure, systolic 164 mm[Hg] Josh melia Tebid pulse rate #2 71 [place] Tebid blood pressure, deleon tolic, second observation 73 mm[Hg] [place] Tebid blood pressure, syst olic, second observation 146 mm[Hg] [place] Tebid oxygen saturation, oximetry 98 % [facility] pulse rate 81 /min [place] Tebid blood pressure, diastolic 83 mm[Hg] Vi ctoria Tebid blood pressure, systolic 153 mm[Hg] Josh melia Tebid pulse rate #2 77 [place] Tebid blood pressure, deleon tolic, second observation 91 mm[Hg] [facility] blood pressure, syst olic, second observation 135 mm[Hg] [facility] oxygen saturation, oximetry 98 % [facility] pulse rate 77 /min [facility] blood pressure, diastolic 91 mm[Hg] Vi ctoria Tebid blood pressure, systolic 135 mm[Hg] Josh melia Tebid pulse rate #2 88 [place] Ted blood pressure, deleon tolic, second observation [...] pressure, syst olic, second observation 144 mm[Hg] [facility] oxygen saturation, oximetry 98 % [place] bid pulse rate 85 /min [place] Tebid blood pressure, diastolic 77 mm[Hg] Vi [...] Josh melia Tebid pulse rate #2 69 [place] d blood pressure, deleon tolic, second observation 88 mm[Hg] [facility] blood pressure, syst olic, second observation 145 mm[Hg] Iwona Ted oxygen saturation, oximetry 98 % [place] pulse rate 69 /min [place] Tebid blood pressure, diastolic 88 mm[Hg] Vi ctoria Tebid blood pressure, systolic 145 mm[Hg] Josh melia Tebid pulse rate #2 69 [place] d blood pressure, deleon tolic, second observation 75 mm[Hg] [facility] blood pressure, syst olic, second observation 167 [...] Tristian weight E&M 139 [lb_av] Brooklynn Agustinlisjaciel [facility] blood pressure, diastolic 70 mm[Hg] Me balrow Burgos blood pressure, systolic 148 mm[Hg] Jeanine castro [...] Junior cannon blood pressure, diastolic 67 mm[Hg] eMndoza Pederson blood pressure, systolic 186 mm[Hg] Mahi [...] s Jared weight E&M 144 [lb_av] Aneatris [facility] height E&M 63 [in_i] Aneatris [facility] blood pressure, diastolic 78 mm[Hg] Mendoza becerra [...] ORAL TABLET active one tab twice daily tC Ayers MD ATORVASTATIN CALCIUM 20 MG ORAL [...] f requency, days per week yes Lizbet [place] alcohol use, average drinks per day none Lizbet [place] alcohol use no Lizbet [place] caffeine use, averag e drinks per day 1+ Alonso Márquez drug use none Lizbet [place] smoking, year quit 2014 Lizbet elizondo smoking history, tot al pack/year >40 [facility] cigarette use yes Lizbet Og smoking [...] averag e drinks per day yes Stephanie Kevin drug use none Stephanie Kevin smoking, year quit 2014 Stephanie K abbey smoking history, tot al pack/year >40 Stephanie Brown cigarette use yes Stephanie Kevin smoking status [...] smoking history, tot al pack/year >40 Ct yAers MD drug use none Ct lebron MD [...] Mood and affect are normal. 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 Family Member Condition Mother Negative FH of Coron sydnie Artery Disease INSURANCE PROVIDERS Payer name Policy type / Coverage type [facility]ly [facility] republican ID [employer] Other [id number] ADVANCE DIRECTIVES Name Date DISCUSSED - NO DECISION MADE TREATMENT PLAN Date Name Performer Cardiology Follow up faxed 07/09/16:Orders: S NOMED-CT: [id number] Current Medications Documented ([facility]-[id number]) Alonso Márquez Cardiology Follow up faxed 07/09/16:Occasional [...] daily Isosorbide Mononitrate Er 30 Mg Oral [id number] (Isosorbide mononitrate) ..... 1 tab daily Alonso [...] Cardiology Follow up faxed 04/20/16:Orders: S NOMED-CT: [id number] Current Medications Documented ([facility]-[id number]) A rterial Duplex Bi-Lower EX (CPT-[id number]) Alonso Márquez Cardiology Follow up faxed 04/20/16:Will assess her chest pain with a stress test. She's on ASA and Plavix. Alonso Márquez Cardiology Follow up faxed 04/20/16:Orders: E KG ([id number]) S TR - Nuclear (CPT-[id number]) Her updated medication list for this problem [...] minutes. Isosorbide Mononitrate Er 30 Mg Oral [id number] (Isosorbide mononitrate) ..... 1 tab daily Aspirin [...] minutes. Isosorbide Mononitrate Er 30 Mg Oral [id number] (Isosorbide mononitrate) ..... 1 tab daily Aspirin [...] minutes. Isosorbide Mononitrate Er 30 Mg Oral [id number] (Isosorbide mononitrate) ..... 1 tab daily Aspirin [...] minutes. Isosorbide Mononitrate Er 30 Mg Oral [id number] (Isosorbide mononitrate) ..... 1 tab daily Aspirin [...] breath, fatigue, dizziness, nausea, or diaphoresis) of [place] Cardiovascular Society Class III (defined as symptoms with everyday living activities, i.e. moderate limitation) or [place] Cardiovascular Society Class IV (defined as inability [...] subl) Isosorbide Mononitrate Er 30 Mg Oral [id number]-pie (Isosorbide mononitrate) ..... 1 tab daily Aspirin [...] subl) Isosorbide Mononitrate Er 30 Mg Oral [id number] (Isosorbide mononitrate) ..... 1 tab daily Aspirin [...] daily Isosorbide Mononitrate Er 30 Mg Oral [id number] (Isosorbide mononitrate) ..... 1 tab daily Adult Aspirin Low Strength Tbdp (Aspirin tbdp) ..... Daily Orders: Andry wyatt No Charge (CPT-[id number]) Ct Ayers MD hos follow up: T [...] One tab twice daily Orders: Radha KG (CPT-[id number]) Ct Ayers MD hos follow up: H er updated medication list for this problem includes: Lisinopril 20 Mg Tabs (Lisinopril) ..... 1/2 tablet once a day at nighttime. Clopidogrel Bisulfate 75 Mg Oral Tabs (Clopidogrel bisulfate) ..... 1 tab daily Nitrostat Subl (Nitroglycerin subl) Lasix 20 Mg Oral Tabs (Furosemide) ..... 1 tab daily Isosorbide Mononitrate Er 30 Mg Oral [id number] (Isosorbide mononitrate) ..... 1 tab daily Coumadin 5 Mg Tabs (Warfarin sodium) ..... One tab daily Adult Aspirin Low Strength Tbdp (Aspirin tbdp) ..... Daily Carvedilol 25 Mg Tabs (Carvedilol) ..... One tab twice daily Digoxin 0.25 Mg Tabs (Digoxin) ..... 1 tab by mouth daily Orders: Paty Keenan (CPT-[id number]) Ct Ayers MD hos follow up: T [...] subl) Isosorbide Mononitrate Er 30 Mg Oral [id number] (Isosorbide mononitrate) ..... 1 tab daily Coumadin 5 Mg Tabs (Warfarin sodium) ..... One tab daily Adult Aspirin Low Strength Tbdp (Aspirin tbdp) ..... Daily Carvedilol 25 Mg Tabs (Carvedilol) ..... One tab twice daily Orders: Paty Keenan (CPT-[id number]) Ct Ayers MD Date Name Aortic Abdominal [...] Date Procedure Name Provider Procedure Notes S susannahus Loop Recorder Interrogation, Remote Saulius Kalvaitis MD [...] REMOTE </30 D TECH REVIEW completed SNOMED-CT: [id number] Physical Exam, Performed: Pulse Exam of Foot Ct Ayers MD completed EKG Ct elizondo MD completed SNOMED-CT: [id number] Current Medications Documented Ct Ayers MD completed [...] REMOTE </30 D TECH REVIEW completed SNOMED-CT: 96015485 Physical Exam, Performed: Pulse Exam of Foot Ct Ayers MD completed EKG Ct elizondo MD completed SNOMED-CT: [id number] Current Medications Documented Ct Ayers MD completed [...] REMOTE </30 D TECH REVIEW completed SNOMED-CT: 95062068 Physical Exam, Performed: Pulse Exam of Foot Ct Ayers MD completed Schedule Followup Ct bob MD Please schedule a follow-up appointment with me in [address] elizondo MD completed SNOMED-CT: [id number] Current Medications Documented ulius Armen NGUYEN completed [...] Ct bob MD 6 months completed SNOMED-CT: [id number] Current Medications Documented Ct Ayers MD completed SNOMED-CT: 66241588 Physical Exam, Performed: Pulse Exam of Foot Ct Ayers MD completed SNOMED-CT: 544460741 Smoking Cessation Counseling Ct Ayers MD completed Loop Recorder Interrogation, Remote Ct Ayesr MD INTERROGATION EVALUATION REMOTE </30 D ILR SYS completed ICM Interrogation, Remote (Tech) Ct Ayers MD INTERROGATION EVAL REMOTE </30 D TECH REVIEW completed Schedule Followup Ct bob MD 6 months completed SNOMED-CT: 12618125 Physical Exam, Performed: Pulse Exam of Foot Ct Ayers MD completed SNOMED-CT: 253104661 Smoking Cessation Counseling Ct Ayers MD completed EKG Stephanie Burgos completed SNOMED-CT: [id number] Current Medications Documented Stephanie Burgos completed Loop Recorder Interrogation, Remote Ct Ayers MD INTERROGATION EVALUATION REMOTE </30 D ILR SYS completed ICM Interrogation, Remote (Tech) Ct Ayers MD INTERROGATION EVAL REMOTE </30 D TECH REVIEW completed Schedule Followup Ct bob MD 3 months completed SNOMED-CT: 658794196 Smoking Cessation Counseling Ct Ayers MD completed SNOMED-CT: 41032595 Physical Exam, Performed: Pulse Exam of Foot Ct Ayers MD completed EKG Ct elizondo MD completed SNOMED-CT: 746990538432377 Current Medications Documented ulius Armen NGUYEN completed Protime Ct elizondo MD completed Schedule Followup Ct bob MD in 2 months completed SNOMED-CT: 982997607 Smoking Cessation Counseling Ct Ayers MD completed SNOMED-CT: 92716758 Physical Exam, Performed: Pulse Exam of Foot Ct Ayers MD completed EKG Ct elizondo MD completed SNOMED-CT: [id number] Current Medications Documented ulius Armen NGUYEN completed [...]
== END 2024-06-22 13:43 | disposition home or self-care (01) ==
PROVIDERS: PCP Emergency Medicine; Visit Provider Emergency Medicine
DX: R94.31 Abnormal electrocardiogram [ECG] [EKG] (principal); I35.8 Other nonrheumatic aortic valve disorders; I35.0 Nonrheumatic aortic (valve) stenosis; I08.3 Combined rheumatic disorders of mitral, aortic and tricuspid valves
CPT/HCPCS: 93306

== ENCOUNTER 2024-07-08 22:51 | Emergency (ER) | payer MEDICARE, SELFPAY ==
--- NOTE | ~2024-07-08 | XR_ITS ---
EXAMINATION: XR chest 1V portable DATE: 07/09/2024 00:19 INDICATION: Dizziness. TECHNIQUE: A single frontal view of the chest was obtained. COMPARISON: Chest 2 views 08/16/2023, CT abdomen and pelvis 08/16/2023 FINDINGS: Calcified pulmonary nodules and calcified hilar lymph nodes are consistent with old granulo matous disease. There is mild atelectasis at right lung base. No pleural effusion or pneumothorax. Th e heart size is normal. There is electronic device in left anterior chest wall. IMPRESSION: 1. Mild atelectasis at right lung base. Reviewed, dictated and finalized at location A.
--- NOTE | ~2024-07-08 | CT_ITS ---
EXAMINATION: CTA brain carotid DATE: 07/09/2024 01:53 INDICATION: Dizziness. Right eye blurred vision. TECHNIQUE: Computed tomographic angiography (CTA) of the head was performed without and with 100 mL O mnipaque-350 intravenous contrast. CTA of the neck was performed with intravenous contrast. Automated exposure control and iterative reconstruction technique were employed. The dose-length product was 1 656.02 mGy-cm. Maximum intensity projection and volume rendered 3D-reconstructions were created by harrison harry technologist on a separate workstation. COMPARISON: None. FINDINGS: HEAD CTA: There are scattered areas of low attenuation in the cerebral white matter. There is a small old infarct in right cerebellum. There is an old infarct in the right frontal lobe. There is no intr acranial hemorrhage, acute infarction, or abnormal intracranial mass lesion. The ventricles are angella l in size. There is mild mucosal thickening in the paranasal sinuses. The mastoid air cells are angella l. There are likely changes of right ocular lens replacement surgery. There is an implant lateral to left ocular globe. The vertebral arteries are codominant. There is no significant stenosis of basilar artery or the posterior cerebral arteries. There is no significant stenosis of the intracranial inte rnal carotid arteries or anterior or middle cerebral arteries. Anterior communicating artery is angella l. The posterior communicating arteries are normal. There is no aneurysm. NECK CTA: There is mild emphysema. There is a 7 mm groundglass opacity in left upper lobe, likely marco ign. There are no pathologically enlarged lymph nodes. There is no significant stenosis of the basila r artery. There is plaque in the proximal internal carotid arteries. There is 5% stenosis of the prox imal right internal carotid artery relative to normal distal artery lumen diameter (NASCET criteria). There is 9% stenosis of the proximal left internal carotid artery relative to normal distal artery l umen diameter. There is severe cervical spondylosis. IMPRESSION: 1. 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 2. Moderate nonspecific cerebral white matter disease, which likely represents chronic small vessel i schemic disease. 3. No aneurysm or significant intracranial arterial stenosis. 4. 5% stenosis of the proximal right internal carotid artery relative to normal distal artery lumen d iameter (NASCET criteria). 5. 9% stenosis of the proximal left internal carotid artery relative to normal distal artery lumen di ameter. Reviewed, dictated and finalized at location A. IMPRESSION: 1. 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 2. Moderate nonspecific cerebral white matter disease, which likely represents chronic small vessel ischemic disease. 3. No aneurysm or significant intracranial arterial stenosis. 4. 5% stenosis of the proximal right internal carotid artery relative to normal distal artery lumen diameter (NASCET criteria). 5. 9% stenosis of the proximal left internal carotid artery relative to normal distal artery lumen diameter.
[2024-07-08 22:57] VITALS: BP 175/60; PULSE 72; RESP 18; O2SAT 100
[2024-07-08 23:02] VITALS: BP 175/60; O2SAT 95
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
[2024-07-08 23:31] VITALS: BP 149/54; PULSE 71; RESP 16; O2SAT 94
[2024-07-08 23:37] LABS: Glucose Point of Care 162 mg/dl (65-105)
--- NOTE | 2024-07-09 | ECG_ITS ---
Test Date: 2024-07-09 00:09:15 Measurements Intervals [place] Rate: 65 P: 91 TN: 163 QRS: 51 QRSD: 93 T: 124 QT: 423 QTc: 441 Interpretive Statements SINUS RHYTHM ST DEVIATION AND MODERATE T-WAVE ABNORMALITY, CONSIDER LATERAL ISCHEMIA [-0.1+ mV T-WAVE IN I/aVL/V5/V6] Compared to ECG 06/09/2024 14:30:32 Sinus bradycardia no longer present Incomplete right bundle-branch block no longer present T-wave abnormality still present Possible ischemia still present Electronically Signed On 07-09-2024 11:44:35 CDT by Leonard Menendez M.D.
--- OUTSIDE RECORDS SUMMARY | 2024-07-09 00:10 | XMS_ITS | Clinical Summary ---
[facility] Organization [facility] [address] Address [address] [place] [address] Care Team Providers Care Child Welfare Caseworker Name Role Phone Erick Caceres MD Primary [...] a associated with type 2 diabetes mellitus ([facility]/HCC) 11/19/2017 Chronic diastolic heart failure 11/19/2017 Pulmonary HTN 11/19/2017 Other pulmonary embolism without acute cor pulmo nale 11/19/2017 GI bleed 11/19/2017 Chronic fatigue 11/19/2017 Paroxysmal atrial fibrillation 11/19/2017 Status post placement of implantable loop record er 10/17/2017 Overview (10/17/2017): [employer] Reveal Loop Recorder. Dx; Syncope. DOI 07/23/[address] Ayers[address] [facility] remote monitoring. Surgical History Surgery Date [...] on file Legal Sex Female 3:39 AM GARBAGE MAN Gender Identity Not on file Sexual Orientation Not on file Obstetrics History Last Filed Vital Signs Vital Sign Reading Time Taken Comments Blood Pressure 112/70 05/29/2023 1:27 PM [employer] MAN Pulse 94 05/29/2023 1:27 PM [employer] MAN Temperature - - Respiratory Rate - - Oxygen Saturation 93% 05/29/2023 1:27 PM [employer] MAN Inhaled Oxygen Concentration - - Weight 74.4 kg (164 lb) 05/29/2023 1:27 PM GARBAGE MAN Height 160 cm (5' 3 ) 05/29/2023 1:27 PM [employer]BAGE MAN Body Mass Index 29.05 05/29/2023 1:27 PM GARBAGE MAN Plan of Treatment Health Maintenance Due Date [...] POCT LIPID PANEL Routine 05/29/2023 2:00 PM G[employer]BAGE MAN Mixed diabetic hyperlipidemia associated with type 2 diabetes mellitus (CMS/HCC) (HCC) HEMOGLOBIN A1C Routine 08/16/2022 9:59 AM CDT DIABETIC EYE EXAM Routine 08/29/2017 from Last 3 Months or Most Recently Relevant to Health Maintenance Results * POCT lipid panel (05/29/2023 2:00 PM GARBAGE MAN) Cholesterol, POC 164 mg/dL Comment:GLU = 107 HDL, POC 35 mg/dL Triglycerides, POC 143 mg/dL LDL Cholesterol POC 100 mg/dL Chol/HDL Ratio, POC 2.9 Non-HDL Cholesterol, POC 129 mg/dL Cholesterol Total, POC 164 mg/dL Capillary blood 05/29/2023 2 :00 PM G[employer]BAGE MAN Geoffrey Wilkins MD POINT OF CARE TEST [...] LAB BLOOD ORDERABLES Final Result [facility] [address] [place] [address] * Diabetic Eye Exam (08/29/2017) Historical Provider HEALTH MAINTENANCE Edited Result - Final from Last 3 Months or Most Recently Relevant to Health Maintenance Insurance T MEDICARE [facility] [employer] MEDICARE G[employer] Care Teams Child Welfare Caseworker Relationship Specialty Start Date End Date Erick Caceres MD [address] [place] [address] PCP - General Emergency Medicine 09/23/19
--- OUTSIDE RECORDS SUMMARY | 2024-07-09 00:10 | XMS_ITS | CONTINUITY OF CARE DOCUMENT ---
Author Name maikel ko Address Unknown Organization [facility] Address [address] [place] [address] Phone [phone] Care Team Providers Care Production Control Coordinator Name Role Phone Armen NGUYEN, Ct Unavailable DEL NGUYEN, FARLOIS Unavailable [phone] CJ LINN MD Unavailable PROBLEMS Condition Status Date Provider Notes Homozygous MTFHR mutation active Alonso Márquez CAD active Ct Ayers MD DIABETES MELLITUS active Ct Ayers MD HTN ESSENTIAL active Ct Ayers MD Hypercholesterolemia active Brooklynn Up ldanabelle Medtronic REVEAL/LinQ active Ct bob MD Syncope [...] In-person encounter Office Visit [facility] A[facility] CardiomyopathyPreop examDizziness 6 - 3 In-person encounter Office Visit [facility] A[facility] MD [facility] CADAortic regurgitationMitral regurgitationCardiomyopathyLeg pain, bilateralSnoringCarotid artery stenosis, <50% ICA b/lChest pain-type to be determined 7 - 7 In-person encounter Office Visit [facility] 8 - 8 In-person encounter Office Visit [facility] A[facility] 8 - 8 In-person encounter Office Visit Ct Ayers [facility] Medtronic REVEAL/LinQAnemiaHeadache 3 - 8 In-person encounter Office Visit Ct Ayers MD [facility] Tobacco use, quit 9 - 6 In-person encounter Office Visit Ct Ayers MD [facility] Medtronic REVEAL/LinQAortic regurgitationAngina 8 - 0 In-person encounter Office Visit [facility] A[facility] 8 - 9 In-person encounter Office Visit Ct Ayers MD [facility] FatigueAortic regurgitation 6 - 6 In-person encounter Office Visit Kami Herrera MD [facility] 7 - 3 In-person encounter Office Visit [facility] A[facility] MD [facility] CADSyncope 9 - 9 In-person encounter Office Visit Ct Ayers MD [facility] CADDIABETES MELLITUSHTN ESSENTIALHypercholesterolemia VITAL SIGNS Date [...] Lizbet Lenka height E&M 63 [in_i] Lizbet [place] Body Mass Index (Ratio) 25.51 kg/m2 Mike Márquez blood pressure, resting Yes Delta Ayers MD blood pressure, cuff size regular Ke rri Tristian blood pressure, diastolic 71 mm[Hg] Ke rri Tristian blood pressure, systolic 170 mm[Hg] Girma Lubin oxygen saturation, oximetry 96 % Brooklynn Lubin respiratory rate E&M 16 /min Brooklynn lizarraga pulse rate 74 /min Brooklynn Up [facility] weight E&M 144 [lb_av] Brooklynn Up [facility] height E&M 63 [in_i] Brooklynn Up [facility] blood pressure, diastolic 67 mm[Hg] Ok cain Kevin blood pressure, systolic 160 mm[Hg] Jeanine matthew Kevin respiratory rate E&M 16 /min Stephanie Kevin pulse rate 66 /min Stephanie Kevin oxygen saturation, oximetry 94 % Stephanie Kevin Body Mass Index (Ratio) 24.80 kg/m2 Angelique venus Kevin weight E&M 140 [lb_av] Stephanie Kevin pulse rate #2 70 Iwona Adrian blood pressure, deleon tolic, second observation 65 mm[Hg] [facility], second observation 131 mm[Hg] [facility] oxygen saturation, oximetry 98 % [place] d pulse rate 69 /min [facility], diastolic 90 mm[Hg] Vi ctoria Tebid blood pressure, systolic 135 mm[Hg] Josh melia Tebid pulse rate #2 67 [place] d blood pressure, deleon tolic, second observation 76 mm[Hg] [facility] blood [facility], syst olic, second observation 146 mm[Hg] [place] d oxygen saturation, oximetry 98 % [facility] pulse rate 69 /min [facility] blood pressure, diastolic 74 mm[Hg] Vi iloria Tebid blood pressure, systolic 142 mm[Hg] Josh melia Tebid pulse rate #2 64 [place] d blood pressure, deleon tolic, second observation 73 mm[Hg] Iwona d blood pressure, syst olic, second observation 141 mm[Hg] [facility], oximetry 98 % [facility] pulse rate 64 /min [facility], diastolic 74 mm[Hg] Vi ctoria Tebid blood pressure, systolic 146 mm[Hg] Josh melia Tebid pulse rate #2 69 [facility] blood [facility], deleon tolic, second observation 72 mm[Hg] [facility] blood [facility], syst olic, second observation 139 mm[Hg] Iwona Tebid oxygen saturation, oximetry 98 % [facility] pulse rate 65 /min [facility] blood [facility], diastolic 74 mm[Hg] Vi ctoria Tebid blood pressure, systolic 144 mm[Hg] Josh melia Tebid pulse rate #2 72 [place] Tebid blood pressure, deleon tolic, second observation 87 mm[Hg] Iwona Tebid blood pressure, syst olic, second observation 162 mm[Hg] Iwona Tebid oxygen saturation, oximetry 98 % [facility] pulse rate 65 /min [place] Tebid blood pressure, diastolic 82 mm[Hg] Vi ctoria Tebid blood pressure, systolic 165 mm[Hg] Josh melia Tebid pulse rate #2 63 [place] Tebid blood pressure, deleon tolic, second observation 75 mm[Hg] [place] Tebid blood pressure, syst olic, second observation 144 mm[Hg] [facility], oximetry 98 % [facility] pulse rate 68 /min [facility] blood pressure, diastolic 81 mm[Hg] Vi ctoria Tebid blood pressure, systolic 164 mm[Hg] Josh melia Tebid pulse rate #2 62 [place] Tebid blood pressure, deleon tolic, second observation 72 mm[Hg] [facility] blood pressure, syst olic, second observation 136 mm[Hg] [facility] oxygen saturation, oximetry 98 % [facility] pulse rate 64 /min [place] Tebid blood pressure, diastolic 74 mm[Hg] Vi ctoria Tebid blood pressure, systolic 145 mm[Hg] Josh melia Tebid pulse rate #2 68 [place] Tebid blood pressure, deleon tolic, second observation 76 mm[Hg] [place] Tebid blood pressure, syst olic, second observation 144 mm[Hg] [facility], oximetry 98 % [facility] pulse rate 68 /min [facility] blood pressure, diastolic 76 mm[Hg] Vi ctoria Tebid blood pressure, systolic 144 mm[Hg] Josh melia Tebid pulse rate #2 65 [place] Tebid blood pressure, deleon tolic, second observation 78 mm[Hg] Iwona Tebid blood pressure, syst olic, second observation 137 mm[Hg] Iwona Tebid oxygen saturation, oximetry 98 % [place] Tebid pulse rate 67 /min [place] Tebid blood pressure, diastolic 75 mm[Hg] Vi ctoria Tebid blood pressure, systolic 139 mm[Hg] Josh melia Tebid pulse rate #2 67 [place] Ted blood pressure, deleon tolic, second observation 74 mm[Hg] [facility] blood [facility], syst olic, second observation 141 mm[Hg] [place] Tebid oxygen saturation, oximetry 98 % [facility] pulse rate 70 /min [place] Tebid blood pressure, diastolic 73 mm[Hg] [facility], systolic 144 mm[Hg] Josh melia Tebid pulse rate #2 67 [place] Ted blood pressure, deleon tolic, second observation 82 mm[Hg] [place] Tebid blood pressure, syst olic, second observation 156 mm[Hg] [place] Tebid oxygen saturation, oximetry 98 % [place] Ted pulse rate 68 /min [place] Tebid blood pressure, diastolic 85 mm[Hg] Vi ctoria Tebid blood pressure, systolic 169 mm[Hg] Josh melia Tebid pulse rate #2 66 [place] Tebid blood pressure, deleon tolic, second observation 71 mm[Hg] [place] Tebid blood pressure, syst olic, second observation 131 mm[Hg] [facility], oximetry 98 % [facility] pulse rate 63 /min Iwona Tebid blood pressure, diastolic 72 mm[Hg] Vi ctoria Tebid blood pressure, systolic 121 mm[Hg] Josh melia Tebid pulse rate #2 74 [place] Tebid blood pressure, deleon tolic, second observation 66 mm[Hg] Iwona Tebid blood pressure, syst olic, second observation 133 mm[Hg] Iwona Tebid oxygen saturation, oximetry 98 % [facility] pulse rate 74 /min [place] Tebid blood pressure, diastolic 71 mm[Hg] Vi ctoria Tebid blood pressure, systolic 133 mm[Hg] Josh melia Tebid pulse rate #2 73 [facility] blood pressure, deleon tolic, second observation 84 mm[Hg] [place] Tebid blood pressure, syst olic, second observation 164 mm[Hg] [place] Tebid oxygen saturation, oximetry 98 % [facility] pulse rate 74 /min [facility] blood pressure, diastolic 81 mm[Hg] Vi ctoria Tebid blood pressure, systolic 166 mm[Hg] Josh melia Tebid pulse rate #2 64 [facility] blood pressure, deleon tolic, second observation 86 mm[Hg] Iwona Tebid blood pressure, syst olic, second observation 174 mm[Hg] Iwona Tebid oxygen saturation, oximetry 98 % [place] Tebid pulse rate 62 /min [place] Tebid blood pressure, diastolic 78 mm[Hg] Vi ctoria Tebid blood pressure, systolic 173 mm[Hg] Josh melia Tebid pulse rate #2 85 [facility] blood [facility], deleon tolic, second observation 88 mm[Hg] [place] Tebid blood pressure, syst olic, second observation 126 mm[Hg] [facility] oxygen saturation, oximetry 98 % [facility] pulse rate 77 /min [facility] blood pressure, diastolic 78 mm[Hg] Vi ctoria Ted blood pressure, systolic 141 mm[Hg] Josh cárdenas Ted pulse rate #[address] [facility] blood pressure, deleon tolic, second observation 76 mm[Hg] Iwona blood pressure, syst olic, second observation 146 mm[Hg] [facility] oxygen saturation, oximetry 98 % Iwona pulse rate 67 /min [place] blood pressure, diastolic 77 mm[Hg] Vi ctoria Ted blood pressure, systolic 149 mm[Hg] Josh cárdenas Ted blood pressure, diastolic 70 mm[Hg] Ok cain Burgos blood pressure, systolic 155 mm[Hg] Jeanine castro Burgos pulse rate 58 /min Stephanie Burgos oxygen saturation, oximetry 96 % Stephanie Burgos respiratory rate E&M 14 /[facility] 25.15 kg/m2 Angelique donovan Burgos weight E&M 142 [lb_av] Stephanie Burgos pulse rate #2 61 [place] blood pressure, deleon tolic, second observation 83 mm[Hg] [facility] blood pressure, syst olic, second observation 153 mm[Hg] [facility] oxygen saturation, oximetry 98 % [facility] pulse rate 61 /min [facility] blood pressure, diastolic 83 mm[Hg] Vi ctoria Ted blood pressure, systolic 161 mm[Hg] Josh cárdenas Ted pulse rate #2 69 [place] blood pressure, deleon tolic, second observation 72 mm[Hg] Iwona Tebid blood pressure, syst olic, second observation 137 mm[Hg] Iwona Tebid oxygen saturation, oximetry 98 % Iwona Tebid pulse rate 69 /min Iwona Tebid blood pressure, diastolic 73 mm[Hg] Vi ctoria Tebid blood pressure, systolic 140 mm[Hg] Josh melia Tebid pulse rate #2 75 [place] Tebid blood pressure, deleon tolic, second observation 76 mm[Hg] Iwona Tebid blood pressure, syst olic, second observation 138 mm[Hg] Iwona Tebid oxygen saturation, oximetry 98 % Iwona bid pulse rate 80 /min Iwona Tebid blood pressure, diastolic 76 mm[Hg] Vi ctoria Tebid blood pressure, systolic 141 mm[Hg] Josh melia Tebid pulse rate #2 80 [place] bid blood pressure, deleon tolic, second observation 91 mm[Hg] [facility], syst olic, second observation 143 mm[Hg] Iwona Tebid oxygen saturation, oximetry 98 % [place] d pulse rate 77 /min Iwona bid blood pressure, diastolic 89 mm[Hg] Vi ctoria Tebid blood pressure, systolic 155 mm[Hg] Josh melia Tebid pulse rate #2 86 [place] bid blood pressure, deleon tolic, second observation 79 mm[Hg] [facility] blood [facility], syst olic, second observation 158 mm[Hg] [facility] oxygen saturation, oximetry 98 % [place] d pulse rate 84 /min Iwona bid blood pressure, diastolic 79 mm[Hg] Vi ctoria Tebid blood pressure, systolic 165 mm[Hg] Josh melia Tebid pulse rate #2 80 [facility] blood pressure, deleon tolic, second observation 80 mm[Hg] Iwona blood pressure, syst olic, second observation 164 mm[Hg] [place] oxygen saturation, oximetry 98 % [facility] pulse rate 90 /min [facility] blood pressure, diastolic 88 mm[Hg] Vi ctoria Ted blood pressure, systolic 165 mm[Hg] Josh melia Ted blood pressure, diastolic 71 mm[Hg] Ok cain Burgos blood pressure, systolic 156 mm[Hg] Jeanine castro [facility] pulse rate 74 /min [facility] oxygen saturation, oximetry 96 % [facility] respiratory rate E&M 15 /min [facility] Body Mass Index (Ratio) 24.97 kg/m2 Angelique venus [facility] weight E&M 141 [lb_av] [facility] pulse rate #2 84 [place] blood pressure, deleon tolic, second observation 87 mm[Hg] [facility] blood pressure, syst olic, second observation 155 mm[Hg] [facility] oxygen saturation, oximetry 98 % [facility] pulse rate 84 /min [facility] blood pressure, diastolic 87 mm[Hg] Vi ctoria Ted blood pressure, systolic 155 mm[Hg] Josh brooksia Ted pulse rate #2 66 [place] d blood pressure, deleon tolic, second observation 79 mm[Hg] Iwona Ted blood pressure, syst olic, second observation 159 mm[Hg] [facility], oximetry 98 % [facility] pulse rate 64 /min Iwona Tebid blood pressure, diastolic 74 mm[Hg] Vi ctoria Tebid blood pressure, systolic 164 mm[Hg] Josh melia Tebid pulse rate #2 71 [facility] blood pressure, deleon tolic, second observation 73 mm[Hg] Iwona Tebid blood pressure, syst olic, second observation 146 mm[Hg] Iwona Tebid oxygen saturation, oximetry 98 % [facility] pulse rate 81 /min [place] Tebid blood pressure, diastolic 83 mm[Hg] Vi ctoria Tebid blood pressure, systolic 153 mm[Hg] Josh melia Tebid pulse rate #2 77 [place] Tebid blood pressure, deleon tolic, second observation 91 mm[Hg] [facility] blood pressure, syst olic, second observation 135 mm[Hg] [facility] oxygen saturation, oximetry 98 % [facility] pulse rate 77 /min [facility] blood pressure, diastolic 91 mm[Hg] Vi ctoria Tebid blood pressure, systolic 135 mm[Hg] Josh melia Tebid pulse rate #2 88 [place] Ted blood pressure, deleon tolic, second observation 78 mm[Hg] Iwona Tebid blood pressure, syst olic, second observation 155 mm[Hg] [facility] oxygen [facility], oximetry 98 % [place] Tebid pulse rate 82 /min Iwona Tebid blood pressure, diastolic 81 mm[Hg] Vi ctoria Tebid blood pressure, systolic 154 mm[Hg] Josh melia Tebid pulse rate #2 88 [place] Tebid blood pressure, deleon tolic, second observation 79 mm[Hg] Iwona Tebid blood pressure, syst olic, second observation 144 mm[Hg] [facility], oximetry 98 % [facility] pulse rate 85 /min [place] Tebid blood pressure, diastolic 77 mm[Hg] Vi ctoria Tebid blood pressure, systolic 152 mm[Hg] Josh melia Tebid pulse rate #2 85 [place] d blood pressure, deleon tolic, second observation 77 mm[Hg] [facility] blood [facility], syst olic, second observation 168 mm[Hg] Iwona Tebid oxygen saturation, oximetry 98 % [place] d pulse rate 92 /min Iwona Tebid blood pressure, diastolic 91 mm[Hg] Vi ctoria Tebid blood pressure, systolic 177 mm[Hg] Josh melia Tebid pulse rate #2 69 [place] d blood pressure, deleon tolic, second observation 88 mm[Hg] [facility] blood [facility], syst olic, second observation 145 mm[Hg] [facility] oxygen saturation, oximetry 98 % [place] pulse rate 69 /min Iwona Tebid blood pressure, diastolic 88 mm[Hg] Vi ctoria Tebid blood pressure, systolic 145 mm[Hg] Josh melia Tebid pulse rate #2 69 [place] d blood pressure, deleon tolic, second observation 75 mm[Hg] [facility] blood [facility], syst olic, second observation 167 mm[Hg] Iwona Tebid oxygen saturation, oximetry 98 % [place] d pulse rate 64 /min Iw[place] Tebid blood pressure, diastolic 79 mm[Hg] Vi ctoria Tebid blood pressure, systolic 163 mm[Hg] Josh melia Tebid blood pressure, diastolic 82 mm[Hg] Ke rri Gruenestefanyer blood pressure, systolic 158 mm[Hg] Ker ri Gruenestefanyer pulse rate 82 /min Brooklynn Annel lder oxygen saturation, oximetry 96 % Brooklynn Tristian respiratory rate E&M 16 /min Brooklynn Wilde zia Body Mass Index (Ratio) 24.62 kg/m2 Christin alanis Tristian weight E&M 139 [lb_av] Brooklynn Annel [facility] blood pressure, diastolic 70 mm[Hg] Me barlow Burgos blood pressure, systolic 148 mm[Hg] Jeanine [...] Mass Index (Ratio) 25.51 kg/m2 Anea judi Jared blood pressure, diastolic 71 mm[Hg] An eatris Brown blood pressure, systolic 195 mm[Hg] Ane atris Jared pulse rate 59 /min Aneatris Brown oxygen saturation, oximetry 95 % Aneatris Brown respiratory rate E&M 17 /min Aneatri s Jared weight E&M 144 [lb_av] Aneatris [facility] height E&M 63 [in_i] Aneatris [facility] blood pressure, diastolic 78 mm[Hg] Mendoza becerra Darius'Tang blood pressure, systolic 175 mm[Hg] Mahi yolanda Mccoy'Tang pulse rate 65 /min Laurel O'Tang oxygen saturation, oximetry 93 % Laurel Mccoy'Tang respiratory rate E&M 16 /min Laurel O'Tang weight E&M 144 [lb_av] Laurel O'Tang ALLERGIES Allergy Name Onset Date Reaction Criticality Status OXYCODONE INEFFECTIVE Low Criticality active HYDROCODONE INEFFECTIVE Low Criticality active RESULTS Date Observation Value Provider Reference Range Interpretation Location coagulation managed by 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 RN 9 international normalized ratio (INR) 2.2 Stephanie Brown Normal prothrombin time (patient) 26.4 s Stephanie Brown [...] CAPSULE active 1 tab twice daily Aneatris Jared CLOPIDOGREL BISULFATE 75 MG ORAL TABLET active [...] exercise, f requency, days per week yes [facility] alcohol use, average drinks per day none [facility] alcohol use no [facility] caffeine use, averag e drinks per day 1+ Alonso Márquez drug use none [facility] smoking, year quit 2014 Lizbet Neptali mikhail smoking history, tot al pack/year >40 [facility] cigarette use yes Lizbet Og smoking status [...] use, averag e drinks per day yes Brooklynnchinyere Lubin drug use none Brooklynn Annel martinezer smoking, year quit 2014 Brooklynnchinyere sheppard smoking history, tot al pack/year >40 Brooklynn Tristian cigarette use yes Brooklynn Velezrohan farley smoking status Former smoker Brooklynn Velezion pineda number of grandchildren Ct Ayers MD physical exercise, f requency, days per week yes Stephanie Kevin alcohol use, average drinks per day none Stephanie Kevin alcohol use no Stephanie Kevin caffeine use, averag e drinks per day yes Stephanie Kevin drug use none Stephanie Brown smoking, year quit 2014 Stephanie K abbey smoking history, tot al pack/year >40 Stephanie Brown cigarette use yes Stephanie Kevni smoking status Former smoker Stephanie Kevin social [...] yes Stephanie Burgos drug use none Stephanie Grahamann smoking, year quit 2014 Stephanie Garza Luz [...] Junior Pederson smoking, year quit 2014 Junior Pederosn smoking history, tot al pack/year >40 Junior [...] Mood and affect are normal. 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 Family Member Condition Mother Negative FH of Coron sydnie Artery Disease INSURANCE PROVIDERS Payer name Policy type / Coverage type [facility] green party ID [employer] Other [id number] ADVANCE DIRECTIVES Name Date DISCUSSED - NO DECISION MADE TREATMENT PLAN Date Name Performer Cardiology Follow up faxed 07/09/16:Orders: S NOMED-CT: [id number] Current Medications Documented ([facility]-[id number]) Alonso Márquez Cardiology Follow up faxed 07/09/16:Occasional [...] daily Isosorbide Mononitrate Er 30 Mg Oral [id number] (Isosorbide mononitrate) ..... 1 tab daily Alonso [...] Cardiology Follow up faxed 04/20/16:Orders: S NOMED-CT: [id number] Current Medications Documented ([id number]) A rterial Duplex Bi-Lower EX (CPT-[id number]) Alonso Márquez Cardiology Follow up faxed 04/20/16:Will assess her chest pain with a stress test. She's on ASA and Plavix. Alonso Degrootberg Cardiology Follow up faxed 04/20/16:Orders: E KG ([id number]) S TR - Nuclear (CPT-[id number]) Her updated medication list for this problem [...] minutes. Isosorbide Mononitrate Er 30 Mg Oral [id number] (Isosorbide mononitrate) ..... 1 tab daily Aspirin [...] minutes. Isosorbide Mononitrate Er 30 Mg Oral [id number] (Isosorbide mononitrate) ..... 1 tab daily Aspirin [...] minutes. Isosorbide Mononitrate Er 30 Mg Oral [id number] (Isosorbide mononitrate) ..... 1 tab daily Aspirin [...] minutes. Isosorbide Mononitrate Er 30 Mg Oral [id number] (Isosorbide mononitrate) ..... 1 tab daily Aspirin [...] breath, fatigue, dizziness, nausea, or diaphoresis) of [place] Cardi[employer] Society Class III (defined as symptoms with everyday living activities, i.e. moderate limitation) or [place] Cardiovascular Society Class IV (defined as inability [...] subl) Isosorbide Mononitrate Er 30 Mg Oral [id number] (Isosorbide mononitrate) ..... 1 tab daily Aspirin [...] subl) Isosorbide Mononitrate Er 30 Mg Oral [id number] (Isosorbide mononitrate) ..... 1 tab daily Aspirin [...] daily Isosorbide Mononitrate Er 30 Mg Oral [id number] (Isosorbide mononitrate) ..... 1 tab daily Adult Aspirin Low Strength Tbdp (Aspirin tbdp) ..... Daily Orders: Andry wyatt No Charge (CPT-[id number]) Ct Ayers MD hos follow up: T [...] One tab twice daily Orders: Radha KG (CPT-[id number]) Ct Ayers MD hos follow up: H er updated medication list for this problem includes: Lisinopril 20 Mg Tabs (Lisinopril) ..... 1/2 tablet once a day at nighttime. Clopidogrel Bisulfate 75 Mg Oral Tabs (Clopidogrel bisulfate) ..... 1 tab daily Nitrostat Subl (Nitroglycerin subl) Lasix 20 Mg Oral Tabs (Furosemide) ..... 1 tab daily Isosorbide Mononitrate Er 30 Mg Oral [id number] (Isosorbide mononitrate) ..... 1 tab daily Coumadin 5 Mg Tabs (Warfarin sodium) ..... One tab daily Adult Aspirin Low Strength Tbdp (Aspirin tbdp) ..... Daily Carvedilol 25 Mg Tabs (Carvedilol) ..... One tab twice daily Digoxin 0.25 Mg Tabs (Digoxin) ..... 1 tab by mouth daily Orders: Paty Keenan (CPT-[id number]) Ct Ayers MD hos follow up: T [...] subl) Isosorbide Mononitrate Er 30 Mg Oral [id number] (Isosorbide mononitrate) ..... 1 tab daily Coumadin 5 Mg Tabs (Warfarin sodium) ..... One tab daily Adult Aspirin Low Strength Tbdp (Aspirin tbdp) ..... Daily Carvedilol 25 Mg Tabs (Carvedilol) ..... One tab twice daily Orders: Paty Keenan (CPT-[id number]) Ct Ayers MD Date Name Aortic Abdominal [...] REMOTE </30 D TECH REVIEW completed SNOMED-CT: [id number] Physical Exam, Performed: Pulse Exam of Foot Ct Ayers MD completed EKG Ct elizondo MD completed SNOMED-CT: [id number] Current Medications Documented Ct Ayers MD completed [...] REMOTE </30 D TECH REVIEW completed SNOMED-CT: [id number] Physical Exam, Performed: Pulse Exam of Foot Ct Ayers MD completed EKG Ct elizondo MD completed SNOMED-CT: [id number] Current Medications Documented Ct Ayers MD completed [...] REMOTE </30 D TECH REVIEW completed SNOMED-CT: [id number] Physical Exam, Performed: Pulse Exam of Foot Ct Ayers MD completed Schedule Followup Ct bob MD Please schedule a follow-up appointment with me in [address] elizondo MD completed SNOMED-CT: [id number] Current Medications Documented Ct Ayers MD completed Loop Recorder Interrogation, Remote Saulius Kalcindyitis INTERROGATION EVALUATION REMOTE </30 D ILR SYS completed ICM Interrogation, Remote (Tech) ulius Kalvaitis MD INTERROGATION EVAL REMOTE </30 D TECH REVIEW completed Loop Recorder Interrogation, Remote ulius Kalcindyitis INTERROGATION EVALUATION REMOTE </30 D ILR SYS [...] Ct bob MD 6 months completed SNOMED-CT: [id number] Current Medications Documented Ct Ayers MD completed SNOMED-CT: 63703814 Physical Exam, Performed: Pulse Exam of Foot Ct Ayers MD completed SNOMED-CT: 299386139 Smoking Cessation Counseling Ct Ayers MD completed Loop Recorder Interrogation, Remote Ct Ayers MD INTERROGATION EVALUATION REMOTE </30 D ILR SYS completed ICM Interrogation, Remote (Tech) Ct Ayers MD INTERROGATION EVAL REMOTE </30 D TECH REVIEW completed Schedule Followup Ct bob MD 6 months completed SNOMED-CT: 16987951 Physical Exam, Performed: Pulse Exam of Foot Ct Ayers MD completed SNOMED-CT: 781908523 Smoking Cessation Counseling Ct Ayers MD completed EKG Stephanie Burgos completed SNOMED-CT: 216027904520222 Current Medications Documented Stephanie Burgos completed Loop Recorder Interrogation, Remote Ct Ayers MD INTERROGATION EVALUATION REMOTE </30 D ILR SYS completed ICM Interrogation, Remote (Tech) Ct Ayers MD INTERROGATION EVAL REMOTE </30 D TECH REVIEW completed Schedule Followup Ct bob MD 3 months completed SNOMED-CT: 619471132 Smoking Cessation Counseling Ct Ayers MD completed SNOMED-CT: 00838330 Physical Exam, Performed: Pulse Exam of Foot Ct Ayers MD completed EKG Ct elizondo MD completed SNOMED-CT: 968196767211580 Current Medications Documented ulius Armen NGUYEN completed Protime Ct elizondo MD completed Schedule Followup Ct bob MD in 2 months completed SNOMED-CT: [id number] Smoking Cessation Counseling Ct Ayers MD completed SNOMED-CT: 09557015 Physical Exam, Performed: Pulse Exam of Foot Ct Ayers MD completed EKG Ct elizondo MD completed SNOMED-CT: [id number] Current Medications Documented ulius Armen NGUYEN completed [...]
--- OUTSIDE RECORDS SUMMARY | 2024-07-09 00:10 | XMS_ITS | Referral Summary ---
Author Organization [facility] [address] Address [address] [place] [address] Care Team Providers Care Hand Patcher Name Role Phone Erick Caceres MD Primary [...] a associated with type 2 diabetes mellitus ([facility]) 11/19/2017 Chronic diastolic [...] on file Legal Sex Female 3:39 AM CANT GANG SAWYER Gender Identity Not on file Sexual Orientation Not on file Last Filed Vital Signs Vital Sign Reading Time Taken Comments Blood Pressure 112/70 05/29/2023 1:27 PM CANT GANG SAWYER Pulse 94 05/29/2023 1:27 PM CANT GANG SAWYER Temperature - - Respiratory Rate - - Oxygen Saturation 93% 05/29/2023 1:27 PM CANT GANG SAWYER Inhaled Oxygen Concentration - - Weight 74.4 kg (164 lb) 05/29/2023 1:27 PM CANT GANG SAWYER Height 160 cm (5' 3 ) 05/29/2023 1:27 PM CANT GANG SAWYER Body Mass Index 29.05 05/29/2023 1:27 PM CANT GANG SAWYER Plan of Treatment Not on file Procedures Procedure Name Priority Date/Time Associated Diagnosis Comments POCT LIPID PANEL Routine 05/29/2023 2:00 PM CANT GANG SAWYER Mixed diabetic hyperlipidemia associated with type 2 diabetes mellitus (CMS/HCC) (HCC) HEMOGLOBIN A1C Routine 08/16/2022 9:59 AM CDT DIABETIC EYE EXAM Routine 08/29/2017 from Last 3 Months or Most Recently Relevant to Health Maintenance Results * POCT lipid panel (05/29/2023 2:00 PM CANT GANG SAWYER) Cholesterol, POC 164 mg/dL Comment:GLU = 107 HDL, POC 35 mg/dL Triglycerides, POC 143 mg/dL LDL Cholesterol POC 100 mg/dL Chol/HDL Ratio, POC 2.9 Non-HDL Cholesterol, POC 129 mg/dL Cholesterol Total, POC 164 mg/dL Capillary blood 05/29/2023 2 :00 PM CANT GANG SAWYER Geoffrey Wilkins MD POINT OF CARE TEST ORDER LAN Final Result * (ABNORMAL) Hemoglobin A1c (08/16/2022 9:59 AM CDT) Hgb A1C 6.7(H) <5.7 % of total Hgb [facility] Comment: For someone without known [...] Caceres MD LAB BLOOD ORDERABLES Final Result [email or web address] [address] [place] [address] * Diabetic Eye Exam (08/29/2017) Historical Provider HEALTH MAINTENANCE Edited Result - Final from Last 3 Months or Most Recently Relevant to Health Maintenance Insurance TNA MEDICARE GOLD AENA MEDICARE GOLD Care Teams Hand Patcher Relationship Specialty Start Date End Date Erick Caceres MD [address] [place], [place] [id number] PCP - General Emergency Medicine 09/23/19
[2024-07-09 00:14] LABS: Basophils Absolute Auto 0.1 K/mm3 (0.0-0.1); Basophils Percent Auto 0.8 % (0.2-1.2); Eosinophils Absolute Auto 0.4 K/mm3 (0-0.3); Eosinophils Percent Auto 3.7 % (0-4.4); Hematocrit 34.6 % (37.0-47.0); Hemoglobin 10.6 g/dL (12.0-15.0); Immature Granulocyte Absolute 0.05 K/mm3 (0.00-0.031); Immature Granulocyte Percent A 0.4 % (0-0.5); Lymphocytes Absolute Auto 2.53 K/mm3 (0.9-3.2); Lymphocytes Percent Auto 21.2 % (18.3-44.2); Mean Corpuscular HGB Conc 30.6 g/dl (32-36); Mean Corpuscular Hemoglobin 26.8 pg (26-34); Mean Corpuscular Volume 87.6 fl (80-100); Monocytes Absolute Auto 1.4 K/mm3 (0.1-0.6); Monocytes Percent Auto 11.7 % (2.6-8.5); Neutrophils Absolute Auto 7.4 K/mm3 (1.3-6.7); Neutrophils Percent Auto 62.2 % (45.5-73.1); Platelet Count Result 386 k/mm3 (150-375); Red Blood Count 3.95 M/mm3 (4.2-5.4); Red Cell Distribution Width 15.8 % (11.5-14.5); White Blood Count 11.9 K/mm3 (4.5-10.0)
[2024-07-09 00:23] LABS: Ethanol < 10 mg/dL (<10)
[2024-07-09 00:25] LABS: Alanine Aminotransferase 15 U/L (6-35); Albumin Level 3.6 g/dL (3.5-5.1); Alkaline Phosphatase 85 U/L (38-126); Anion Gap 13 mmol/L (4-12); Aspartate Amino Transferase 16 U/L (14-36); Bilirubin,Total 0.4 mg/dL (0.2-1.3); Blood Urea Nitrogen 37 mg/dL (7-17); Calcium 9.2 mg/dL (8.4-10.2); Carbon Dioxide 27 mmol/L (22-30); Chloride 99 mmol/L (98-107); Estimated CRCL calculation 15 ml/min; Estimated Glomerular Filt Rate 17; Glucose 166 mg/dL (65-110); Potassium 4.3 mmol/L (3.4-5.0); Sodium 139 mmol/L (137-145)
[2024-07-09 00:32] LABS: Prothrombin Time 13.8 Seconds (11.1-14.7)
[2024-07-09 00:33] LABS: Partial Thromboplastin Time 26.8 Seconds (22.3-36.8)
[2024-07-09 00:36] LABS: Troponin I 0.014 ng/mL (0.000-0.034)
[2024-07-09] MEDS: SODIUM CHLORIDE 0.9% IV 1,000 ML 999 ML IV CONT (00:47)
[2024-07-09 01:31] VITALS: BP 134/46; PULSE 68; RESP 16; O2SAT 94
[2024-07-09 01:41] LABS: Add Urine Microscopic? NO; Appearance Urine Clear (Clear); Bilirubin Urine Negative (Negative); Blood Urine Negative (Negative); Color Urine Yellow (Yellow); Glucose Urine UA Negative (Negative); Ketones Urine Negative (Negative); Leukocyte Esterase Ur Negative LEU/UL (Negative); Nitrate Urine Negative (Negative); Protein Urine Negative (Negative); Specific Grav Ur 1.008 (1.001-1.035); Urobilinogen Urine 0.2 mg/dL (<2.0); pH Urine 5.5 (5.0-9.0)
[2024-07-09 01:56] LABS: Amphetamine Screen Urine Negative (Negative); Barbiturate Screen Urine Negative (Negative); Benzodiazepines Screen Urine Negative (Negative); Cannabinoid Screen Urine Negative (Negative); Cocaine Screen Urine Negative (Negative); Methadone Screen Urine Negative (Negative); Opiate Screen Urine Negative (Negative); Phencyclidine Screen Urine Negative (Negative)
[2024-07-09 02:26] VITALS: TEMP 36.6
[2024-07-09 02:31] VITALS: BP 162/51; BP 172/66; PULSE 74; PULSE 76; PULSE 86; RESP 12; O2SAT 91
[2024-07-09 02:35] VITALS: BP 163/59; PULSE 82
[2024-07-09 03:19] VITALS: PULSE 82; RESP 24; O2SAT 95
[2024-07-09 04:28] VITALS: BP 170/57; PULSE 77; RESP 16
== END 2024-07-09 04:56 | disposition home or self-care (01) ==
PROVIDERS: Emergency Provider Student in an Organized Health Care Education/Training Program; PCP Emergency Medicine
DX: R42 Dizziness and giddiness (principal); H53.8 Other visual disturbances; E11.65 Type 2 diabetes mellitus with hyperglycemia; N17.9 Acute kidney failure, unspecified; E11.22 Type 2 diabetes mellitus with diabetic chronic kidney disease; I13.0 Hypertensive heart and chronic kidney disease with heart failure and stage 1 through stage 4 chronic kidney disease, or unspecified chronic kidney disease; N18.9 Chronic kidney disease, unspecified; I50.9 Heart failure, unspecified; D75.839 Thrombocytosis, unspecified; D72.829 Elevated white blood cell count, unspecified; D64.9 Anemia, unspecified; I25.10 Atherosclerotic heart disease of native coronary artery without angina pectoris; I48.0 Paroxysmal atrial fibrillation; I27.21 Secondary pulmonary arterial hypertension; J96.11 Chronic respiratory failure with hypoxia; J44.9 Chronic obstructive pulmonary disease, unspecified; J32.1 Chronic frontal sinusitis; E78.5 Hyperlipidemia, unspecified; E11.39 Type 2 diabetes mellitus with other diabetic ophthalmic complication; H42 Glaucoma in diseases classified elsewhere; H35.30 Unspecified macular degeneration; M19.90 Unspecified osteoarthritis, unspecified site; K21.9 Gastro-esophageal reflux disease without esophagitis; Z86.711 Personal history of pulmonary embolism; Z86.16 Personal history of COVID-19; Z87.891 Personal history of nicotine dependence; Z95.5 Presence of coronary angioplasty implant and graft; Z90.89 Acquired absence of other organs; Z90.81 Acquired absence of spleen; Z90.711 Acquired absence of uterus with remaining cervical stump; Z79.82 Long term (current) use of aspirin; Z79.899 Other long term (current) drug therapy; Z79.4 Long term (current) use of insulin; Z79.84 Long term (current) use of oral hypoglycemic drugs; R94.31 Abnormal electrocardiogram [ECG] [EKG]; R90.82 White matter disease, unspecified
CPT/HCPCS: 36415; 70496; 70498; 71045; 80053; 80307; 81003; 82077; 82948; 84484; 85025; 85610; 85730; 93005; 96360; 99284; J7030; Q9967

== ENCOUNTER 2024-11-15 01:05 | Emergency (ER) | payer MEDICARE, SELFPAY ==
--- NOTE | ~2024-11-15 | XR_ITS ---
EXAMINATION: XR chest 1V portable DATE: 11/15/2024 01:31 INDICATION: Chest pain TECHNIQUE: frontal view of the chest was obtained. COMPARISON: Chest radiograph dated 07/09/2024 and 08/16/[address] dated 07/09/2024 FINDINGS: Hyperexpansion lungs with mild flattening of the diaphragm consistent with emphysema better appreciat ed on prior CT. Calcified nodule right lower lung zone and calcified right hilar lymph nodes consiste nt with old granulomatous disease. Mild streaky bibasilar atelectasis. No pulmonary edema, pleural ef fusion or pneumothorax. The cardiomediastinal silhouette is normal. Implantable nurse monitoring proje cts over the lower left chest wall. IMPRESSION: 1. Mild emphysema with mild bibasilar atelectasis. Reviewed, dictated and finalized at location A.
[2024-11-15 01:09] VITALS: PULSE 104; RESP 21; O2SAT 95
--- NOTE | 2024-11-15 01:09 | ECG_ITS ---
Test Date: 2024-11-15 01:16:29 Measurements Intervals [place] Rate: 100 P: 110 DE: 170 QRS: 55 QRSD: 84 T: 112 QT: 378 QTc: 488 Interpretive Statements SINUS TACHYCARDIA WITH OCCASIONAL SUPRAVENTRICULAR PREMATURE COMPLEXES BORDERLINE ST-T WAVE ABNORMALITY- DIFFUSE LEADS BASELINE ARTIFACT- I, II, III, AVR, AVL, AVF, V1 BORDERLINE ECG Compared to ECG 07/09/2024 00:09:15 HEART RATE HAS INCREASED Electronically Signed On 11-15-2024 08:19:05 CDT by Binh Emerson D.O.
[2024-11-15 01:15] VITALS: BP 166/68
[2024-11-15 01:34] LABS: Hematocrit 35.6 % (37.0-47.0); Hemoglobin 10.4 g/dL (12.0-15.0); Immature Granulocyte Percent A 0.4 % (0-0.5); Immature Platelet Fraction Pct 5.8 % (0.9-11.2); Lymphocytes Absolute Auto 1.77 K/mm3 (0.9-3.2); Mean Corpuscular HGB Conc 29.2 g/dl (32-36); Mean Corpuscular Hemoglobin 26.9 pg (26-34); Mean Corpuscular Volume 92.2 fl (80-100); Nucleated Red Blood Cells Absolute Auto 0.000 K/mm3 (0.0-0.012); Nucleated Red Blood Cells Perc 0.0 % (0.0-0.2); Platelet Count Result 245 k/mm3 (150-375); Red Blood Count 3.86 M/mm3 (4.2-5.4); White Blood Count 14.1 K/mm3 (4.5-10.0)
--- OUTSIDE RECORDS SUMMARY | 2024-11-15 01:34 | XMS_ITS | Clinical Summary ---
Author Organization [facility] [address] Address [address] [place] [address] Care Team Providers Care Drywall Mechanic Name Role Phone Erick Caceres MD Primary [...] a associated with type 2 diabetes mellitus ([facility]/HCC) 11/19/2017 Chronic diastolic heart failure 11/19/2017 Pulmonary HTN 11/19/2017 Other pulmonary embolism without acute cor pulmo nale 11/19/2017 GI bleed 11/19/2017 Chronic fatigue 11/19/2017 Paroxysmal atrial fibrillation 11/19/2017 Status post placement of implantable loop record er 10/17/2017 Overview (10/17/2017): [employer] Reveal Loop Recorder. Dx; Syncope. DOI 07/23/[address] Ayers[address] [facility] remote monitoring. Surgical History Surgery Date Site/Laterality Comments CORONARY ANGIOPLASTY HEART SURGERY Medical History Medical History Date Comments Hypertension Heart attack (HCC) CAD S/P percutaneous coronary angioplasty Hyperlipidemia Diabetes mellitus (HCC) Heart failure Diverticulitis Bleeding Anemia Arthritis Peripheral arterial disease [...] on file Legal Sex Female 3:39 AM DIESEL ENGINE I PIPE FITTER Gender Identity Not on file Sexual Orientation Not on file Obstetrics History Last Filed Vital Signs Vital Sign Reading Time Taken Comments Blood Pressure 112/70 05/29/2023 1:27 PM DIESEL ENGINE I PIPE FITTER Pulse 94 05/29/2023 1:27 PM DIESEL ENGINE I PIPE FITTER Temperature - - Respiratory Rate - - Oxygen Saturation 93% 05/29/2023 1:27 PM DIESEL ENGINE I PIPE FITTER Inhaled Oxygen Concentration - - Weight 74.4 kg (164 lb) 05/29/2023 1:27 PM DIESEL ENGINE I PIPE FITTER Height 160 cm (5' 3) 05/29/2023 1:27 PM DIESEL ENGINE I PIPE FITTER Body Mass Index 29.05 05/29/2023 1:27 PM DIESEL ENGINE I PIPE FITTER Plan of Treatment Health Maintenance Due Date [...] 08/29/2018 08/29/2017, 03/14/2017 Hemoglobin A1C 02/16/2023 08/16/2022 Lipid Panel 05/29/2024 05/29/2023, 05/0 07/2022, 01/09/2022, Additional history exists Influenza Vaccine (#1) 2024 9, 01/20/2018, 12/24/2016, Additional history exists DTaP/Tdap/Td Vaccine (3 - Td or Tdap) 03/12/2026 03/12/2016, 03/11/2016 Procedures Procedure Name Priority Date/Time Associated Diagnosis Comments POCT LIPID PANEL Routine 05/29/2023 2:00 PM DIESEL ENGINE I PIPE FITTER Mixed diabetic hyperlipidemia associated with type 2 diabetes mellitus (CMS/HCC) (HCC) HEMOGLOBIN A1C Routine 08/16/2022 9:59 AM CDT DIABETIC EYE EXAM Routine 08/29/2017 from Last 3 Months or Most Recently Relevant to Health Maintenance Results * POCT lipid panel (05/29/2023 2:00 PM DIESEL ENGINE I PIPE FITTER) Cholesterol, POC 164 mg/dL Comment:GLU = 107 HDL, POC 35 mg/dL Triglycerides, POC 143 mg/dL LDL Cholesterol POC 100 mg/dL Chol/HDL Ratio, POC 2.9 Non-HDL Cholesterol, POC 129 mg/dL Cholesterol Total, POC 164 mg/dL Capillary blood 05/29/2023 2 :00 PM DIESEL ENGINE I PIPE FITTER us Geoffrey Wilkins MD POINT OF CARE TEST [...] LAB BLOOD ORDERABLES Final Result [facility] [address] [place] [address] * Diabetic Eye Exam (08/29/2017) us Historical Provider HEALTH MAINTENANCE Edited Result - Final from Last 3 Months or Most Recently Relevant to Health Maintenance Insurance [employer] MEDICARE GOLD AETNA MEDICARE GOLD Care Teams Drywall Mechanic Relationship Specialty Start Date End Date Erick Caceres MD [address] [place] [address] PCP - General Emergency Medicine 09/23/19
--- OUTSIDE RECORDS SUMMARY | 2024-11-15 01:34 | XMS_ITS | Encounter Summary ---
Author Organization [facility] Address [address] [place] [address] Care Team Providers Care I&C Tech Name Role Phone Erick Hanna MD Primary Care Provider + [phone] Erick Caceres MD Primary Care Provide r Encounter Details Date Type Department Care Team (Late st Contact Info) Description 08/12/[address] [facility] Health Information Management [address] [place] [id number] Scanning, Provider Social History Tobacco Use Types Packs/Day Years Used Date Smoking Tobacco: Former Alcohol Use Standard Drinks/Week Comments No 0 (1 standard drink = 0.6 oz pur e alcohol) Comments Unknown Sex and Gender Information Value Date Recorded Sex Assigned at Not on file Legal Sex Female 3:39 AM SHANK SANDER Gender Identity Not on file Sexual Orientation Not on file documented as of this encounter Plan of Treatment Not on file documented as of this encounter Procedures Procedure Name Priority Date/Time Associated Diagnosis Comments CARDIOLOGY DOCUMENT SCAN 08/12/2017 documented in this encounter Results * Cardiology Document Scan (08/12/2017) Anatomical Region Laterality Modality Other us Provider Scanning CV CARDIAC SERVICES PROCEDURES Final Result documented in this encounter Visit Diagnoses Not on filedocumented in this encounter Care Teams I&C Tech Relationship Specialty Start Date End Date Erick Hanna MD PCP - General 07/13/16 09/22/19 Erick Caceres MD [address] [place] [address] PCP - General Emergency Medicine 09/23/19 documented as of this encounter
--- OUTSIDE RECORDS SUMMARY | 2024-11-15 01:34 | XMS_ITS | Referral Summary ---
Author Organization [facility] [address] Address [address] [place] [address] Care Team Providers Care Scada Operator Name Role Phone Erick Caceres MD Primary [...] a associated with type 2 diabetes mellitus ([facility]) 11/19/2017 Chronic diastolic heart failure [...] on file Legal Sex Female 3:39 AM STATOR TESTER Gender Identity Not on file Sexual Orientation Not on file Last Filed Vital Signs Vital Sign Reading Time Taken Comments Blood Pressure 112/70 05/29/2023 1:27 PM STATOR TESTER Pulse 94 05/29/2023 1:27 PM STATOR TESTER Temperature - - Respiratory Rate - - Oxygen Saturation 93% 05/29/2023 1:27 PM STATOR TESTER Inhaled Oxygen Concentration - - Weight 74.4 kg (164 lb) 05/29/2023 1:27 PM STATOR TESTER Height 160 cm (5' 3) 05/29/2023 1:27 PM STATOR TESTER Body Mass Index 29.05 05/29/2023 1:27 PM STATOR TESTER Plan of Treatment Not on file Procedures Procedure Name Priority Date/Time Associated Diagnosis Comments POCT LIPID PANEL Routine 05/29/2023 2:00 PM STATOR TESTER Mixed diabetic hyperlipidemia associated with type 2 diabetes mellitus (CMS/HCC) (HCC) HEMOGLOBIN A1C Routine 08/16/2022 9:59 AM CDT DIABETIC EYE EXAM Routine 08/29/2017 from Last 3 Months or Most Recently Relevant to Health Maintenance Results * POCT lipid panel (05/29/2023 2:00 PM STATOR TESTER) Cholesterol, POC 164 mg/dL Comment:GLU = 107 HDL, POC 35 mg/dL Triglycerides, POC 143 mg/dL LDL Cholesterol POC 100 mg/dL Chol/HDL Ratio, POC 2.9 Non-HDL Cholesterol, POC 129 mg/dL Cholesterol Total, POC 164 mg/dL Capillary blood 05/29/2023 2 :00 PM STATOR TESTER Geoffrey Wilkins MD POINT OF CARE TEST ORDER LAN Final Result * (ABNORMAL) Hemoglobin A1c (08/16/2022 9:59 AM CDT) Hgb A1C 6.7(H) <5.7 % of total Hgb [facility] Comment: For someone without known [...] Caceres MD LAB BLOOD ORDERABLES Final Result [facility] [address] [place] [address] * Diabetic Eye Exam (08/29/2017) Historical Provider HEALTH MAINTENANCE Edited Result - Final from Last 3 Months or Most Recently Relevant to Health Maintenance Insurance TNA MEDICARE GOLD AENA MEDICARE GOLD Care Teams Scada Operator Relationship Specialty Start Date End Date Erick Caceres MD [address] [place], [place] [phone] PCP - General Emergency Medicine 09/23/19
[2024-11-15 01:45] LABS: INR 1.0; Partial Thromboplastin Time 23.7 Seconds (22.3-36.8); Prothrombin Time 13.4 Seconds (11.1-14.7)
[2024-11-15 01:58] LABS: Anisocytosis 1+; Hypochromasia 1+
[2024-11-15 01:59] LABS: Helmet Cells 1+; Ovalocytes 1+; Poikilocytosis 2+
[2024-11-15 02:00] LABS: Acanthocytes 1+; Schistocytes Rare
[2024-11-15 02:03] LABS: Alanine Aminotransferase 14 U/L (6-35); Albumin Level 3.7 g/dL (3.5-5.1); Alkaline Phosphatase 113 U/L (38-126); Anion Gap 9 mmol/L (4-12); Aspartate Amino Transferase 25 U/L (14-36); Bilirubin,Total 0.3 mg/dL (0.2-1.3); Blood Urea Nitrogen 31 mg/dL (7-17); Calcium 9.2 mg/dL (8.4-10.2); Carbon Dioxide 25 mmol/L (22-30); Chloride 106 mmol/L (98-107); Estimated CRCL calculation 17 ml/min; Estimated Glomerular Filt Rate 20; Glucose 265 mg/dL (65-110); Lipase 326 U/L (23-300); Potassium 4.1 mmol/L (3.4-5.0); Sodium 140 mmol/L (137-145); Total Protein 6.7 g/dL (6.3-8.2)
[2024-11-15 02:09] LABS: NT Pro B Type Natriuretic Pept 1330 pg/mL (19.9-100); Troponin I 0.014 ng/mL (0.000-0.034)
[2024-11-15 02:16] VITALS: BP 151/60; PULSE 97; O2SAT 94
--- NOTE | 2024-11-15 03:00 | PC.NURSE ---
Patient reports pain resolved at this time and she is feeling better
--- NOTE | 2024-11-15 04:36 | ECG_ITS ---
Test Date: 2024-11-15 04:55:25 Measurements Intervals [place] Rate: 64 P: 91 OR: 161 QRS: 47 QRSD: 86 T: 108 QT: 425 QTc: 441 Interpretive Statements SINUS RHYTHM ST-T WAVE ABNORMALITY IN HIGH LATERAL LEADS- CONSIDER ISCHEMIA BASELINE ARTIFACT- I, II, III, AVR, AVL ABNORMAL ECG Compared to ECG 11/15/2024 01:16:29 HEART RATE HAS DECREASED POSSIBLE ISCHEMIA NOW PRESENT Electronically Signed On 11-15-2024 08:21:29 CDT by Binh Emerson D.O.
[2024-11-15 05:32] VITALS: PULSE 71; RESP 18
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
[2024-11-15 05:52] VITALS: BP 182/54; PULSE 63; RESP 18; O2SAT 98
[2024-11-15 05:52] LABS: Troponin I 0.029 ng/mL (0.000-0.034)
== END 2024-11-15 08:22 | disposition home or self-care (01) ==
PROVIDERS: Emergency Provider Emergency Medicine; PCP Emergency Medicine
DX: R07.89 Other chest pain (principal); J96.11 Chronic respiratory failure with hypoxia; E11.22 Type 2 diabetes mellitus with diabetic chronic kidney disease; I13.0 Hypertensive heart and chronic kidney disease with heart failure and stage 1 through stage 4 chronic kidney disease, or unspecified chronic kidney disease; I50.9 Heart failure, unspecified; N18.9 Chronic kidney disease, unspecified; E78.5 Hyperlipidemia, unspecified; E11.39 Type 2 diabetes mellitus with other diabetic ophthalmic complication; H42 Glaucoma in diseases classified elsewhere; I25.10 Atherosclerotic heart disease of native coronary artery without angina pectoris; I48.0 Paroxysmal atrial fibrillation; D64.9 Anemia, unspecified; M19.90 Unspecified osteoarthritis, unspecified site; Z95.5 Presence of coronary angioplasty implant and graft; Z86.16 Personal history of COVID-19; Z87.891 Personal history of nicotine dependence; Z86.711 Personal history of pulmonary embolism; Z90.81 Acquired absence of spleen; Z90.711 Acquired absence of uterus with remaining cervical stump; Z90.89 Acquired absence of other organs; Z79.82 Long term (current) use of aspirin; Z79.4 Long term (current) use of insulin; Z79.899 Other long term (current) drug therapy; Z79.84 Long term (current) use of oral hypoglycemic drugs
CPT/HCPCS: 36415; 71045; 80053; 83690; 83880; 84484; 85025; 85055; 85610; 85730; 93005; 99284